=== PATIENT | male | born 1990 | race Hispanic/Latino ===

== ENCOUNTER 2017-10-15 11:41 | Inpatient (IN) | payer OTHER, SELFPAY ==
[2017-10-15] MEDS ORDERED: Nitroglycerin 2% Ointment 1 INCH/1 GM Packet ONE (12:21)
[2017-10-15 12:39] LABS: #Basophils 0.1 thou/uL (0.0-0.2); #Eosinphils 0.2 thou/uL (0.0-0.7); #Lymphocytes 1.5 thou/uL (1.20-3.40); #Monocytes 0.7 thou/uL (0.11-0.59); #Neutrophils 10.7 thou/uL (1.40-6.50); %Eosinophils 1.8 % (0.0-10.0); %Lymphocytes 11.6 % (21.0-51.0); %Neutrophils 80.6 % (42.0-75.0); Hemoglobin 14.9 g/dL (14.0-18.0); Mean Corpuscular HGB CONC 35.2 g/dL (32.0-36.0); Mean Corpuscular Volume 85.1 fl (80.0-94.0); Mean Platelet Volume 9.8 fL (7.4-10.4); Platelet Count 273 thou/uL (130-400); RBC Distribution Width 11.5 % (11.5-14.5); Red Blood Cell (RBC) Count 4.97 mill/uL (4.70-6.10); White Blood Cell (WBC) Count 13.2 thou/uL (4.8-10.8)
--- NOTE | 2017-10-15 12:43 | RAD ---
CHEST 2 VIEWS: HISTORY: Cough. Dyspnea. FINDINGS: Cardiac silhouette is unremarkable. Pulmonary vasculature within normal limits. Very subtle patchy infiltrate projects over the right posterior lung base without obscuration of the hemidiaphragm. No significant pleural fluid. No evidence of pneumothorax. IMPRESSION: Subtle right posterior basilar infiltrate. Clinical correlation regarding other signs and symptoms o f right basilar pneumonitis is required. Please consider radiographic followup after medical treatme nt to evaluate for clearing. POS: [facility]
[2017-10-15 12:57] LABS: ALT (SGPT) 12 U/L (8-55); AST (SGOT) 16 U/L (5-34); Albumin 3.7 g/dL (3.5-5.0); Alkaline Phosphatase 98 U/L (40-150); Anion Gap 13 mmol/L (10-20); BUN (Urea Nitrogen) 18 mg/dL (8.9-20.6); Bilirubin, Total 0.9 mg/dL (0.2-1.2); CK (CPK) 427 U/L (30-200); Calc. Creatinine Clearance 0 mL/min (70-130); Calcium 8.6 mg/dL (7.8-10.44); Carbon Dioxide 22 mmol/L (22-29); Chloride 108 mmol/L (98-107); Estimated GFR-MDRD 27; Globulin 2.8 g/dL (2.4-3.5); Glucose 89 mg/dL (70-105); Lipase 51 U/L (8-78); Potassium 3.7 mmol/L (3.5-5.1); Protein, Total 6.5 g/dL (6.0-8.3); Sodium 139 mmol/L (136-145)
[2017-10-15 12:58] LABS: CKMB 1.4 ng/mL (0-6.6); Troponin I Less than 0.010 ng/mL (< 0.028)
[2017-10-15] MEDS ORDERED: niCARdipine 20MG In NaCl 0 MG/0 ML BAG ONE (13:08)
[2017-10-15] MEDS ORDERED: Labetalol HCl 100 MG/20 ML VIAL ONE (13:14)
[2017-10-15 15:18] VITALS: BMI 27.9
--- NOTE | 2017-10-15 15:19 | PDOC.FPRHP ---
- History of Present Illness Chief Complaint: CP, SOB History of Present Illness: Patient is a 27yo M with no PMH who recently got released from [facility] 3 months ago who presents with 5 day hx of productive cough with brown sputum, SOB, and pleuritic chest pain. He reports subjective fevers at home with chills and night sweats. He denies hemoptysis. He denies sick contacts and states he received all childhood vaccines. He also reports poor PO intake and 2-3 day hx of N/V but able to keep some liquids down. He reports urinating normally without hx of kidney disease. On arrival to outside facility had BP in 170's/ 130's and all other vs wnl. He has no hx of HTN but has mom with HTN. ED Course: He received 20mg Labetalol, 750mg Levaquin, 1 duoneb, 325mg ASA, 1L NS, and nitro paste in outside facility. They did a CXR that showed possible R basilar infiltrate. 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 - Review of Systems General: reports: fever/chills, weight/appetite/sleep changes, night sweats, fatigue Eyes: denies: eye pain, vision changes ENT: denies: nasal congestion, rhinorrhea Respiratory: reports: cough, shortness of breath Cardiovascular: reports: chest pain. denies: palpitation, edema Gastrointestinal: reports: nausea, vomiting. denies: diarrhea, constipation, abdominal pain Genitourinary: denies: incontinence, dysuria Skin: denies: rashes, lesions Musculoskeletal: denies: pain, tenderness Neurological: reports: other (reports MOLINA). denies: numbness, syncope Psychological: denies: anxiety, depression - Vital signs BP: 171/112 HR: 83 RR: 18 Tmax: 96.7 Pox: 99% on RA Wt: 90.8kg - Physical Exam Constitutional: NAD, awake, alert and oriented, well developed HEENT: normocephalic and atraumatic, EOMI, grossly normal vision, grossly normal hearing, normal nasal mucosa, oropharynx clear -HEENT: dry MM Neck: supple, no LAD Chest: no-tender to palpation Heart: RRR, normal S1/S2, no murmurs/rubs/gallops Lungs: no respiratory distress, good air movement, no wheezing -Lungs: very slight RLL crackles with no egophany Abdomen: soft, non-tender, bowel sounds present Musculoskeletal: normal structure, ROM grossly normal Neurological: no focal deficit Skin: no rash/lesions, capillary refill <2 seconds -Skin: tattoos that cover >50% of his body surface, no erythema noticed or recent tattoos Heme/Lymphatic: no purpura, no petechia Psychiatric: normal mood and affect FMR H&P: Results - Labs Result Diagrams: 10/16/17 04:36 10/16/17 04:36 Lab results: WBC 13.2 thou/uL (4.8-10.8) H 10/15/17 12:30 Hgb 14.9 g/dL (14.0-18.0) 10/15/17 12:30 Hct 42.3 % (42.0-52.0) 10/15/17 12:30 MCV 85.1 fl (80.0-94.0) 10/15/17 12:30 Plt Count 273 thou/uL (130-400) 10/15/17 12:30 Neutrophils % 80.6 % (42.0-75.0) H 10/15/17 12:30 Sodium 139 mmol/L (136-145) 10/15/17 12:30 Potassium 3.7 mmol/L (3.5-5.1) 10/15/17 12:30 Chloride 108 mmol/L (98-107) H 10/15/17 12:30 Carbon Dioxide 22 mmol/L (22-29) 10/15/17 12:30 BUN 18 mg/dL (8.9-20.6) 10/15/17 12:30 Creatinine 2.79 mg/dL (0.7-1.3) H 10/15/17 12:30 Glucose 89 mg/dL (70-105) 10/15/17 12:30 Lactic Acid 1.4 mmol/L (0.5-2.2) 10/15/17 12:30 Calcium 8.6 mg/dL (7.8-10.44) 10/15/17 12:30 Total Bilirubin 0.9 mg/dL (0.2-1.2) 10/15/17 12:30 AST 16 U/L (5-34) 10/15/17 12:30 ALT 12 U/L (8-55) 10/15/17 12:30 Alkaline Phosphatase 98 U/L (40-150) 10/15/17 12:30 Creatine Kinase 427 U/L (30-200) H 10/15/17 12:30 CK-MB (CK-2) 1.4 ng/mL (0-6.6) 10/15/17 12:30 B-Natriuretic Peptide 74.2 pg/mL (0-100) 10/15/17 12:30 Serum Total Protein 6.5 g/dL (6.0-8.3) 10/15/17 12:30 Albumin 3.7 g/dL (3.5-5.0) 10/15/17 12:30 Lipase 51 U/L (8-78) 10/15/17 12:30 - Radiology Interpretation Chest x-ray Status: image reviewed by me, report reviewed by me Additional comment: R basilar infiltrate FMR H&P: A/P - Problem List (1) Community acquired pneumonia Current Visit: Yes Status: Acute Code(s): J18.9 - PNEUMONIA, UNSPECIFIED ORGANISM (2) Hypertensive urgency Current Visit: Yes Status: Acute Code(s): I16.0 - HYPERTENSIVE URGENCY (3) Cannabis abuse Current Visit: Yes Status: Acute Code(s): F12.10 - CANNABIS ABUSE, UNCOMPLICATED (4) History of tobacco abuse Current Visit: Yes Status: Acute Code(s): Z87.891 - PERSONAL HISTORY OF NICOTINE DEPENDENCE (5) Acute renal failure Current Visit: Yes Status: Acute - Plan CAP - CXR with R basilar infiltrate, subjective fevers at home, ill appearing - procal pending - s/p 1 dose Levaquin in outside ED, will continue Levaquin q24h - blood cx pending - duonebs and O2 prn although has not been hypoxic and is in no distress at this time - s/p 1L NS, will give 1 more L and then LR at 130 Hypertensive Urgency - initially 170's/130's, has a MOLINA at the time of exam but received nitro paste - Hydralazine prn Acute Renal Failure - Calculate FeUrea - IVF - trend Cannabis Abuse - UDS pending - encourage cessation Tobacco Use - quit 2 weeks ago - could have underlying lung disease Hx of incarceration - will evaluate for TB, HIV, HepB, and RPR VTE PPx: SCD Code status: Full Disposition/LOS: Dispo: likely 2 days, d/c once able to transition to PO abx and BP controlled FMR H&P: Upper Level - Pertinent history 27HM presenting to outside ER with 5 day history of cough, subjective fever, decreased PO intake, and malaise. Initially began as a cough that did not improve with cough medicine. He occasionally coughs up green sputum but denies hemoptysis. Endorses two days of nausea with 2-3 episodes of NBNB emesis just prior to admission. Upon ROS, he endorses pain with deep inspiration and headache. Denies sore throat, nasal congestion, chest pain, palpitations. He has no significant PMH, PSH, allergies, and takes no medications at home. 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 He also recently finished a 7 year [facility] sentence in July of 2017. No history of HIV or IV drug use. Evaluated at outside ER and given 1L NS bolus, 750mg Levofloxacin, 20mg of Lopressor, 325 ASA, Duoneb x 1, and NTG paste - Pertinent findings Vitals: 171/112 mmHg , 83 bpm, 18 breaths/m, 99% on RA, 96.7F CXR shows RLL infiltrate Gen: A&Ox3 CV: RRR, no murmurs Resp: CTA-B GI: soft, non tender, non distended skin: dry mucous membranes, normal skin turgor WBC: 14.2 Cr: 2.79 LA: 1.4 CK: 427 - Plan Date/Time: 10/15/17 1518 1. RLL CAP: leukocytosis and worsening clinical course warrants admission for IV antibiotics. CXR shows right basilar infiltrate. Will order a procalcitonin in addition. Blood cultures pending. Continue levofloxacin q24h. Do not expect respiratory issues but Duonebs and oxygen available PRN. He appears dry on admission- bolus another liter of normal saline and continue with maintenance fluids of LR due to hyperchloremia. History of recent incarceration warrants PPD , HIV, RPR, and Hep panel. 2. Hypertensive Urgency: given nitro paste and ASA at outside ER. He denies MOLINA, CP, changes in vision. Pressure has normalized upon recheck. Will have hydralazine available PRN 3. Acute Renal Failure: no personal or family history of kidney disease. He is voided clear urine with no dysuria. Denies drug use. BUN/Cr ratio suggests intrinsic or postrenal etiology. However, given dry MM and little PO intake with vomiting for the last several days he will be bolused another liter and put on maintenance fluids. Fe urea and UDS pending. Continue to trend with daily BMPs. VTE PPx: SCD Code status: Full I, Channing Etienne, have evaluated this patient and agree with findings/plan as outlined by graduate internship resident. Pertinent changes/additions are listed here. Attending Addendum - Attending Addendum Date/Time: 10/15/172016 I personally evaluated the patient and discussed the management with Dr. Bacon. I agree with the History, Examination, Assessment and Plan documented above with any addition or exceptions noted below. The patient presents with a 5 day history of fever, chills, night sweats and shortness of breath. He was noted to have a pneumonia on CXR and creatinine over 2. He will be treated with levaquin, renally dosed and IV fluids. We will check FeNa, PPD, HIV and hepatitis panel. Will check procalcitonin. Pt initially hypoxic at outside ER. Will monitor respiratory status.
[2017-10-15] MEDS ORDERED: Ondansetron ODT 4 MG TAB PO PRN (15:40)
[2017-10-15] MEDS ORDERED: Acetaminophen 325 MG TAB PO PRN (15:40)
[2017-10-15] MEDS ORDERED: Sodium Chloride 0.9% 1,000 ML IV SCH ×2 (15:45→16:15)
[2017-10-15] MEDS: Lactated Ringer's 1,000 ML IV SCH (16:34)
[2017-10-15 17:37] LABS: Troponin I Less than 0.010 ng/mL (< 0.028)
[2017-10-15 17:52] LABS: Syphilis Antibody Nonreactive (Nonreactive); Syphilis Antibody Index 0.02 S/CO (<1.00 Non-Reactive)
[2017-10-15 17:55] LABS: HBCM Index 0.08 S/CO (0-0.79); HBSAB Concentration 5.59 mIU/mL; HBSAg Index 0.32 S/CO (0-0.99); HIV (1/2) Antibody/Antigen Non-Reactive (NonReactive); HIV 1/2 INDEX 0.14 S/CO (<1.00); Hep B Surf AB Non-Reactive (NonReactive); Hep B Surf Ag Non-Reactive S/CO (NonReactive); Hepatitis B Core IGM Abs Non-Reactive (NonReactive)
[2017-10-15] MEDS ORDERED: Nitroglycerin 2% Ointment 1 INCH/1 GM Packet TOP SCH (18:00)
[2017-10-15 18:02] LABS: Bilirubin Negative (Negative); Blood, Urine Small (Negative); Clarity CLEAR (Clear); Glucose, Urine (Dipstick) Negative (Negative); Leukocyte Negative (Negative); Nitrite Negative (Negative); Protein, Urine (Dipstick) 100 mg/dL (Neg-Trace); Specific Gravity, Urine 1.009 (1.002-1.036)
[2017-10-15 18:05] LABS: Bacteria/HPF None Seen HPF (None Seen); Hyaline Casts/LPF 0-3 HYALINE CAST LPF (0-3 Hyaline); Pathc Cast-AUWi Flag 0.29 (0-2.49); Squamous Epithelial None Seen HPF (0-3); WBC/HPF 0-3 HPF (0-3)
[2017-10-15 18:11] LABS: Amphetamine Not Detected (NotDetected); Barbiturates Screen Not Detected (NotDetected); Benzodiazepine Screen Detected (NotDetected); Cocaine Metabolite Screen Not Detected (NotDetected); Medtox Control Line Valid? VALID (VALID); Medtox Reader # READER 1; Methadone Not Detected (NotDetected); Methamphetamine Not Detected (NotDetected); Opiate Screen Detected (NotDetected); Osmolality, Urine 293 mOsm/kg (300-900); Oxycodone Screen Not Detected (NotDetected); Phencyclidine (PCP) Not Detected (NotDetected); THC/Cannabinoid Screen Detected (NotDetected); Tricyclic Screen Not Detected (NotDetected)
[2017-10-15 18:25] LABS: Creatinine, Urine 57.29 mg/dL (63-166)
[2017-10-15 18:26] LABS: Urea Nitrogen, Random Urine 224 mg/dl
[2017-10-15] MEDS: hydrALAZINE 20 MG/ML VIAL SLOW IVP PRN (20:29)
[2017-10-15 21:29] LABS: Troponin I Less than 0.010 ng/mL (< 0.028)
[2017-10-16] MEDS: Lactated Ringer's 1,000 ML IV SCH ×4 (01:50→21:37)
[2017-10-16 05:04] LABS: #Basophils 0.1 thou/uL (0.0-0.2); #Eosinphils 0.3 thou/uL (0.0-0.7); #Monocytes 0.6 thou/uL (0.11-0.59); #Neutrophils 4.8 thou/uL (1.40-6.50); %Basophils 0.8 % (0.0-1.0); %Eosinophils 4.2 % (0.0-10.0); %Lymphocytes 25.8 % (21.0-51.0); %Monocytes 7.4 % (0.0-10.0); %Neutrophils 61.8 % (42.0-75.0); Hemoglobin 13.8 g/dL (14.0-18.0); Mean Corpuscular HGB CONC 33.2 g/dL (32.0-36.0); Mean Corpuscular Hemoglobin 29.5 pg (27.0-31.0); Mean Corpuscular Volume 88.9 fl (80.0-94.0); Mean Platelet Volume 8.2 fL (7.4-10.4); Platelet Count 260 thou/uL (130-400); RBC Distribution Width 12.2 % (11.5-14.5); Red Blood Cell (RBC) Count 4.69 mill/uL (4.70-6.10); White Blood Cell (WBC) Count 7.7 thou/uL (4.8-10.8)
[2017-10-16 05:25] LABS: Anion Gap 10 mmol/L (10-20); BUN (Urea Nitrogen) 18 mg/dL (8.9-20.6); Calc. Creatinine Clearance 53 mL/min (70-130); Calcium 8.2 mg/dL (7.8-10.44); Carbon Dioxide 27 mmol/L (22-29); Chloride 108 mmol/L (98-107); Estimated GFR-MDRD 29; Glucose 77 mg/dL (70-105); Potassium 3.7 mmol/L (3.5-5.1); Sodium 141 mmol/L (136-145)
--- NOTE | 2017-10-16 06:53 | PDOC.FM ---
- Subjective Subjective: Patient feeling much better this morning. No need for o2 overnight. He reports tolerating PO intake well and urinating normally. Overnight BP continued to be high and received one dose of prn Hydralazine. - Objective MAR Reviewed: Yes Vital Signs & Weight: Vital Signs (12 hours) Temp Pulse Resp BP Pulse Ox 10/16/17 04:00 97.8 F 70 16 167/103 H 77 L 10/16/17 00:00 165/105 H 10/15/17 20:29 60 10/15/17 20:16 98.0 F 60 16 100 I&O: 10/14/17 10/15/17 10/16/17 06:59 06:59 06:59 Intake Total 2049 Result Diagrams: 10/16/17 04:36 10/16/17 04:36 <Winnie Bcaon - Last Filed: 10/16/17 07:42> - Objective Vital Signs & Weight: Vital Signs (12 hours) Temp Pulse Resp BP Pulse Ox 10/16/17 12:18 97.8 F 71 17 181/117 H 99 10/16/17 10:45 78 10/16/17 10:12 70 10/16/17 07:35 97.8 F 78 16 96 10/16/17 04:00 97.8 F 70 16 167/103 H 77 L I&O: 10/15/17 10/16/17 10/17/17 06:59 06:59 06:59 Intake Total 2049 Result Diagrams: 10/16/17 04:36 10/16/17 04:36 <Елена Hdz - Last Filed: 10/16/17 15:37> Phys Exam - Physical Examination Constitutional: NAD HEENT: moist MMs, oral pharynx no lesions Respiratory: no wheezing, no rales, clear to auscultation bilateral Cardiovascular: RRR, no significant murmur Gastrointestinal: soft, non-tender, no distention Musculoskeletal: no edema, pulses present Neurological: moves all 4 limbs Psychiatric: A&O x 3 <Winnie Bacon - Last Filed: 10/16/17 07:42> Dx/Plan (1) Community acquired pneumonia Code(s): J18.9 - PNEUMONIA, UNSPECIFIED ORGANISM Status: Acute (2) Hypertensive urgency Code(s): I16.0 - HYPERTENSIVE URGENCY Status: Acute (3) Cannabis abuse Code(s): F12.10 - CANNABIS ABUSE, UNCOMPLICATED Status: Acute (4) History of tobacco abuse Code(s): Z87.891 - PERSONAL HISTORY OF NICOTINE DEPENDENCE Status: Acute (5) Acute renal failure Status: Acute - Plan Plan: CAP - CXR with R basilar infiltrate, subjective fevers at home - procal 0.05, suggesting likely viral source, d/c Abx - blood cx pending - duonebs and O2 prn although has not been hypoxic and is in no distress at this time Hypertensive Urgency - initially 170's/130's - refractory to prns, concern for intrinsic renal disease - no Hx of HTN - continue to monitor Acute Renal Failure - FeNa and FeUrea suggest intrinsic disease - renal u/s pending - 24h urine pending with proteinuria and blood in UA - trend Drug Abuse - UDS positive for opiods, cannabis, and benzodiazepines - denies IV drug use - HIV, RPR and HepB neg Tobacco Use - quit 2 weeks ago - continue cessation Hx of incarceration - PPD pending VTE PPx: SCD Code status: Full <Winnie Bacon - Last Filed: 10/16/17 07:42> (1) Community acquired pneumonia Code(s): J18.9 - PNEUMONIA, UNSPECIFIED ORGANISM Status: Acute (2) Hypertensive urgency Code(s): I16.0 - HYPERTENSIVE URGENCY Status: Acute (3) Cannabis abuse Code(s): F12.10 - CANNABIS ABUSE, UNCOMPLICATED Status: Acute (4) History of tobacco abuse Code(s): Z87.891 - PERSONAL HISTORY OF NICOTINE DEPENDENCE Status: Acute (5) Acute renal failure Status: Acute <Елена Hdz - Last Filed: 10/16/17 15:37> Attending Addendum - Attending Addendum Date/Time: 10/16/17 [id number] I personally evaluated the patient and discussed the management with Dr. Bacon. I agree with the History, Examination, Assessment and Plan documented above with any addition or exceptions noted below. The patient's procal was low. Antibiotics are being discontinued. Pt's breathing is back to normal. His renal function has not significantly improved with fluids. Cr 2.6. Urine studies suggestive of intrinsic renal disease. Getting renal u/s, consulting nephrology, checking additional labs to work-up renal disease. Adjusting bp meds for hypertensive urgency. <Елена Hdz - Last Filed: 10/16/17 15:37>
--- NOTE | 2017-10-16 09:24 | ULT ---
RENAL SONOGRAM WITH DUPLEX EVALUATION: HISTORY: Vascular disease. Renal failure, acute. FINDINGS: Right kidney is 9.6 cm and left is 8.4 cm. Cysts arising from the right kidney measure up to 1.2 cm greatest diameter. No hydronephrosis. The urinary bladder is decompressed and incompletely evaluate d. Good color and spectral Doppler flow are present within the abdominal aorta and renal arteries withou t abnormally elevated peak systolic velocities. Resistive index associated with the arcuate arteries of the right kidney is 0.9 and the left kidney 0 .8. IMPRESSION: 1. No evidence of urinary tract obstruction. No sonographic evidence of renal artery stenosis. 2. Elevated resistive indices associated with the renal arteries is nonspecific, often seen with chr onic medial renal disease. POS: [facility]
[2017-10-16] MEDS: hydrALAZINE 20 MG/ML VIAL SLOW IVP PRN (10:12)
[2017-10-16] MEDS ORDERED: Labetalol HCl 100 MG/20 ML VIAL SLOW IVP PRN (10:21)
[2017-10-16] MEDS ORDERED: NIFEdipine XL 30 MG TAB PO SCH ×2 (10:30)
[2017-10-16] MEDS ORDERED: Labetalol HCl 100 MG/20 ML VIAL SLOW IVP SCH (10:45)
--- NOTE | 2017-10-16 12:10 | RAD ---
TWO VIEWS CHEST: HISTORY: A 27-year-old with a history of opacity, possible pneumonia. FINDINGS: PA and lateral views of the chest were obtained on 10/16/17. Comparison is made to a previous exam fr om 10/15/17. Two views chest demonstrate the lungs to be well aerated. No evidence of active intrathoracic diseas e is seen. No evidence of effusions, pneumonia, or pneumothorax seen. IMPRESSION: Normal 2 views chest with no evidence of acute intrathoracic abnormality seen. No definite evidence of pneumonia seen. Previously noted opacities appear to have improved. POS: [facility]
[2017-10-16 12:25] LABS: Complement-C4 25.5 mg/dL (15-53)
--- NOTE | 2017-10-16 16:19 | CON ---
DATE OF CONSULTATION: 10/16/2017 NEPHROLOGY CONSULTATION REASON FOR CONSULTATION: Elevated creatinine and hyponatremia. HISTORY OF PRESENT ILLNESS: This is a very pleasant 27-year-old gentleman who presented to the [facility] with increasing shortness of breath, nausea, vomiting, and leg swelling for the last 3-4 days. T he patient's creatinine was 2.6. No prior creatinine was available. The patient has no known kidney disease. Denies any NSAID or any other nephrotoxic medications. The patient's creatinine was 2.79 on admission and decreased to 2.6 with hydration. PAST MEDICAL HISTORY: None. SOCIAL ECONOMIC HISTORY: Positive for drug use. FAMILY HISTORY: Negative for ESRD. ALLERGIES: Reviewed. HOME MEDICATIONS: Reviewed. REVIEW OF SYSTEMS: Fifteen 10-point review of systems was performed and negative except positives no carlos above. General: Weakness-. Head: Headache-. Neck: No swelling or lumps. Nose: No epistaxis or dischar ge. Eyes: No diplopia or pain. Respiratory: Dyspnea-. Cardiovascular: Chest pain-. Gastrointes tinal: Nausea-. Genitourinary/Gynecology: Hematuria-. Musculoskeletal: No joint pain. Neuropsyc hiatric Systems: No suicidal ideation. No ideation. Skin: Denies any rash or ulcer. Constitution al: No fever or chills. PHYSICAL EXAMINATION: GENERAL: Patient is awake, alert. VITAL SIGNS: Afebrile, pulse 70, breathing at 16, blood pressure is 165/105. GENERAL APPEARANCE AND MENTAL STATUS: Fair. HEAD/NECK: Normocephalic. Atraumatic. EYES: EOMI. No deformity. EARS: Clear. No ulcers. NOSE: Intact. No lesions. MOUTH: Clear. No discharge. THROAT: Clear. No exudate. LUNGS: Clear. No crackles. CARDIAC: S1, S2. No rub. ABDOMEN: Benign. BS+. GENITALIA/RECTUM: Canas absent. BACK/EXTREMITIES: Edema 0+ Ulcer- NEUROLOGICAL: Alert and motor intact. SKIN: Rash- Bruise- LYMPHATICS: Edema- Ulcer- LABORATORY DATA: Creatinine 2.6. Urine protein present, blood present. Renal imaging showed chroni c kidney disease. ASSESSMENT AND RECOMMENDATIONS: 1. Acute kidney injury with chronic kidney disease, etiology unclear. I will order a serological te sting for glomerulonephritis and proteinuria. A 24-hour urine protein in progress. 2. Hypertension. Would recommend decreasing IV fluid and increase nifedipine to 60 mg daily. No in dication for dialysis at this time.
[2017-10-16] MEDS ORDERED: Lactated Ringer's 1,000 ML IV SCH (22:45)
[2017-10-17 05:07] LABS: #Basophils 0.1 thou/uL (0.0-0.2); #Eosinphils 0.5 thou/uL (0.0-0.7); #Lymphocytes 2.4 thou/uL (1.20-3.40); #Monocytes 0.6 thou/uL (0.11-0.59); #Neutrophils 4.7 thou/uL (1.40-6.50); %Basophils 0.7 % (0.0-1.0); %Eosinophils 5.6 % (0.0-10.0); %Lymphocytes 29.2 % (21.0-51.0); %Monocytes 6.9 % (0.0-10.0); %Neutrophils 57.7 % (42.0-75.0); Hemoglobin 14.3 g/dL (14.0-18.0); Mean Corpuscular HGB CONC 34.4 g/dL (32.0-36.0); Mean Corpuscular Hemoglobin 30.5 pg (27.0-31.0); Mean Corpuscular Volume 88.8 fl (80.0-94.0); Mean Platelet Volume 8.5 fL (7.4-10.4); Platelet Count 254 thou/uL (130-400); RBC Distribution Width 12.2 % (11.5-14.5); White Blood Cell (WBC) Count 8.1 thou/uL (4.8-10.8)
[2017-10-17 05:12] LABS: Anion Gap 11 mmol/L (10-20); BUN (Urea Nitrogen) 19 mg/dL (8.9-20.6); Calc. Creatinine Clearance 57 mL/min (70-130); Calcium 8.3 mg/dL (7.8-10.44); Carbon Dioxide 24 mmol/L (22-29); Chloride 106 mmol/L (98-107); Estimated GFR-MDRD 31; Glucose 109 mg/dL (70-105); Potassium 3.4 mmol/L (3.5-5.1); Sodium 138 mmol/L (136-145)
--- NOTE | 2017-10-17 06:21 | PDOC.FM ---
- Subjective Subjective: Patient reports he feels all better in regard to his respiratory infection. Despite that, he continues to have elevated BP into the 160's/100's. He denies any sx of elevated BP. No N/V, MOLINA, dizziness, change in vision, and no change in urination. - Objective MAR Reviewed: Yes Vital Signs & Weight: Vital Signs (12 hours) Temp Pulse Resp BP Pulse Ox 10/17/17 04:00 98.1 F 72 20 154/103 H 98 10/16/17 23:43 98.6 F 78 20 136/95 H 98 10/16/17 20:00 98.5 F 82 20 157/102 H 98 I&O: 10/15/17 10/16/17 10/17/17 06:59 06:59 06:59 Intake Total 2049 412 Output Total 3650 Balance 2049 47 Result Diagrams: 10/17/17 04:33 10/17/17 04:33 Phys Exam - Physical Examination Constitutional: NAD HEENT: moist MMs Respiratory: no wheezing, no rales, clear to auscultation bilateral Cardiovascular: RRR, no significant murmur Gastrointestinal: soft, non-tender trace edema Neurological: moves all 4 limbs Psychiatric: A&O x 3 Skin: cap refill <2 seconds Dx/Plan (1) Community acquired pneumonia Code(s): J18.9 - PNEUMONIA, UNSPECIFIED ORGANISM Status: Acute (2) Hypertensive urgency Code(s): I16.0 - HYPERTENSIVE URGENCY Status: Acute (3) Cannabis abuse Code(s): F12.10 - CANNABIS ABUSE, UNCOMPLICATED Status: Acute (4) History of tobacco abuse Code(s): Z87.891 - PERSONAL HISTORY OF NICOTINE DEPENDENCE Status: Acute (5) Acute renal failure Status: Acute - Plan Plan: Hypertensive Urgency - initially 170's/130's now 150's/100's - increase Nifedipine to 60mg daily - refractory to prns, concern for intrinsic renal disease - no Hx of HTN - continue to monitor Acute Renal Failure - FeNa and FeUrea suggest intrinsic disease - renal u/s wnl - 24h urine pending with proteinuria and blood in UA - Cr 2.65, 2.46 - antiGBM, ANCA studies, TANO, and serum/urine IEP studies pending - consider toxic exposure with + UDS although does not appear to be ATN - nephro on the case, appreciate recs CAP, improving - CXR with R basilar infiltrate, subjective fevers at home - repeat CXR with no PNA - procal 0.05, suggesting likely viral source, continue supportive care - blood cx NGTD Hypokalemia - replace and recheck Drug Abuse - UDS positive for opiods, cannabis, and benzodiazepines - denies IV drug use - HIV, RPR and HepB neg Tobacco Use - quit 2 weeks ago - continue cessation Hx of incarceration - PPD pending VTE PPx: SCD Code status: Full Dispo: likely d/c once diagnosis is made in regard to kidney failure, treatment plan can be assessed, and blood pressures are wnl
[2017-10-17] MEDS ORDERED: Potassium Chloride 20 MEQ TAB PO SCH (06:30)
[2017-10-17] MEDS ORDERED: NIFEdipine XL 60 MG TAB PO SCH (09:00)
[2017-10-17] MEDS ORDERED: NIFEdipine XL 30 MG TAB PO SCH (09:00)
[2017-10-17] MEDS ORDERED: Tuberculin PPD 0.1 ML VIAL I-DERMAL SCH (09:30)
[2017-10-17 09:44] LABS: ANA Symphony (Qualitative) Negative (Negative); EliA Vaculitis New Method **** NEW METHOD ****; Glomerular Basemt Membrane Ab Less than 1.9 EliAU/mL (<7 Negative); dsDNA IgG Antibody 0.9 IU/mL (<10 Negative)
[2017-10-17 10:26] LABS: Collection Duration 24 hrs; Urine Total Volume 4550 mL (800-1800)
[2017-10-17 10:45] LABS: Protein - 24 Hr 5096 mg/24 hr (Less than 300); Protein, Urine 112 mg/dL (1-14)
[2017-10-17 11:28] LABS: Hep C IgG Ab Non-Reactive (NonReactive); Hep C Index 0.06 S/CO (0-0.79)
[2017-10-17 13:00] VITALS: TEMP 98
[2017-10-17] MEDS ORDERED: Carvedilol 6.25 MG TAB PO SCH ×2 (13:15→17:00)
[2017-10-17 14:54] VITALS: BP 153/101
--- NOTE | 2017-10-17 15:29 | ADD-PRG ---
ADDENDUM This is an addendum to the note of Dr. Winnie Bacon. Mr. Vásquez is a pleasant 27-year-old male who was admitted initially with a possible commun ity-acquired pneumonia which is likely more consistent with a viral pneumonia. He was also having el evations of blood pressure and CKD. His CKD is currently being worked up by Dr. Nelson and may be rela carlos to Mr. Vásquez's hypertension. In the event, clinically he feels much better and will likely be discharged later today or tomorrow. We will continue to monitor and treat his blood pressure as an o utpatient and have emphasized the importance of followup.
--- NOTE | 2017-10-18 03:38 | PRG ---
DATE OF SERVICE: 10/17/2017 SUBJECTIVE: Patient was seen and examined at bedside and overnight events noted. Patient denies any shortness of breath or chest pain or palpitation. No history of nausea or vomiting or diarrhea or f ever or chills or cramps. OBJECTIVE: GENERAL: This is a well-built male in no apparent distress. VITAL SIGNS: , blood pressure 153/101. HEENT: Atraumatic, normocephalic. Oral mucosa is moist. NECK: Supple. CARDIOVASCULAR: S1, S2 heard. Rate and rhythm regular. RESPIRATORY: Clear to auscultation. GASTROINTESTINAL: Abdomen is soft. MUSCULOSKELETAL: No tenderness. No edema. DERMATOLOGIC: No skin rash. NEUROLOGIC: Alert and awake and oriented x3. No focal neurologic deficits. Moving all the extremit ies. PSYCHIATRIC: Mood and affect normal. LABORATORY DATA: Potassium is 3.4, BUN is 19, creatinine is 2.4. Urine 24-hour had 5 grams of prote in. ASSESSMENT AND PLAN: 1. Acute kidney injury, most likely chronic kidney disease versus acute kidney injury. 2. Proteinuria. New onset, newly diagnosed, need a biopsy, but will wait for a few weeks to monitor the progress of acute kidney injury. Avoid aspirin. 3. Hypertension. We will add Coreg. 4. Edema, controlled. The patient needs workup for proteinuria, so far is negative. SPEP is pending. Follow up with Dr. Vivienne nova in 1 week and arrange for biopsy once seen as outpatient. Await for acute kidney injuries in 2-3 weeks and need to repeat urine studies and follow up results of SPEP and awaiting biopsy. We will f jessi. The patient was advised to follow up with Dr. Nelson in the clinic.
[2017-10-18 14:22] LABS: IgA - Total IgA (Sendout) 427 mg/dL (90-386); Immunoglobulin - G (Sendout) 706 mg/dL (700-1600); Immunoglobulin - M (Sendout) 100 mg/dL (20-172)
[2017-10-19 15:25] LABS: Cytoplasmic (C-ANCA) <1:20 titer (Neg:<1:20); Myeloperoxidase AutoAbs <9.0 U/mL (0.0-9.0); Perinuclear (P-ANCA) <1:20 titer (Neg:<1:20); Proteinase-3 AutoAbs Less than 3.5 U/mL (0.0-3.5)
[2017-10-19 15:25] LABS: Cytoplasmic (C-ANCA) <1:20 titer (Neg:<1:20); Perinuclear (P-ANCA) <1:20 titer (Neg:<1:20)
== END 2017-10-17 16:06 | disposition home or self-care (01) | DRG 194 ==
LOC: SCSER 11:41 → 2NO 14:34
PROVIDERS: ADMIT Family Medicine; ATTEND Family Medicine
DX: J18.9 Pneumonia, unspecified organism (principal); N17.9 Acute kidney failure, unspecified; N18.9 Chronic kidney disease, unspecified; R80.9 Proteinuria, unspecified; R60.9 Edema, unspecified; I16.0 Hypertensive urgency; F12.10 Cannabis abuse, uncomplicated; Z87.891 Personal history of nicotine dependence; I12.9 Hypertensive chronic kidney disease with stage 1 through stage 4 chronic kidney disease, or unspecified chronic kidney disease
CPT/HCPCS: 36415; 71046; 76700; 76770; 80048; 80053; 80306; 81003; 81015; 82553; 82570; 83516; 83520; 83605; 83690; 83880; 83930; 83935; 84145; 84156; 84300; 84484; 84540; 85025; 86038; 86160; 86225; 86256; 86334; 86335; 86480; 86705; 86706; 86780; 86803; 87040; 87340; 87389; 93005; 96361; 96365; 96375; 96376; A4216; J0360; J1956; J7620; Q0162

== ENCOUNTER 2017-10-30 20:42 | Inpatient (IN) | payer SELFPAY ==
[2017-10-30 21:16] LABS: #Basophils 0.1 thou/uL (0.0-0.2); #Eosinphils 0.3 thou/uL (0.0-0.7); #Lymphocytes 1.7 thou/uL (1.20-3.40); #Monocytes 0.5 thou/uL (0.11-0.59); #Neutrophils 6.3 thou/uL (1.40-6.50); %Basophils 1.1 % (0.0-1.0); %Eosinophils 3.2 % (0.0-10.0); %Lymphocytes 18.7 % (21.0-51.0); %Monocytes 5.8 % (0.0-10.0); %Neutrophils 71.2 % (42.0-75.0); Mean Corpuscular HGB CONC 33.1 g/dL (32.0-36.0); Mean Corpuscular Hemoglobin 28.7 pg (27.0-31.0); Mean Corpuscular Volume 86.8 fL (78.0-98.0); Platelet Count 296 thou/uL (130-400); RBC Distribution Width 12.2 % (11.5-14.5); Red Blood Cell (RBC) Count 5.24 mill/uL (4.70-6.10); White Blood Cell (WBC) Count 8.9 thou/uL (4.8-10.8)
[2017-10-30 21:33] LABS: ALT (SGPT) 13 U/L (8-55); AST (SGOT) 14 U/L (5-34); Albumin 3.8 g/dL (3.5-5.0); Alkaline Phosphatase 97 U/L (40-150); Anion Gap 13 mmol/L (10-20); BUN (Urea Nitrogen) 23 mg/dL (8.9-20.6); Bilirubin, Total 0.7 mg/dL (0.2-1.2); Calc. Creatinine Clearance 0 mL/min (70-130); Calcium 8.7 mg/dL (7.8-10.44); Carbon Dioxide 22 mmol/L (22-29); Chloride 106 mmol/L (98-107); Estimated GFR-MDRD 25; Glucose 144 mg/dL (70-105); Potassium 3.8 mmol/L (3.5-5.1); Protein, Total 6.8 g/dL (6.0-8.3); Sodium 137 mmol/L (136-145)
[2017-10-30 21:59] LABS: Troponin I Less than 0.010 ng/mL (< 0.028)
[2017-10-30] MEDS ORDERED: Labetalol HCl 100 MG/20 ML VIAL ONE (22:41)
[2017-10-30] MEDS ORDERED: Acetaminophen 500 MG TAB ONE (22:41)
--- NOTE | 2017-10-30 22:49 | CT ---
CT BRAIN WITHOUT CONTRAST: History: Syncope. Headache. Nausea. Decreased sensation to the right lower extremity and left side of the face. FINDINGS: Comparison made with exam of 07-07-12. No evidence of acute infarct, hemorrhage, midline shift, or abnormal extraaxial fluid collections are seen. The ventricular size is normal and the basilar cisterns patent. The bony calvarium is intact. The visualized paranasal sinuses and mastoid air cells are well aerated. IMPRESSION: No CT evidence of acute intracranial process. POS: [facility]
[2017-10-30 22:55] LABS: Bilirubin Negative (Negative); Blood, Urine Small (Negative); Clarity CLEAR (Clear); Glucose, Urine (Dipstick) Negative (Negative); Leukocyte Negative (Negative); Nitrite Negative (Negative); Protein, Urine (Dipstick) 300 mg/dL (Neg-Trace); Specific Gravity, Urine 1.012 (1.002-1.036); Urobilinogen 0.2 mg/dL (0.2-1.0); pH, Urine 6.5 (5.0-9.0)
[2017-10-30 22:57] LABS: Bacteria/HPF None Seen HPF (None Seen); Hyaline Casts/LPF 0-3 HYALINE CAST LPF (0-3 Hyaline); Pathc Cast-AUWi Flag 0.29 (0-2.49); Squamous Epithelial None Seen HPF (0-3); WBC/HPF 0-3 HPF (0-3)
[2017-10-30 23:02] LABS: Medtox Reader # READER 4
[2017-10-30 23:03] LABS: Amphetamine Not Detected (NotDetected); Barbiturates Screen Not Detected (NotDetected); Benzodiazepine Screen Detected (NotDetected); Cocaine Metabolite Screen Not Detected (NotDetected); Medtox Control Line Valid? VALID (VALID); Methadone Not Detected (NotDetected); Methamphetamine Not Detected (NotDetected); Opiate Screen Not Detected (NotDetected); Oxycodone Screen Not Detected (NotDetected); Phencyclidine (PCP) Not Detected (NotDetected); THC/Cannabinoid Screen Detected (NotDetected); Tricyclic Screen Not Detected (NotDetected)
--- NOTE | 2017-10-30 23:54 | PDOC.FPRHP ---
- History of Present Illness Chief Complaint: syncope History of Present Illness: 27 yo M wonunu recently dx of ckd thought to be 2/2 IgA nephropathy presents for evaluation of syncopal episodes at home. Pt reports this am he was laying in bed and tried to get up at which point he became weak and fell to the ground, but denied LOC at that time. Later, pt took an unknown medication from his brother for a persistent headache and went to sleep for "a while." A few hours after waking up the pt was in his bathroom and had a syncopal episode where his brother reported he completely lost consciousness and was not conscious for 3-5 minutes. He was then taken into [facility] ER for further evaluation and does not remember anything after falling until waking up on the ride to the hospital. He denies recent illness, fever, chills, sweats, cp, sob, congetsion, fever, chills, vomiting diarrhea and constipation. Does report some rt LE numbness and tingling; however this is a chronic problem that has been occurring since he was released from [facility]. Importantly, pt has not filled his discharge medications from his last hospitalization and has been trying to medicate his protein losing nephropathy with pedialyte and protein shakes. He also denies drug use although UDS done in ER is positive for cannabinoids and benzos. - Allergies/Adverse Reactions Allergies Allergy/AdvReac Type Severity Reaction Status Date / Time No Known Drug Allergies Allergy Verified 10/16/17 23:40 - Home Medications Medication Instructions Recorded Confirmed Type Carvedilol [Coreg] 12.5 mg PO BID-WM #60 tab 10/17/17 10/31/17 Rx NIFEdipine [Procardia XL] 60 mg PO DAILY #30 tab 10/17/17 10/31/17 Rx - History PMHx: CKD likely 2/2 IgA nephropathy, HTN PSHx: Hand surgery FHx: None Social: Denies tobacco, alcohol and drugs although UDS positive for cannabinoids and benzos - Review of Systems General: denies: fever/chills, weight/appetite/sleep changes, night sweats, fatigue Eyes: denies: eye pain, vision changes ENT: denies: nasal congestion, rhinorrhea Respiratory: denies: cough, congestion, shortness of breath Cardiovascular: denies: chest pain, palpitation, edema, orthopnea Gastrointestinal: reports: nausea. denies: vomiting, diarrhea, constipation, abdominal pain, GI bleeding Genitourinary: denies: dysuria, polyuria Skin: denies: rashes, lesions Musculoskeletal: reports: other (Painless bump rt groin). denies: pain, tenderness Neurological: reports: numbness (RLE, currently resolved and chronic), syncope. denies: seizure, weakness - Vital signs BP: 161/109 HR: 79 RR: 20 Tmax: 97.9 Pox: 98% on RA Wt: 81.65 - Physical Exam Constitutional: NAD, awake, alert and oriented HEENT: normocephalic and atraumatic, PERRLA, EOMI, grossly normal vision, grossly normal hearing, MMM, other (conjunctival injection b/l left > than rt) Neck: supple, FROM, trachea midline, no LAD, no JVD, no thyromegaly Heart: RRR, normal S1/S2, no murmurs/rubs/gallops, pulses present, no edema Lungs: CTAB, no respiratory distress, good air movement, no rales/rhonchi, no wheezing, no retractions Abdomen: soft, non-tender, bowel sounds present, no masses/distention Musculoskeletal: normal structure, normal tone Neurological: no focal deficit, CN II-XII intact Skin: no rash/lesions, capillary refill <2 seconds Heme/Lymphatic: no unusual bruising or bleeding, no purpura, no petechia Psychiatric: normal mood and affect FMR H&P: Results - Labs Result Diagrams: 10/31/17 04:26 10/31/17 04:26 Lab results: WBC 8.9 thou/uL (4.8-10.8) 10/30/17 21:04 Hgb 15.0 g/dL (14.0-18.0) 10/30/17 21:04 Hct 45.5 % (42.0-52.0) 10/30/17 21:04 MCV 86.8 fL (78.0-98.0) 10/30/17 21:04 Plt Count 296 thou/uL (130-400) 10/30/17 21:04 Neutrophils % 71.2 % (42.0-75.0) 10/30/17 21:04 Sodium 137 mmol/L (136-145) 10/30/17 21:04 Potassium 3.8 mmol/L (3.5-5.1) 10/30/17 21:04 Chloride 106 mmol/L (98-107) 10/30/17 21:04 Carbon Dioxide 22 mmol/L (22-29) 10/30/17 21:04 BUN 23 mg/dL (8.9-20.6) H 10/30/17 21:04 Creatinine 3.03 mg/dL (0.6-1.3) H 10/30/17 21:04 Glucose 144 mg/dL (70-105) H 10/30/17 21:04 Calcium 8.7 mg/dL (7.8-10.44) 10/30/17 21:04 Total Bilirubin 0.7 mg/dL (0.2-1.2) 10/30/17 21:04 AST 14 U/L (5-34) 10/30/17 21:04 ALT 13 U/L (8-55) 10/30/17 21:04 Alkaline Phosphatase 97 U/L (40-150) 10/30/17 21:04 Creatine Kinase 117 U/L (30-200) 10/30/17 21:03 CK-MB (CK-2) 1.0 ng/mL (0-6.6) 10/30/17 21:03 Serum Total Protein 6.8 g/dL (6.0-8.3) 10/30/17 21:04 Albumin 3.8 g/dL (3.5-5.0) 10/30/17 21:04 Urine Ketones Negative mg/dL (Negative) 10/30/17 22:30 Urine Blood Small (Negative) H 10/30/17 22:30 Urine Nitrite Negative (Negative) 10/30/17 22:30 Ur Leukocyte Esterase Negative (Negative) 10/30/17 22:30 Urine RBC 7-10 HPF (0-3) H 10/30/17 22:30 Urine WBC 0-3 HPF (0-3) 10/30/17 22:30 Ur Squamous Epith Cells None Seen HPF (0-3) 10/30/17 22:30 Urine Bacteria None Seen HPF (None Seen) 10/30/17 22:30 - EKG Interpretation EKG: NSR rate 83 - Radiology Interpretation CT scan - head Status: report reviewed by me (No acute findings) FMR H&P: A/P - Problem List (1) Syncope Current Visit: Yes Status: Acute Code(s): R55 - SYNCOPE AND COLLAPSE (2) Hypertensive urgency Current Visit: No Status: Acute Code(s): I16.0 - HYPERTENSIVE URGENCY (3) Acute on chronic kidney failure Current Visit: Yes Status: Acute Code(s): N17.9 - ACUTE KIDNEY FAILURE, UNSPECIFIED; N18.9 - CHRONIC KIDNEY DISEASE, UNSPECIFIED (4) Substance abuse Current Visit: Yes Status: Acute Code(s): F19.10 - OTHER PSYCHOACTIVE SUBSTANCE ABUSE, UNCOMPLICATED - Plan 1) Syncope: - CT head negative for acute intracranial process - will admit to tele for further workup and continuous cardiac monitoring as this is more likely source - check orthostatics - prn hydralazine for BP>220/110 - consider starting lisinopril in am - given syncopal episode and complaint of numbness will allow for permissive htn until am, although TIA is less likely given chronic nature of RLE symptoms - CTA head and neck - ECHO in am 2) HTN urgency: allow for permissive htn until tomorrow afternoon, prn hydralazine for BP >220/110 3) Acute on chronic renal failure: -presumptive IgA nephropathy, consult nephro in am 4) Polysubstance abuse: disability counselor on cessation 5) PPX: SCDs and Tums prn for dvt and GI ppx resepctively 6) Code status: full code, discussed with pt at bedside Disposition/LOS: stable, >/= 2 days FMR H&P: Upper Level - Plan Date/Time: 10/30/17 4257 PCP: none Pt is a 27 yo M w/ PMH of presumptive IgA nephropathy, htn-non compliant with meds, drug use, tobacco abuse who presents to ED with hx of syncopal episodes. He was recently on our service for acute renal failure on top of CKD, htn. Per nephrology, he was to have a renal biopsy done several weeks after attempted resolution of TARAH. His renal function is worse from discharge, urine has blood and heavy proteinuria. Htn on admission to 161/109 General: AOx3, appears in no acute distress, appropriately dressed, groomed, appears approximate stated age HEENT: moist mucus membranes, no pharyngeal edema Cardiac: RRR, no murmurs, gallops, clicks or rubs Lungs: CTA, no wheezes, rales, rubs, rhonchi Abdomen: soft, non TTP, normoactive bs, no abdominal mass or pulsation Extremities: No TTP, no swelling, cyanosis, no pitting edema 1. Syncope w/ sensory changes-admit, stroke, CT neg, obtain CTA head/neck to r /o carotid dissection, obtain MRI, EKG, orthostatics, obtain echo 2. Presumptive IgA nephropathy- consult nephrology 3. Htn urgency- will need permissive htn with CVA type symptoms reported 4. Drug abuse-benzos and cannabis, discussed cessation 5. Tobacco abuse-discussed cessation 6. DVT ppx I, Ariela Ortiz, have evaluated this patient and agree with findings/plan as outlined by Dr. Dominguez. Pertinent changes/additions are listed here. Attending Addendum - Attending Addendum Date/Time: 10/31/17 8047 I personally evaluated the patient and discussed the management with Dr. Dominguez. I agree with the History, Examination, Assessment and Plan documented above with any addition or exceptions noted below. In light of severe HTN, with neurologic features, an MRI for TIA is appropriate , particularly the diffusion weighted images. CTA may not be possible with his kidney disease and risk for progression. Will titrate daily BP meds beginning today.
[2017-10-31] MEDS ORDERED: hydrALAZINE 20 MG/ML VIAL ONE (00:20)
[2017-10-31] MEDS ORDERED: Sodium Chloride 0.9% 1,000 ML IV SCH ×2 (01:30→09:15)
[2017-10-31] MEDS ORDERED: Calcium Carbonate 500 MG ChewTAB PO PRN (01:55)
[2017-10-31] MEDS ORDERED: Ondansetron HCl/PF 4 MG/2 ML Vial IVP PRN (01:55)
[2017-10-31 05:37] LABS: #Basophils 0.1 thou/uL (0.0-0.2); #Eosinphils 0.4 thou/uL (0.0-0.7); #Lymphocytes 2.5 thou/uL (1.20-3.40); #Monocytes 0.7 thou/uL (0.11-0.59); #Neutrophils 6.6 thou/uL (1.40-6.50); %Basophils 0.9 % (0.0-1.0); %Eosinophils 3.7 % (0.0-10.0); %Lymphocytes 24.5 % (21.0-51.0); %Monocytes 7.1 % (0.0-10.0); %Neutrophils 63.7 % (42.0-75.0); Hemoglobin 14.1 g/dL (14.0-18.0); Mean Corpuscular HGB CONC 33.2 g/dL (32.0-36.0); Mean Corpuscular Hemoglobin 28.9 pg (27.0-31.0); Mean Corpuscular Volume 87.1 fL (78.0-98.0); Mean Platelet Volume 8.5 fL (7.4-10.4); Platelet Count 276 thou/uL (130-400); RBC Distribution Width 12.2 % (11.5-14.5); Red Blood Cell (RBC) Count 4.87 mill/uL (4.70-6.10); White Blood Cell (WBC) Count 10.3 thou/uL (4.8-10.8)
[2017-10-31 05:58] LABS: Anion Gap 13 mmol/L (10-20); BUN (Urea Nitrogen) 22 mg/dL (8.9-20.6); Calc. Creatinine Clearance 52 mL/min (70-130); Calcium 8.7 mg/dL (7.8-10.44); Carbon Dioxide 23 mmol/L (22-29); Cardiac Risk 4.6 (Less than 4.5); Chloride 106 mmol/L (98-107); Cholesterol 199 mg/dl (< 200 Desired); Estimated GFR-MDRD 28; Glucose 93 mg/dL (70-105); HDL Cholesterol 43 mg/dL (>60 Neg Risk); LDL Cholesterol, Calculated 119 mg/dL; Potassium 3.1 mmol/L (3.5-5.1); Sodium 139 mmol/L (136-145); Triglycerides 185 mg/dL (Less than 150)
[2017-10-31] MEDS ORDERED: Prevnar 13-Val Conj/PF 0.5 ML SYRINGE IM ONE (09:00)
[2017-10-31] MEDS ORDERED: Carvedilol 6.25 MG TAB PO SCH (09:30)
[2017-10-31] MEDS ORDERED: NIFEdipine XL 30 MG TAB PO SCH (09:30)
[2017-10-31 10:43] LABS: PTT 27.1 SEC (22.9-36.1); Prothrombin Time 13.5 SEC (12.0-14.7)
--- NOTE | 2017-10-31 10:46 | CON ---
DATE OF CONSULTATION: 10/31/2017 CONSULTING PHYSICIAN: Dr. Bruno. REASON FOR CONSULTATION: Chronic kidney disease, hypertension, and proteinuria. REASON FOR ADMISSION: Syncope. HISTORY OF PRESENT ILLNESS: A 27-year-old male with history of CKD, hypertension, and possible IgA n ephropathy, who came to the hospital with sudden syncope and tingling. He was found to have had some workup, which is negative. He is feeling a little bit better. He was hypertensive and he was not t aking any medications. No nausea or vomiting. No chest pain. PAST MEDICAL HISTORY: Possible CKD, hypertension, and substance abuse. PAST SURGICAL HISTORY: Hand surgery. HOME MEDICATIONS: He was not taking any medication. ALLERGIES: No known drug allergies. SOCIAL HISTORY: History of drug abuse and was positive for cannabinoids. Denies any cocaine use. H e also smokes. No alcohol use reported. FAMILY HISTORY: No history of any kidney disease. REVIEW OF SYSTEMS: The following complete review of systems was negative, unless otherwise mentioned in the HPI or below: Constitutional: Weight loss or gain, ability to conduct usual activities. Skin: Rash, itching. Eyes: Double vision, pain. ENT/Mouth: Nose bleeding, neck stiffness, pain, tenderness. Cardiovascular: Palpitations, dyspnea on exertion, orthopnea. Respiratory: Shortness of breath, wheezing, cough, hemoptysis, fever or night sweats. Gastrointestinal: Poor appetite, abdominal pain, heartburn, nausea, vomiting, constipation, or diarrhea. Genitourinary: Urgency, frequency, dysuria, nocturia. Musculoskeletal: Pain, swelling. Neurologic/Psychiatric: Anxiety, depression. Allergy/Immunologic: Skin rash, bleeding tendency. PHYSICAL EXAMINATION: GENERAL: This is a well-built male, in no apparent distress. VITAL SIGNS: Temperature 97.9, pulse 84, respiratory rate 18, blood pressure 172/116. HEENT: Atraumatic, normocephalic. Oral mucosa is moist. NECK: Supple, no masses. HEART: S1, S2 heard. Rate and rhythm regular. RESPIRATORY: Clear. GASTROINTESTINAL: Abdomen is soft. MUSCULOSKELETAL: No tenderness, no edema. DERMATOLOGIC: No skin rash. NEUROLOGIC: Alert, awake. PSYCHIATRIC: Mood and affect. LABORATORY AND X-RAY FINDINGS: Hemoglobin is 15.0, potassium is 3.1, BUN 22, creatinine is 2.7. ASSESSMENT AND PLAN: 1. Acute kidney injury on chronic kidney stage IV. Renal function close to baseline, it is little b it better with IV hydration. 2. Hypertension, most likely from noncompliance with medicines. We will start on Procardia and carv edilol. 3. Proteinuria. Repeat urine checks. Immunological workup done last admission was all negative. P ilda is to have a renal biopsy as the blood pressure is controlled. We would recommend to avoid aspir in for renal biopsy at this point given his CVA like symptoms. 4. Edema, controlled. 5. Anemia, stable. Plan is to start on Coreg and Procardia, which controlled his blood pressure previously and up titrat e if needed and will arrange for biopsy for proteinuria. We will continue from there. Thank you for the consult. We will follow.
[2017-10-31] MEDS ORDERED: Lisinopril 10 MG TAB PO SCH (12:00)
[2017-10-31] MEDS: hydrALAZINE 20 MG/ML VIAL SLOW IVP PRN (12:42)
--- NOTE | 2017-10-31 12:50 | MRI ---
BRAIN MRI WITHOUT CONTRAST: DATE: 10/31/17. COMPARISON: None. HISTORY: Headache, nausea, syncope, and decreased sensation. TECHNIQUE: Multiplanar, multisequence MR imaging of the brain is provided without contrast. FINDINGS: The diffusion weighted imaging demonstrates no evidence for acute infarction. The axial gradient echo imaging demonstrates no evidence for intracranial hemorrhage. Imaged paranasal sinuses and/mastoid air cells are well aerated. Arterial flow voids at axial level of skull base appear grossly unremarkable on the T2 weighted imaging. Regional bone marrow signal intensity appears within normal limits. There are a few nonspecific scattered foci of increased T2 and FLAIR signal within the subcortical wh ite matter of bilateral frontal lobes. IMPRESSION: There are a few scattered nonspecific foci of increased T2 signal within the white matter of both fro ntal lobes. Clinical correlation is required. No evidence for acute infarction or intracranial hemo rrhage. POS: [facility]
[2017-10-31] MEDS ORDERED: Lisinopril 5 MG TAB PO SCH (13:00)
[2017-10-31] MEDS: Ondansetron ODT 4 MG TAB PO PRN ×2 (14:47→20:58)
[2017-10-31] MEDS: Acetaminophen 325 MG TAB PO PRN ×2 (14:51→20:58)
[2017-11-01 05:23] LABS: #Basophils 0.1 thou/uL (0.0-0.2); #Eosinphils 0.3 thou/uL (0.0-0.7); #Lymphocytes 1.8 thou/uL (1.20-3.40); #Monocytes 0.7 thou/uL (0.11-0.59); #Neutrophils 8.9 thou/uL (1.40-6.50); %Basophils 0.8 % (0.0-1.0); %Eosinophils 2.2 % (0.0-10.0); %Lymphocytes 15.6 % (21.0-51.0); %Monocytes 5.9 % (0.0-10.0); %Neutrophils 75.5 % (42.0-75.0); Hemoglobin 15.1 g/dL (14.0-18.0); Mean Corpuscular HGB CONC 33.4 g/dL (32.0-36.0); Mean Corpuscular Hemoglobin 29.2 pg (27.0-31.0); Mean Corpuscular Volume 87.5 fL (78.0-98.0); Mean Platelet Volume 7.9 fL (7.4-10.4); Platelet Count 299 thou/uL (130-400); RBC Distribution Width 12.3 % (11.5-14.5); Red Blood Cell (RBC) Count 5.16 mill/uL (4.70-6.10); White Blood Cell (WBC) Count 11.7 thou/uL (4.8-10.8)
[2017-11-01 06:08] LABS: Anion Gap 14 mmol/L (10-20); BUN (Urea Nitrogen) 17 mg/dL (8.9-20.6); Calc. Creatinine Clearance 51 mL/min (70-130); Carbon Dioxide 21 mmol/L (22-29); Chloride 109 mmol/L (98-107); Estimated GFR-MDRD 27; Glucose 91 mg/dL (70-105); Potassium 3.9 mmol/L (3.5-5.1); Sodium 140 mmol/L (136-145)
--- NOTE | 2017-11-01 06:35 | PDOC.FM ---
- Subjective Subjective: Mr. Vásquez is feeling well this morning. He reports his headache is much improved though is creeping back in a little bit this morning but denies any vision changes. He has not eaten because he is NPO for renal biopsy today. He has been able to get up to the restroom without any issue and denies any presyncope feeling or focal weakness. - Objective MAR Reviewed: Yes Vital Signs & Weight: Vital Signs (12 hours) Temp Pulse Resp BP BP Pulse Ox 11/01/17 03:17 98.0 F 84 16 170/116 H 98 10/31/17 23:23 98.8 F 87 16 161/104 H 97 10/31/17 20:00 98.0 F 84 16 97 10/31/17 19:12 98.4 F 92 16 145/87 H 97 Weight Admit Weight 91.49 kg Weight 91.49 kg I&O: 10/30/17 10/31/17 11/01/17 06:59 06:59 06:59 Intake Total 587 Output Total 500 Balance 87 Result Diagrams: 11/01/17 04:54 11/01/17 04:54 <Claribel Sutton E - Last Filed: 11/01/17 10:41> - Objective Vital Signs & Weight: Vital Signs (12 hours) Temp Pulse Resp BP BP BP Pulse Ox 11/01/17 11:24 98.2 F 67 16 128/78 98 11/01/17 09:56 79 136/82 11/01/17 08:57 89 163/110 H 11/01/17 08:00 98.0 F 79 16 98 11/01/17 07:10 98 F 89 16 163/110 H 98 11/01/17 03:17 98.0 F 84 16 170/116 H 98 Weight Admit Weight 91.49 kg Weight 91.49 kg I&O: 10/31/17 11/01/17 11/02/17 06:59 06:59 06:59 Intake Total 587 480 Output Total 500 900 Balance 87 -420 Result Diagrams: 11/01/17 04:54 11/01/17 04:54 <Vinod Mcmanus R - Last Filed: 11/01/17 11:32> Phys Exam - Physical Examination Constitutional: NAD HEENT: moist MMs, sclera anicteric Neck: supple Respiratory: no wheezing, clear to auscultation bilateral Cardiovascular: RRR, no significant murmur Gastrointestinal: soft, non-tender, no distention, positive bowel sounds Musculoskeletal: no edema, pulses present Neurological: non-focal, normal sensation, moves all 4 limbs Psychiatric: normal affect, A&O x 3 Skin: cap refill <2 seconds Deviation from normal: diffuse tattoos <Claribel Sutton E - Last Filed: 11/01/17 10:41> Dx/Plan (1) Acute on chronic kidney failure Code(s): N17.9 - ACUTE KIDNEY FAILURE, UNSPECIFIED; N18.9 - CHRONIC KIDNEY DISEASE, UNSPECIFIED Status: Acute (2) Syncope Code(s): R55 - SYNCOPE AND COLLAPSE Status: Acute (3) Cannabis abuse Code(s): F12.10 - CANNABIS ABUSE, UNCOMPLICATED Status: Acute (4) History of tobacco abuse Code(s): Z87.891 - PERSONAL HISTORY OF NICOTINE DEPENDENCE Status: Acute (5) Hypertensive urgency Code(s): I16.0 - HYPERTENSIVE URGENCY Status: Acute - Plan Plan: 1) Syncope - Initial presentation also complained of L sided face numbness and R sided leg numbness - CT head negative for acute intracranial process, MRI with scattered nonspecific foci of increased T2 signal in frontal lobe - No events on telemetry, orthostatics negative - ECHO showed evidence of diastolic dysfunction and EF 40-45% - Possibly related to hypertensive urgency as below vs. substance use 2) Hypertensive urgency - Noncompliance with medication outpatient - Concern for emergency given initial presentation and persistent headache - Continue upward titration of coreg and procardia 3) Acute on chronic renal failure - Concern for IgA nephropathy - Appreciate Dr. Amaral's assistance - Plan for percutaneous renal biopsy while in house 4) Polysubstance abuse: correctional classification counselor on cessation PPX: SCDs <Claribel Sutton - Last Filed: 11/01/17 10:41> Attending Addendum - Attending Addendum Date/Time: 11/01/17 1131 I personally evaluated the patient and discussed the management with Dr. Sutton. I agree with the History, Examination, Assessment and Plan documented above with any addition or exceptions noted below. Patient without complaints this morning. It does not appear that he had any sort of CV accident as cause of his syncope. It is likely either a combination of drug induced or related to his BP. We are escalating BP therapy today. Awaiting renal biopsy later today for his nephropathy. <Vinod Mcmanus - Last Filed: 11/01/17 11:32>
[2017-11-01] MEDS: Carvedilol 6.25 MG TAB PO SCH ×2 (08:57→16:22)
[2017-11-01] MEDS ORDERED: NIFEdipine XL 30 MG TAB PO SCH ×2 (09:00→10:00)
[2017-11-01] MEDS ORDERED: NIFEdipine 10 MG CAP PO SCH (09:45)
--- NOTE | 2017-11-01 10:25 | PRG ---
DATE OF SERVICE: 11/01/2017 NEPHROLOGY PROGRESS NOTE SUBJECTIVE: Patient was seen and examined at bedside and overnight events noted. Patient denies any shortness of breath or chest pain or palpitation. No history of nausea or vomiting or diarrhea or f ever or chills or cramps. OBJECTIVE: GENERAL: This is a well-built male in no apparent distress. VITAL SIGNS: Temperature 98.0, pulse 89, respiratory rate 16, blood pressure 163/110. HEENT: Atraumatic, normocephalic. Oral mucosa is moist. NECK: Supple. CARDIOVASCULAR: S1, S2 heard. Rate and rhythm regular. RESPIRATORY: Clear to auscultation. GASTROINTESTINAL: Abdomen is soft. MUSCULOSKELETAL: No tenderness. No edema. DERMATOLOGIC: No skin rash. NEUROLOGIC: Alert and awake and oriented x3. No focal neurologic deficits. Moving all the extremiti es. PSYCHIATRIC: Mood and affect normal. LABORATORY DATA: Potassium 3.9, BUN 70, creatinine is 2.7. ASSESSMENT AND PLAN: 1. Chronic kidney disease stage IV. Renal function is stable. 2. Hypertension, started on medication. We will increase Procardia to 60 p.o. daily. He has respon ded well to that and we will have cautious reduction in blood pressure. 3. Proteinuria. Plan is to have a renal biopsy. 4. Edema, controlled. 5. Anemia, stable. Plan is to have renal biopsy with the blood pressure control. Procardia dose increased today. We wi ll follow.
[2017-11-01] MEDS ORDERED: Fentanyl 100 MCG/2 ML VIAL ONE (13:33)
[2017-11-01] MEDS ORDERED: Midazolam HCl 2 mg/2 ml Vial ONE (13:33)
--- NOTE | 2017-11-02 02:03 | CON ---
DATE OF CONSULTATION: 11/01/2017 REASON FOR CONSULTATION: Mildly depressed left ventricular function, history of severe hypertension, syncopal episode. HISTORY OF PRESENT ILLNESS: Mr. Denis Vásquez is a 27-year-old gentleman. He was admitted to the hospital on 10/30/2017. The patient states he has been lying in bed. He tried to get up and walk, but felt very lightheaded in fact went to the ground, but did not lose consciousness. Later, the patient took unknown medication from his brother for persistent headache and went to sleep for a while, he got up, he felt weak, lightheaded, did not feel well at all, try to grab hold off th e rail, he thinks on his bed and then fell to the ground, lost consciousness. He came to the emergen cy room for further evaluation did not recall with anything beyond that. No chest pain or pressure. The patient states that he has a history of hypertension but was not taki ng blood pressure medicine. PAST MEDICAL HISTORY: 1. Chronic kidney disease thought to be secondary to IgA nephropathy. 2. Hypertension. SOCIAL HISTORY: No tobacco use, does use cannabinoids, and benzodiazepines. REVIEW OF SYSTEMS: Constitutional: No significant weight gain or loss. Vision: No changes. Heari ng: No changes. Pulmonary: No cough or wheezing. Gastrointestinal: No nausea, vomiting, diarrhea . Skin: No rashes. Neurologic: No unilateral weakness or numbness. Psychiatric: No unusual depr ession or anxiety. PHYSICAL EXAMINATION: VITAL SIGNS: Blood pressure here on medicines has been controlled better, but even this morning stil l 163/110 and then later today 129/87. NECK: Neck veins are normal. Carotid normal upstrokes. LUNGS: Clear. CARDIAC: Normal S1, normal S2. No murmur, rub, or gallop. ABDOMEN: Soft, nontender, no hepatosplenomegaly. EXTREMITIES: Warm, dry. No clubbing. There is no cyanosis. There is no edema. Peripheral pulses are strong, especially the posterior tibial pulses. IMAGING DATA: An echocardiogram which showed mild left ventricular dysfunction with ejection fractio n 40%-45%, mild mitral and tricuspid insufficiency. Most recent creatinine is 2.79, estimated GFR is 27. ASSESSMENT: 1. Mildly depressed left ventricular systolic function. 2. Previously was having some chest pain a few months ago, none recently. 3. Syncopal episode, probably orthostatic hypotension. 4. Uncontrolled hypertension. 5. Stage 4 renal failure. PLAN: 1. For completeness stress testing will be done. 2. Discussed with him the importance of sitting down or lying down quickly if he feels lightheaded. His symptoms are compatible with orthostatic hypotension. 3. Continue monitoring for now. We will be glad to follow with you. Thank you.
--- NOTE | 2017-11-02 05:52 | PDOC.FM ---
- Subjective Subjective: Mr. Vásquez is feeling well this morning. His headache has not returned and he tolerated dinner last night without any nausea. His questions and concerns regarding echo results, plan for stress test and kidney biopsy have been addressed and he has no further questions at this time. He states he will be able to afford the 2 BP medications with the [employer] card. He denies any focal deficits and is feeling well today. - Objective MAR Reviewed: Yes Vital Signs & Weight: Vital Signs (12 hours) Temp Pulse Resp BP Pulse Ox 11/02/17 04:00 98.9 F 80 18 138/91 H 96 11/02/17 00:00 98.9 F 73 18 155/108 H 97 11/01/17 20:00 98.5 F 73 18 120/78 96 Weight Admit Weight 91.49 kg Weight 91.49 kg I&O: 10/31/17 11/01/17 11/02/17 06:59 06:59 06:59 Intake Total 587 480 450 Output Total 500 900 Balance 87 -420 450 Result Diagrams: 11/02/17 05:31 11/02/17 05:31 EKG Reviewed by me: Yes <Claribel Sutton - Last Filed: 11/02/17 11:59> - Objective Vital Signs & Weight: Vital Signs (12 hours) Temp Pulse Resp BP BP BP Pulse Ox 11/02/17 12:34 141/99 H 11/02/17 11:52 98.5 F 64 16 162/108 H 96 11/02/17 11:18 60 160/104 H 11/02/17 11:14 160/104 H 11/02/17 10:30 146/102 H 11/02/17 08:48 65 136/87 11/02/17 08:47 136/87 11/02/17 08:00 98.0 F 65 16 99 11/02/17 07:47 98.0 F 65 16 136/87 99 11/02/17 04:00 98.9 F 80 18 138/91 H 96 Weight Admit Weight 91.49 kg Weight 89.358 kg I&O: 11/01/17 11/02/17 11/03/17 06:59 06:59 06:59 Intake Total 480 450 Output Total 900 Balance -420 450 Result Diagrams: 11/02/17 05:31 11/02/17 05:31 <Delmer Bruno Rosy - Last Filed: 11/02/17 14:38> Phys Exam - Physical Examination Constitutional: NAD HEENT: moist MMs, sclera anicteric Neck: supple Respiratory: no wheezing, clear to auscultation bilateral Cardiovascular: RRR, no significant murmur Gastrointestinal: soft, non-tender, no distention, positive bowel sounds Musculoskeletal: no edema, pulses present Neurological: non-focal, normal sensation, moves all 4 limbs Psychiatric: normal affect, A&O x 3 Skin: no rash Deviation from normal: diffuse tattoos <Claribel Sutton - Last Filed: 11/02/17 11:59> Dx/Plan (1) Acute on chronic kidney failure Code(s): N17.9 - ACUTE KIDNEY FAILURE, UNSPECIFIED; N18.9 - CHRONIC KIDNEY DISEASE, UNSPECIFIED Status: Acute (2) Syncope Code(s): R55 - SYNCOPE AND COLLAPSE Status: Acute (3) Cannabis abuse Code(s): F12.10 - CANNABIS ABUSE, UNCOMPLICATED Status: Acute (4) History of tobacco abuse Code(s): Z87.891 - PERSONAL HISTORY OF NICOTINE DEPENDENCE Status: Acute (5) Hypertensive urgency Code(s): I16.0 - HYPERTENSIVE URGENCY Status: Acute (6) Diastolic dysfunction Code(s): I51.9 - HEART DISEASE, UNSPECIFIED Status: Acute - Plan Plan: 1) Syncope - Initial presentation also complained of L sided face numbness and R sided leg numbness - CT head negative for acute intracranial process, MRI with scattered nonspecific foci of increased T2 signal in frontal lobe - No events on telemetry, orthostatics negative - ECHO showed evidence of diastolic dysfunction and EF 40-45% - Syncopal episode possibly related to hypertensive urgency as below vs. substance use - Stress test per Dr. Lugo, likely tomorrow as they do not recommend NM stress and CT guided biopsy in same day 2) Hypertensive urgency - Noncompliance with medication outpatient - Concern for emergency given initial presentation and persistent headache - Procardia titrated upward yesterday with good result 3) Acute on chronic renal failure - Concern for IgA nephropathy - Appreciate Dr. Amaral's assistance - Plan for percutaneous renal today while in house - Will give light sedative beforehand as procedure unable to completed yesterday 2/2 elevated BP/procedure anxiety 4) New dx slightly depressed EF 40-45% with e/o diastolic dysfunction - Dr. Lugo consulted yesterday, appreciate recommendations - Stress tomorrow 5) Polysubstance abuse: drug counselor on cessation PPX: SCDs, walking program <Claribel Sutton - Last Filed: 11/02/17 11:59> (1) Syncope Code(s): R55 - SYNCOPE AND COLLAPSE Status: Acute (2) Hypertensive urgency Code(s): I16.0 - HYPERTENSIVE URGENCY Status: Acute (3) Acute on chronic kidney failure Code(s): N17.9 - ACUTE KIDNEY FAILURE, UNSPECIFIED; N18.9 - CHRONIC KIDNEY DISEASE, UNSPECIFIED Status: Acute (4) Substance abuse Code(s): F19.10 - OTHER PSYCHOACTIVE SUBSTANCE ABUSE, UNCOMPLICATED Status: Acute <Delmer Bruno - Last Filed: 11/02/17 14:38> Attending Addendum - Attending Addendum Date/Time: 11/02/17 6908 I personally evaluated the patient and discussed the management with Dr. Sutton. I agree with the History, Examination, Assessment and Plan documented above with any addition or exceptions noted below. <Delmer Bruno - Last Filed: 11/02/17 14:38>
[2017-11-02 06:03] LABS: Anion Gap 10 mmol/L (10-20); BUN (Urea Nitrogen) 20 mg/dL (8.9-20.6); Calc. Creatinine Clearance 38 mL/min (70-130); Calcium 8.7 mg/dL (7.8-10.44); Carbon Dioxide 25 mmol/L (22-29); Chloride 108 mmol/L (98-107); Estimated GFR-MDRD 26; Glucose 89 mg/dL (70-105); Potassium 3.9 mmol/L (3.5-5.1); Sodium 139 mmol/L (136-145)
[2017-11-02 06:43] LABS: #Basophils 0.1 thou/uL (0.0-0.2); #Eosinphils 0.4 thou/uL (0.0-0.7); #Lymphocytes 2.2 thou/uL (1.20-3.40); #Monocytes 0.7 thou/uL (0.11-0.59); #Neutrophils 5.9 thou/uL (1.40-6.50); %Basophils 1.3 % (0.0-1.0); %Eosinophils 3.8 % (0.0-10.0); %Lymphocytes 23.8 % (21.0-51.0); %Monocytes 7.9 % (0.0-10.0); %Neutrophils 63.2 % (42.0-75.0); Hemoglobin 14.3 g/dL (14.0-18.0); Mean Corpuscular HGB CONC 33.9 g/dL (32.0-36.0); Mean Corpuscular Hemoglobin 29.9 pg (27.0-31.0); Mean Corpuscular Volume 88.1 fL (78.0-98.0); Mean Platelet Volume 8.4 fL (7.4-10.4); Platelet Count 277 thou/uL (130-400); RBC Distribution Width 12.4 % (11.5-14.5); Red Blood Cell (RBC) Count 4.79 mill/uL (4.70-6.10); White Blood Cell (WBC) Count 9.4 thou/uL (4.8-10.8)
[2017-11-02] MEDS: Carvedilol 6.25 MG TAB PO SCH ×2 (08:47→16:50)
[2017-11-02] MEDS ORDERED: NIFEdipine XL 60 MG TAB PO SCH (09:00)
--- NOTE | 2017-11-02 10:13 | PRG ---
Patient Name: FERNANDO MORA Date of service: 11/02/2017 Subjective: Patient was seen and examined at bedside and overnight events noted. Patient denies any shortness of breath or chest pain or palpitation. No history of nausea or vomiting or diarrhea or fever or chills or cramps. Objective: General: This is a well-built male in no apparent distress. Vital signs: Temperature 97, pulse 60, respirations 18, blood pressure 136/87. HEENT: Atraumatic, normocephalic. Oral mucosa is moist. Neck: Supple. Cardiovascular: S1 S2 heard. Rate and rhythm regular. Respiratory: Clear to auscultation. Gastrointestinal: Abdomen is soft. Musculoskeletal: No tenderness. No edema. Dermatologic: No skin rash. Neurologic: Alert and awake and oriented X3. No focal neurologic deficits. Moving all the extremities. Psychiatric: Mood and affect normal. LABORATORY DATA: Potassium is 3.9, BUN 20, creatinine is 2.8. ASSESSMENT AND PLAN: 1. Chronic kidney disease, stage 4, stable. 2. Proteinuria with Hematology workup being negative. Plan is to have renal biopsy. 3. Hypertension. 4. Edema, controlled. 5. Anemia, stable. 6. Polysubstance abuse Okay to discharge home after biopsy if the patient is stable enough to go home. Blood pressure seems to be stable. Continue on current regimen. We will follow. MTDD
[2017-11-02] MEDS ORDERED: Diazepam 5 MG TAB PO SCH (10:15)
[2017-11-02] MEDS: hydrALAZINE 20 MG/ML VIAL SLOW IVP PRN (11:18)
[2017-11-02 11:22] VITALS: BMI 28.3
[2017-11-02] MEDS ORDERED: Senokot 8.6 MG TAB PO PRN (12:04)
--- NOTE | 2017-11-02 16:00 | NM ---
MYOCARDIAL PERFUSION STUDY: DATE: 11/02/17. HISTORY: Cardiomyopathy. RADIOPHARMACEUTICALS: 30 mCi Technetium 99m sestamibi, IV at stress, and 9 mCi Technetium 99m sestamibi, IV at rest. VIEWS OBTAINED: 180 degrees thick. FINDINGS: There is normal uptake and distribution of radiotracer seen in throughout the left ventricular myocar dium on the stress acquisition. No reversible defect is seen between the stress and resting acquisit ions. Gated images show normal ventricular wall motion and wall thickening. The calculated left jennifer tricular ejection fraction is 51%. IMPRESSION: 1. Normal myocardial perfusion study without evidence of a reversible defect seen to suggest isc hemia. 2. Low normal left ventricular ejection fraction of 51%. POS: [facility]
[2017-11-02] MEDS ORDERED: Carvedilol 25 MG TAB PO SCH (21:00)
[2017-11-03 05:35] LABS: #Basophils 0.1 thou/uL (0.0-0.2); #Eosinphils 0.5 thou/uL (0.0-0.7); #Lymphocytes 2.1 thou/uL (1.20-3.40); #Monocytes 0.8 thou/uL (0.11-0.59); #Neutrophils 6.4 thou/uL (1.40-6.50); %Basophils 0.9 % (0.0-1.0); %Eosinophils 4.9 % (0.0-10.0); %Lymphocytes 21.1 % (21.0-51.0); %Monocytes 7.7 % (0.0-10.0); %Neutrophils 65.5 % (42.0-75.0); Hemoglobin 14.2 g/dL (14.0-18.0); Mean Corpuscular HGB CONC 32.9 g/dL (32.0-36.0); Mean Corpuscular Hemoglobin 29.1 pg (27.0-31.0); Mean Corpuscular Volume 88.6 fL (78.0-98.0); Mean Platelet Volume 7.9 fL (7.4-10.4); Platelet Count 282 thou/uL (130-400); RBC Distribution Width 12.4 % (11.5-14.5); Red Blood Cell (RBC) Count 4.88 mill/uL (4.70-6.10); White Blood Cell (WBC) Count 9.8 thou/uL (4.8-10.8)
[2017-11-03 05:38] LABS: Anion Gap 10 mmol/L (10-20); BUN (Urea Nitrogen) 25 mg/dL (8.9-20.6); Calc. Creatinine Clearance 49 mL/min (70-130); Calcium 8.7 mg/dL (7.8-10.44); Carbon Dioxide 25 mmol/L (22-29); Chloride 107 mmol/L (98-107); Estimated GFR-MDRD 27; Glucose 97 mg/dL (70-105); Potassium 3.9 mmol/L (3.5-5.1); Sodium 138 mmol/L (136-145)
--- NOTE | 2017-11-03 06:28 | PDOC.FM ---
- Subjective Subjective: Mr. Vásquez is feeling well this morning. He denies any headache but does endorse anxiety regarding upcoming procedure. He has taken benzos intermittently at home to help with muscle relaxation and the headache he was having prior to admission. He reports his last marijuana use was prior to last hospitalization. - Objective MAR Reviewed: Yes Vital Signs & Weight: Vital Signs (12 hours) Temp Pulse Resp BP Pulse Ox 11/03/17 04:00 97.5 F L 76 20 150/103 H 97 11/02/17 23:08 98.4 F 93 18 137/89 11/02/17 20:00 98.4 F 77 18 96 11/02/17 19:14 98.4 F 77 18 135/93 H 96 Weight Admit Weight 91.49 kg Weight 89.358 kg I&O: 11/01/17 11/02/17 11/03/17 06:59 06:59 06:59 Intake Total 480 450 Output Total 900 Balance -420 450 Result Diagrams: 11/03/17 05:07 11/03/17 05:07 <Claribel Sutton - Last Filed: 11/03/17 11:43> - Objective Vital Signs & Weight: Vital Signs (12 hours) Temp Pulse Resp BP BP Pulse Ox 11/03/17 11:00 97.2 F L 81 16 126/82 98 11/03/17 08:00 97.4 F L 71 16 98 11/03/17 07:48 97.4 F L 71 16 139/84 98 11/03/17 04:00 97.5 F L 76 20 150/103 H 97 Weight Admit Weight 91.49 kg Weight 89.358 kg I&O: 11/02/17 11/03/17 11/04/17 06:59 06:59 06:59 Intake Total 450 450 Balance 450 450 Result Diagrams: 11/03/17 05:07 11/03/17 05:07 <Delmer Bruno - Last Filed: 11/03/17 12:54> Phys Exam - Physical Examination Constitutional: NAD HEENT: moist MMs, sclera anicteric Neck: supple Respiratory: no wheezing, clear to auscultation bilateral Cardiovascular: RRR, no significant murmur Gastrointestinal: soft, non-tender, no distention, positive bowel sounds Musculoskeletal: no edema Neurological: non-focal, moves all 4 limbs Psychiatric: normal affect, A&O x 3 Skin: no rash Deviation from normal: diffuse tattoos <Claribel Sutton E - Last Filed: 11/03/17 11:43> Dx/Plan (1) Acute on chronic kidney failure Code(s): N17.9 - ACUTE KIDNEY FAILURE, UNSPECIFIED; N18.9 - CHRONIC KIDNEY DISEASE, UNSPECIFIED Status: Acute (2) Syncope Code(s): R55 - SYNCOPE AND COLLAPSE Status: Acute (3) Cannabis abuse Code(s): F12.10 - CANNABIS ABUSE, UNCOMPLICATED Status: Acute (4) History of tobacco abuse Code(s): Z87.891 - PERSONAL HISTORY OF NICOTINE DEPENDENCE Status: Acute (5) Hypertensive urgency Code(s): I16.0 - HYPERTENSIVE URGENCY Status: Acute (6) Diastolic dysfunction Code(s): I51.9 - HEART DISEASE, UNSPECIFIED Status: Acute - Plan Plan: 1) Syncope - Initial presentation also complained of L sided face numbness and R sided leg numbness - CT head negative for acute intracranial process, MRI with scattered nonspecific foci of increased T2 signal in frontal lobe - No events on telemetry, orthostatics negative - ECHO showed evidence of diastolic dysfunction and EF 40-45% - Syncopal episode possibly related to hypertensive urgency as below vs. substance use - Stress test yesterday negative - Plan for loop recorder per Dr. Sanchez 2) Hypertensive urgency - Noncompliance with medication outpatient - Concern for emergency given initial presentation and persistent headache - Procardia and Coreg titrated upward yesterday with good result overall, Dr. Amaral further increased procardia today 3) Acute on chronic renal failure - Concern for IgA nephropathy - Appreciate Dr. Amaral's assistance - Plan for percutaneous renal today while in house - Very anxious about procedure, will give Klonopin with multiple procedures planned for today 4) New dx slightly depressed EF 40-45% with e/o diastolic dysfunction - Dr. Lugo consulted, appreciate recommendations - Stress neg yesterday - Loop recorder today per Dr. Lugo/Daniel 5) Polysubstance abuse: counseled on cessation PPX: SCDs, walking program <Claribel Sutton E - Last Filed: 11/03/17 11:43> (1) Syncope Code(s): R55 - SYNCOPE AND COLLAPSE Status: Acute (2) Hypertensive urgency Code(s): I16.0 - HYPERTENSIVE URGENCY Status: Acute (3) Acute on chronic kidney failure Code(s): N17.9 - ACUTE KIDNEY FAILURE, UNSPECIFIED; N18.9 - CHRONIC KIDNEY DISEASE, UNSPECIFIED Status: Acute (4) Substance abuse Code(s): F19.10 - OTHER PSYCHOACTIVE SUBSTANCE ABUSE, UNCOMPLICATED Status: Acute <Delmer Bruno - Last Filed: 11/03/17 12:54> Attending Addendum - Attending Addendum Date/Time: 11/03/17 6164 I personally evaluated the patient and discussed the management with Dr. Sutton. I agree with the History, Examination, Assessment and Plan documented above with any addition or exceptions noted below. <Delmer Bruno - Last Filed: 11/03/17 12:54>
[2017-11-03] MEDS ORDERED: Carvedilol 25 MG TAB PO SCH (08:00)
[2017-11-03] MEDS ORDERED: ALPRAZolam 0.5 MG TAB PO SCH (09:00)
[2017-11-03] MEDS ORDERED: NIFEdipine XL 90 MG TAB PO SCH (09:00)
[2017-11-03] MEDS ORDERED: clonazePAM 1 MG TAB PO SCH (09:15)
--- NOTE | 2017-11-03 10:06 | PRG ---
Patient Name: FERNANDO MORA Date of service: 11/03/2017 Subjective: Patient was seen and examined at bedside and overnight events noted. Patient denies any shortness of breath or chest pain or palpitation. No history of nausea or vomiting or diarrhea or fever or chills or cramps. Objective: General: This is a well-built male in no apparent distress. Vital signs: Temperature 97.4, pulse 70, respiratory 16, blood pressure 139/84. HEENT: Atraumatic, normocephalic. Oral mucosa is moist. Neck: Supple. Cardiovascular: S1 S2 heard. Rate and rhythm regular. Respiratory: Clear to auscultation. Gastrointestinal: Abdomen is soft. Musculoskeletal: No tenderness. No edema. Dermatologic: No skin rash. Neurologic: Alert and awake and oriented X3. No focal neurologic deficits. Moving all the extremiti es. Psychiatric: Mood and affect normal. LABORATORY DATA: Potassium 3.9, BUN 25, creatinine is 2.8. ASSESSMENT AND PLAN: 1. Chronic kidney disease stage 4, stable. 2. Proteinuria. Need renal biopsy, but patient not able to get a biopsy due to high blood pressure during the daytime, blood pressure controlled in the morning better. The patient also complains of a nxiety. We will add Xanax or Klonopin, talk with the primary team. 3. Hypertension, stable. I increased the Procardia dose. 4. Edema, controlled. 5. Hypertension. 6. Anemia, stable. Plan is to have biopsy. We will add anxiety medications and will follow.
[2017-11-03] MEDS ORDERED: Midazolam HCl 2 mg/2 ml Vial ONE (11:31)
[2017-11-03] MEDS ORDERED: Sodium Bicarbonate 2.5 MEQ/5 ML VIAL ONE (11:31)
[2017-11-03] MEDS ORDERED: Fentanyl 100 MCG/2 ML VIAL ONE (11:31)
--- NOTE | 2017-11-03 12:18 | PDOC.CTH ---
Cardiology Progress Note - Subjective EP progress noted: patient seen and evaluated. No new cardiac concerns or complaints over the night. Continues to be very sleepy. Denies heart racing, palpitations, chest pain/pressure, repeat syncopal events, or stroke like symptoms. - Objective Vital Signs Temp Pulse Resp BP BP Pulse Ox 11/03/17 11:00 97.2 F L 81 16 126/82 98 11/03/17 08:00 97.4 F L 71 16 98 11/03/17 07:48 97.4 F L 71 16 139/84 98 11/03/17 04:00 97.5 F L 76 20 150/103 H 97 Admit Weight 201 lb 11.2 oz Weight 197 lb 11/02/17 11/03/17 11/04/17 06:59 06:59 06:59 Intake Total 450 450 Balance 450 450 - Physical Examination General/Neuro: alert & oriented x3, NAD Neck: no JVD present Lungs: unlabored respirations Heart: RRR Abdomen: NT/ND - Telemetry Telemetry Rhythm: NSR - Labs Result Diagrams: 11/03/17 05:07 11/03/17 05:07 Troponin/CKMB CK-MB (CK-2) 1.0 ng/mL (0-6.6) 10/30/17 21:03 Troponin I Less than 0.010 ng/mL (< 0.028) 10/30/17 21:03 - Assessment/Plan 1. Sycnope and collapse- no arrhythmias on monitor, no repeat episodes. Possibly cardiogenic vs hypertensive crisis vs substance abuse. Linq ILR implant after renal biopsy 2. CKD stage 4 with proteinuria, per nephrology, plan for renal biopsy today. 3. Polysubstance abuse 4. Diastolic dysfunction with EF 40-45% 5. Hypertension
[2017-11-03] MEDS ORDERED: Lidocaine 1% w/Epinephrine 1:100K 30 ML VIAL ONE (12:30)
--- NOTE | 2017-11-03 12:43 | CON ---
DATE OF CONSULTATION: 11/02/2017 REFERRING PHYSICIAN: Dr. Francisca Lugo. REASON FOR CONSULTATION: Syncope and collapse. HISTORY OF PRESENT ILLNESS: Mr. Vásquze is a young 27-year-old gentleman who was admitted on 018 for symptoms of lightheadedness with falling to the ground, but did not lose conscious at that ti me. Later, he took a medication that his brother gave him for headache that he has been experiencing . He went to sleep for a while, but when he woke up, he had continued symptoms of weakness, lighthea dedness, and felt very poorly. At that point, he tried to get out of bed; however, [facility] and [facility]. He came to the emergency room for further evaluation. He does not remembe r coming too. He denies any heart racing or palpitations leading up to his loss of consciousness. H e denies any prior episodes of this. He reports otherwise he was in his usual state of health other than his headache. Today, he is sleepy, but mostly feels fairly well. He denies any heart racing, p alpitations, chest pain, pressure, stroke or stroke-like symptoms. Positive for syncope and collapse . REVIEW OF SYSTEMS: Twelve-point review of systems was conducted and is negative except that listed a caryn in the history of present illness. PAST MEDICAL HISTORY: 1. Chronic kidney disease, possibly secondary to IgA nephropathy. 2. Hypertension. SOCIAL HISTORY: Negative for tobacco, positive for cannabinoids as well as benzodiazepines. FAMILY HISTORY: Negative for sudden cardiac or early onset coronary artery disease to the best of his knowledge. PHYSICAL EXAMINATION: VITAL SIGNS: Temperature 98.2, pulse 77, respirations 16, 98% on room air, and blood pressure 141/99 . GENERAL: The patient is a healthy young adult in no apparent distress. He is lethargic during the e xam. He is alert and oriented. His speech is clear. His affect is lethargic. He is normocephalic and atraumatic. NECK: Supple without jugular venous distention. His thyroid is nonpalpable. CARDIOVASCULAR: Heart rate is regularly regular with a crisp S1 and S2. His PMI is nondisplaced. EXTREMITIES: Warm and dry to touch without clubbing, cyanosis or edema. LUNGS: Clear to auscultation bilaterally without wheezes, crackles or rhonchi. Respirations are nellie n and unlabored with good bilateral excursion. ABDOMEN: Soft and nontender without palpable masses and there are positive bowel sounds throughout. Hepatojugular reflux is negative. NEUROLOGIC: Exam is grossly intact and nonfocal. Gait was not assessed. IMAGING DATA AND LABORATORY DATA: Hematology was reviewed and is unremarkable. Chemistries reviewed . Creatinine is elevated at 2.88 (3.03 on presentation), potassium is 3.9 currently, otherwise unrem arkable. Echocardiogram on 10/31/2017, ejection fraction 40%-45%, mildly enlarged LV suggestive of d iastolic dysfunction. Brain MRI on 10/31/2017, no evidence for acute infarct or ICH. Brain CT was n egative for acute intracranial prosthesis. Stress test on 11/02/2017, normal myocardial perfusion st udy without evidence of reversible defect, ejection fraction low estimated at 51%. Telemetry and EKG ; all tracings and EKGs were personally reviewed and reflected normal sinus rhythm. CONCLUSION: 1. Syncope and collapse. 2. Mildly depressed left ventricular systolic function 40%-45% by echocardiogram, 51% by stress test . 3. Chronic kidney disease stage 4 with proteinuria. 4. Polysubstance abuse. PLAN: Patient is scheduled to have a renal biopsy in the future. Regarding his syncope and collapse , since there is no clear identifiable cause, there is a chance that it is undiagnosed cardiac arrhyt hmia and cardiogenic in origin. For this, we would recommend loop recorder implantation before he is discharged from the hospital. The risks associated with ILR implant include minor pain, swelling, a nd possible infection. The patient voices understanding. All questions were answered. We will like ly proceed with loop recorder tomorrow after he is considered this as a treatment option. Thank you for allowing us to participate in the care of this patient.
--- NOTE | 2017-11-03 13:23 | CT ---
CT GUIDED RANDOM RENAL BIOPSY: History: Renal failure. Proteinuria. FINDINGS: After explaining the procedure and answering all questions, limited CT imaging of the kidneys was per formed with patient prone. Sterile technique, buffered local anesthesia, CT guidance, and a right pos terolateral approach were used to carefully advance a 17 gauge Trocar needle into the posterolateral cortex of the right kidney at the avascular zone. A total of two 18 gauge core biopsy specimens were obtained and submitted to pathology for evaluation to confirm specimen adequacy. Needle was removed. Post procedure imaging shows no evidence of complication. Patient tolerated the procedure well and wa s returned in unchanged condition. IMPRESSION: Technically successful random renal biopsy. Pathology is pending. POS: [facility]
--- NOTE | 2017-11-03 13:44 | OP ---
DATE OF PROCEDURE: 11/03/2017 LOOP RECORDER IMPLANTATION SURGEON: Dr. Trey Sanchez REFERRING PHYSICIAN: Dr. Lugo. REASON FOR PROCEDURE. Mr. Vásquez is a 27-year-old young man with history of newly found likely nimesh schemic cardiomyopathy syncopal spell, who is here for a loop recorder implant. PROCEDURE: The patient's precordial area was prepped, draped and anesthetized using subcutaneous lid ocaine. The left intercostal space was used for device implant. Incision was made with a standard c rooked knife and with a standard LINQ insertion. This is a LINQ 11, serial number [id number]. Implan table recorder was implanted subcutaneously. The wound was closed with Dermabond and Steri-Strips. CONCLUSION: Successful loop recorder implant. PLAN: Continue monitoring.
[2017-11-03 15:24] VITALS: BP 131/76; TEMP 97.7
--- NOTE | 2017-11-04 08:15 | DIS-2 ---
DATE OF ADMISSION: 10/30/2017 DATE OF DISCHARGE: 11/03/2017 RESIDENT: Claribel Sutton M.D. ADMITTING ATTENDING: Delmer Bruno M.D. DISCHARGE ATTENDING: Delmer Bruno M.D. CONSULTS: 1. Dr. Amaral with Nephrology. 2. Dr. Lugo with Cardiology. 3. Dr. Sanchez with Electrophysiology. IMAGIN. Brain CT (10/30/2017): No CT evidence of acute intracranial process. 2. Brain MRI (10/31/2017): There are few scattered nonspecific foci of increased T2 signal within t he white matter of both frontal lobes. Clinical correlation is required. No evidence for acute infa rction or intracranial hemorrhage. 3. Stress test nuclear medicine (11/02/2017): Normal myocardial perfusion study without evidence of reversible defect seen to suggest ischemia. Normal left ventricular ejection fraction of 51%. 4. Echocardiogram (10/31/2017): Left ventricular size mildly increased. Ejection fraction is visua lly estimated at 40% to 45%. E/A flow reversal noted, suggestive of diastolic dysfunction. Mild naheed ral regurgitation is present. Mild tricuspid regurgitation. 5. Renal biopsy CT (11/03/2017): Technically sucessful random renal biopsy. Pathology pending. 6. Operative note (11/03/2017): Successful loop recorder implantation. DISCHARGE MEDICATIONS: 1. Procardia-XL 90 mg p.o. daily. 2. Coreg 25 mg p.o. b.i.d. PRIMARY DIAGNOSIS: Syncope, likely secondary to hypertensive emergency. SECONDARY DIAGNOSES: Chronic kidney disease with suspected IgA nephropathy. HISTORY OF PRESENT ILLNESS AND HOSPITAL COURSE: Mr. Vásquez presented for concern of syncopal episod e at home. He reported that he felt wheezy earlier in the day and then later that he was having terr ible headache and took some medication that a friend gave him. This medication likely benzodiazepine , although the patient does not recall exactly what it was or the milligrams. He then lost conscious ness when he was walking around in his house and does not recall anything after that until he was on his way to the hospital. He was initially admitted for concern for his TIA versus stroke and an init ial CT was negative. An MRI was also performed which showed some nonspecific scattered T2 signals in the frontal lobes. He was found to have ongoing chronic kidney disease suspected to be IgA nephropa thy, for which Dr. Amaral and Dr. Nelson have been in evaluating him. A renal biopsy was performed wh ile he was inpatient as renal function was persistently poor. He was also found to have a slightly d ecreased ejection fraction and some diastolic dysfunction on echocardiogram and therefore Dr. Lugo with Cardiology was consulted who recommended evaluation by Electrophysiology as well as a stress eve t. The stress test was negative and Dr. Sanchez with EP placed an implantable loop recorder. His blood pressure was also found to be very high throughout his hospital stay and has felt that his syncopal episode was related to possibly hypertensive urgency versus emergency as well as likely benzodiazepin e ingestion. The patient was counseled to not take any medications that are not prescribed for him a nd stressed the importance of compliance with blood pressure medications as his blood pressure was ve ry high throughout his hospitalization until adequate medication control was achieved. DISCHARGE PLANNIN. Location: Home. 2. Diet: Heart-healthy with renal diet per Dr. Amaral. 3. Followup: With Dr. Nelson at appointment which has already been scheduled for tomorrow and patient was given information for both [facility] and our clinic at [facility]& for followup within 1 week to establish a PCP. 4. Activity: As tolerated. The patient was cautioned against driving until electrophysiology regulo p is adequately completed.
--- NOTE | 2017-11-05 14:19 | EKG ---
Test Reason : Blood Pressure : / mmHG Vent. Rate : 083 BPM Atrial Rate : 083 BPM P-R Int : 150 ms QRS Dur : 082 ms QT Int : 358 ms P-R-T Axes : 040 028 010 degrees QTc Int : 420 ms Normal sinus rhythm Cannot rule out Anterior infarct , age undetermined Abnormal ECG Confirmed by LUCILLE OLIVO, MI ([id number]), editor farm journal YANELI CHAVEZ ([id number]) on 11/05/2017 2:19:24 PM Referred By: Confirmed By:MI ADKINS MD
== END 2017-11-03 17:07 | disposition home or self-care (01) | DRG 261 ==
LOC: ERS 20:42 → 2SE 22:55
PROVIDERS: ADMIT Emergency Medicine; ATTEND Emergency Medicine
PROC: 0JH632Z Insertion of Monitoring Device into Chest Subcutaneous Tissue and Fascia, Percutaneous Approach (ICD-10-PCS; principal; 2017-11-03)
DX: I42.9 Cardiomyopathy, unspecified (principal); N17.9 Acute kidney failure, unspecified; N18.4 Chronic kidney disease, stage 4 (severe); N02.8 Recurrent and persistent hematuria with other morphologic changes; I12.9 Hypertensive chronic kidney disease with stage 1 through stage 4 chronic kidney disease, or unspecified chronic kidney disease; Z91.14 Patient's other noncompliance with medication regimen; R80.9 Proteinuria, unspecified; D64.9 Anemia, unspecified; R60.0 Localized edema; I95.1 Orthostatic hypotension; F19.10 Other psychoactive substance abuse, uncomplicated; I11.9 Hypertensive heart disease without heart failure; Z87.891 Personal history of nicotine dependence
CPT/HCPCS: 33282; 36415; 50200; 70450; 70551; 77012; 78452; 80048; 80053; 80061; 80306; 81003; 81015; 82553; 84484; 85025; 85610; 85730; 90471; 90670; 93005; 93017; 93306; 93798; 96374; 96375; A4216; A9500; C1764; G0009; J0153; J0360; J2001; J2250; J3010; Q0162

== ENCOUNTER 2019-06-26 16:51 | Emergency (ER) | payer SELFPAY ==
[2019-06-26 17:16] LABS: #Basophils 0.1 thou/uL (0.0-0.2); #Eosinphils 0.3 thou/uL (0.0-0.7); #Lymphocytes 1.7 thou/uL (1.20-3.40); #Monocytes 0.6 thou/uL (0.11-0.59); #Neutrophils 7.3 thou/uL (1.40-6.50); %Basophils 0.9 % (0.0-1.0); %Lymphocytes 17.3 % (21.0-51.0); %Neutrophils 72.9 % (42.0-75.0); Hemoglobin 12.5 g/dL (14.0-18.0); Mean Corpuscular HGB CONC 34.3 g/dL (32.0-36.0); Mean Corpuscular Hemoglobin 31.6 pg (27.0-31.0); Mean Corpuscular Volume 92.2 fL (78.0-98.0); Mean Platelet Volume 8.6 fL (7.4-10.4); Platelet Count 227 thou/uL (130-400); RBC Distribution Width 12.3 % (11.5-14.5); Red Blood Cell (RBC) Count 3.95 mill/uL (4.70-6.10)
[2019-06-26 17:45] LABS: ALT (SGPT) 10 U/L (8-55); AST (SGOT) 12 U/L (5-34); Albumin 3.6 g/dL (3.5-5.0); Alkaline Phosphatase 95 U/L (40-110); Anion Gap 16 mmol/L (10-20); BUN (Urea Nitrogen) 51 mg/dL (8.9-20.6); Bilirubin, Total 0.6 mg/dL (0.2-1.2); Calc. Creatinine Clearance 0 mL/min (70-130); Carbon Dioxide 27 mmol/L (22-29); Chloride 98 mmol/L (98-107); Estimated GFR-MDRD 8; Globulin 2.9 g/dL (2.4-3.5); Glucose 116 mg/dL (70-105); Potassium 3.8 mmol/L (3.5-5.1); Protein, Total 6.5 g/dL (6.0-8.3); Sodium 137 mmol/L (136-145)
[2019-06-26] MEDS ORDERED: Fentanyl 100 MCG/2 ML VIAL ONE (17:47)
[2019-06-26] MEDS ORDERED: Nitroglycerin 2% Ointment 1 INCH/1 GM Packet ONE (17:48)
[2019-06-26] MEDS ORDERED: Dexamethasone 10 MG/ML VIAL ONE (17:48)
[2019-06-26] MEDS ORDERED: Metoclopramide HCl 10 MG/2 ML VIAL ONE (17:48)
--- NOTE | 2019-06-26 17:49 | CT ---
CT BRAIN WITHOUT CONTRAST: HISTORY: Headache COMPARISON: 02/20/2019 FINDINGS: No evidence of acute infarct, hemorrhage, midline shift or abnormal extra-axial fluid collections is seen. The ventricular size is appropriate and the basilar cisterns are patent. The bony calvarium is intact. The visualized paranasal sinuses and mastoid air cells are well aerated. There is a focal hypodensity in the adjacent to prominent on the right. IMPRESSION: No CT evidence of acute intracranial process. Recommendation: Further evaluation with contrast-enhanced MRI should be obtained on a nonemergent bas is.
[2019-06-26 18:06] LABS: CKMB 1.8 ng/mL (0-6.6)
== END 2019-06-26 19:08 | disposition home or self-care (01) ==
LOC: ERS 16:51
DX: R51 Headache (principal); E11.22 Type 2 diabetes mellitus with diabetic chronic kidney disease; N18.9 Chronic kidney disease, unspecified
CPT/HCPCS: 36415; 70450; 80053; 82553; 84484; 85025; 93005; 94760; 96365; 96375; J1100; J2765; J3010

== ENCOUNTER 2019-06-26 21:42 | Inpatient (IN) | payer OTHER, SELFPAY ==
[2019-06-26] MEDS ORDERED: Labetalol HCl 100 MG/20 ML VIAL ONE (21:59)
[2019-06-26 22:11] LABS: #Basophils 0.1 thou/uL (0.0-0.2); #Lymphocytes 0.3 thou/uL (1.20-3.40); #Monocytes 0.1 thou/uL (0.11-0.59); %Basophils 0.8 % (0.0-1.0); %Eosinophils 0.1 % (0.0-10.0); %Monocytes 0.8 % (0.0-10.0); %Neutrophils 95.2 % (42.0-75.0); Hemoglobin 13.1 g/dL (14.0-18.0); Mean Corpuscular HGB CONC 34.7 g/dL (32.0-36.0); Mean Corpuscular Hemoglobin 31.7 pg (27.0-31.0); Mean Corpuscular Volume 91.4 fL (78.0-98.0); Mean Platelet Volume 8.3 fL (7.4-10.4); Platelet Count 232 thou/uL (130-400); RBC Distribution Width 12.2 % (11.5-14.5); Red Blood Cell (RBC) Count 4.12 mill/uL (4.70-6.10); White Blood Cell (WBC) Count 11.6 thou/uL (4.8-10.8)
--- NOTE | 2019-06-26 22:13 | RAD ---
XR Chest 1 View Portable HISTORY: Hypertensive emergency. Headache COMPARISON: 11/18/2010 FINDINGS: The heart size is normal. The lungs are well expanded without focal areas of consolidation, pneumothorax or pleural effusions. IMPRESSION: No radiographic evidence of acute cardiopulmonary process.
[2019-06-26] MEDS ORDERED: Acetaminophen 325 MG TAB ONE (22:17)
[2019-06-26] MEDS ORDERED: Acetaminophen 500 MG TAB ONE (22:19)
[2019-06-26 22:33] LABS: ALT (SGPT) 11 U/L (8-55); AST (SGOT) 13 U/L (5-34); Albumin 4.1 g/dL (3.5-5.0); Alkaline Phosphatase 100 U/L (40-110); Anion Gap 18 mmol/L (10-20); BUN (Urea Nitrogen) 49 mg/dL (8.9-20.6); Bilirubin, Total 0.7 mg/dL (0.2-1.2); Calc. Creatinine Clearance 0 mL/min (70-130); Calcium 9.6 mg/dL (7.8-10.44); Carbon Dioxide 23 mmol/L (22-29); Chloride 99 mmol/L (98-107); Estimated GFR-MDRD 8; Globulin 3.2 g/dL (2.4-3.5); Glucose 134 mg/dL (70-105); Potassium 3.6 mmol/L (3.5-5.1); Protein, Total 7.3 g/dL (6.0-8.3); Sodium 136 mmol/L (136-145)
[2019-06-26 22:35] LABS: Acetaminophen Less than 6.0 mcg/mL (10.0-30.0); Alcohol Less than 10 mg/dL (Less than 10); Salicylate Less than 8.0 mg/dL (15.0-30.0)
[2019-06-26] MEDS ORDERED: niCARdipine 25 MG in Sodium Chloride 0.9% 250 ML 240 ML IVPB SCH (23:15)
--- NOTE | 2019-06-26 23:25 | CT ---
CT BRAIN WITHOUT CONTRAST: HISTORY:Headache COMPARISON:Earlier exam of 5:41 PM from same date FINDINGS: No significant interval change is seen. IMPRESSION: Stable exam.
[2019-06-27 00:15] LABS: Amphetamine Not Detected (NotDetected); Barbiturates Screen Not Detected (NotDetected); Benzodiazepine Screen Detected (NotDetected); Cocaine Metabolite Screen Not Detected (NotDetected); Medtox Control Line Valid? VALID (VALID); Medtox Reader # READER 4; Methadone Not Detected (NotDetected); Methamphetamine Not Detected (NotDetected); Opiate Screen Not Detected (NotDetected); Oxycodone Screen Not Detected (NotDetected); Phencyclidine (PCP) Not Detected (NotDetected); THC/Cannabinoid Screen Detected (NotDetected); Tricyclic Screen Not Detected (NotDetected)
[2019-06-27 00:16] LABS: Bacteria/HPF None Seen HPF (None Seen); Bilirubin Negative (Negative); Blood, Urine Trace (Negative); Clarity Clear (Clear); Glucose, Urine (Dipstick) 100 mg/dL (Negative); Leukocyte 250 Leu/uL (Negative); Nitrite Negative (Negative); Protein, Urine (Dipstick) 200 mg/dL (Neg-Trace); RBC/HPF 0-3 HPF (0-3); Squamous Epithelial None Seen HPF (0-3); Urobilinogen Normal mg/dL (Less than 2); WBC/HPF Greater than 50 HPF (0-3)
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
[2019-06-27 01:57] LABS: Troponin I 0.049 ng/mL (< 0.028)
[2019-06-27] MEDS ORDERED: Acetaminophen 325 MG TAB PO PRN (02:06)
[2019-06-27] MEDS ORDERED: Ondansetron PF 4 MG/2 ML Vial IVP PRN (02:06)
[2019-06-27 05:26] LABS: #Lymphocytes 0.5 thou/uL (1.20-3.40); #Monocytes 0.2 thou/uL (0.11-0.59); #Neutrophils 9.5 thou/uL (1.40-6.50); %Basophils 0.2 % (0.0-1.0); %Eosinophils 0.1 % (0.0-10.0); %Lymphocytes 5.2 % (21.0-51.0); %Monocytes 2.1 % (0.0-10.0); %Neutrophils 92.5 % (42.0-75.0); Hemoglobin 11.9 g/dL (14.0-18.0); Mean Corpuscular HGB CONC 33.8 g/dL (32.0-36.0); Mean Corpuscular Hemoglobin 31.2 pg (27.0-31.0); Mean Corpuscular Volume 92.2 fL (78.0-98.0); Mean Platelet Volume 8.5 fL (7.4-10.4); Platelet Count 226 thou/uL (130-400); RBC Distribution Width 12.2 % (11.5-14.5); Red Blood Cell (RBC) Count 3.82 mill/uL (4.70-6.10); White Blood Cell (WBC) Count 10.2 thou/uL (4.8-10.8)
[2019-06-27 05:37] LABS: Troponin I 0.044 ng/mL (< 0.028)
[2019-06-27 05:43] LABS: ALT (SGPT) 9 U/L (8-55); AST (SGOT) 11 U/L (5-34); Albumin 3.6 g/dL (3.5-5.0); Alkaline Phosphatase 84 U/L (40-110); Anion Gap 16 mmol/L (10-20); BUN (Urea Nitrogen) 48 mg/dL (8.9-20.6); Bilirubin, Total 0.6 mg/dL (0.2-1.2); Calc. Creatinine Clearance 0 mL/min (70-130); Calcium 9.1 mg/dL (7.8-10.44); Carbon Dioxide 22 mmol/L (22-29); Chloride 103 mmol/L (98-107); Estimated GFR-MDRD 8; Globulin 2.7 g/dL (2.4-3.5); Glucose 130 mg/dL (70-105); Phosphorus 4.3 mg/dL (2.3-4.7); Potassium 4.3 mmol/L (3.5-5.1); Protein, Total 6.3 g/dL (6.0-8.3); Sodium 137 mmol/L (136-145)
[2019-06-27] MEDS ORDERED: Furosemide 40 MG/4 ML VIAL SLOW IVP SCH (06:00)
[2019-06-27] MEDS ORDERED: Furosemide 40 MG/4 ML VIAL ONE (06:05)
--- NOTE | 2019-06-27 09:26 | PDOC.EVN ---
Event Note - Event Note Event Note: Took over care of patient. Symptoms resolved, patient euvolemic, BP 130/100. Started oral antihtn for progressive BP control considering presented with hypertensive emergency (TARAH, blurry vision). will wean off cardizem drip and admit to telemetry.
[2019-06-27] MEDS ORDERED: Carvedilol 25 MG TAB PO SCH (09:30)
[2019-06-27] MEDS ORDERED: NIFEdipine XL 30 MG TAB PO SCH (09:30)
--- NOTE | 2019-06-27 09:33 | ULT ---
BILATERAL RENAL ULTRASOUND: Date: 06/27/2019 HISTORY: Chronic renal disease. FINDINGS: Real-time imaging of the right and left kidneys performed. Kidneys are echogenic in appearance. Right kidney measures 8.1 cm and left 7.9 cm in size. Small right renal cyst measuring 1.5 cm is noted. No obstruction or solid mass. Bladder region appears unremarkable. IMPRESSION: Increased echogenicity in both kidneys which are borderline small. Changes would suggest underlying c hronic medical renal parenchymal disease. No obstruction. POS: TPC
[2019-06-27] MEDS ORDERED: NIFEdipine XL 30 MG TAB ONE (09:42)
--- NOTE | 2019-06-27 11:38 | ULT ---
BILATERAL UPPER EXTREMITY VEIN MAPPING: Date: 06/27/2019 HISTORY: End-stage renal disease; evaluate for dialysis access. FINDINGS: RIGHT UPPER EXTREMITY CEPHALIC VEIN Proximal Arm: 3.5 mm Mid Arm: 3.3 mm Distal Arm: 2.9 mm Antecubital Fossa: 1.5 mm Proximal Forearm: 2.5 mm Mid Forearm: 2.3 mm Distal Forearm: 2.9 mm BASILIC VEIN Proximal Arm: 2.8 mm Mid Arm: 1.8 mm Distal Arm: 4.0 mm Antecubital Fossa: 3,4 mm Proximal Forearm: 1.5 mm Mid Forearm: 1.2 mm Distal Forearm: 1.3 mm LEFT UPPER EXTREMITY CEPHALIC VEIN Proximal Arm: 4.1 mm Mid Arm: 3.5 mm Distal Arm: 3.2 mm Antecubital Fossa: 3.2 mm Proximal Forearm: 1.8 mm Mid Forearm: 2.0 mm Distal Forearm: 2.5 mm BASILIC VEIN Proximal Arm: 5.8 mm Mid Arm: 4.5 mm Distal Arm: 5.5 mm Antecubital Fossa: 3.6 mm Proximal Forearm: 1.4 mm Mid Forearm: 0.9 mm Distal Forearm: 1.3 mm RIGHT BRACHIAL ARTERY: 5.6 mm RIGHT RADIAL ARTERY: 3.9 mm RIGHT ULNAR ARTERY: 4.2 mm LEFT BRACHIAL ARTERY: 6.0 mm LEFT RADIAL ARTERY: 4.0 mm LEFT ULNAR ARTERY: 3.6 mm IMPRESSION: Dialysis vein mapping as above. POS: TPC
--- NOTE | 2019-06-27 11:42 | CON ---
DATE OF CONSULTATION: 06/27/2019 CONSULTING PHYSICIAN: Dr. Tariq. REASON FOR CONSULTATION: Acute kidney injury on chronic kidney disease. REASON FOR ADMISSION: Weakness. HISTORY OF PRESENT ILLNESS: This is a 29-year-old male with history of IgA nephropathy, hypertension, polysubstance abuse, noncompliance, came to the hospital with weakness and hypertension, being treated. The patient needs close followup as outpatient, but is not being seeing Nephrology, has not seen Dr. Nelson in 3 months. No fever or chills. No nausea or vomiting. PAST MEDICAL HISTORY: Positive for; 1. CHF. 2. Hypertension. 3. CKD stage 5. 4. Bilaterally ischemic kidneys. 5. IgA nephropathy. PAST SURGICAL HISTORY: None. HOME MEDICATIONS: Reviewed. ALLERGIES: NO KNOWN DRUG ALLERGIES. SOCIAL HISTORY: History of smoking, illicit drug abuse, and alcohol. FAMILY HISTORY: No history of any kidney disease reported. REVIEW OF SYSTEMS: CONSTITUTIONAL: Negative for weight loss or gain, ability to conduct usual activities. SKIN: Negative for rash, itching. EYES: Negative for double vision, pain. ENT/MOUTH: Negative for nose bleeding, neck stiffness, pain, tenderness. CARDIOVASCULAR: Negative for palpitations, dyspnea on exertion, orthopnea. RESPIRATORY: Negative for shortness of breath, wheezing, cough, hemoptysis, fever or night sweats. GASTROINTESTINAL: Negative for poor appetite, abdominal pain, heartburn, nausea, vomiting, constipation, or diarrhea. GENITOURINARY: Negative for urgency, frequency, dysuria, nocturia. MUSCULOSKELETAL: Negative for pain, swelling. NEUROLOGIC/PSYCHIATRIC: Negative for anxiety, depression. ALLERGY/IMMUNOLOGIC: Negative for skin rash, bleeding tendency. PHYSICAL EXAMINATION: GENERAL: This is a well-built male, in no apparent distress. VITAL SIGNS: Temperature 98.6, pulse 78, respiratory rate 18, blood pressure 132/88. HEENT: Atraumatic, normocephalic. Oral mucosa is moist. NECK: Supple. CV: S1, S2. Regular rate and rhythm. RESPIRATORY: Clear. MUSCULOSKELETAL: No tenderness. No edema. DERMATOLOGIC: No skin rash. NEUROLOGIC: Alert and awake. PSYCHIATRIC: Mood and affect normal. LABORATORY DATA: Hemoglobin is 11.9. Potassium is 4.3, BUN is 48, creatinine is 7.9. ASSESSMENT AND PLAN: 1. Chronic kidney disease stage 5. No acute indication for dialysis, but the patient is agreeable to have fistula placed. We will consult Surgery. 2. Chronic anemia. 3. Edema, controlled. 4. History of hypertension. 5. IgA nephropathy. 6. Hypoalbuminemia. 7. Proteinuria. 8. Substance abuse, counselled. No acute indication for dialysis. Continue blood pressure control and monitor renal function. We will consult Surgery for placement of a fistula for a near future initiation of renal replacement therapy. Thank you for the consult. We will follow. Job ID: [id number]
[2019-06-27] MEDS: Heparin 5,000 UNITS/ML VIAL SC SCH ×3 (11:53→20:16)
[2019-06-27] MEDS ORDERED: Labetalol HCl 100 MG/20 ML VIAL ONE (12:25)
[2019-06-27] MEDS: Labetalol HCl 100 MG/20 ML VIAL SLOW IVP SCH ×2 (12:32→13:33)
[2019-06-27] MEDS: Carvedilol 25 MG TAB PO SCH (17:10)
[2019-06-27] MEDS ORDERED: CEFAZOLIN 2 GM in Premix Bag 1 BAG IVPB SCH (18:30)
--- NOTE | 2019-06-28 01:04 | CON ---
DATE OF CONSULTATION: HISTORY OF PRESENT ILLNESS: Mr. 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 I have been asked by Dr. Amaral to place a dialysis fistula and hold off on the dialysis catheter at this time. He has had ultrasound vein mapping. He states he is ambidextrous, but uses right hand for writing and prefers left arm fistula. Ultrasound vein mapping reveals good veins in left arm. He has Hep-Lock in his mid left forearm cephalic vein, which was removed. Echocardiogram obtained today 06/27/2019 reveals 35% to 40% ejection fraction, diastolic dysfunction, mild tricuspid regurg. ALLERGIES: NONE. SOCIAL HISTORY: Tobacco, 1/4 to 1/3 pack per day. Alcohol, none. MEDICATIONS: None. He was started on antihypertensives. PAST SURGICAL HISTORY: Noncontributory. PAST MEDICAL HISTORY: 1. Hypertension. 2. Renal ultrasound, borderline small increased echogenicity, bilateral. No evidence of obstruction. 3. The patient denies history of hepatitis or other illnesses. 4. He is known to have CKD related to IgA nephropathy. 5. He has history of polysubstance abuse and noncompliance. 6. He came to the emergency room today with dyspnea and orthopnea. PHYSICAL EXAMINATION: VITAL SIGNS: Height 5 foot 9, 160 pounds. 98.5, 90, 149/97. HEAD, EARS, EYES, NOSE AND THROAT: Unremarkable. Tattoos throughout his body, torso, legs, arms. LUNGS: Clear to auscultation. CARDIAC: Regular rhythm without murmur or gallop. ABDOMEN: Soft and nontender. EXTREMITIES: Palpable pulses, tattoos throughout both upper extremities, has a left mid forearm cephalic vein. LABORATORY DATA: White count 10, hemoglobin 11.9, potassium 4.3, BUN 48, creatinine 7.91. ASSESSMENT AND PLAN: Chronic kidney disease, not yet ready to start dialysis. PLAN: 1. Placement of left arm fistula. We will plan this . N.p.o. after midnight. 2. Cardiomyopathy. 3. History of noncompliance. Job ID: [id number]
[2019-06-28 05:19] LABS: Prothrombin Time 12.8 SEC (12.0-14.7)
[2019-06-28 05:36] LABS: Anion Gap 14 mmol/L (10-20); BUN (Urea Nitrogen) 59 mg/dL (8.9-20.6); Calc. Creatinine Clearance 13 mL/min (70-130); Calcium 8.6 mg/dL (7.8-10.44); Carbon Dioxide 25 mmol/L (22-29); Chloride 104 mmol/L (98-107); Estimated GFR-MDRD 7; Glucose 85 mg/dL (70-105); Potassium 3.6 mmol/L (3.5-5.1); Sodium 139 mmol/L (136-145)
[2019-06-28 06:18] LABS: #Basophils 0.1 thou/uL (0.0-0.2); #Eosinphils 0.2 thou/uL (0.0-0.7); #Lymphocytes 2.7 thou/uL (1.20-3.40); #Monocytes 0.7 thou/uL (0.11-0.59); #Neutrophils 5.9 thou/uL (1.40-6.50); %Basophils 0.9 % (0.0-1.0); %Eosinophils 1.8 % (0.0-10.0); %Lymphocytes 28.1 % (21.0-51.0); %Monocytes 6.9 % (0.0-10.0); %Neutrophils 62.4 % (42.0-75.0); Hemoglobin 10.9 g/dL (14.0-18.0); Mean Corpuscular HGB CONC 33.3 g/dL (32.0-36.0); Mean Corpuscular Hemoglobin 31.2 pg (27.0-31.0); Mean Corpuscular Volume 93.6 fL (78.0-98.0); Mean Platelet Volume 9.1 fL (7.4-10.4); Platelet Count 244 thou/uL (130-400); RBC Distribution Width 12.3 % (11.5-14.5); Red Blood Cell (RBC) Count 3.48 mill/uL (4.70-6.10); White Blood Cell (WBC) Count 9.5 thou/uL (4.8-10.8)
[2019-06-28] MEDS: NIFEdipine XL 90 MG TAB PO SCH (07:31)
[2019-06-28] MEDS: Carvedilol 25 MG TAB PO SCH ×2 (07:32→17:29)
[2019-06-28] MEDS ORDERED: Heparin 10,000 UNITS/ 10 ML VIAL ONE (08:58)
[2019-06-28] MEDS ORDERED: FLU VACC QS2019-20(6MOS UP)/PF 60 MCG/0.5 ML SYRINGE IM ONE (09:00)
[2019-06-28] MEDS ORDERED: PROPOFOL 200 MG/20 ML VIAL ONE (09:43)
[2019-06-28] MEDS ORDERED: Bupivacaine HCl 0.5%/Epinephrine 1:200,000/PF 30 ml Vial ONE (09:43)
[2019-06-28] MEDS: Heparin 5,000 UNITS/ML VIAL SC SCH ×2 (09:49→21:02)
[2019-06-28] MEDS ORDERED: Tuberculin PPD 0.1 ML VIAL I-DERMAL SCH (10:45)
--- NOTE | 2019-06-28 11:00 | PDOC.HOSPP ---
- Subjective Encounter Date: 06/28/19 Encounter Time: 09:00 Subjective: no overnight events. This morning, feels well and symptoms have resolved. When asked about conversation had with professional bondsman regarding dialysis claims to have never spoken to anyone about it so was reminded. Has no complaints. - Objective Vital Signs & Weight: Vital Signs (12 hours) Temp Pulse Resp BP BP Pulse Ox 06/28/19 07:31 78 166/114 H 06/28/19 07:30 97.7 F 73 16 166/114 H 99 06/28/19 04:25 97.9 F 80 16 151/99 H 96 Weight Weight 159 lb 9.835 oz I&O: 06/27/19 06/28/19 06/29/19 06:59 06:59 06:59 Intake Total 720 Balance 720 Result Diagrams: 06/28/19 04:19 06/28/19 04:19 Hospitalist ROS - Review of Systems Constitutional: denies: fever, chills, sweats, weakness, malaise, other Respiratory: denies: cough, dry, shortness of breath, hemoptysis, SOB with excertion, pleuritic pain, sputum, wheezing, other Cardiovascular: denies: chest pain, palpitations, orthopnea, paroxysmal noc. dyspnea, edema, light headedness, other Gastrointestinal: denies: nausea, vomiting, abdominal pain, diarrhea, constipation, melena, hematochezia, other Genitourinary: denies: dysuria, frequency, incontinence, hematuria, retention, other Neurological: denies: weakness, numbness, incoordination, change in speech, confusion, seizures, other - Medication Medications: Active Medications Generic Name Dose Route Start Last Admin Trade Name Freq PRN Reason Stop Dose Admin Carvedilol 25 mg 06/27/19 17:00 06/28/19 07:32 Coreg PO 25 mg BID-WM AIDA Administration Nifedipine 90 mg 06/28/19 09:00 06/28/19 07:31 Procardia Xl PO 90 mg DAILY AIDA Administration Sodium Chloride 10 ml 06/27/19 09:00 06/28/19 10:08 Flush - Normal Saline IVF 10 ml Q12HR AIDA Administration - Exam General Appearance: NAD, awake alert Eye: PERRL, anicteric sclera Heart: RRR, no murmur, no gallops, no rubs, normal peripheral pulses Respiratory: CTAB, no wheezes, no rales, no ronchi, normal chest expansion, no tachypnea, normal percussion Gastrointestinal: soft, non-tender, non-distended, normal bowel sounds, no palpable masses, no hepatomegaly, no splenomegaly, no bruit Extremities: no cyanosis, no clubbing, no edema Psychiatric: normal affect, normal behavior, A&O x 3 Hosp A/P - Plan #TARAH over CKD4 -pending fistula placement #CHF with systolic and diastolic dysfunction; stable -echo showinng EF 35-40 w/ diastolic dysfunction, unchanged compared to 2018 -BNP from 2018 normal, now ~ 1000 likely due to increased hypervolemic stress -trop ~ 0.04 and stable -EKG showed no signs of new ischemia #HTN better controlled Plan: -will wait for after fistula procedure to modify HF medications since arteriovenous fistula may result in significant hemodynamic variations -pending fistula placement
[2019-06-28 11:43] LABS: HBSAB Concentration 6.27 mIU/mL; HBSAg Index 0.28 S/CO (0-0.99); Hep B Core Total Ab Non-Reactive (NonReactive); Hep B Core Total Index 0.04 S/CO (0-0.79); Hep B Surf AB Non-Reactive (NonReactive); Hep B Surf Ag Non-Reactive S/CO (NonReactive); Hep C IgG Ab Non-Reactive (NonReactive); Hep C Index 0.06 S/CO (0-0.79)
--- NOTE | 2019-06-28 12:04 | PRG ---
DATE OF SERVICE: 06/28/2019 SUBJECTIVE: Patient was seen and examined at bedside and overnight events noted. Patient denies any shortness of breath or chest pain or palpitation. No history of nausea or vomiting or diarrhea or fever or chills or cramps. OBJECTIVE: GENERAL: This is a well-built male, in no apparent distress. VITAL SIGNS: Temperature 97.7. Heart rate 73. Respiratory rate 16. Blood pressure . HEENT: Atraumatic, normocephalic. Oral mucosa is moist. NECK: Supple. CARDIOVASCULAR: S1, S2 heard. Rate and rhythm regular. RESPIRATORY: Clear to auscultation. GASTROINTESTINAL: Abdomen is soft. MUSCULOSKELETAL: No tenderness. No edema. DERMATOLOGIC: No skin rash. NEUROLOGIC: Alert and awake and oriented x3. No focal neurologic deficits. Moving all the extremities. PSYCHIATRIC: Mood and affect normal. LABORATORY DATA: Potassium is 3.6, BUN is 59, and creatinine is 8.6. ASSESSMENT AND PLAN: 1. End-stage renal disease. Plan is to start on dialysis. The patient is agreeable. Plan to have a tunneled dialysis catheter and fistula placement today and then we will start on dialysis once access is placed. 2. We will have Case Management consult for outpatient placement. We will also order PPD and hepatitis panel for facilitating the outpatient dialysis placement. 3. Chronic anemia. We will add Epogen with dialysis. 4. Edema. We will remove fluid dialysis. 5. IgA nephropathy with severe sclerosis and advanced disease. No indication for anemia. No suppression at this time. 6. Proteinuria secondary to IgA nephropathy. 7. Substance abuse. 8. Hypoalbuminemia secondary to proteinuria. 9. History of hypertension, stable now. We will continue to titrate medication. We will remove fluid dialysis, which would also aid in the better blood pressure control. We will follow. Job ID: [id number]
[2019-06-28] MEDS ORDERED: Heparin 5,000 UNITS/ML VIAL ONE (13:27)
[2019-06-28] MEDS ORDERED: Sodium Chloride 0.9% 30 ML ONE (13:27)
[2019-06-28] MEDS ORDERED: Bupivacaine 0.25% HCL 30 ML VIAL ONE (13:27)
[2019-06-28] MEDS ORDERED: Heparin 10,000 UNITS/1 ML VIAL ONE (13:27)
[2019-06-28] MEDS ORDERED: Lidocaine 1% w/Epinephrine 1:100K 20 ML VIAL ONE (13:27)
[2019-06-28] MEDS ORDERED: Bupivacaine PF 0.5% 30 ML VIAL ONE (13:32)
[2019-06-28] MEDS ORDERED: Protamine Sulfate 50 MG/5 ML VIAL ONE ×2 (13:32→16:06)
[2019-06-28] MEDS ORDERED: Fentanyl 100 MCG/2 ML VIAL ONE ×2 (14:03→14:13)
[2019-06-28] MEDS ORDERED: Lidocaine 1% (PF) 30 ML VIAL ONE (14:05)
[2019-06-28] MEDS ORDERED: Propofol 500 MG/50 ML VIAL ONE ×2 (14:06→14:48)
[2019-06-28] MEDS ORDERED: Protamine Sulfate 250 MG/25 ML VIAL ONE (16:06)
--- NOTE | 2019-06-28 17:08 | OP ---
DATE OF PROCEDURE: 06/28/2019 PREOPERATIVE DIAGNOSES: End-stage renal disease, cardiomyopathy, poor intravenous access. POSTOPERATIVE DIAGNOSES: End-stage renal disease, cardiomyopathy, poor intravenous access. PROCEDURES PERFORMED: 1. Right internal jugular cuffed-tunneled hemodialysis catheter. 2. Left internal jugular central line. 3. Ultrasound and fluoroscopy use. 4. Left arm Briana fistula, cephalic vein to radial artery at wrist, outflow calibrated to 3.5 coronary dilator with clipping of collaterals. ANESTHESIA: Regional, TIVA, and local of 0.5% Marcaine 30 mL mixed with 1% Xylocaine with epinephrine 20 mL. DESCRIPTION OF PROCEDURE: The patient was taken to the operating room, where under intravenous sedation, neck, chest, and left upper extremity were prepared with ChloraPrep and draped in routine fashion. Local anesthetic was infiltrated in the skin and subcutaneous tissue about the operative sites. Ultrasound guidance was used to cannulate the right and left internal jugular veins, and J-wire was threaded. Trocar catheter was removed. Skin site was enlarged sharply on both sides. Seldinger technique was used to place a triple-lumen catheter in the left IJ securing the catheter with 3-0 silk sutures. CHD dressing was applied. Each port aspirated blood, flushed with saline solution. J-wire had been removed. On the right side, stab incision was made over the right chest. Using the tunneling device, the pre-curved [employer] cuffed-tunneled hemodialysis catheter was tunneled between the 2 incisions placing the fabric cuff in the skin exit site, and catheter was secured with 2 interrupted suture of 3-0 nylon. Smaller and medium-sized dilators were placed over the J-wire into the internal jugular vein and removed. Dilator and Peel-Away sheath were placed over the J-wire into the superior vena cava. Dilator and J-wire were removed. Catheter was placed over the Peel-Away sheath. Peel-Away sheath was removed. Platysma was approximated with 4-0 Monocryl, skin with subdermal 4-0 Monocryl, and [place] glue applied. Each port aspirated blood, flushed with saline solution and heparinized saline solution with 1000 units of heparin per mL indicating volume of the port. Attention was turned to the left arm. Ultrasound vein mapping suggested poor veins in the forearm and wrist. Thus, an incision was made below the antecubital fossa on the proximal volar forearm longitudinally, carried down through skin and subcutaneous tissue, and the cephalic vein was actually of good caliber. For this reason, a small incision was made at the wrist and then lengthened to accommodate Briana fistula at the wrist. The cephalic vein at the wrist was dissected free. Branches were divided between 4-0 silk ties and clips and spatulated over branch point. The patient was given 6000 units of heparin intravenously. Vein was divided on the hand side, and the stump was ligated with a 3-0 silk tie, and vein was spatulated with Tom scissors. Radial artery was dissected proximally and distally, and after adequate circulation time of 6000 units of heparin intravenously administered, radial artery was clamped proximally and distally. A longitudinal arteriotomy was made in a healthy radial artery for a 2 cm anastomosis, and vein was spatulated and anastomosed to the radial artery with continuous suture of 6-0 Prolene. After completing the anastomosis, vascular clamps were released, and vein was dissected free proximally. Two of the large branches were clipped with large clips. Doppler signal revealed good venous outflow. The patient was given 25 mg of protamine intravenously. Subcutaneous tissue was approximated with 3-0 Monocryl, skin with subdermal 4-0 Monocryl, and [place] glue applied to each wound. The patient tolerated the procedure well. Job ID: [id number]
--- NOTE | 2019-06-28 17:19 | RAD ---
PORTABLE CHEST: 06/28/19 HISTORY: Central line placement. COMPARISON: 07/06/19 exam. Right sided Hemosplit catheter and a left sided central line are now present. Both catheter tips over lie the distal superior vena cava No signs of pneumothorax. No other interval change. IMPRESSION: Line placement. No signs for pneumothorax. POS: TPC
[2019-06-28] MEDS: traMADol HCl 50 MG TAB PO PRN (22:58)
[2019-06-29 04:35] LABS: #Basophils 0.1 thou/uL (0.0-0.2); #Eosinphils 0.2 thou/uL (0.0-0.7); #Lymphocytes 1.6 thou/uL (1.20-3.40); #Monocytes 0.6 thou/uL (0.11-0.59); #Neutrophils 6.2 thou/uL (1.40-6.50); %Basophils 0.8 % (0.0-1.0); %Eosinophils 2.7 % (0.0-10.0); %Lymphocytes 18.5 % (21.0-51.0); %Monocytes 6.4 % (0.0-10.0); %Neutrophils 71.6 % (42.0-75.0); Hemoglobin 11.7 g/dL (14.0-18.0); Mean Corpuscular HGB CONC 33.7 g/dL (32.0-36.0); Mean Corpuscular Hemoglobin 31.5 pg (27.0-31.0); Mean Corpuscular Volume 93.6 fL (78.0-98.0); Mean Platelet Volume 8.7 fL (7.4-10.4); Platelet Count 262 thou/uL (130-400); RBC Distribution Width 12.2 % (11.5-14.5); Red Blood Cell (RBC) Count 3.72 mill/uL (4.70-6.10); White Blood Cell (WBC) Count 8.7 thou/uL (4.8-10.8)
[2019-06-29 05:04] LABS: Anion Gap 14 mmol/L (10-20); BUN (Urea Nitrogen) 45 mg/dL (8.9-20.6); Calc. Creatinine Clearance 16 mL/min (70-130); Calcium 8.6 mg/dL (7.8-10.44); Carbon Dioxide 25 mmol/L (22-29); Chloride 103 mmol/L (98-107); Estimated GFR-MDRD 9; Glucose 113 mg/dL (70-105); Magnesium 1.9 mg/dL (1.6-2.6); Sodium 138 mmol/L (136-145)
[2019-06-29] MEDS: traMADol HCl 50 MG TAB PO PRN ×2 (09:57→20:12)
[2019-06-29] MEDS ORDERED: Heparin 10,000 UNITS/ 10 ML VIAL ONE (10:37)
[2019-06-29] MEDS: Carvedilol 25 MG TAB PO SCH ×2 (11:50→16:30)
[2019-06-29] MEDS: NIFEdipine XL 90 MG TAB PO SCH (11:50)
[2019-06-29] MEDS: Heparin 5,000 UNITS/ML VIAL SC SCH ×2 (11:51→20:12)
--- NOTE | 2019-06-29 12:29 | PRG ---
DATE OF SERVICE: 06/29/2019 SUBJECTIVE: Patient was seen and examined at bedside and overnight events noted. Patient denies any shortness of breath or chest pain or palpitation. No history of nausea or vomiting or diarrhea or fever or chills or cramps. OBJECTIVE: GENERAL: This is a well-built male, in no apparent distress. VITAL SIGNS: Temperature 97.8. Heart rate 80. Respiratory rate 16. Blood pressure 148/106. HEENT: Atraumatic, normocephalic. Oral mucosa is moist. NECK: Supple. CARDIOVASCULAR: S1, S2 heard. Rate and rhythm regular. RESPIRATORY: Clear to auscultation. GASTROINTESTINAL: Abdomen is soft. MUSCULOSKELETAL: No tenderness. No edema. DERMATOLOGIC: No skin rash. NEUROLOGIC: Alert and awake and oriented x3. No focal neurologic deficits. Moving all the extremities. PSYCHIATRIC: Mood and affect normal. LABORATORY DATA: Potassium 4.0, BUN is 45, and creatinine is 7.04. ASSESSMENT AND PLAN: 1. End-stage renal disease, started on hemodialysis yesterday. Appreciate help from Surgery for access placement. Follow with Case Management for outpatient placement. 2. Chronic anemia. 3. Edema. 4. Proteinuria. 5. IgA nephropathy. 6. Substance abuse. 7. Hypoalbuminemia. Start dialysis. We will have another session of dialysis today. Follow with Case Management for outpatient placement. Job ID: [id number]
--- NOTE | 2019-06-29 14:07 | PDOC.HOSPP ---
- Subjective Encounter Date: 06/29/19 Encounter Time: 11:00 Subjective: overnight, surgery placed fistula and tunneled catheter, and patient was started on hemodialysis. Tolerated procedure and dialysis well. This morning, in dialysis feeling well and has no complaints. - Objective Vital Signs & Weight: Vital Signs (12 hours) Temp Pulse Resp BP BP Pulse Ox 06/29/19 11:48 97.3 F L 90 16 153/106 H 100 06/29/19 07:20 97.8 F 88 16 148/106 H 99 06/29/19 03:29 98.4 F 80 16 145/100 H 98 Weight Admit Weight 160 lb 14.999 oz Weight 155 lb 13.869 oz I&O: 06/28/19 06/29/19 06/30/19 06:59 06:59 06:59 Intake Total 720 1200 Balance 720 1200 Result Diagrams: 06/29/19 03:53 06/29/19 03:53 Hospitalist ROS - Review of Systems Constitutional: denies: fever, chills, sweats, weakness, malaise, other Respiratory: denies: cough, dry, shortness of breath, hemoptysis, SOB with excertion, pleuritic pain, sputum, wheezing, other Cardiovascular: denies: chest pain, palpitations, orthopnea, paroxysmal noc. dyspnea, edema, light headedness, other Gastrointestinal: denies: nausea, vomiting, abdominal pain, diarrhea, constipation, melena, hematochezia, other Neurological: denies: weakness, numbness - Medication Medications: Active Medications Generic Name Dose Route Start Last Admin Trade Name Freq PRN Reason Stop Dose Admin Carvedilol 25 mg 06/27/19 17:00 06/29/19 11:50 Coreg PO 25 mg BID-WM AIDA Administration Heparin Sodium (Porcine) 5,000 units 06/28/19 21:00 06/29/19 11:51 Heparin SC 5,000 units BID AIDA Administration Nifedipine 90 mg 06/28/19 09:00 06/29/19 11:50 Procardia Xl PO 90 mg DAILY AIDA Administration Sodium Chloride 10 ml 06/27/19 09:00 06/29/19 11:50 Flush - Normal Saline IVF 10 ml Q12HR AIDA Administration Tramadol HCl 50 mg 06/28/19 16:55 06/29/19 09:57 Ultram PO 50 mg Q4H PRN Administration Pain Tuberculin PPD 0.1 ml 06/28/19 10:45 06/28/19 18:19 Tuberculin Ppd I-DERMAL 07/01/19 10:46 0.1 ml ONE AIDA Administration - Exam General Appearance: NAD, awake alert Neck: no JVD Heart: RRR, no murmur, no gallops, no rubs Respiratory: CTAB, no wheezes, no rales, no ronchi, normal chest expansion, no tachypnea Gastrointestinal: soft, non-tender, non-distended, normal bowel sounds Extremities: no edema Skin - other findings: thorax right: tunneled cather; left CL; L wrist fistula wound c/d/i Neurological: cranial nerve grossly intact, no weakness, no focal deficits Musculoskeletal: normal tone, normal strength Psychiatric: normal affect, normal behavior, A&O x 3 Hosp A/P - Plan #TARAH over CKD4 -fistula placed; R tunneled catheter placed and started HD -Appreciated nephrology recs -2nd HD session (06/29) #CHF with systolic and diastolic dysfunction; stable -continue same management #HTN better controlled; will continue same management; follow closely considering fistula placement and initiation of HD Plan: -CM onboard for initiation of outpatient HD
--- NOTE | 2019-06-29 18:20 | PRG ---
DATE OF SERVICE: 06/29/2019 Denis Vásquez is doing well. Yesterday, he had placement of a central line hemodialysis catheter and left Briana fistula at wrist. He had proximal volar forearm, and vein was assessed, good caliber, contrary to ultrasound preoperative vein mapping and incision made in the left wrist and a good-sized cephalic vein identified and a primary fistula formed at the wrist. Today, he is doing well. His arm block has resolved. He has good use of his left hand and function. He has good thrill and bruit in his fistula. This should mature well. I have encouraged him to exercise the arm and use it without restriction. At this point, I will see him as needed. He should follow up in my office in 3 to 4 weeks. Job ID: [id number]
[2019-06-30 04:56] LABS: #Basophils 0.1 thou/uL (0.0-0.2); #Eosinphils 0.4 thou/uL (0.0-0.7); #Lymphocytes 2.6 thou/uL (1.20-3.40); #Monocytes 0.9 thou/uL (0.11-0.59); #Neutrophils 3.6 thou/uL (1.40-6.50); %Basophils 1.4 % (0.0-1.0); %Eosinophils 5.1 % (0.0-10.0); %Lymphocytes 34.3 % (21.0-51.0); %Monocytes 11.7 % (0.0-10.0); %Neutrophils 47.5 % (42.0-75.0); Mean Corpuscular HGB CONC 33.9 g/dL (32.0-36.0); Mean Corpuscular Volume 94.2 fL (78.0-98.0); Mean Platelet Volume 8.6 fL (7.4-10.4); Platelet Count 258 thou/uL (130-400); Red Blood Cell (RBC) Count 3.43 mill/uL (4.70-6.10); White Blood Cell (WBC) Count 7.7 thou/uL (4.8-10.8)
[2019-06-30 05:01] LABS: Anion Gap 12 mmol/L (10-20); BUN (Urea Nitrogen) 41 mg/dL (8.9-20.6); Calc. Creatinine Clearance 17 mL/min (70-130); Calcium 8.5 mg/dL (7.8-10.44); Carbon Dioxide 25 mmol/L (22-29); Chloride 104 mmol/L (98-107); Estimated GFR-MDRD 11; Glucose 80 mg/dL (70-105); Magnesium 2.1 mg/dL (1.6-2.6); Potassium 4.1 mmol/L (3.5-5.1); Sodium 137 mmol/L (136-145)
[2019-06-30] MEDS: NIFEdipine XL 90 MG TAB PO SCH (08:58)
[2019-06-30] MEDS: Carvedilol 25 MG TAB PO SCH ×2 (08:59→16:54)
[2019-06-30] MEDS: Heparin 5,000 UNITS/ML VIAL SC SCH ×2 (08:59→21:49)
--- NOTE | 2019-06-30 12:38 | PRG ---
DATE OF SERVICE: 06/30/2019 SUBJECTIVE: Patient was seen and examined at bedside and overnight events noted. Patient denies any shortness of breath or chest pain or palpitation. No history of nausea or vomiting or diarrhea or fever or chills or cramps. OBJECTIVE: GENERAL: This is a well-built male, in no apparent distress. VITAL SIGNS: Temperature 98.7, heart rate 89, respiratory rate 18, blood pressure 163/102. HEENT: Atraumatic, normocephalic. Oral mucosa is moist NECK: Supple. CARDIOVASCULAR: S1, S2 heard. Rate and rhythm regular. RESPIRATORY: Clear to auscultation. GASTROINTESTINAL: Abdomen is soft. MUSCULOSKELETAL: No tenderness. No edema. DERMATOLOGIC: No skin rash. NEUROLOGIC: Alert and awake and oriented X3. No focal neurologic deficits. Moving all the extremities. PSYCHIATRIC: Mood and affect normal. LABORATORY DATA: Potassium 4.1, BUN is 41, and creatinine is 6.2. ASSESSMENT AND PLAN: 1. End-stage renal disease. Continue hemodialysis. Follow case consultant for outpatient placement. 2. Anemia. 3. Edema. 4. Proteinuria. 5. IgA nephropathy. 6. Substance abuse. 7. Hypoalbuminemia. Continue dialysis as tolerated. Follow with Case Management for outpatient placement. Appreciate help from Surgery. Job ID: [id number]
--- NOTE | 2019-06-30 14:49 | PDOC.HOSPP ---
- Subjective Encounter Date: 06/30/19 Encounter Time: 07:40 Subjective: Pt seen for followup re; ESRD needing dialysis. Feels better, no complaints. - Objective Vital Signs & Weight: Vital Signs (12 hours) Temp Pulse Resp BP BP Pulse Ox 06/30/19 12:05 98.6 F 83 15 125/75 98 06/30/19 08:58 89 153/102 H 06/30/19 08:53 97.7 F 89 18 153/102 H 98 06/30/19 07:45 100 06/30/19 03:43 97.8 F 82 20 146/90 H 99 Weight Admit Weight 160 lb 14.999 oz Weight 153 lb 9 oz I&O: 06/29/19 06/30/19 07/01/19 06:59 06:59 06:59 Intake Total 1200 240 Output Total 0 Balance 1200 240 Result Diagrams: 06/30/19 04:16 06/30/19 04:16 Additional Labs: Labs and MARs reviewed by me EKG Reviewed by me: Yes (Tele: NSR) Hospitalist ROS - Review of Systems Constitutional: denies: fever, chills, sweats, weakness, malaise Cardiovascular: denies: chest pain, palpitations, orthopnea, paroxysmal noc. dyspnea, edema, light headedness Gastrointestinal: denies: nausea, vomiting, abdominal pain, diarrhea, constipation, melena, hematochezia Genitourinary: denies: dysuria, frequency, incontinence, hematuria, retention Musculoskeletal: denies: neck pain, shoulder pain, arm pain, back pain, hand pain, leg pain, foot pain Skin: denies: rash, lesions, katja, bruising - Medication Medications: Active Medications Generic Name Dose Route Start Last Admin Trade Name Freq PRN Reason Stop Dose Admin Carvedilol 25 mg 06/27/19 17:00 06/30/19 08:59 Coreg PO 25 mg BID-WM AIDA Administration Heparin Sodium (Porcine) 5,000 units 06/28/19 21:00 06/30/19 08:59 Heparin SC 5,000 units BID AIDA Administration Nifedipine 90 mg 06/28/19 09:00 06/30/19 08:58 Procardia Xl PO 90 mg DAILY AIDA Administration Sodium Chloride 10 ml 06/27/19 09:00 06/30/19 09:02 Flush - Normal Saline IVF 10 ml Q12HR AIDA Administration Tramadol HCl 50 mg 06/28/19 16:55 06/29/19 20:12 Ultram PO 50 mg Q4H PRN Administration Pain Tuberculin PPD 0.1 ml 06/28/19 10:45 06/28/19 18:19 Tuberculin Ppd I-DERMAL 07/01/19 10:46 0.1 ml ONE AIDA Administration - Exam General Appearance: NAD, awake alert Eye: anicteric sclera ENT: moist mucosa Neck: supple, symmetric, no JVD, no thyromegaly, no lymphadenopathy, no carotid bruit Heart: RRR, no gallops, no rubs, normal peripheral pulses Respiratory: CTAB, no wheezes, no rales, no ronchi Gastrointestinal: soft, non-tender, non-distended, normal bowel sounds Extremities: no clubbing Skin - other findings: multiple tattoos Neurological: cranial nerve grossly intact Musculoskeletal: normal tone, normal strength, no muscle wasting Psychiatric: normal affect, normal behavior, A&O x 3 Hosp A/P - Plan -Assessment/ Plan #ESRD needing dialysis -Pt initiated on HD during this admission, had second dialysis tomorrow #CHF with systolic and diastolic dysfunction -chronic, NYHA Class 2 #HTN -Improved
[2019-06-30] MEDS: traMADol HCl 50 MG TAB PO PRN ×2 (16:54→21:50)
[2019-07-01] MEDS ORDERED: Labetalol HCl 100 MG/20 ML VIAL SLOW IVP PRN (04:00)
[2019-07-01] MEDS: NIFEdipine XL 90 MG TAB PO SCH (04:22)
[2019-07-01] MEDS: Carvedilol 25 MG TAB PO SCH ×2 (08:47→16:45)
[2019-07-01] MEDS: Heparin 5,000 UNITS/ML VIAL SC SCH ×2 (08:47→19:46)
[2019-07-01] MEDS: traMADol HCl 50 MG TAB PO PRN ×2 (08:55→19:46)
--- NOTE | 2019-07-01 14:01 | PDOC.HOSPP ---
- Subjective Encounter Date: 07/01/19 Encounter Time: 07:20 Subjective: Pt seen for followup re: ESRD. No complaints, states he feels well. - Objective Vital Signs & Weight: Vital Signs (12 hours) Temp Pulse Resp BP BP BP Pulse Ox 07/01/19 11:42 98.6 F 71 18 119/81 97 07/01/19 08:40 98.0 F 93 18 134/86 97 07/01/19 07:59 97 07/01/19 04:22 97 167/115 H 07/01/19 03:34 98.4 F 97 18 167/115 H 100 Weight Admit Weight 160 lb 14.999 oz Weight 160 lb 14.999 oz I&O: 06/30/19 07/01/19 07/02/19 06:59 06:59 06:59 Intake Total 240 1100 Output Total 0 Balance 240 1100 Result Diagrams: 06/30/19 04:16 06/30/19 04:16 Additional Labs: Labs and MARs reviewed by me Hospitalist ROS - Review of Systems Cardiovascular: denies: chest pain, palpitations, orthopnea, paroxysmal noc. dyspnea, edema, light headedness Gastrointestinal: denies: nausea, vomiting, abdominal pain, diarrhea, constipation, melena, hematochezia - Medication Medications: Active Medications Generic Name Dose Route Start Last Admin Trade Name Dmq PRN Reason Stop Dose Admin Carvedilol 25 mg 06/27/19 17:00 07/01/19 08:47 Coreg PO 25 mg BID-WM AIDA Administration Heparin Sodium (Porcine) 5,000 units 06/28/19 21:00 07/01/19 08:47 Heparin SC 5,000 units BID AIDA Administration Nifedipine 90 mg 06/28/19 09:00 07/01/19 04:22 Procardia Xl PO 90 mg DAILY AIDA Administration Sodium Chloride 10 ml 06/27/19 09:00 07/01/19 08:50 Flush - Normal Saline IVF 10 ml Q12HR AIDA Administration Tramadol HCl 50 mg 06/28/19 16:55 07/01/19 08:55 Ultram PO 50 mg Q4H PRN Administration Pain - Exam General Appearance: awake alert Eye: anicteric sclera ENT: moist mucosa Neck: supple Heart: RRR Respiratory: CTAB Gastrointestinal: soft, non-tender Extremities: no edema Psychiatric: normal affect, normal behavior Hosp A/P - Plan -Assessment/ Plan #ESRD -Plan for dialysis tomorrow #CHF with systolic and diastolic dysfunction -chronic, NYHA Class 2 #HTN -Improved Needs dialysis chair.
--- NOTE | 2019-07-01 14:38 | PRG ---
DATE OF SERVICE: 07/01/2019 SUBJECTIVE: Patient was seen and examined at bedside and overnight events noted. Patient denies any shortness of breath or chest pain or palpitation. No history of nausea or vomiting or diarrhea or fever or chills or cramps. OBJECTIVE: GENERAL: This is a well built male, in no apparent distress. VITAL SIGNS: Temperature 98.6. Heart rate 71. Respiratory rate 18. Blood pressure 119/81. HEENT: Atraumatic, normocephalic. Oral mucosa is moist NECK: Supple. CARDIOVASCULAR: S1, S2 heard. Rate and rhythm regular. RESPIRATORY: Clear to auscultation. GASTROINTESTINAL: Abdomen is soft. MUSCULOSKELETAL: No tenderness. No edema. DERMATOLOGIC: No skin rash. NEUROLOGIC: Alert and awake and oriented X3. No focal neurologic deficits. Moving all the extremities. PSYCHIATRIC: Mood and affect normal. LABORATORY DATA: Potassium is 4.1, BUN is 41, and creatinine is 6.2. ASSESSMENT AND PLAN: 1. End-stage renal disease. Continue dialysis orders. 2. IgA nephropathy. 3. Anemia. 4. Edema. 5. Proteinuria. 6. Hypoalbuminemia. PLAN: Follow with Case Management for outpatient placement. Appreciate help from Surgery. Continue dialysis Tuesday, Tuesday, and Tuesday. Job ID: [id number]
[2019-07-02] MEDS: Carvedilol 25 MG TAB PO SCH ×2 (08:46→17:58)
[2019-07-02] MEDS: Heparin 5,000 UNITS/ML VIAL SC SCH ×2 (08:46→21:44)
--- NOTE | 2019-07-02 11:25 | PRG ---
DATE OF SERVICE: 07/02/2019 SUBJECTIVE: A 29-year-old gentleman being seen for end-stage renal disease. The patient denied nausea, vomiting, or chest pain. OBJECTIVE: CONSTITUTIONAL: The patient is awake and alert. VITAL SIGNS: Afebrile, pulse 85, breathing 16, and blood pressure 132/81. GENERAL APPEARANCE AND MENTAL STATUS: Fair. HEAD/NECK: Normocephalic. Atraumatic. EYES: EOMI. No deformity. EARS: Clear. No ulcers. NOSE: Intact. No lesions. MOUTH: Clear. No discharge. THROAT: Clear. No exudate. LUNGS: Clear. No crackles. CARDIAC: S1, S2. No rub. ABDOMEN: Benign. Bowel sounds positive. GENITALIA/RECTUM: Canas absent. BACK/EXTREMITIES: Edema 0+. NEUROLOGICAL: Alert and motor intact. SKIN: LYMPHATICS: LABORATORY DATA: Labs reviewed. ASSESSMENT AND PLAN: Stage 6 chronic kidney disease, requiring hemodialysis. Hypertension, stable. Anemia, stable. Medication based on GFR appropriate. Job ID: [id number]
--- NOTE | 2019-07-02 12:35 | PDOC.HOSPP ---
- Subjective Encounter Date: 07/02/19 Encounter Time: 08:20 Subjective: Pt seen for followup re: end stage renal disease. No complaints today. - Objective Vital Signs & Weight: Vital Signs (12 hours) Temp Pulse Resp BP BP Pulse Ox 07/02/19 11:16 98.2 F 84 12 157/104 H 99 07/02/19 07:30 98.1 F 82 16 162/96 H 100 07/02/19 03:55 97.9 F 83 16 132/81 98 Weight Admit Weight 160 lb 14.999 oz Weight 161 lb I&O: 07/01/19 07/02/19 07/03/19 06:59 06:59 06:59 Intake Total 1100 1100 Output Total 775 Balance 1100 325 Result Diagrams: 06/30/19 04:16 06/30/19 04:16 Additional Labs: Labs and MARs reviewed by me EKG Reviewed by me: Yes (Tele: NSR) Hospitalist ROS - Review of Systems Cardiovascular: denies: chest pain, palpitations, orthopnea, paroxysmal noc. dyspnea, edema, light headedness Musculoskeletal: denies: neck pain, shoulder pain, arm pain, back pain, hand pain, leg pain, foot pain - Medication Medications: Active Medications Generic Name Dose Route Start Last Admin Trade Name Freq PRN Reason Stop Dose Admin Carvedilol 25 mg 06/27/19 17:00 07/02/19 08:46 Coreg PO Not Given BID-WM AIDA Heparin Sodium (Porcine) 5,000 units 06/28/19 21:00 07/02/19 08:46 Heparin SC 5,000 units BID AIDA Administration Nifedipine 90 mg 06/28/19 09:00 07/01/19 04:22 Procardia Xl PO 90 mg DAILY AIDA Administration Sodium Chloride 10 ml 06/27/19 09:00 07/02/19 08:49 Flush - Normal Saline IVF 10 ml Q12HR AIDA Administration - Exam General Appearance: awake alert Eye: anicteric sclera ENT: normocephalic atraumatic Neck: supple, no JVD Heart: RRR Respiratory: CTAB, no rales, normal chest expansion Gastrointestinal: soft, normal bowel sounds Extremities: no edema Psychiatric: normal affect, normal behavior Hosp A/P - Plan -Assessment/ Plan #ESRD -Plan for dialysis today #CHF with systolic and diastolic dysfunction -chronic, NYHA Class 2 #HTN -Improved Needs dialysis chair. Transfer to medical floor.
[2019-07-02] MEDS: NIFEdipine XL 90 MG TAB PO SCH (17:58)
[2019-07-02] MEDS: traMADol HCl 50 MG TAB PO PRN (22:59)
[2019-07-03] MEDS ORDERED: Heparin 10,000 UNITS/ 10 ML VIAL ONE (10:46)
[2019-07-03] MEDS: Heparin 5,000 UNITS/ML VIAL SC SCH ×2 (12:08→20:30)
[2019-07-03] MEDS: Carvedilol 25 MG TAB PO SCH ×2 (12:08→16:51)
[2019-07-03] MEDS: NIFEdipine XL 90 MG TAB PO SCH (12:08)
[2019-07-03] MEDS: Acetaminophen 500 MG TAB PO PRN ×2 (12:09→22:16)
--- NOTE | 2019-07-03 12:15 | PRG ---
DATE OF SERVICE: 07/03/2019 SUBJECTIVE: A 29-year-old gentleman, being seen for end-stage renal disease. The patient denied nausea, vomiting, or chest pain. OBJECTIVE: CONSTITUTIONAL: The patient is awake and alert. VITAL SIGNS: Afebrile, pulse 84, breathing 16, blood pressure was 143/99. GENERAL APPEARANCE AND MENTAL STATUS: Fair. HEAD/NECK: Normocephalic. Atraumatic. EYES: EOMI. No deformity. EARS: Clear. No ulcers. NOSE: Intact. No lesions. MOUTH: Clear. No discharge. THROAT: Clear. No exudate. LUNGS: Clear. No crackles. CARDIAC: S1, S2. No rub. ABDOMEN: Benign. Bowel sounds positive. GENITALIA/RECTUM: Canas absent. BACK/EXTREMITIES: Edema 0+. NEUROLOGICAL: Alert and motor intact. SKIN: LYMPHATICS: LABORATORY DATA: Reviewed. ASSESSMENT AND PLAN: 1. Stage 6 chronic kidney disease, plan dialysis. 2. Hypertension, stable. 3. Anemia, stable. 4. Medication based on GFR appropriate. Job ID: [id number]
[2019-07-03 12:18] VITALS: BMI 23.8
--- NOTE | 2019-07-03 15:07 | PDOC.HOSPP ---
- Subjective Encounter Date: 07/03/19 Encounter Time: 07:20 Subjective: Pt seen for followup re: ESRD. No chest pain or shortness of breath. - Objective Vital Signs & Weight: Vital Signs (12 hours) Temp Pulse Resp BP BP Pulse Ox 07/03/19 12:12 97.8 F 70 16 158/110 H 100 07/03/19 07:58 98 07/03/19 07:26 98.1 F 85 16 143/99 H 98 07/03/19 03:53 98.2 F 84 16 149/94 H 99 Weight Admit Weight 160 lb 14.999 oz Weight 161 lb 5 oz I&O: 07/02/19 07/03/19 07/04/19 06:59 06:59 06:59 Intake Total 1100 1600 Output Total 775 400 Balance 325 1200 Result Diagrams: 06/30/19 04:16 06/30/19 04:16 Additional Labs: Labs and MARs reviewed by me Hospitalist ROS - Review of Systems Cardiovascular: denies: chest pain, palpitations, orthopnea, paroxysmal noc. dyspnea, edema, light headedness Neurological: denies: weakness, numbness, incoordination, change in speech, confusion, seizures - Medication Medications: Active Medications Generic Name Dose Route Start Last Admin Trade Name Freq PRN Reason Stop Dose Admin Acetaminophen 1,000 mg 06/28/19 16:55 07/03/19 12:09 Tylenol PO 1,000 mg Q6H PRN Administration Moderate to Severe Pain (6-10) Carvedilol 25 mg 06/27/19 17:00 07/03/19 12:08 Coreg PO 25 mg BID-WM AIDA Administration Heparin Sodium (Porcine) 5,000 units 06/28/19 21:00 07/03/19 12:08 Heparin SC 5,000 units BID AIDA Administration Nifedipine 90 mg 06/28/19 09:00 07/03/19 12:08 Procardia Xl PO 90 mg DAILY AIDA Administration Sodium Chloride 10 ml 06/27/19 09:00 07/03/19 12:08 Flush - Normal Saline IVF 10 ml Q12HR AIDA Administration Tramadol HCl 50 mg 07/02/19 10:27 07/02/19 22:59 Ultram PO 50 mg Q12H PRN Administration Pain - Exam General Appearance: NAD, awake alert ENT: normocephalic atraumatic Neck: no thyromegaly Heart: RRR Respiratory: CTAB Gastrointestinal: soft, non-tender Skin: no rashes Psychiatric: normal affect, normal behavior Hosp A/P - Plan -Assessment/ Plan #ESRD -Dialysis today #CHF with systolic and diastolic dysfunction -chronic, NYHA Class 2, stable #HTN -Improved Needs dialysis chair. Awaiting bed on medical floor.
[2019-07-03] MEDS: traMADol HCl 50 MG TAB PO PRN (22:17)
[2019-07-04] MEDS ORDERED: Heparin 10,000 UNITS/ 10 ML VIAL ONE (08:30)
[2019-07-04] MEDS: Carvedilol 25 MG TAB PO SCH ×2 (08:51→16:31)
[2019-07-04] MEDS: NIFEdipine XL 90 MG TAB PO SCH (08:51)
[2019-07-04] MEDS: Heparin 5,000 UNITS/ML VIAL SC SCH ×2 (08:52→22:52)
--- NOTE | 2019-07-04 10:08 | PRG ---
DATE OF SERVICE: 07/04/2019 SUBJECTIVE: A 29-year-old male, being seen for end-stage renal disease. The patient denies any nausea, vomiting, or chest pain. OBJECTIVE: General: The patient is awake and alert. Vital Signs: Afebrile, pulse 90, breathing 16, blood pressure 127/74. HEENT: Head normocephalic and atraumatic. Eyes intact, no ulcers. Nose intact, no ulcers. Ears intact, no ulcers. Neck: Supple. No JVD. Chest: Symmetrical and clear. Cardiovascular: Shows S1 and S2, no rub, no murmur. Gastrointestinal: Abdomen is soft, bowel sounds positive. Extremities: Show no edema or ulcers. Skin: Shows no rash or petechiae. Musculoskeletal: Shows no joint swelling or stiffness. Genitourinary: Shows no Canas or CVA tenderness. Neurologic: Motor intact. Cranial nerves intact. LABORATORY DATA: Reviewed. ASSESSMENT AND PLAN: 1. Stage 6 chronic kidney disease, stable. 2. Hypertension, stable. 3. Anemia, stable. 4. Medication based on GFR appropriate. Job ID: [id number]
--- NOTE | 2019-07-04 14:55 | PDOC.HOSPP ---
- Subjective Encounter Date: 07/04/19 Encounter Time: 10:00 Subjective: Pt seen for followup re: end stage renal disease. No complaints today. - Objective Vital Signs & Weight: Vital Signs (12 hours) Temp Pulse Resp BP BP Pulse Ox 07/04/19 08:51 90 127/75 07/04/19 08:00 98.1 F 90 18 127/75 97 Weight Admit Weight 160 lb 14.999 oz Weight 153 lb 10.595 oz I&O: 07/03/19 07/04/19 07/05/19 06:59 06:59 06:59 Intake Total 1600 1920 Output Total 400 2900 Balance 1200 -980 Result Diagrams: 06/30/19 04:16 06/30/19 04:16 Additional Labs: Labs and MARs reviewed by il Hospitalist ROS - Review of Systems Musculoskeletal: denies: neck pain, shoulder pain, arm pain, back pain, hand pain, leg pain, foot pain Skin: denies: rash, lesions, katja, bruising - Medication Medications: Active Medications Generic Name Dose Route Start Last Admin Trade Name Freq PRN Reason Stop Dose Admin Acetaminophen 1,000 mg 06/28/19 16:55 07/03/19 22:16 Tylenol PO 1,000 mg Q6H PRN Administration Moderate to Severe Pain (6-10) Carvedilol 25 mg 06/27/19 17:00 07/04/19 08:51 Coreg PO 25 mg BID-WM AIDA Administration Heparin Sodium (Porcine) 5,000 units 06/28/19 21:00 07/04/19 08:52 Heparin SC 5,000 units BID AIDA Administration Nifedipine 90 mg 06/28/19 09:00 07/04/19 08:51 Procardia Xl PO 90 mg DAILY AIDA Administration Sodium Chloride 10 ml 06/27/19 09:00 07/04/19 08:52 Flush - Normal Saline IVF 10 ml Q12HR AIDA Administration Tramadol HCl 50 mg 07/02/19 10:27 07/03/19 22:17 Ultram PO 50 mg Q12H PRN Administration Pain - Exam General Appearance: awake alert Eye: anicteric sclera ENT: moist mucosa Neck: supple Heart: RRR Respiratory: CTAB Gastrointestinal: soft, non-tender Extremities: no edema Psychiatric: normal affect, normal behavior Hosp A/P - Plan -Assessment/ Plan #ESRD -Started on dialysis #CHF with systolic and diastolic dysfunction -stable #HTN -controlled awaiting dialysis chair.
[2019-07-05] MEDS: NIFEdipine XL 90 MG TAB PO SCH (08:40)
[2019-07-05] MEDS: Heparin 5,000 UNITS/ML VIAL SC SCH (08:41)
[2019-07-05] MEDS: Carvedilol 25 MG TAB PO SCH (08:41)
[2019-07-05 08:52] VITALS: BP 146/86
[2019-07-05 10:50] VITALS: TEMP 97.7
--- NOTE | 2019-07-05 11:48 | PRG ---
DATE OF SERVICE: 07/05/2019 SUBJECTIVE: A 29-year-old gentleman, being seen for end-stage kidney disease. The patient denied nausea, vomiting, or chest pain. PHYSICAL EXAMINATION: General: The patient is awake and alert. Vital Signs: Afebrile, pulse 75, breathing 16, blood pressure 136/78. HEENT: Head normocephalic and atraumatic. Eyes intact, no ulcers. Nose intact, no ulcers. Ears intact, no ulcers. Neck: Supple. No JVD. Chest: Symmetrical and clear. Cardiovascular: Shows S1 and S2, no rub, no murmur. Gastrointestinal: Abdomen is soft, bowel sounds positive. Extremities: Show no edema or ulcers. Skin: Shows no rash or petechiae. Musculoskeletal: Shows no joint swelling or stiffness. Genitourinary: Shows no Canas or CVA tenderness. Neurologic: Motor intact. Cranial nerves intact. LABORATORY DATA: Hemoglobin is 11. ASSESSMENT AND PLAN: 1. Stage 6 chronic kidney disease. Continue hemodialysis. 2. Hypertension, stable. 3. Anemia, stable. 4. Medication based on GFR appropriate. Job ID: [id number]
--- NOTE | 2019-07-05 14:21 | DIS ---
DATE OF ADMISSION: 06/26/2019 DATE OF DISCHARGE: 07/05/2019 PRIMARY CARE PROVIDER: Unknown. DISCHARGE DIAGNOSES: 1. End-stage renal disease. 2. Hypertensive urgency. 3. Chronic combined systolic and diastolic congestive heart failure, [employer], Class II. 4. Cannabis abuse. 5. Tobacco abuse. CONSULTATIONS DURING THIS HOSPITALIZATION: 1. Nephrology, Dr. Amaral. 2. General surgery, Dr. Viera. HOSPITAL COURSE: Mr. Vásquez is a pleasant 29-year-old gentleman, who was admitted to [facility] on June 26, 2019, for end-stage renal disease and hypertensive urgency. Blood pressure improved with antihypertensives. He was seen by Nephrology and General Surgery Services. 2D echocardiogram showed left ventricular ejection fraction of 35% to 40% and impaired relaxation compatible with diastolic dysfunction. On June 28, he underwent placement of right internal jugular cuffed tunneled hemodialysis catheter, left internal jugular central line and left arm Briana fistula. He was started on hemodialysis. Arrangements were made for dialysis chair. He has been cleared for discharge by Nephrology Service. DISCHARGE MEDICATIONS: 1. Coreg 25 mg 2 times a day. 2. Procardia XL 90 mg daily. POST ACUTE CARE FOLLOWUP: With General Surgery, Dr. Viera, in 3 to 4 weeks and Nephrology, Dr. Nelson in 1 week. DIET: Heart healthy and renal. ACTIVITY: No restrictions. DISCHARGE DESTINATION: Home. TIME SPENT: Total amount of time spent in coordinating this discharge: 32 minutes. Job ID: [id number]
== END 2019-07-05 17:05 | disposition home or self-care (01) | DRG 264 ==
LOC: ERS 21:42 → ERHOLD 23:12 → 2NO 23:16 → T4-B 07-03 19:14
PROVIDERS: ADMIT Internal Medicine Sleep Medicine; ATTEND Internal Medicine
PROC: 031B0ZF Bypass Right Radial Artery to Lower Arm Vein, Open Approach (ICD-10-PCS; principal; 2019-06-28)
PROC: 5A1D70Z Performance of Urinary Filtration, Intermittent, Less than 6 Hours Per Day (ICD-10-PCS; 2019-06-28)
PROC: 0JH63XZ Insertion of Tunneled Vascular Access Device into Chest Subcutaneous Tissue and Fascia, Percutaneous Approach (ICD-10-PCS; 2019-06-28)
PROC: 05HM33Z Insertion of Infusion Device into Right Internal Jugular Vein, Percutaneous Approach (ICD-10-PCS; 2019-06-28)
PROC: B513ZZA Fluoroscopy of Right Jugular Veins, Guidance (ICD-10-PCS; 2019-06-28)
DX: I13.2 Hypertensive heart and chronic kidney disease with heart failure and with stage 5 chronic kidney disease, or end stage renal disease (principal); N18.6 End stage renal disease; N17.9 Acute kidney failure, unspecified; I50.42 Chronic combined systolic (congestive) and diastolic (congestive) heart failure; N02.8 Recurrent and persistent hematuria with other morphologic changes; I42.9 Cardiomyopathy, unspecified; I16.0 Hypertensive urgency; F12.10 Cannabis abuse, uncomplicated; D63.1 Anemia in chronic kidney disease; R80.9 Proteinuria, unspecified; F17.210 Nicotine dependence, cigarettes, uncomplicated; Z91.14 Patient's other noncompliance with medication regimen
CPT/HCPCS: 36415; 70450; 71045; 76770; 80048; 80053; 80306; 80307; 81003; 81015; 82553; 83735; 83880; 84100; 84300; 84443; 84484; 85025; 85610; 86580; 86704; 86706; 86803; 87340; 90471; 90686; 90732; 90935; 93005; 93306; 93798; 93970; 96361; 96365; 96366; 96375; 96376; C1752; C1769; G0008; G0009; G0257; G0365; J0670; J0690; J1644; J1940; J2001; J2704; J2720; J3010; J7050; S0020

== ENCOUNTER 2019-08-04 16:02 | Emergency (ER) | payer OTHER ==
[2019-08-04] MEDS ORDERED: Acetaminophen 500 MG TAB ONE (16:39)
[2019-08-04] MEDS ORDERED: Ketorolac Tromethamine 30 MG/ML VIAL ONE (16:39)
--- NOTE | 2019-08-04 16:58 | RAD ---
Exam: XR Foot Rt 3 View STANDARD HISTORY: Right ankle pain and swelling COMPARISON: None FINDINGS: No acute fracture, dislocation, or other acute osseous abnormality is identified. IMPRESSION: No acute osseous abnormality is identified.
--- NOTE | 2019-08-04 17:00 | RAD ---
Exam: XR Ankle Rt 3 View STANDARD HISTORY: Right ankle pain and swelling. COMPARISON: None FINDINGS: There is suggestion of a joint effusion anterior aspect of the ankle. Subcutaneous soft tissue swelli ng is seen at the lateral aspect of the ankle. No acute fracture, dislocation, or other acute osseous abnormality is identified. IMPRESSION: 1. No acute osseous abnormality right ankle. 2. Suggestion of small joint effusion as well as subcutaneous soft tissue swelling laterally.
== END 2019-08-04 18:13 | disposition home or self-care (01) ==
LOC: ERS 16:02
DX: S93.401A Sprain of unspecified ligament of right ankle, initial encounter (principal); E11.9 Type 2 diabetes mellitus without complications; W01.0XXA Fall on same level from slipping, tripping and stumbling without subsequent striking against object, initial encounter
CPT/HCPCS: 96372; J1885

== ENCOUNTER 2019-08-20 16:54 | Emergency (ER) | payer OTHER ==
[2019-08-20] MEDS ORDERED: Ondansetron PF 4 MG/2 ML Vial ONE (17:28)
--- NOTE | 2019-08-20 17:40 | RAD ---
Chest one view HISTORY: Cough. Dyspnea. Possible COVID19. COMPARISON: 06/28/2019. FINDINGS: Cardiac silhouette is magnified and enlarged. Pulmonary vasculature upper limits of normal. Mediastinum is midline. Right internal jugular dialysis catheter remains in place. Left internal jugu lar catheter has been removed. Ill-defined parenchymal infiltrate projects over the right mid lung, possibly within the superior seg ment right lower lobe or anterior segment right upper lobe. Minimal infiltrate at the left posterior lung base. No evidence of pneumothorax. monitor technician leads overlie the chest. IMPRESSION : Subtle patchy bilateral infiltrates. A nonspecific finding which would be consistent with multifocal viral pneumonitis.
[2019-08-20 17:44] LABS: #Lymphocytes 0.9 thou/uL (1.20-3.40); #Monocytes 0.5 thou/uL (0.11-0.59); #Neutrophils 2.8 thou/uL (1.40-6.50); %Basophils 0.3 % (0.0-1.0); %Eosinophils 0.1 % (0.0-10.0); %Lymphocytes 22.3 % (21.0-51.0); %Monocytes 10.7 % (0.0-10.0); %Neutrophils 66.6 % (42.0-75.0); Hemoglobin 10.8 g/dL (14.0-18.0); Mean Corpuscular HGB CONC 34.3 g/dL (32.0-36.0); Mean Corpuscular Hemoglobin 30.9 pg (27.0-31.0); Mean Corpuscular Volume 90.2 fL (78.0-98.0); Mean Platelet Volume 8.5 fL (7.4-10.4); Platelet Count 221 thou/uL (130-400); RBC Distribution Width 12.2 % (11.5-14.5); Red Blood Cell (RBC) Count 3.49 mill/uL (4.70-6.10); White Blood Cell (WBC) Count 4.2 thou/uL (4.8-10.8)
[2019-08-20 18:02] LABS: ALT (SGPT) Less than 7 U/L (8-55); AST (SGOT) 11 U/L (5-34); Albumin 3.4 g/dL (3.5-5.0); Alkaline Phosphatase 49 U/L (40-110); Anion Gap 18 mmol/L (10-20); BUN (Urea Nitrogen) 84 mg/dL (8.9-20.6); Bilirubin, Total 0.4 mg/dL (0.2-1.2); Calc. Creatinine Clearance 0 mL/min (70-130); Calcium 8.1 mg/dL (7.8-10.44); Carbon Dioxide 18 mmol/L (22-29); Chloride 100 mmol/L (98-107); Estimated GFR-MDRD 5; Globulin 2.9 g/dL (2.4-3.5); Glucose 109 mg/dL (70-105); Protein, Total 6.3 g/dL (6.0-8.3); Sodium 132 mmol/L (136-145)
--- NOTE | 2019-08-20 18:36 | CT ---
CT chest noncontrast HISTORY: Covid 19. FINDINGS: Lungs are well-inflated. Patchy mild areas of groundglass, predominantly peripheral infiltr ate are present throughout each lung. Mild overall involvement. No pleural fluid or pneumothorax. Lack of contrast limits evaluation of the soft tissues. Small amount of pericardial fluid noted. Righ t internal jugular dialysis type catheter in place. IMPRESSION : Multifocal viral pneumonitis. Small pericardial effusion.
== END 2019-08-20 19:39 | disposition home or self-care (01) ==
LOC: ERS 16:54
DX: J18.9 Pneumonia, unspecified organism (principal)
CPT/HCPCS: 36415; 71045; 71250; 80053; 83605; 85025; 87040; 87635; 87804; 96361; 96374; J2405; U0002

== ENCOUNTER 2019-09-21 15:37 | Inpatient (IN) | payer OTHER ==
--- NOTE | 2019-09-21 16:09 | RAD ---
RADIOGRAPH CHEST 1 VIEW: DATE: 09/21/2019 TIME: 3:27 PM HISTORY: 29-year-old: COVID-19 positive male follow-up pneumonia COMPARISON: 08/20/2019 FINDINGS: The previously mild small focal infiltrates have worsened into much more extensive mixed interstitial -alveolar infiltrates in the right midlung zone, encroaching upon the upper and lower lung zones than before. Furthermore, there are newly visualized left perihilar infiltrates. Right-sided dialysis catheter remains in the right atrium. Cardiac size upper limits of normal. No large pleural effusion. No pneumothorax. IMPRESSION: Significant interval worsening of bilateral infiltrates, right much more extensive than left: Evidenc e for bilateral pneumonia
[2019-09-21 16:32] LABS: #Basophils 0.1 thou/uL (0.0-0.2); #Eosinphils 0.3 thou/uL (0.0-0.7); #Lymphocytes 1.1 thou/uL (1.20-3.40); #Monocytes 0.6 thou/uL (0.11-0.59); #Neutrophils 4.3 thou/uL (1.40-6.50); %Basophils 0.9 % (0.0-1.0); %Eosinophils 5.1 % (0.0-10.0); %Lymphocytes 17.7 % (21.0-51.0); %Monocytes 8.6 % (0.0-10.0); %Neutrophils 67.6 % (42.0-75.0); Mean Corpuscular HGB CONC 33.4 g/dL (32.0-36.0); Mean Corpuscular Hemoglobin 31.4 pg (27.0-31.0); Mean Corpuscular Volume 94.2 fL (78.0-98.0); Mean Platelet Volume 8.3 fL (7.4-10.4); Platelet Count 244 thou/uL (130-400); RBC Distribution Width 13.5 % (11.5-14.5); Red Blood Cell (RBC) Count 2.53 mill/uL (4.70-6.10); White Blood Cell (WBC) Count 6.4 thou/uL (4.8-10.8)
[2019-09-21] MEDS ORDERED: Azithromycin 500 MG VIAL ONE (16:51)
[2019-09-21] MEDS ORDERED: cefTRIAXone\\ROCEPHIN 2 GM VIAL ONE (16:51)
[2019-09-21 16:52] LABS: ALT (SGPT) Less than 7 U/L (8-55); AST (SGOT) 9 U/L (5-34); Albumin 3.4 g/dL (3.5-5.0); Alkaline Phosphatase 59 U/L (40-110); Anion Gap 17 mmol/L (10-20); BUN (Urea Nitrogen) 64 mg/dL (8.9-20.6); Bilirubin, Total 0.7 mg/dL (0.2-1.2); Calc. Creatinine Clearance 0 mL/min (70-130); Calcium 8.5 mg/dL (7.8-10.44); Carbon Dioxide 17 mmol/L (22-29); Chloride 107 mmol/L (98-107); Estimated GFR-MDRD 5; Globulin 2.7 g/dL (2.4-3.5); Glucose 134 mg/dL (70-105); Protein, Total 6.1 g/dL (6.0-8.3); Sodium 137 mmol/L (136-145)
[2019-09-21 17:15] LABS: CKMB 2.2 ng/mL (0-6.6)
[2019-09-21] MEDS ORDERED: Aspirin Chewable 81 MG TAB ONE (18:01)
[2019-09-21] MEDS ORDERED: Ondansetron PF 4 MG/2 ML Vial ONE ×2 (18:05→18:47)
--- NOTE | 2019-09-21 21:10 | PDOC.HHP ---
Hospitalist HPI - History of Present Illness Cough History of Present Illness: Patient is a 29 year old male with PMH ESRD, covid 19 infection diagnosed in August who presents to ED after being sent by waste machine tender Dr Nelson for HD and covid rule out. Patient developed covid 19 infection in August and reportedly has not gone to HD since then since there was a COVID restriction at HD center. He still has persistent cough, no fever, no nausea/vomiting/diarrhea/GI bleed. No confusion or metallic taste in mouth. He still makes urine w/ voiding 3-4 times a day. He was placed on HD a year ago (HTN as presumed cause of ESRD), sees Dr Valero who referred patient to ED today. In ED, BUN 64, CO2 17, K normal, TnI 0.44 -> 0.40, hgb 8, vitals w/ elevated BP, Coronavirus test ordered. CXR concerning for worsening of bilateral infiltrates, especially on R side concerning for bilateral pneumonia. Given azithromycin, ceftriaxone, ASA in ED and IVF. Hospitalist ROS - Review of Systems Constitutional: reports: weakness, malaise. denies: fever, chills, sweats, other Eyes: denies: pain, vision change, conjunctivae inflammation, eyelid inflammation, redness, other ENT: denies: ear pain, ear discharge, nose pain, nose discharge, nose congestion , mouth pain, mouth swelling, throat pain, throat swelling, other Respiratory: reports: cough. denies: dry, shortness of breath, hemoptysis, SOB with excertion, pleuritic pain, sputum, wheezing, other Cardiovascular: denies: chest pain, palpitations, orthopnea, paroxysmal noc. dyspnea, edema, light headedness, other Gastrointestinal: denies: nausea, vomiting, abdominal pain, diarrhea, constipation, melena, hematochezia, other Genitourinary: denies: dysuria, frequency, incontinence, hematuria, retention, other Musculoskeletal: denies: neck pain, shoulder pain, arm pain, back pain, hand pain, leg pain, foot pain, other Skin: denies: rash, lesions, katja, bruising, other Neurological: denies: weakness, numbness, incoordination, change in speech, confusion, seizures, other All other systems reviewed; all pertinent +/- noted in HPI/Subj Hospitalist History - Past Medical History Renal/: reports: Chronic renal insuff (stage 4) Other Medical History: ESRD HTN - Past Surgical History Past Surgical History: reports: no pertinent history (reviewed) - Family History Family History: reports: no pertinent history - Social History Alcohol: reports: None Drugs: reports: marijuana - Exam General Appearance: NAD, awake alert Eye: PERRL, anicteric sclera ENT: normocephalic atraumatic, no oropharyngeal lesions, moist mucosa Neck: supple, symmetric, no JVD, no thyromegaly, no lymphadenopathy, no carotid bruit Heart: RRR, no murmur, no gallops, no rubs, normal peripheral pulses Respiratory: CTAB, no wheezes, no rales, no ronchi, normal chest expansion, no tachypnea, normal percussion Gastrointestinal: soft, non-tender, non-distended, normal bowel sounds, no palpable masses, no hepatomegaly, no splenomegaly, no bruit Extremities: no cyanosis, no clubbing, no edema Skin: normal turgor, no lesions, no rashes Neurological: cranial nerve grossly intact, normal sensation to touch, no weakness, no focal deficits, no new deficit Musculoskeletal: normal tone, normal strength, no muscle wasting Psychiatric: normal affect, normal behavior, A&O x 3 Hospitalist Results - Labs Result Diagrams: 09/21/19 16:11 09/21/19 16:11 Lab results: WBC 6.4 thou/uL (4.8-10.8) 09/21/19 16:11 Hgb 8.0 g/dL (14.0-18.0) L 09/21/19 16:11 Hct 23.8 % (42.0-52.0) L 09/21/19 16:11 MCV 94.2 fL (78.0-98.0) 09/21/19 16:11 Plt Count 244 thou/uL (130-400) 09/21/19 16:11 Neutrophils % 67.6 % (42.0-75.0) 09/21/19 16:11 Sodium 137 mmol/L (136-145) 09/21/19 16:11 Potassium 4.0 mmol/L (3.5-5.1) 09/21/19 16:11 Chloride 107 mmol/L (98-107) 09/21/19 16:11 Carbon Dioxide 17 mmol/L (22-29) L 09/21/19 16:11 BUN 64 mg/dL (8.9-20.6) H 09/21/19 16:11 Creatinine 11.84 mg/dL (0.7-1.3) H 09/21/19 16:11 Glucose 134 mg/dL (70-105) H 09/21/19 16:11 Lactic Acid 0.9 mmol/L (0.5-2.2) 09/21/19 16:36 Calcium 8.5 mg/dL (7.8-10.44) 09/21/19 16:11 Total Bilirubin 0.7 mg/dL (0.2-1.2) 09/21/19 16:11 AST 9 U/L (5-34) 09/21/19 16:11 ALT Less than 7 U/L (8-55) L 09/21/19 16:11 Alkaline Phosphatase 59 U/L (40-110) 09/21/19 16:11 CK-MB (CK-2) 2.2 ng/mL (0-6.6) 09/21/19 16:11 Troponin I 0.040 ng/mL (< 0.028) H 09/21/19 20:16 Serum Total Protein 6.1 g/dL (6.0-8.3) 09/21/19 16:11 Albumin 3.4 g/dL (3.5-5.0) L 09/21/19 16:11 Additional comment: VITAL SIGNS TueSeptember 21, 2019 17:00 [facility] [place] BP: 163/124 MAP: 137 Pulse: 113 Resp: 20 Pain: 0 O2 sat: 95 on (Room Air) Time: 09/21/2019 17:00. RADIOLOGY XR Chest 1 View Portable Observe DT: TueSeptember 21, 2019 15:49 CXRP RADIOGRAPH CHEST 1 VIEW: DATE: 09/21/2019 TIME: 3:27 PM HISTORY: 29-year-old: COVID-19 positive male follow-up pneumonia COMPARISON: 08/20/2019 FINDINGS: The previously mild small focal infiltrates have worsened into much more extensive mixed interstitial -alveolar infiltrates in the right midlung zone, encroaching upon the upper and lower lung zones than before. Furthermore, there are newly visualized left perihilar infiltrates. Right-sided dialysis catheter remains in the right atrium. Cardiac size upper limits of normal. No large pleural effusion. No pneumothorax. IMPRESSION: Significant interval worsening of bilateral infiltrates, right much more extensive than left: Evidenc e for bilateral pneumonia - EKG Interpretation EKG: EKG sinus tachycardia 112 bpm LA 150 QTc 466 no dropped beats no peak T waves or acute ST findings Hospitalist H&P A/P - Plan Plan: Patient is a 29 year old male with PMH ESRD, covid 19 infection diagnosed in August who presents to ED after being sent by waste machine tender Dr Nelson for HD and covid rule out. # abnormal chest X ray - concerning for bilateral pneumonia worse than previous imaging here, symptoms minimal so may be old resolving changes being observed, however post viral pneumonia would be a concern so will empirically cover until more information available - empiric azithro/ceftriaxone - HD initiated tata, appreciate nephrology assistance - follow up new covid test # ESRD with no HD since august - since patient had covid could not get HD, now presents with acidosis, volume overload. no hyperkalemia. - consulted nephrology for HD in ED - fluid restrictions, I/Os # anemia - presume anemia of renal disease, defer to nephrology # elevated troponin - mild, downtrending, presume due to ESRD/acute hypervolemia # HTN - resume home meds, PRNs ordered as well
[2019-09-22 00:38] LABS: HBSAg Index 0.17 S/CO (0-0.99); Hep B Surf Ag Non-Reactive S/CO (NonReactive)
--- NOTE | 2019-09-22 01:03 | CON ---
DATE OF CONSULTATION: 09/21/2019 CONSULTING PHYSICIAN: ER doctor. REASON FOR CONSULTATION: End-stage renal disease evaluation. REASON FOR ADMISSION: Weakness. HISTORY OF PRESENT ILLNESS: This is a 29-year-old male with a history of end-stage renal disease, hypertension, polysubstance abuse, came to the hospital with cough, weakness, and fever. He was having COVID infection in the past and recovered. No chest pain or palpitation. He also missed dialysis for a few weeks and was told from the Dialysis Clinic to get checked at the hospital before receiving dialysis. PAST MEDICAL HISTORY: Positive for CHF, hypertension, end-stage renal disease. PAST SURGICAL HISTORY: Dialysis access placement. HOME MEDICATIONS: Reviewed. ALLERGIES: NO KNOWN DRUG ALLERGIES. SOCIAL HISTORY: History of smoking and drug abuse and alcohol abuse present. FAMILY HISTORY: No history of kidney disease. REVIEW OF SYSTEMS: CONSTITUTIONAL: Negative for weight loss or gain, ability to conduct usual activities. SKIN: Negative for rash, itching. EYES: Negative for double vision, pain. ENT/MOUTH: Negative for nose bleeding, neck stiffness, pain, tenderness. CARDIOVASCULAR: Negative for palpitations, dyspnea on exertion, orthopnea. RESPIRATORY: Negative for shortness of breath, wheezing, cough, hemoptysis, fever or night sweats. GASTROINTESTINAL: Negative for poor appetite, abdominal pain, heartburn, nausea, vomiting, constipation, or diarrhea. GENITOURINARY: Negative for urgency, frequency, dysuria, nocturia. MUSCULOSKELETAL: Negative for pain, swelling. NEUROLOGIC/PSYCHIATRIC: Negative for anxiety, depression. ALLERGY/IMMUNOLOGIC: Negative for skin rash, bleeding tendency. PHYSICAL EXAMINATION: GENERAL: This is a well-built male, in no apparent distress. VITAL SIGNS: Reviewed. HEENT: Atraumatic, normocephalic. NECK: Supple. CV: S1 and S2. Regular rate and rhythm. RESPIRATORY: Clear. GASTROINTESTINAL: Abdomen is soft. MUSCULOSKELETAL: 1+ edema. DERMATOLOGIC: No skin rash. NEUROLOGIC: Awake and alert. PSYCHIATRIC: Mood and affect normal. LABORATORY DATA: Hemoglobin is 8.0, potassium 4.0, BUN is 64, creatinine is 11.8. ASSESSMENT AND PLAN: 1. End-stage renal disease. Continue dialysis as tolerated. 2. Edema, uncontrolled. 3. History of hypertension. 4. Chronic anemia. 5. Acidosis. 6. Hypoalbuminemia. 7. Proteinuria. 8. History of substance abuse. 9. We will continue dialysis as tolerated. Job ID: [id number]
[2019-09-22] MEDS ORDERED: Acetaminophen 325 MG TAB PO PRN ×2 (02:13→03:11)
[2019-09-22] MEDS ORDERED: Labetalol HCl 100 MG/20 ML VIAL SLOW IVP PRN (03:11)
[2019-09-22] MEDS ORDERED: Ondansetron PF 4 MG/2 ML Vial IVP PRN (03:11)
[2019-09-22] MEDS ORDERED: Morphine 2 MG/ML SYRINGE SLOW IVP PRN (03:11)
[2019-09-22] MEDS ORDERED: Guaifenesin DM 100-10/5 ML UDCUP PO PRN (03:11)
[2019-09-22] MEDS ORDERED: cloNIDine 0.1 MG TAB PO PRN (03:11)
[2019-09-22] MEDS ORDERED: Promethazine HCl 12.5 MG in Sodium Chloride 0.9% 50 ML IVPB PRN (03:11)
[2019-09-22] MEDS ORDERED: hydrALAZINE 20 MG/ML VIAL SLOW IVP PRN (03:11)
[2019-09-22] MEDS ORDERED: Albuterol 200 PUFF (6.7GM INHALER) INH PRN (03:24)
[2019-09-22 05:28] LABS: #Basophils 0.1 thou/uL (0.0-0.2); #Eosinphils 0.3 thou/uL (0.0-0.7); #Lymphocytes 1.1 thou/uL (1.20-3.40); #Monocytes 0.8 thou/uL (0.11-0.59); #Neutrophils 3.8 thou/uL (1.40-6.50); %Basophils 1.4 % (0.0-1.0); %Eosinophils 5.2 % (0.0-10.0); %Lymphocytes 17.9 % (21.0-51.0); %Monocytes 12.4 % (0.0-10.0); %Neutrophils 63.1 % (42.0-75.0); Hemoglobin 7.7 g/dL (14.0-18.0); Mean Corpuscular HGB CONC 32.3 g/dL (32.0-36.0); Mean Corpuscular Hemoglobin 30.4 pg (27.0-31.0); Mean Corpuscular Volume 94.2 fL (78.0-98.0); Mean Platelet Volume 8.1 fL (7.4-10.4); Platelet Count 258 thou/uL (130-400); RBC Distribution Width 13.5 % (11.5-14.5); Red Blood Cell (RBC) Count 2.52 mill/uL (4.70-6.10); White Blood Cell (WBC) Count 6.1 thou/uL (4.8-10.8)
[2019-09-22 05:47] LABS: Anion Gap 12 mmol/L (10-20); BUN (Urea Nitrogen) 26 mg/dL (8.9-20.6); Calc. Creatinine Clearance 18 mL/min (70-130); Calcium 8.3 mg/dL (7.8-10.44); Carbon Dioxide 28 mmol/L (22-29); Chloride 104 mmol/L (98-107); Estimated GFR-MDRD 10; Glucose 114 mg/dL (70-105); Magnesium 1.9 mg/dL (1.6-2.6); Phosphorus 3.7 mg/dL (2.3-4.7); Potassium 3.6 mmol/L (3.5-5.1); Sodium 140 mmol/L (136-145)
[2019-09-22] MEDS: Polyethylene Glycol 3350 17 GM Packet PO SCH (08:53)
[2019-09-22] MEDS: Famotidine 20 MG TAB PO SCH (08:53)
[2019-09-22] MEDS: Heparin 5,000 UNITS/ML VIAL SC SCH ×3 (08:54→20:00)
[2019-09-22] MEDS ORDERED: Prevnar 13-Val Conj/PF 0.5 ML SYRINGE IM ONE (09:00)
[2019-09-22] MEDS ORDERED: Azithromycin 250 MG TAB PO SCH (09:00)
[2019-09-22] MEDS: HYDROcodone/Acetaminophen 5/325 mg Tablet PO PRN ×2 (10:55→20:03)
[2019-09-22] MEDS: Ibuprofen 600 MG TAB PO SCH ×3 (12:26→23:39)
--- NOTE | 2019-09-22 12:33 | PRG ---
DATE OF SERVICE: 09/22/2019 SUBJECTIVE: The patient was seen and examined at bedside and overnight events noted. The patient denies any shortness of breath or chest pain or palpitation. No history of nausea or vomiting or diarrhea or fever or chills or cramps. OBJECTIVE: GENERAL: This is a well-built man, in no apparent distress. VITAL SIGNS: Temperature 99.1. Heart rate 103. Respiratory rate 16. Blood pressure 140/96. HEENT: Atraumatic, normocephalic. Oral mucosa is moist. Neck: Supple. CARDIOVASCULAR: S1, S2 heard. Rate and rhythm regular. RESPIRATORY: Clear to auscultation. GASTROINTESTINAL: Abdomen is soft. MUSCULOSKELETAL: No tenderness. No edema. DERMATOLOGIC: No skin rash. NEUROLOGIC: Alert and awake and oriented x3. No focal neurologic deficits. Moving all the extremities. PSYCHIATRIC: Mood and affect normal. LABORATORY DATA: Potassium 3.6, BUN is 26, creatinine 6.3. ASSESSMENT AND PLAN: 1. End-stage renal disease. Continue dialysis Tuesday, , and Tuesday. 2. Edema, controlled. 3. Hypertension. 4. Chronic anemia. Continue dialysis Tuesday, , and Tuesday. Labs are better. Job ID: [id number]
--- NOTE | 2019-09-22 13:02 | EKG ---
Test Reason : Blood Pressure : / mmHG Vent. Rate : 112 BPM Atrial Rate : 112 BPM P-R Int : 150 ms QRS Dur : 090 ms QT Int : 342 ms P-R-T Axes : 042 043 077 degrees QTc Int : 466 ms Sinus tachycardia Moderate voltage criteria for LVH, may be normal variant Nonspecific T wave abnormality Abnormal ECG Confirmed by ALICIA CORDERO DO ([id number]), scientific publications editor YANELI CHAVEZ ([id number]) on 09/22/2019 1:01:47 PM Referred By: CONSUELO Confirmed By:ALICIA CORDERO DO
--- NOTE | 2019-09-22 14:17 | PDOC.HOSPP ---
- Subjective Encounter Date: 09/22/19 Encounter Time: 09:00 Subjective: no overnight events. This morning, feels at baseline after hemodialysis and requests to leave. Notified bilingual patient support caseworker that patient requires no isolation since more than 10 days after onset of symptoms and at least 3 days without a fever. [facility] may be able to accept patient despite positive COVID, which may last for weeks - Objective Vital Signs & Weight: Vital Signs (12 hours) Temp Pulse Resp BP Pulse Ox 09/22/19 11:08 99.1 F 103 H 16 140/96 H 97 09/22/19 09:15 98.9 F 96 14 154/104 H 95 09/22/19 04:39 98.9 F 101 H 20 143/95 H 94 L Weight Admit Weight 159 lb Weight 159 lb 12.8 oz I&O: 09/21/19 09/22/19 09/23/19 06:59 06:59 06:59 Intake Total 240 Output Total 2700 Balance -2460 Result Diagrams: 09/22/19 05:17 09/22/19 05:17 Hospitalist ROS - Review of Systems Constitutional: denies: fever, chills, sweats, weakness, malaise, other Respiratory: denies: cough, dry, shortness of breath, hemoptysis, SOB with excertion, pleuritic pain, sputum, wheezing, other Cardiovascular: denies: chest pain, palpitations, orthopnea, paroxysmal noc. dyspnea, edema, light headedness, other Gastrointestinal: denies: nausea, vomiting, abdominal pain, diarrhea, constipation, melena, hematochezia, other - Medication Medications: Active Medications Generic Name Dose Route Start Last Admin Trade Name Freq PRN Reason Stop Dose Admin Hydrocodone Bitart/Acetaminophen 1 tab 09/22/19 03:11 09/22/19 10:55 Troy 5/325 PO 1 tab Q4H PRN Administration Moderate Pain (4-6) Famotidine 20 mg 09/22/19 09:00 09/22/19 08:53 Pepcid PO 20 mg QAM AIDA Administration Heparin Sodium (Porcine) 5,000 units 09/22/19 09:00 09/22/19 08:54 Heparin SC 5,000 units TID AIDA Administration Ibuprofen 600 mg 09/22/19 12:00 09/22/19 12:26 Motrin PO 600 mg Q6HR AIDA Administration Polyethylene Glycol 17 gm 09/22/19 09:00 09/22/19 08:53 Miralax PO 17 gm DAILY AIDA Administration Sodium Chloride 10 ml 09/22/19 09:00 09/22/19 08:53 Flush - Normal Saline IVF 10 ml Q12HR AIDA Administration - Exam General Appearance: NAD, awake alert Heart: no murmur, no gallops, no rubs Heart - other findings: normal rhythm, midly tachycardic s/p HD Respiratory: CTAB, no wheezes, no rales, no ronchi Gastrointestinal: soft, non-tender, non-distended, normal bowel sounds Extremities: no edema Psychiatric: normal affect, normal behavior, A&O x 3 Hosp A/P - Plan #COVID infection -diagnosed 08/13 per patient; never had symptoms including fever -back to baseline promptly after dialysis; CXR consistent with missed HD -> hypertensive emergency, hypervolemia -> flash pulmonary edema -stop isolation, stop ABx -attempt to arrange HD despite +ve COVID (patient willing to go to [facility] if they accept) #ESRD -s/p HD, back to baseline promptly after fluid removal #troponinemia -likely missed HD -> hypervolemia -> demand ischemia -no symptoms of ACS ELOS 0-several midnights depending on if HD can be arranged despite +ve COVID
[2019-09-22 16:31] LABS: SARS-CoV-2 MS2 Positive; SARS-CoV-2 N Gene Negative; SARS-CoV-2 S Gene Negative; SARS-CoV-2 orf1ab Negative
[2019-09-22] MEDS ORDERED: cefTRIAXone\\ROCEPHIN 1 GM in Sodium Chloride 0.9% 100 ML IVPB SCH (17:00)
[2019-09-22] MEDS: Carvedilol 25 MG TAB PO SCH (20:00)
[2019-09-23 03:39] VITALS: BMI 23.8
[2019-09-23 04:53] LABS: #Basophils 0.1 thou/uL (0.0-0.2); #Eosinphils 0.7 thou/uL (0.0-0.7); #Lymphocytes 1.2 thou/uL (1.20-3.40); #Monocytes 0.6 thou/uL (0.11-0.59); #Neutrophils 4.8 thou/uL (1.40-6.50); %Basophils 0.7 % (0.0-1.0); %Eosinophils 9.1 % (0.0-10.0); %Lymphocytes 16.3 % (21.0-51.0); %Monocytes 7.8 % (0.0-10.0); Hemoglobin 7.8 g/dL (14.0-18.0); Mean Corpuscular HGB CONC 31.9 g/dL (32.0-36.0); Mean Corpuscular Hemoglobin 30.6 pg (27.0-31.0); Mean Platelet Volume 8.6 fL (7.4-10.4); Platelet Count 282 thou/uL (130-400); RBC Distribution Width 13.5 % (11.5-14.5); Red Blood Cell (RBC) Count 2.55 mill/uL (4.70-6.10); White Blood Cell (WBC) Count 7.3 thou/uL (4.8-10.8)
[2019-09-23 05:24] LABS: Anion Gap 16 mmol/L (10-20); BUN (Urea Nitrogen) 40 mg/dL (8.9-20.6); Calc. Creatinine Clearance 13 mL/min (70-130); Calcium 8.3 mg/dL (7.8-10.44); Carbon Dioxide 22 mmol/L (22-29); Chloride 102 mmol/L (98-107); Estimated GFR-MDRD 8; Glucose 90 mg/dL (70-105); Magnesium 2.1 mg/dL (1.6-2.6); Phosphorus 6.6 mg/dL (2.3-4.7); Potassium 4.4 mmol/L (3.5-5.1); Sodium 136 mmol/L (136-145)
[2019-09-23] MEDS: Ibuprofen 600 MG TAB PO SCH (06:32)
[2019-09-23 07:42] VITALS: BP 150/101; TEMP 98.5
[2019-09-23] MEDS: Carvedilol 25 MG TAB PO SCH (07:53)
[2019-09-23] MEDS: Famotidine 20 MG TAB PO SCH (07:53)
[2019-09-23] MEDS: Polyethylene Glycol 3350 17 GM Packet PO SCH (07:54)
[2019-09-23] MEDS: Heparin 5,000 UNITS/ML VIAL SC SCH (07:54)
[2019-09-23] MEDS: HYDROcodone/Acetaminophen 5/325 mg Tablet PO PRN (08:04)
[2019-09-23] MEDS ORDERED: NIFEdipine XL 90 MG TAB PO SCH (09:00)
--- NOTE | 2019-09-24 14:43 | DIS ---
DATE OF ADMISSION: 09/21/2019 DATE OF DISCHARGE: 09/23/2019 Mr. Vásquez is a 29-year-old male with medical a history of end-stage renal disease and COVID-19 infection diagnosed in the beginning of August, who presented for hemodialysis. The patient could not receive his hemodialysis since August after he was diagnosed with COVID. So, he was sent by his reptile keeper to rule out COVID. The patient underwent hemodialysis and COVID PCR was negative. The patient was instructed to return to his hemodialysis center and return to scheduled hemodialysis sessions. MEDICATION LIST: None of the patient's medications were modified with the exception of sevelamer as a new medication. He continues to take Coreg and nifedipine. Job ID: [id number]
== END 2019-09-23 10:10 | disposition home or self-care (01) | DRG 640 ==
LOC: ERS 15:37 → 2SW 19:23
PROVIDERS: ADMIT Internal Medicine; ATTEND Internal Medicine
PROC: 5A1D70Z Performance of Urinary Filtration, Intermittent, Less than 6 Hours Per Day (ICD-10-PCS; principal; 2019-09-21)
DX: E87.70 Fluid overload, unspecified (principal); N18.6 End stage renal disease; J12.89 Other viral pneumonia; I13.2 Hypertensive heart and chronic kidney disease with heart failure and with stage 5 chronic kidney disease, or end stage renal disease; I24.8 Other forms of acute ischemic heart disease; E87.2 Acidosis; D63.1 Anemia in chronic kidney disease; I50.9 Heart failure, unspecified; F17.210 Nicotine dependence, cigarettes, uncomplicated; Z95.0 Presence of cardiac pacemaker; Z99.2 Dependence on renal dialysis; Z86.19 Personal history of other infectious and parasitic diseases
CPT/HCPCS: 36415; 71045; 80048; 80053; 82553; 83605; 83735; 84100; 84484; 85025; 87040; 87340; 87635; 90471; 90670; 90935; 93005; 94760; 96365; 96367; 96375; 96376; G0009; G0257; J0456; J0696; J1644; J2405; U0003

== ENCOUNTER 2019-11-26 17:29 | Observation (INO) | payer SELFPAY, OTHER ==
[2019-11-26] MEDS ORDERED: Piperacillin/Tazobactam 4.5 GM VIAL ONE (21:32)
[2019-11-26] MEDS ORDERED: Acetaminophen 500 MG TAB ONE (21:34)
[2019-11-26] MEDS ORDERED: Vancomycin 1 GM/200 ML BAG ONE (22:25)
[2019-11-26] MEDS ORDERED: Ketorolac Tromethamine 30 MG/ML VIAL ONE (22:38)
[2019-11-27] MEDS ORDERED: Acetaminophen 325 MG TAB PO PRN (07:28)
[2019-11-27] MEDS ORDERED: Labetalol HCl 100 MG/20 ML VIAL SLOW IVP PRN (07:28)
[2019-11-27] MEDS ORDERED: Sodium Chloride 0.65% Nasal 44 ML BOT EA NARE PRN (07:28)
[2019-11-27] MEDS ORDERED: Ondansetron PF 4 MG/2 ML Vial IVP PRN (07:28)
[2019-11-27] MEDS ORDERED: Loratadine 10 MG TAB PO PRN (07:28)
[2019-11-27] MEDS ORDERED: HYDROcodone/Acetaminophen 5/325 mg Tablet PO PRN (07:28)
[2019-11-27] MEDS ORDERED: Bisacodyl 10 MG SUPP PR PRN (07:28)
[2019-11-27] MEDS ORDERED: Calcium Carbonate 500 MG ChewTAB PO PRN (07:28)
[2019-11-27] MEDS ORDERED: Guaifenesin DM 100-10/5 ML UDCUP PO PRN (07:28)
[2019-11-27] MEDS ORDERED: hydrALAZINE 20 MG/ML VIAL SLOW IVP PRN (07:28)
[2019-11-27] MEDS ORDERED: Ondansetron ODT 4 MG TAB PO PRN (07:28)
[2019-11-27] MEDS ORDERED: Cepastat Lozenges 1 LOZ PO PRN (07:28)
[2019-11-27] MEDS ORDERED: Diabetic Tussin 200 MG/10 ML UDCUP PO PRN (07:28)
[2019-11-27] MEDS ORDERED: Zolpidem Tartrate 5 MG TAB PO PRN (07:28)
[2019-11-27] MEDS ORDERED: Loperamide HCl 2 MG CAP PO PRN (07:28)
[2019-11-27] MEDS ORDERED: Senokot S 8.6-50 MG TAB PO PRN (07:28)
[2019-11-27] MEDS ORDERED: Sevelamer Carbonate 800 MG TAB PO SCH (08:00)
[2019-11-27] MEDS ORDERED: Carvedilol 25 MG TAB PO SCH (09:00)
[2019-11-27] MEDS ORDERED: NIFEdipine XL 90 MG TAB PO SCH (09:00)
[2019-11-27] MEDS ORDERED: Heparin 5,000 UNITS/ML VIAL SC SCH (09:00)
[2019-11-27 13:09] LABS: HBSAg Index 0.17 S/CO (0-0.99); Hep B Surf Ag Non-Reactive S/CO (NonReactive)
== END 2019-11-26 23:04 | disposition left against medical advice (07) ==
LOC: ERS 17:29 → ERHOLD 18:27
PROVIDERS: ADMIT Family Medicine; ATTEND Family Medicine
DX: N18.6 End stage renal disease (principal); E87.6 Hypokalemia; E87.1 Hypo-osmolality and hyponatremia; Z53.21 Procedure and treatment not carried out due to patient leaving prior to being seen by health care provider; Z79.899 Other long term (current) drug therapy
CPT/HCPCS: 87340; J1885; J2543; J3370

== ENCOUNTER 2019-11-26 20:58 | Inpatient (IN) | payer OTHER, SELFPAY ==
[2019-11-26 21:29] LABS: #Eosinphils 0.1 thou/uL (0.0-0.7); #Lymphocytes 0.5 thou/uL (1.20-3.40); #Monocytes 0.5 thou/uL (0.11-0.59); #Neutrophils 10.3 thou/uL (1.40-6.50); %Basophils 0.3 % (0.0-1.0); %Eosinophils 0.5 % (0.0-10.0); %Monocytes 4.2 % (0.0-10.0); Hemoglobin 11.1 g/dL (14.0-18.0); Mean Corpuscular Hemoglobin 30.9 pg (27.0-31.0); Mean Corpuscular Volume 91.1 fL (78.0-98.0); Mean Platelet Volume 8.7 fL (7.4-10.4); Platelet Count 245 thou/uL (130-400); RBC Distribution Width 13.6 % (11.5-14.5); Red Blood Cell (RBC) Count 3.58 mill/uL (4.70-6.10); White Blood Cell (WBC) Count 11.4 thou/uL (4.8-10.8)
[2019-11-26 21:55] LABS: ALT (SGPT) Less than 7 U/L (8-55); AST (SGOT) 12 U/L (5-34); Albumin 4.6 g/dL (3.5-5.0); Alkaline Phosphatase 58 U/L (40-110); Anion Gap 19 mmol/L (10-20); BUN (Urea Nitrogen) 45 mg/dL (8.9-20.6); Bilirubin, Total 0.9 mg/dL (0.2-1.2); Calc. Creatinine Clearance 0 mL/min (70-130); Calcium 9.5 mg/dL (7.8-10.44); Carbon Dioxide 19 mmol/L (22-29); Chloride 99 mmol/L (98-107); Estimated GFR-MDRD 5; Globulin 2.8 g/dL (2.4-3.5); Glucose 82 mg/dL (70-105); Protein, Total 7.4 g/dL (6.0-8.3); Sodium 134 mmol/L (136-145)
--- NOTE | 2019-11-26 23:11 | RAD ---
EXAM: XR Chest 1 View Portable PROVIDED CLINICAL HISTORY: Fever. Swelling in region of dialysis catheter which was placed 3 months ago. COMPARISON: 09/21/2019 FINDINGS: Tunneled right sided hemodialysis catheter remains in place and unchanged in position. Loop recording device again overlies the left lung base. Cardiac silhouette remains enlarged. There has been interval resolution of the perihilar interstitial and alveolar opacities noted on the prior exam. Juice gs are clear on today's exam. No other interval change. IMPRESSION: 1. No acute cardiopulmonary process. 2. Resolution of perihilar interstitial and alveolar opacities. 3. Mild cardiomegaly. 4. Hemodialysis catheter remains in place.
[2019-11-27 00:03] LABS: Bacteria/HPF None Seen HPF (None Seen); Bilirubin Negative (Negative); Blood, Urine 1+ (Negative); Clarity Clear (Clear); Glucose, Urine (Dipstick) 30 mg/dL (Negative); Ketone, Urine Negative (Negative); Leukocyte Negative Leu/uL (Negative); Nitrite Negative (Negative); Protein, Urine (Dipstick) 100 mg/dL (Neg-Trace); RBC/HPF 0-3 HPF (0-3); Specific Gravity, Urine 1.007 (1.002-1.036); Squamous Epithelial None Seen HPF (0-3); Urobilinogen Normal mg/dL (Less than 2); WBC/HPF 0-3 HPF (0-3)
[2019-11-27 00:12] LABS: Amphetamine Detected (NotDetected); Barbiturates Screen Not Detected (NotDetected); Benzodiazepine Screen Not Detected (NotDetected); Cocaine Metabolite Screen Not Detected (NotDetected); Medtox Control Line Valid? VALID (VALID); Medtox Reader # READER 1; Methadone Not Detected (NotDetected); Methamphetamine Detected (NotDetected); Opiate Screen Not Detected (NotDetected); Oxycodone Screen Not Detected (NotDetected); Phencyclidine (PCP) Not Detected (NotDetected); THC/Cannabinoid Screen Detected (NotDetected); Tricyclic Screen Not Detected (NotDetected)
--- NOTE | 2019-11-27 11:43 | HP ---
PRIMARY CARE PHYSICIAN: [facility] Call admission. REASON FOR ADMISSION: Dialysis catheter site pain. HISTORY OF PRESENT ILLNESS: This is a 29-year-old male, who has ESRD and who was recently admitted in our hospital. The patient had an AV fistula and tunneled dialysis catheter placement in June 2019. The patient was feeling swelling and mild tenderness over his tunneled hemodialysis catheter site. The patient did not have any fever, chills, nausea or vomiting. In the emergency room, the patient had routine blood tests done, which showed leukocytosis, hyponatremia, and hypokalemia. His BNP was elevated. His urinalysis was normal and his urine drug screen came back positive for amphetamine and methamphetamine and cannabinoids. Blood culture was obtained and it was negative. In the emergency room, the patient was having 102 fever and that is why there was concern of underlying dialysis catheter infection. I saw this patient in dialysis room and the patient was able to get dialysis through AV fistula. The patient was not having any symptoms and he was feeling much better. REVIEW OF SYSTEMS: CONSTITUTIONAL: Negative for weight loss or gain, ability to conduct usual activities. SKIN: Negative for rash, itching. EYES: Negative for double vision, pain. ENT/MOUTH: Negative for nose bleeding, neck stiffness, pain, tenderness. CARDIOVASCULAR: Negative for palpitations, dyspnea on exertion, orthopnea. RESPIRATORY: Negative for shortness of breath, wheezing, cough, hemoptysis, fever or night sweats. GASTROINTESTINAL: Negative for poor appetite, abdominal pain, heartburn, nausea, vomiting, constipation, or diarrhea. GENITOURINARY: Negative for urgency, frequency, dysuria, nocturia. MUSCULOSKELETAL: Negative for pain, swelling. NEUROLOGIC/PSYCHIATRIC: Negative for anxiety, depression. ALLERGY/IMMUNOLOGIC: Negative for skin rash, bleeding tendency. All other review of systems reviewed and negative except as mentioned in HPI. PAST MEDICAL HISTORY: Chronic systolic and diastolic heart failure, hypertension, ESRD on hemodialysis, anemia of renal disease, and secondary hyperparathyroidism of renal origin. PAST SURGICAL HISTORY: AV fistula and tunneled hemodialysis catheter placement. PAST PSYCHIATRIC HISTORY: Reviewed and negative. SOCIAL HISTORY: The patient is smoking. He drinks alcohol occasionally. He also abuses cannabinoids and methamphetamine. FAMILY HISTORY: No strong family history of premature coronary artery disease, stroke or cancer. CURRENT HOME MEDICATIONS: 1. Coreg 25 mg p.o. twice daily. 2. Procardia XL 90 mg p.o. daily. 3. Renvela 800 mg p.o. t.i.d. EMERGENCY ROOM COURSE: The patient received vancomycin, Zosyn, IV fluid, Toradol, and Tylenol. PHYSICAL EXAMINATION: VITAL SIGNS: On arrival, T-maximum 102.8, respiratory rate 22, pulse 109, blood pressure 140/86, and saturation 100% on room air. Weight 80.2 kg. GENERAL: The patient is currently alert, awake, no acute distress. HEENT: Head; normocephalic, atraumatic. NECK: Supple. No JVD. No meningeal signs of irritation. LUNGS: Clear to auscultation without any rhonchi or rales. CARDIAC: S1 and S2 appears regular, no murmur, no gallop, no rub. ABDOMEN: Soft, bowel sounds present, nontender, nondistended. No organomegaly. No mass. EXTREMITIES: No edema. Good distal pulsation. SKIN: No skin rash. HEMATOLOGICAL: No lymphadenopathy. NEUROLOGIC: Nonfocal examination. SKIN: The patient does have multiple tattoos on his body. Dialysis catheter site is tender. ASSESSMENT AND PLAN: 1. Acute fever, likely due to sepsis. The patient meets sepsis criteria with a T-maximum of 102.8, respiratory rate of 22, and pulse of 109. Source of infection is most likely tunneled hemodialysis catheter infection. The patient will continue to get vancomycin with dialysis. We will consult Dr. Viera to remove his dialysis catheter. We will also consult Dr. Maldonado to give opinion regarding duration of antibiotic therapy with dialysis after dialysis catheter removal. We will repeat blood culture. The patient has AV fistula functioning properly and that is why we will discontinue his tunneled hemodialysis catheter. 2. Cardiomyopathy with chronic systolic heart failure. The patient will continue Coreg. The patient is not on STEPHANE inhibitor or ARB because of renal failure. 3. Abnormal electrolytes. We will repeat BMP tomorrow. 4. Anemia of renal disease. We will continue Nephro-Rodney one tablet p.o. daily. 5. Secondary hyperparathyroidism of renal origin. We will continue Renvela 800 mg t.i.d. 6. Polysubstance abuse. Counseling provided to the patient to avoid illicit drug abuse. 7. Deep venous thrombosis prophylaxis. Heparin 5000 units subcu twice daily. 8. Gastrointestinal prophylaxis, Protonix 40 mg p.o. daily. CODE STATUS: The patient is full code. DISPOSITION PLAN: Based on clinical course. Plan of care discussed with the patient in detail. This patient meets inpatient criteria and we will follow up on culture results, and based on culture results, we will decide whether the patient needs repeat blood cultures as well as antibiotic therapy. The patient had chest x-ray, which showed already resolution of previous bilateral opacity which he had from COVID. Overall, the patient is medically stable, but expecting to stay in hospital a little bit longer. Plan of care discussed with the patient in detail. Job ID: [id number]
[2019-11-27] MEDS ORDERED: Guaifenesin DM 100-10/5 ML UDCUP PO PRN (12:48)
[2019-11-27] MEDS ORDERED: Senokot S 8.6-50 MG TAB PO PRN (12:48)
[2019-11-27] MEDS ORDERED: Loratadine 10 MG TAB PO PRN (12:48)
[2019-11-27] MEDS ORDERED: Labetalol HCl 100 MG/20 ML VIAL SLOW IVP PRN (12:48)
[2019-11-27] MEDS ORDERED: Benzonatate 100 MG CAP PO PRN (12:48)
[2019-11-27] MEDS ORDERED: Loperamide HCl 2 MG CAP PO PRN (12:48)
[2019-11-27] MEDS ORDERED: Calcium Carbonate 500 MG ChewTAB PO PRN (12:48)
[2019-11-27] MEDS ORDERED: Ondansetron PF 4 MG/2 ML Vial IVP PRN (12:48)
[2019-11-27] MEDS ORDERED: Bisacodyl 10 MG SUPP PR PRN (12:48)
[2019-11-27] MEDS ORDERED: Zolpidem Tartrate 5 MG TAB PO PRN (12:48)
[2019-11-27] MEDS ORDERED: Cepastat Lozenges 1 LOZ PO PRN (12:48)
[2019-11-27] MEDS ORDERED: Sodium Chloride 0.65% Nasal 44 ML BOT EA NARE PRN (12:48)
[2019-11-27] MEDS ORDERED: hydrALAZINE 20 MG/ML VIAL SLOW IVP PRN (12:48)
[2019-11-27] MEDS ORDERED: Ondansetron ODT 4 MG TAB PO PRN (12:48)
[2019-11-27] MEDS ORDERED: Vancomycin HCl 1.25 GM in Sodium Chloride 0.9% 250 ML 250 ML IVPB SCH (13:30)
[2019-11-27] MEDS ORDERED: Vancomycin 1 GM in Premix Bag 1 BAG IVPB SCH (13:30)
[2019-11-27] MEDS ORDERED: Vancomycin HCl 750 MG in Sodium Chloride 0.9% 250 ML 250 ML IVPB SCH (13:30)
[2019-11-27] MEDS ORDERED: Vancomycin HCl 500 MG in Sodium Chloride 0.9% 100 ML IVPB SCH (13:30)
[2019-11-27] MEDS ORDERED: HOLD VANCOMYCIN FOR LEVEL >20 FS SCH (13:30)
[2019-11-27] MEDS ORDERED: Sevelamer Carbonate 800 MG TAB PO SCH (15:00)
[2019-11-27 17:30] LABS: Vancomycin, Random 13.1 ug/mL (See Comment)
[2019-11-27] MEDS: Acetaminophen 325 MG TAB PO PRN ×2 (17:34→20:24)
[2019-11-27] MEDS: Sevelamer Carbonate 800 MG TAB PO SCH (17:36)
[2019-11-27] MEDS: Carvedilol 25 MG TAB PO SCH (20:23)
[2019-11-27] MEDS: Heparin 5,000 UNITS/ML VIAL SC SCH (20:24)
--- NOTE | 2019-11-27 23:58 | CON ---
DATE OF CONSULTATION: 11/27/2019 REASON FOR CONSULTATION: Bacteremia. HISTORY OF PRESENT ILLNESS: A 29-year-old patient, who has history of end-stage renal disease secondary to IgA nephropathy, biopsy-proven and previous AICD placement, who has been on dialysis through a tunneled hemodialysis catheter and more recently transitioned to [place] AV fistula, which has matured recently. This is the third week the fistula has been used for dialysis and now he developed tenderness at the tunneled dialysis catheter site. He did not report any fever, so he came for evaluation and initial findings included a pulse 109, BP 140/86, temperature 102.8, so he is admitted and now we have 2 sets of blood cultures positive for Staphylococcus aureus, which is methicillin-susceptible. He was sleeping when I came into the room but easily arousable. He denies headaches. No visual symptoms, sore throat, odynophagia, or dysphagia. No dental pain. A little bit of low back pain, but not much. No chest pain or dyspnea. No cough or sputum production. No abdominal pain or diarrhea. Still has urinary output. No joint symptoms in any site. No neurological symptoms. PAST MEDICAL HISTORY: Includes IgA nephropathy, end-stage renal disease, hemodialysis initially through a tunneled catheter and now currently through an AV fistula. The patient had a defibrillator pacemaker placed in 2018. SOCIAL HISTORY: Current smoker. History of drug use in the past but not currently. CURRENT MEDICATIONS: Coreg and at the moment in the hospital, he is on, 1. [place]. 2. Tessalon. 3. Dulcolax. 4. Tums. 5. Robitussin. 6. Apresoline. 7. Normodyne. 8. Imodium. 9. Claritin. 10. Procardia. 11. Vancomycin. 12. Sliding scale. ALLERGY HISTORY: Negative. PHYSICAL EXAMINATION: VITAL SIGNS: T-max 102 when he came in and now 98.1, blood pressure 120/81, pulse 127, respirations are 28 and now 18. SKIN: With multiple tattoos. The patient has a tunneled catheter in the right IJ position, which is a bit tender and moderately swollen. AV fistula in left upper extremity has been accessed recently. No lymphadenopathy. HEENT: Ocular movements conjugate. Mild conjunctival hyperemia. Pupils are equal and reactive. Oral cavity normal. Numerous teeth in place, in very good shape. NECK: Supple. No jugular vein distention or carotid bruits. LUNGS: Symmetric. Clear breath sounds. HEART: S1 and S2. Regular rate without murmurs. Pacer pocket without inflammatory changes. ABDOMEN: Soft, not tender or distended. No organomegaly. No ascites. : No bladder distention. EXTREMITIES: No joint inflammatory activity. Pulses 1+ in dorsalis pedis. Plantar responses are flexor. No edema. He moves all extremities equally. NEUROLOGIC: His cognitive function appears to be intact. LABORATORY DATA: White cell count is 11.4, hemoglobin 11, platelets 245 with 91% neutrophils. Sodium 134, creatinine 12.41, AST 12, ALT less than 7, alkaline phosphatase 58, albumin 4.6, and globulin 2.8. Urinalysis was fairly normal and the toxic screen with amphetamines detected and cannabinoids. ASSESSMENT: 1. IgA nephropathy, prior history of drug use including amphetamines and cocaine. End-stage renal disease, on hemodialysis initially through a tunneled catheter, now currently using an arteriovenous fistula. 2. MSSA/methicillin sensitive Staphylococcus aureus bacteremia. 3. Automatic implantable cardioverter-defibrillator/pacemaker. DISCUSSION: The differential diagnosis includes the more likely scenario, which is colonization of the hemodialysis catheter, which needs to be removed and does not require replacement since the fistula is functional at the moment. The other possibility is colonization of the AICD leads. We will obtain a 2D echocardiogram. Request surgical consult for removal of the hemodialysis catheter. Treat for at least four weeks with adjusted cefazolin after dialysis, 3 g. Repeat blood cultures before discharge and then after completion of therapy. If there is recrudescence of the bacteremia after catheter is removed, then the concern with lead colonization will be higher. Other sites of involvement are not apparent at this moment. Job ID: [id number]
[2019-11-28] MEDS ORDERED: Lidocaine 1% w/Epinephrine 1:100K 20 ML VIAL NERVE BLCK SCH (08:00)
[2019-11-28] MEDS: NIFEdipine XL 90 MG TAB PO SCH (08:42)
[2019-11-28] MEDS: Acetaminophen 325 MG TAB PO PRN (08:42)
[2019-11-28] MEDS: Sevelamer Carbonate 800 MG TAB PO SCH ×3 (08:42→16:55)
[2019-11-28] MEDS: Heparin 5,000 UNITS/ML VIAL SC SCH ×2 (08:43→20:35)
[2019-11-28] MEDS: Carvedilol 25 MG TAB PO SCH ×2 (08:43→20:35)
--- NOTE | 2019-11-28 09:13 | CON ---
DATE OF CONSULTATION: 11/27/2019 CONSULTING PHYSICIAN: Blue Hernandez MD REASON FOR CONSULTATION: End-stage renal disease evaluation. REASON FOR ADMISSION: Catheter site pain. HISTORY OF PRESENT ILLNESS: This is a 29-year-old male with history of CHF, end-stage renal disease, hypertension, who came to the hospital with catheter pain and swelling and pain. The patient has a fistula and fistula is accessible in 2 to 3 weeks and dialysis center was planning to remove the TDC, but the patient never made an appointment and he came to the hospital yesterday. No chest pain or palpitation reported. PAST MEDICAL HISTORY: Positive for end-stage renal disease, CHF, hypertension, , drug abuse. PAST SURGICAL HISTORY: AV fistula placement. HOME MEDICATIONS: Reviewed. ALLERGIES: NO KNOWN DRUG ALLERGIES. SOCIAL HISTORY: History of alcohol, smoking, and illicit drug abuse present. Positive for cannabinoids, methamphetamine. FAMILY HISTORY: No history of kidney disease. REVIEW OF SYSTEMS: CONSTITUTIONAL: Negative for weight loss or gain, ability to conduct usual activities. SKIN: Negative for rash, itching. EYES: Negative for double vision, pain. ENT/MOUTH: Negative for nose bleeding, neck stiffness, pain, tenderness. CARDIOVASCULAR: Negative for palpitations, dyspnea on exertion, orthopnea. RESPIRATORY: Negative for shortness of breath, wheezing, cough, hemoptysis, fever or night sweats. GASTROINTESTINAL: Negative for poor appetite, abdominal pain, heartburn, nausea, vomiting, constipation, or diarrhea. GENITOURINARY: Negative for urgency, frequency, dysuria, nocturia. MUSCULOSKELETAL: Negative for pain, swelling. NEUROLOGIC/PSYCHIATRIC: Negative for anxiety, depression. ALLERGY/IMMUNOLOGIC: Negative for skin rash, bleeding tendency. PHYSICAL EXAMINATION: GENERAL: This is a well-built male, in no apparent distress. VITAL SIGNS: Temperature maximum 102.8, pulse 109, respiratory rate 22, and blood pressure 140/87. HEENT: Atraumatic, normocephalic. Oral mucosa moist. NECK: Supple. CV: S1 and S2. Rate and rhythm regular. RESPIRATORY: Clear. GASTROINTESTINAL: Abdomen is soft. MUSCULOSKELETAL: No edema. DERMATOLOGIC: No skin rash. NEUROLOGIC: Alert, awake. PSYCHIATRIC: Mood and affect normal. LABORATORY DATA: Potassium 3.0, BUN is 45, and creatinine is 12.4. Hemoglobin is 11.1. ASSESSMENT AND PLAN: 1. End-stage renal disease. Plan to have dialysis today. 2. Infected dialysis catheter. We will ask surgery to have evaluation and probably remove the catheter. 3. Anemia. 4. Edema. 5. Fluid overload. 6. Hyponatremia. Plan to have dialysis today. We will consult Surgery for removal of tunneled dialysis catheter. We will give a dose of vancomycin. Check blood cultures x2. Thank you for the consult. Job ID: [id number]
--- NOTE | 2019-11-28 10:05 | PDOC.HOSPP ---
- Subjective Encounter Date: 11/28/19 Encounter Time: 12:00 Subjective: Mr. Vásquez is a 29 y/o M with a history of ESRD who presented to the hospital for pain at dialysis catheter site. Patient states he has a throbbing headache since 6 am. Otherwise, patient feels well with no complaints. Pt was lying in bed and was minimally interactive with interviewers. - Objective Vital Signs & Weight: Vital Signs (12 hours) Temp Pulse Resp BP BP Pulse Ox 11/28/19 08:30 99.9 F H 89 16 150/90 H 97 11/28/19 04:00 99.2 F 96 16 134/89 96 Weight Weight 175 lb 3.2 oz I&O: 11/27/19 11/28/19 11/29/19 06:59 06:59 06:59 Intake Total 480 Output Total 1800 Balance -1320 Result Diagrams: 11/26/19 21:12 11/26/19 21:12 Additional Labs: Microbiology 11/26/19 21:12 Venous blood - Right Hand Blood Culture - Preliminary Staphylococcus aureus 11/26/19 21:12 Venous blood - Right Arm Blood Culture - Preliminary Staphylococcus aureus Laboratory Tests 11/26/19 23:49 Ur Amphetamines Screen Detected H U Methamphetamines Scrn Detected H U Cannabinoids Screen Detected H EKG Reviewed by me: Yes (Tele SR) Hospitalist ROS - Review of Systems Constitutional: reports: other ( headache). denies: fever, chills, sweats, weakness, malaise Cardiovascular: denies: chest pain, palpitations, orthopnea, paroxysmal noc. dyspnea, edema, other Gastrointestinal: denies: nausea, vomiting, abdominal pain, diarrhea, constipation, melena, hematochezia, other - Medication Medications: Active Medications Generic Name Dose Route Start Last Admin Trade Name Freq PRN Reason Stop Dose Admin Acetaminophen 650 mg 11/27/19 12:48 11/28/19 08:42 Tylenol PO 650 mg Q4H PRN Administration Headache/Fever/Mild Pain (1-3) Carvedilol 25 mg 11/27/19 21:00 11/28/19 08:43 Coreg PO 25 mg BID AIDA Administration Heparin Sodium (Porcine) 5,000 units 11/27/19 21:00 11/28/19 08:43 Heparin SC 5,000 units BID AIDA Administration Vancomycin HCl 750 mg/ Sodium 250 mls @ 250 mls/hr 11/27/19 13:30 11/27/19 21 :25 Chloride IVPB 250 mls WILLCALL AIDA Administration Nifedipine 90 mg 11/28/19 09:00 11/28/19 08:42 Procardia Xl PO 90 mg DAILY AIDA Administration Pantoprazole Sodium 40 mg 11/28/19 09:00 11/28/19 08:43 Protonix PO 40 mg DAILY AIDA Administration Sevelamer Carbonate 800 mg 11/27/19 17:00 11/28/19 08:42 Renvela PO 800 mg TID-WM AIDA Administration - Exam General Appearance: awake alert Neck: supple, symmetric, no JVD, no carotid bruit Heart: RRR, normal peripheral pulses Respiratory: CTAB, no wheezes, no rales, no ronchi Gastrointestinal: soft, non-tender, normal bowel sounds Psychiatric: normal affect, A&O x 3 Hosp A/P - Plan out of bed/ambulate, DVT proph w/heparin Sepsis due dialysis catheter associated MRSA bacteremia Chronic systolic HF Anemia of renal disease Secondary hyperparathyroidism of renal origin ESRD on dialysis Polysubstance abuse HTN Hypokalemia PLAN: Replace Potassium Dialysis per Nephrology Fever resolved, temp is 97.9 Sepsis: continue Vancomycin, review culture, CM and systolic HF: continue pt on carvedilol, monitor BNP, continue nifedipine Anemia: monitor Hb and Hct Secondary hyperparathyroidism of renal origin: continue patient on sevelamer carbonate Polysubstance abuse: patient was counseled to avoid illicit drug use Continue DVT prophylaxis with heparin GI prophylaxis with pantoprazole sodium AM labs
[2019-11-28] MEDS ORDERED: Bupivacaine HCl 0.5%/Epinephrine 1:200,000/PF 30 ml Vial IJ SCH (11:30)
--- NOTE | 2019-11-28 12:02 | PRG ---
DATE OF SERVICE: 11/28/2019 SUBJECTIVE: Patient was seen and examined at bedside and overnight events noted. Patient denies any shortness of breath or chest pain or palpitation. No history of nausea or vomiting or diarrhea or fever or chills or cramps. OBJECTIVE: General: This is a well-built male, in no apparent distress. Vital Signs: Temperature 99.9. Heart Rate 89. Respiratory rate 16. Blood pressure 150/90. HEENT: Atraumatic, normocephalic. Oral mucosa is moist. Neck: Supple. Cardiovascular: S1, S2 heard. Rate and rhythm regular. Respiratory: Clear to auscultation. Gastrointestinal: Abdomen is soft. Musculoskeletal: No tenderness. No edema. Dermatologic: No skin rash. Neurologic: Alert and awake and oriented x3. No focal neurologic deficits. Moving all the extremities. Psychiatric: Mood and affect normal. LABORATORY DATA: Not done today. ASSESSMENT AND PLAN: 1. End-stage renal disease. Continue dialysis TTS as tolerated. 2. Infected dialysis catheter and tunneled dialysis catheter. Surgery contacted. Continue antibiotics. 3. Anemia. 4. Edema. 5. Fluid overload. 6. Hyponatremia. Continue antibiotics per ID recommendations and follow with Surgery. Job ID: [id number]
[2019-11-28 14:29] VITALS: BMI 25.1
--- NOTE | 2019-11-28 17:28 | PRG ---
DATE OF SERVICE: SUBJECTIVE: Catheter has been removed. There is a little bit of low back pain. No chest pain. No abdominal pain or diarrhea. OBJECTIVE: VITAL SIGNS: T-max 99.9, BP 111/72, pulse 81. LUNGS: Clear. HEART: S1 and S2, regular rate. Catheter has been removed from the right IJ position. ABDOMEN: Soft, not distended. No back tenderness. LABORATORY DATA: Labs have not been repeated except for BNP. Blood cultures from 11/26, thus far no growth. Echocardiogram, EF 35%. No vegetations noted on cardiac valves. ASSESSMENT AND DISCUSSION: IgA nephropathy, prior history of drug use including amphetamines and cocaine. End-stage renal disease, on hemodialysis, now through AV fistula, likely hemodialysis catheter infection with MSSA or methicillin sensitive Staphylococcus aureus bacteremia. Possibility of AICD infection is not completely ruled out. We will go ahead and treat him with cefazolin 3 g given after each dialytic therapy for the next 4 weeks. If there is recrudescence of bacteremia after that, then AICD will likely have to be removed. I have also discussed with the patient the risk of developing distant dissemination of this original infection to other sites, particularly the spine area and described what signs and symptoms that he should be looking for and to contact us immediately if that happens. Job ID: [id number] JOSE MANUEL
[2019-11-29 04:45] LABS: #Eosinphils 0.2 thou/uL (0.0-0.7); #Lymphocytes 0.7 thou/uL (1.20-3.40); #Monocytes 0.5 thou/uL (0.11-0.59); #Neutrophils 5.1 thou/uL (1.40-6.50); %Basophils 0.6 % (0.0-1.0); %Eosinophils 3.2 % (0.0-10.0); %Lymphocytes 11.1 % (21.0-51.0); %Monocytes 7.1 % (0.0-10.0); Hemoglobin 10.6 g/dL (14.0-18.0); Mean Corpuscular HGB CONC 33.5 g/dL (32.0-36.0); Mean Corpuscular Hemoglobin 31.1 pg (27.0-31.0); Mean Corpuscular Volume 92.6 fL (78.0-98.0); Platelet Count 146 thou/uL (130-400); RBC Distribution Width 13.2 % (11.5-14.5); White Blood Cell (WBC) Count 6.5 thou/uL (4.8-10.8)
[2019-11-29 05:05] LABS: ALT (SGPT) 36 U/L (8-55); AST (SGOT) 27 U/L (5-34); Albumin 3.6 g/dL (3.5-5.0); Alkaline Phosphatase 75 U/L (40-110); Anion Gap 14 mmol/L (10-20); BUN (Urea Nitrogen) 37 mg/dL (8.9-20.6); Bilirubin, Total 0.5 mg/dL (0.2-1.2); Calc. Creatinine Clearance 12 mL/min (70-130); Calcium 8.5 mg/dL (7.8-10.44); Carbon Dioxide 26 mmol/L (22-29); Chloride 95 mmol/L (98-107); Estimated GFR-MDRD 6; Globulin 2.8 g/dL (2.4-3.5); Glucose 109 mg/dL (70-105); Potassium 3.4 mmol/L (3.5-5.1); Protein, Total 6.4 g/dL (6.0-8.3); Sodium 132 mmol/L (136-145)
[2019-11-29] MEDS: HYDROcodone/Acetaminophen 5/325 mg Tablet PO PRN ×2 (06:20→21:20)
--- NOTE | 2019-11-29 08:11 | OP ---
DATE OF PROCEDURE: 11/28/2019 PREOPERATIVE DIAGNOSES: Bacteremia, functioning left arm fistula, senescent right IJ-cuffed tunneled dialysis catheter that needed removal. POSTOPERATIVE DIAGNOSES: Bacteremia, functioning left arm fistula, senescent right IJ-cuffed tunneled dialysis catheter that needed removal. PROCEDURE PERFORMED: Removal of right IJ-cuffed tunneled dialysis catheter at the bedside. ANESTHESIA: 1% Xylocaine with epinephrine 30 mL. DESCRIPTION OF PROCEDURE: With the patient at bedside, catheter exit site, right chest, prepared with alcohol and local anesthetic infiltrated in the skin and subcutaneous tissue. Catheter and cuff removed intact and discarded. Gauze dressing applied. There was no purulence. The patient tolerated the procedure well. Job ID: [id number]
[2019-11-29 08:19] LABS: Vancomycin, Random 18.3 ug/mL (See Comment)
[2019-11-29] MEDS ORDERED: Cyclobenzaprine 10 MG TAB PO PRN (08:45)
--- NOTE | 2019-11-29 08:51 | PDOC.HOSPP ---
- Subjective Encounter Date: 11/29/19 Encounter Time: 12:00 Subjective: Mr. Vásquez is a 29 y/o M with a PMH of ESRD and systolic HF who presented for bacteremia. Patient seen and examined. No new complaints. No overnight events. - Objective Vital Signs & Weight: Vital Signs (12 hours) Temp Pulse Resp BP BP Pulse Ox 11/29/19 07:12 99.1 F 87 16 122/76 96 11/29/19 03:29 99.9 F H 87 20 105/64 96 11/28/19 23:54 99.7 F H Weight Admit Weight 175 lb 3.2 oz Weight 170 lb 8 oz I&O: 11/28/19 11/29/19 11/30/19 06:59 06:59 06:59 Intake Total 480 1360 Output Total 1800 Balance -1320 1360 Result Diagrams: 11/29/19 04:16 11/29/19 04:16 Additional Labs: Microbiology 11/26/19 23:49 Urine voided Urine Culture - Final NO GROWTH AT 36 HOURS 11/26/19 21:12 Venous blood - Right Hand Blood Culture - Final Staphylococcus aureus 11/26/19 21:12 Venous blood - Right Arm Blood Culture - Final Staphylococcus aureus 11/27/19 14:30 Dialysis - Right Subclavian Vein Blood Culture - Preliminary NO GROWTH AT 48 HOURS Laboratory Tests 11/26/19 23:49 Ur Amphetamines Screen Detected H U Methamphetamines Scrn Detected H U Cannabinoids Screen Detected H EKG Reviewed by me: Yes (Tele SR) Hospitalist ROS - Review of Systems Constitutional: denies: fever, chills, sweats, weakness Respiratory: denies: cough, dry, shortness of breath, hemoptysis, SOB with excertion, pleuritic pain, sputum, wheezing, other Cardiovascular: denies: chest pain, palpitations, orthopnea, paroxysmal noc. dyspnea Gastrointestinal: denies: nausea, vomiting, abdominal pain, diarrhea - Medication Medications: Active Medications Generic Name Dose Route Start Last Admin Trade Name Freq PRN Reason Stop Dose Admin Acetaminophen 650 mg 11/27/19 12:48 11/28/19 08:42 Tylenol PO 650 mg Q4H PRN Administration Headache/Fever/Mild Pain (1-3) Hydrocodone Bitart/Acetaminophen 1 tab 11/27/19 12:48 11/29/19 06:20 [place] 5/325 PO 1 tab Q4H PRN Administration Moderate Pain (4-6) Carvedilol 25 mg 11/27/19 21:00 11/28/19 20:35 Coreg PO 25 mg BID AIDA Administration Heparin Sodium (Porcine) 5,000 units 11/27/19 21:00 11/28/19 20:35 Heparin SC 5,000 units BID AIDA Administration Vancomycin HCl 750 mg/ Sodium 250 mls @ 250 mls/hr 11/27/19 13:30 11/27/19 21 :25 Chloride IVPB 250 mls WILLCALL AIDA Administration Nifedipine 90 mg 11/28/19 09:00 11/28/19 08:42 Procardia Xl PO 90 mg DAILY AIDA Administration Pantoprazole Sodium 40 mg 11/28/19 09:00 11/28/19 08:43 Protonix PO 40 mg DAILY AIDA Administration Sevelamer Carbonate 800 mg 11/27/19 17:00 11/28/19 16:55 Renvela PO 800 mg TID-WM AIDA Administration - Exam General Appearance: awake alert Neck: supple, symmetric, no JVD, no carotid bruit Heart: RRR, no murmur, no gallops, no rubs Respiratory: CTAB, no wheezes, no rales, no ronchi Gastrointestinal: soft, non-tender, non-distended, normal bowel sounds Extremities: no cyanosis, no edema Psychiatric: normal behavior, A&O x 3 Hosp A/P - Plan out of bed/ambulate, DVT proph w/heparin Sepsis due dialysis catheter associated MSSA bacteremia -WBC count down to 6.5 Chronic systolic HF Anemia of renal disease Secondary hyperparathyroidism of renal origin ESRD on dialysis Polysubstance abuse HTN Hypokalemia/Hyponatremia PLAN: Dialysis received today Fever resolved, temp is 97.5 Sepsis: continue Vancomycin CM and systolic HF: continue pt on carvedilol, monitor BNP, continue nifedipine , consulted cardio Anemia: monitor Hb and Hct Secondary hyperparathyroidism of renal origin: continue patient on sevelamer carbonate Polysubstance abuse: counseled to avoid illicit drug use Continue DVT prophylaxis AM labs
[2019-11-29] MEDS: Sevelamer Carbonate 800 MG TAB PO SCH ×3 (12:02→17:17)
--- NOTE | 2019-11-29 12:27 | PRG ---
DATE OF SERVICE: 11/29/2019 SUBJECTIVE: Patient was seen and examined at bedside and overnight events noted. Patient denies any shortness of breath or chest pain or palpitation. No history of nausea or vomiting or diarrhea or fever or chills or cramps. OBJECTIVE: GENERAL: This is a well-built male, in no apparent distress. VITAL SIGNS: Temperature 99.1. Heart rate 87. Respiratory rate . Blood pressure 122/76. HEENT: Atraumatic, normocephalic. Oral mucosa is moist NECK: Supple. CARDIOVASCULAR: S1, S2 heard. Rate and rhythm regular. RESPIRATORY: Clear to auscultation. GASTROINTESTINAL: Abdomen is soft. MUSCULOSKELETAL: No tenderness. No edema. DERMATOLOGIC: No skin rash. NEUROLOGIC: Alert and awake and oriented X3. No focal neurologic deficits. Moving all the extremities. PSYCHIATRIC: Mood and affect normal. LABORATORY DATA: Potassium is 3.4, BUN 37, creatinine is 9.7. ASSESSMENT AND PLAN: 1. End-stage renal disease. Continue on dialysis TTS . 2. Infected dialysis catheter, which was removed. Appreciate help from Surgery. 3. Continue antibiotics per ID recommendations. 4. Anemia. 5. Edema. 6. Fluid overload. 7. Hyponatremia. Follow up culture results. Continue dialysis as tolerated. Job ID: [id number]
[2019-11-29] MEDS: Heparin 5,000 UNITS/ML VIAL SC SCH ×2 (12:43→21:09)
[2019-11-29] MEDS: Carvedilol 25 MG TAB PO SCH ×2 (12:43→21:08)
[2019-11-29] MEDS: NIFEdipine XL 90 MG TAB PO SCH (12:43)
--- NOTE | 2019-11-29 18:49 | CON ---
DATE OF CONSULTATION: 11/29/2019 REASON FOR CONSULTATION: Cardiomyopathy. HISTORY OF PRESENT ILLNESS: Mr. Vásquez is a 29-year-old gentleman who is admitted to the hospital with sepsis and gram-positive Staphylococcus. He has end-stage renal disease and had an indwelling catheter. The catheter has been removed. He has received antibiotics. He is improving. The ejection fraction has been found to be 30% to 35%. The patient was seen with a syncopal episode in 2018. The patient had a LINQ device placed at that time due to the syncopal episode, but he said he never came back to get it checked. No further syncopal episodes. The previous episodes sound like orthostatic hypotension. MEDICATIONS: The patient was takin. Carvedilol 25 mg twice a day. 2. Procardia XL 90 mg a day. 3. Renvela. ALLERGIES: NONE KNOWN. SOCIAL HISTORY: Unfortunately, he continues to consume drugs including methamphetamine. REVIEW OF SYSTEMS: CONSTITUTIONAL: Positive for fever and chills. Negative for chest pain, pressure, heaviness, or squeezing. Otherwise negative review of systems. No significant weight gain or loss. VISION: No changes. HEARING: No changes. PULMONARY: No cough or wheezing. CARDIAC: No chest pain. GASTROINTESTINAL: No nausea, vomiting, or diarrhea. SKIN: No rashes. PHYSICAL EXAMINATION: GENERAL: This is a thin 29-year-old man, 5 feet 10 inches tall, 170 pounds. EYES: Sclerae nonicteric. MOUTH: Mucous membranes moist. VITAL SIGNS: Blood pressure 125/84 and pulse 87. LUNGS: Clear. CARDIAC: Normal S1 and normal S2. I do not hear a murmur, rub, or gallop. ABDOMEN: Soft and nontender. EXTREMITIES: Warm and dry. No clubbing or cyanosis. There is no edema. IMAGING STUDIES: Chest x-ray shows cardiomegaly with a LINQ in place. LABORATORY DATA: Positive for Staph. ASSESSMENT: 1. Staph sepsis related in all likelihood to indwelling line. 2. LINQ implantation. The LINQ is easily palpable under the skin, LINQ is under the skin, feels normal. 3. End-stage renal disease. 4. Cardiomyopathy. PLAN: 1. Echocardiogram has revealed ejection fraction 30% to 35%. We will add lisinopril. 2. Continue carvedilol. 3. Outpatient echo to be done. 4. Encourage cessation from methamphetamine and other drugs. Long-term prognosis guarded with end-stage renal disease and substance addiction. We will interrogate the [employer]. Apparently, it has not been interrogated since it was in place. Job ID: [id number]
[2019-11-30] MEDS: NIFEdipine XL 90 MG TAB PO SCH (08:38)
[2019-11-30] MEDS: Sevelamer Carbonate 800 MG TAB PO SCH ×2 (08:38→11:32)
[2019-11-30] MEDS: Heparin 5,000 UNITS/ML VIAL SC SCH (08:38)
[2019-11-30] MEDS: Carvedilol 25 MG TAB PO SCH (08:38)
[2019-11-30] MEDS ORDERED: Lisinopril 5 MG TAB PO SCH (09:00)
--- NOTE | 2019-11-30 10:31 | PDOC.HOSPP ---
- Subjective Encounter Date: 11/30/19 - Objective Vital Signs & Weight: Vital Signs (12 hours) Temp Pulse Resp BP Pulse Ox 11/30/19 07:30 98.9 F 77 16 119/86 98 11/30/19 03:43 98.3 F 81 18 131/79 97 11/29/19 23:47 75 108/65 Weight Admit Weight 175 lb 3.2 oz Weight 165 lb I&O: 11/29/19 11/30/19 12/01/19 06:59 06:59 06:59 Intake Total 1360 2160 Output Total 3400 Balance 1360 -1240 Result Diagrams: 11/29/19 04:16 11/29/19 04:16 Hospitalist ROS - Medication Medications: Active Medications Generic Name Dose Route Start Last Admin Trade Name Freq PRN Reason Stop Dose Admin Acetaminophen 650 mg 11/27/19 12:48 11/28/19 08:42 Tylenol PO 650 mg Q4H PRN Administration Headache/Fever/Mild Pain (1-3) Hydrocodone Bitart/Acetaminophen 1 tab 11/27/19 12:48 11/29/19 21:20 [place] 5/325 PO 1 tab Q4H PRN Administration Moderate Pain (4-6) Carvedilol 25 mg 11/27/19 21:00 11/30/19 08:38 Coreg PO 25 mg BID AIDA Administration Heparin Sodium (Porcine) 5,000 units 11/27/19 21:00 11/30/19 08:38 Heparin SC 5,000 units BID AIDA Administration Vancomycin HCl 750 mg/ Sodium 250 mls @ 250 mls/hr 11/27/19 13:30 11/27/19 21 :25 Chloride IVPB 250 mls WILLCALL AIDA Administration Lisinopril 5 mg 11/30/19 09:00 11/30/19 08:38 Zestril PO 5 mg DAILY AIDA Administration Nifedipine 90 mg 11/28/19 09:00 11/30/19 08:38 Procardia Xl PO 90 mg DAILY AIDA Administration Pantoprazole Sodium 40 mg 11/28/19 09:00 11/30/19 08:38 Protonix PO 40 mg DAILY AIDA Administration Sevelamer Carbonate 800 mg 11/27/19 17:00 11/30/19 08:38 Renvela PO 800 mg TID-WM AIDA Administration Hosp A/P - Plan Sepsis due dialysis catheter associated MSSA bacteremia -WBC count down to 6.5 Chronic systolic HF Anemia of renal disease Secondary hyperparathyroidism of renal origin ESRD on dialysis Polysubstance abuse HTN Hypokalemia/Hyponatremia PLAN: Dialysis per Nephro Sepsis: continue Vancomycin CM and systolic HF: continue pt on carvedilol, monitor BNP, continue nifedipine , consulted cardio Anemia: monitor Hb and Hct Secondary hyperparathyroidism of renal origin: continue patient on sevelamer carbonate Polysubstance abuse: counseled to avoid illicit drug use Continue DVT prophylaxis AM labs Await outpt Atbx setup
[2019-11-30 11:32] VITALS: BP 95/59; TEMP 98.3
--- NOTE | 2019-11-30 12:01 | PRG ---
DATE OF SERVICE: 11/30/2019 SUBJECTIVE: Patient was seen and examined at bedside and overnight events noted. Patient denies any shortness of breath or chest pain or palpitation. No history of nausea or vomiting or diarrhea or fever or chills or cramps. OBJECTIVE: GENERAL: This is a well-built male, in no apparent distress. VITAL SIGNS: Temperature 98.9. Heart Rate 77. Respiratory rate 16. Blood pressure 119/86. HEENT: Atraumatic, normocephalic. Oral mucosa is moist. NECK: Supple. CARDIOVASCULAR: S1, S2 heard. Rate and rhythm regular. RESPIRATORY: Clear to auscultation. GASTROINTESTINAL: Abdomen is soft. MUSCULOSKELETAL: No tenderness. No edema. DERMATOLOGIC: No skin rash. NEUROLOGIC: Alert and awake and oriented x3. No focal neurologic deficits. Moving all the extremities. PSYCHIATRIC: Mood and affect normal. LABORATORY DATA: No labs done today. ASSESSMENT AND PLAN: 1. End-stage renal disease. Continue dialysis. 2. Hypertension. 3. Anemia of chronic disease. 4. Edema. Continue dialysis as tolerated. Job ID: [id number]
--- NOTE | 2019-11-30 16:59 | DIS ---
DATE OF ADMISSION: 11/27/2019 DATE OF DISCHARGE: 11/30/2019 DISCHARGE DISPOSITION: Home. FOLLOWUP: 1. Follow up with primary care physician at [facility] in 1 week. 2. Follow up with Cardiology, Dr. Lugo; Infectious Disease, Dr. Maldonado; General Surgery, Dr. Viera in 2 weeks. ALLERGIES: NO KNOWN DRUG ALLERGIES. PATIENT WAS SEEN AND EXAMINED ON THE DAY OF DISCHARGE. DENIES ANY NEW COMPLAINTS. NO CHEST PAIN, SHORTNESS OF BREATH, OR PALPITATIONS REPORTED. DISCHARGE MEDICATIONS: 1. Lisinopril 5 mg daily. 2. Cefazolin 3 g after dialysis. All other home medications were left unchanged. BRIEF HOSPITAL COURSE: The patient is a 29-year-old male who presented to the emergency room on November 27, 2019, with swelling along with tenderness over the tunneled hemodialysis catheter site. He denied any fever or chills. His workup in the emergency room was consistent with WBC of 11.4 with 91% neutrophil. He was empirically started on IV antibiotics. His blood culture, 06/10 was positive for Staphylococcus, sensitive to cephalosporins. The patient underwent removal of the tunneled dialysis catheter at the bedside by Dr. Viera. The catheter cultures have been negative so far. The patient was evaluated by Infectious Disease, who recommended IV cefazolin 3 g after hemodialysis until December 24. He would need repeat two sets of blood cultures after a week after completion of the treatment. The patient was also found to have volume overload with the echo showing ejection fraction of 30% to 35% with mild mitral regurgitation, mild tricuspid regurgitation. There were no vegetations noted. The patient was evaluated by Cardiology, Dr. Lugo, who recommended lifestyle modification. Low-dose lisinopril was added. He was counseled extensively on lifestyle modification. SIGNIFICANT LABORATORY DATA: Urine drug screen positive for amphetamines, methamphetamines, and cannabinoid. Sodium 134, potassium 3.0. Hemoglobin 11.1 on admission. Chest x-ray on admission showed mild cardiomegaly without any acute process. FINAL DIAGNOSES: 1. Sepsis due to dialysis catheter associated MSSA bacteremia. 2. Chronic systolic heart failure, ejection fraction is 30% to 35%. 3. Anemia of renal disease. 4. Secondary hyperparathyroidism. 5. End-stage renal disease, on dialysis. 6. Polysubstance abuse. 7. Hypertension. 8. Hypokalemia. 9. Hyponatremia. 10. Chronic anemia due to renal insufficiency. The patient understands the above plan of care. Job ID: [id number]
== END 2019-11-30 13:05 | disposition home or self-care (01) | DRG 314 ==
LOC: ERS 20:58 → ERHOLD 11-27 11:56 → 2NO 11-27 14:30
PROVIDERS: ADMIT Family Medicine; ATTEND Family Medicine
PROC: 5A1D70Z Performance of Urinary Filtration, Intermittent, Less than 6 Hours Per Day (ICD-10-PCS; 2019-11-28)
PROC: 02PYX3Z Removal of Infusion Device from Great Vessel, External Approach (ICD-10-PCS; principal; 2019-11-29)
DX: T80.211A Bloodstream infection due to central venous catheter, initial encounter (principal); A41.02 Sepsis due to Methicillin resistant Staphylococcus aureus; N18.6 End stage renal disease; I50.22 Chronic systolic (congestive) heart failure; N25.81 Secondary hyperparathyroidism of renal origin; E87.1 Hypo-osmolality and hyponatremia; N02.8 Recurrent and persistent hematuria with other morphologic changes; D63.1 Anemia in chronic kidney disease; E87.6 Hypokalemia; F17.210 Nicotine dependence, cigarettes, uncomplicated; F12.10 Cannabis abuse, uncomplicated; F15.10 Other stimulant abuse, uncomplicated; I11.0 Hypertensive heart disease with heart failure; Y84.8 Other medical procedures as the cause of abnormal reaction of the patient, or of later complication, without mention of misadventure at the time of the procedure; F14.10 Cocaine abuse, uncomplicated; Z95.810 Presence of automatic (implantable) cardiac defibrillator; Z99.2 Dependence on renal dialysis; Z79.899 Other long term (current) drug therapy
CPT/HCPCS: 36415; 71045; 80053; 80202; 80306; 81003; 81015; 83605; 83880; 85025; 87040; 87077; 87086; 87149; 87186; 90935; 93005; 93306; 96365; 96366; 96367; 96375; G0257; J1644; J3370; J7050

== ENCOUNTER 2019-12-10 05:38 | Observation (INO) | payer OTHER, SELFPAY ==
[2019-12-10] MEDS ORDERED: Nitroglycerin 2% Ointment 1 INCH/1 GM Packet ONE (06:04)
[2019-12-10] MEDS ORDERED: Aspirin Chewable 81 MG TAB ONE (06:04)
[2019-12-10] MEDS ORDERED: cefTRIAXone\\ROCEPHIN 2 GM VIAL ONE (06:18)
[2019-12-10 06:19] LABS: #Basophils 0.1 thou/uL (0.0-0.2); #Lymphocytes 0.9 thou/uL (1.20-3.40); #Monocytes 0.6 thou/uL (0.11-0.59); #Neutrophils 14.3 thou/uL (1.40-6.50); %Basophils 0.5 % (0.0-1.0); %Eosinophils 0.3 % (0.0-10.0); %Lymphocytes 5.7 % (21.0-51.0); %Monocytes 3.8 % (0.0-10.0); %Neutrophils 89.7 % (42.0-75.0); Hemoglobin 9.9 g/dL (14.0-18.0); Mean Corpuscular HGB CONC 31.7 g/dL (32.0-36.0); Mean Corpuscular Hemoglobin 29.7 pg (27.0-31.0); Mean Corpuscular Volume 93.7 fL (78.0-98.0); Mean Platelet Volume 7.8 fL (7.4-10.4); Platelet Count 435 thou/uL (130-400); RBC Distribution Width 14.6 % (11.5-14.5); Red Blood Cell (RBC) Count 3.34 mill/uL (4.70-6.10)
[2019-12-10 06:40] LABS: ALT (SGPT) 12 U/L (8-55); AST (SGOT) 12 U/L (5-34); Alkaline Phosphatase 71 U/L (40-110); Anion Gap 20 mmol/L (10-20); BUN (Urea Nitrogen) 78 mg/dL (8.9-20.6); Bilirubin, Total 0.7 mg/dL (0.2-1.2); Calc. Creatinine Clearance 0 mL/min (70-130); Calcium 8.9 mg/dL (7.8-10.44); Carbon Dioxide 19 mmol/L (22-29); Chloride 106 mmol/L (98-107); Estimated GFR-MDRD 5; Globulin 2.8 g/dL (2.4-3.5); Glucose 100 mg/dL (70-105); Potassium 5.4 mmol/L (3.5-5.1); Protein, Total 6.8 g/dL (6.0-8.3); Sodium 140 mmol/L (136-145)
[2019-12-10 07:00] LABS: CKMB 1.4 ng/mL (0-6.6)
[2019-12-10 07:04] LABS: Bacteria/HPF None Seen HPF (None Seen); Bilirubin Negative (Negative); Blood, Urine Trace (Negative); Clarity Clear (Clear); Glucose, Urine (Dipstick) 70 mg/dL (Negative); Ketone, Urine Negative (Negative); Leukocyte Negative Leu/uL (Negative); Nitrite Negative (Negative); Protein, Urine (Dipstick) 100 mg/dL (Neg-Trace); RBC/HPF 0-3 HPF (0-3); Specific Gravity, Urine 1.007 (1.002-1.036); Squamous Epithelial None Seen HPF (0-3); Urobilinogen Normal mg/dL (Less than 2); WBC/HPF 0-3 HPF (0-3)
[2019-12-10] MEDS ORDERED: Vancomycin 1.5 GRAM/300 ML BAG 1.5 GM in Premix Bag 1 BAG IVPB SCH (07:15)
--- NOTE | 2019-12-10 07:54 | RAD ---
RADIOGRAPH CHEST 1 VIEW: DATE: 12/10/2019 TIME: 6:13 AM HISTORY: 29-year-old male with chest pain COMPARISON: 11/26/2019 FINDINGS: The right-sided hemodialysis catheter has been removed. There is cardiomegaly. Pulmonary vascular con gestion. New or worsening of mild interstitial densities at lung bases which could represent minimal pulmonary interstitial edema. No large consolidation, pneumothorax, or effacement of lateral costophrenic angles. IMPRESSION: Evidence for mild fluid volume overload and/or mild congestive heart failure
[2019-12-10 09:04] LABS: SARS-CoV-2 NAA Rapid Test Not Detected (NotDetected)
[2019-12-10] MEDS ORDERED: cloNIDine 0.2 MG TAB PO SCH (10:45)
[2019-12-10] MEDS ORDERED: Ondansetron PF 4 MG/2 ML Vial IVP PRN (11:14)
[2019-12-10] MEDS ORDERED: Ondansetron ODT 4 MG TAB PO PRN (11:14)
[2019-12-10 11:24] LABS: Troponin I 0.027 ng/mL (< 0.028)
[2019-12-10] MEDS ORDERED: CEFAZOLIN 3 GM in Sodium Chloride 0.9% 100 ML IVPB SCH (12:00)
--- NOTE | 2019-12-10 13:25 | HP ---
PRIMARY CARE PHYSICIAN: Katie Russell. CHIEF COMPLAINT: Not feeling well. HISTORY OF PRESENT ILLNESS: The patient is a 29-year-old male with past medical history significant for hypertension, end-stage renal disease, on dialysis, and chronic systolic and diastolic heart failure. The patient was recently seen on November 26 for possible infection in his dialysis catheter site. During his hospital stay, the tunneled dialysis catheter was removed and he was started on IV antibiotics to continue for the next 4 weeks after dialysis treatments. The patient states that he has been compliant with his dialysis; however, according to his dialysis treatment center, he has missed several appointments. The patient states that this morning he woke up and was having chest pain; upper epigastric to mid sternal chest pain. After vomiting twice, he states the pain went away and he came to the ER as he was worried that it was pneumonia. According to the patient, he went to a wedding this past weekend and drank more than he usually does. Since that time, he has been slightly edematous and just had a little harder time breathing. He states this morning he did not have a documented fever, however, he felt chilly and had to cover himself up with multiple blankets. Denies any diaphoresis, dizziness, lightheadedness, or known sick contacts. Today in the ER, he has completed lab work, chest x-ray, EKG. PAST MEDICAL HISTORY: 1. Chronic systolic and diastolic heart failure. 2. Hypertension. 3. End-stage renal disease, on dialysis. 4. Anemia of renal disease. 5. Hyperparathyroidism of renal origin. PAST SURGICAL HISTORY: AV fistula placement, tunneled hemodialysis catheter placement and removal. ALLERGIES: NO KNOWN DRUG ALLERGIES. MEDICATIONS: We will obtain from previous chart. The patient states he is on a heart pill but that is all he can recall. SOCIAL HISTORY: The patient lives independently at home. He is currently a smoker. He drinks alcohol occasionally. On his last admission 2 weeks ago, his drug screen was positive for amphetamines, methamphetamines, and cannabinoids. FAMILY HISTORY: No strong family history of coronary artery disease, stroke, or cancer. REVIEW OF SYSTEMS: All other review of systems is negative, unless noted in the HPI. PHYSICAL EXAMINATION: VITAL SIGNS: Blood pressure 192/130, pulse 108, respiratory rate 22, temperature 97.7 orally, no pain, O2 saturation 95% on 3 L. CONSTITUTIONAL: No acute distress. HEENT: Head is atraumatic and normocephalic. Eyes, PERRLA. Extraocular muscles are intact. No nystagmus. NECK: Normal range of motion. Trachea is midline. RESPIRATORY: Bilateral crackles with lung bases. Mild tachypnea. No wheezes. Symmetrical chest rise. CARDIOVASCULAR: Sinus tachycardia. No murmurs, no rubs, and no gallops. ABDOMEN: Nondistended. No rebound or guarding. Bowel sounds normal. EXTREMITIES: Upper extremity dialysis fistula of the left forearm. Palpable thrill. Lower extremities, 1+ edema bilaterally. No calf pain or swelling. Normal range of motion. Posterior tibial pulses in place, intact. NEUROLOGIC: Speech is normal. Moves all extremities appropriately. SKIN: Warm, dry, and intact. PSYCHIATRIC: Normal affect. Normal behavior. LABORATORY DATA AND IMAGING STUDIES: EKG; sinus tach, heart rate 111. Chest x- ray shows evidence for mild fluid volume overload and/or mild congestive heart failure. White blood cells 16, hemoglobin 9.9, hematocrit 31.3, platelets 435. Sodium 140, potassium 5.4, chloride 106, BUN 78, creatinine 11.22, GFR 5, glucose 100. Lactic acid 1.3. CK-MB 1.4. Initial troponin of 0.029, second troponin of 0.027. BNP 2416.3. Urine positive for protein and glucose, and trace amount of blood. COVID swab negative. IMPRESSION AND PLAN: The patient with recurrent leukocytosis again today. He states he has been compliant with receiving his antibiotics with his psychologist research assistant and dialysis clinic. Both states that he has missed a number of treatments. We will have him receive a dose of cefazolin as ordered by Dr. Maldonado after today's treatment. We will also re-consult Dr. Maldonado to follow up on infection as it has been almost 2 weeks since his last admission. The patient with chills and possibly subjective fever at home, however, nothing documented and afebrile since admission to the emergency room. We will continue to monitor vital signs while here. For his end-stage renal disease, on dialysis, Nephrology has already been consulted and he has been taken to dialysis from the emergency room for further treatment. We will continue to follow lab work and have Nephrology follow the patient while in the hospital and also follow him regarding his hyperkalemia. The patient with chronic systolic and diastolic heart failure. His echo completed on November 27 showed ejection fraction of 30% to 35%. We will continue to monitor the patient's breathing. This fluid overload is possibly from missing dialysis. The patient with elevated troponin level, however, at the level of 0.029 this is actually the lowest that has been documented in the hospital since before February 2019. Troponin is possibly elevated from his renal function. We will continue to trend them. The patient denies any chest pain at this time. The patient will be on Pepcid for gastrointestinal prophylaxis and heparin for deep venous thrombosis prophylaxis. He wishes to be a full code. The patient has been discussed with Dr. Bragg. Job ID: [id number] [facility]
--- NOTE | 2019-12-10 13:44 | CON ---
DATE OF CONSULTATION: 12/10/2019 CONSULTING PHYSICIAN: ER doctor. REASON FOR CONSULT: End-stage renal disease evaluation. REASON FOR ADMISSION: Not feeling well. HISTORY OF PRESENT ILLNESS: This is a 29-year-old male with history of end-stage renal disease, hypertension, and substance abuse, who came to the hospital with not feeling well. He gets dialysis on Tuesday, , and Tuesday. The patient was seen during dialysis. He was sleepy. PAST MEDICAL HISTORY: Positive for CHF, end-stage renal disease, and substance abuse. PAST SURGICAL HISTORY: Dialysis access placement. HOME MEDICATIONS: Reviewed. ALLERGIES: NO KNOWN DRUG ALLERGIES. SOCIAL HISTORY: History of drug abuse, alcohol, and smoking in the past. FAMILY HISTORY: Positive for heart disease. REVIEW OF SYSTEMS: CONSTITUTIONAL: Negative for weight loss or gain, ability to conduct usual activities. SKIN: Negative for rash, itching. EYES: Negative for double vision, pain. ENT/MOUTH: Negative for nose bleeding, neck stiffness, pain, tenderness. CARDIOVASCULAR: Negative for palpitations, dyspnea on exertion, orthopnea. RESPIRATORY: Negative for shortness of breath, wheezing, cough, hemoptysis, fever or night sweats. GASTROINTESTINAL: Negative for poor appetite, abdominal pain, heartburn, nausea, vomiting, constipation, or diarrhea. GENITOURINARY: Negative for urgency, frequency, dysuria, nocturia. MUSCULOSKELETAL: Negative for pain, swelling. NEUROLOGIC/PSYCHIATRIC: Negative for anxiety, depression. ALLERGY/IMMUNOLOGIC: Negative for skin rash, bleeding tendency. PHYSICAL EXAMINATION: GENERAL: This is a well-built male, in no apparent distress. VITAL SIGNS: Reviewed. HEENT: Atraumatic and normocephalic. NECK: Supple. CV: S1 and S2 heard. Rate and rhythm are regular. RESPIRATORY: Clear. GI: Abdomen is soft. MUSCULOSKELETAL: No tenderness. No edema. DERMATOLOGIC: No skin rash. NEUROLOGIC: Alert and awake. PSYCHIATRIC: Normal mood and affect. LABORATORY DATA: Hemoglobin is 9.9. Potassium is 5.4, BUN is 78, and creatinine is 11.2. ASSESSMENT AND PLAN: 1. End-stage renal disease. Continue dialysis. The patient is seen during dialysis, tolerating well. 2. History of hypertension. Blood pressure was elevated. Had to give clonidine 0.2 mg . Continue home medications. 3. Elevated BNP. 4. Fluid overload. 5. Edema. 6. History of anemia of chronic disease. Continue dialysis as tolerated. Limit fluid intake. Job ID: [id number]
[2019-12-10 14:23] VITALS: BMI 24.6
[2019-12-10 15:59] LABS: Troponin I 0.027 ng/mL (< 0.028)
[2019-12-10] MEDS: Sevelamer Carbonate 800 MG TAB PO SCH (16:24)
[2019-12-10] MEDS: Heparin 5,000 UNITS/ML VIAL SC SCH ×2 (16:24→20:19)
[2019-12-10] MEDS: Acetaminophen 325 MG TAB PO PRN ×2 (16:24→20:24)
[2019-12-10] MEDS: Carvedilol 25 MG TAB PO SCH (20:19)
[2019-12-10] MEDS: Famotidine 20 MG TAB PO SCH (20:19)
[2019-12-11 04:26] LABS: #Basophils 0.1 thou/uL (0.0-0.2); #Eosinphils 0.2 thou/uL (0.0-0.7); #Lymphocytes 1.5 thou/uL (1.20-3.40); #Monocytes 0.8 thou/uL (0.11-0.59); #Neutrophils 3.7 thou/uL (1.40-6.50); %Basophils 0.9 % (0.0-1.0); %Eosinophils 2.9 % (0.0-10.0); %Lymphocytes 24.3 % (21.0-51.0); %Monocytes 12.3 % (0.0-10.0); %Neutrophils 59.5 % (42.0-75.0); Hemoglobin 10.3 g/dL (14.0-18.0); Mean Corpuscular HGB CONC 31.4 g/dL (32.0-36.0); Mean Corpuscular Hemoglobin 29.2 pg (27.0-31.0); Mean Corpuscular Volume 93.1 fL (78.0-98.0); Mean Platelet Volume 7.8 fL (7.4-10.4); Platelet Count 408 thou/uL (130-400); RBC Distribution Width 14.2 % (11.5-14.5); Red Blood Cell (RBC) Count 3.52 mill/uL (4.70-6.10); White Blood Cell (WBC) Count 6.3 thou/uL (4.8-10.8)
[2019-12-11 04:43] LABS: Anion Gap 16 mmol/L (10-20); BUN (Urea Nitrogen) 36 mg/dL (8.9-20.6); Calc. Creatinine Clearance 14 mL/min (70-130); Calcium 8.9 mg/dL (7.8-10.44); Carbon Dioxide 27 mmol/L (22-29); Chloride 100 mmol/L (98-107); Estimated GFR-MDRD 9; Glucose 92 mg/dL (70-105); Potassium 4.2 mmol/L (3.5-5.1); Sodium 139 mmol/L (136-145)
[2019-12-11] MEDS: Famotidine 20 MG TAB PO SCH (08:23)
[2019-12-11] MEDS: Sevelamer Carbonate 800 MG TAB PO SCH ×2 (08:23→14:30)
[2019-12-11] MEDS: Carvedilol 25 MG TAB PO SCH (08:23)
[2019-12-11] MEDS: Heparin 5,000 UNITS/ML VIAL SC SCH ×2 (08:24→14:30)
[2019-12-11] MEDS ORDERED: Lisinopril 5 MG TAB PO SCH (09:00)
[2019-12-11] MEDS ORDERED: NIFEdipine XL 90 MG TAB PO SCH (09:00)
[2019-12-11 12:27] VITALS: BP 102/60; TEMP 98.6
--- NOTE | 2019-12-11 13:47 | CON ---
DATE OF CONSULTATION: 12/11/2019 REASON FOR CONSULTATION: Leukocytosis, recent methicillin-sensitive Staphylococcus aureus bacteremia. HISTORY OF PRESENT ILLNESS: A 29-year-old whom I had recently seen in November when he presented with a history of end-stage renal disease secondary to IgA nephropathy , biopsy-proven, previous AICD placement, on dialysis through a tunneled hemodialysis catheter. When he presented, he had a functioning Briana fistula and MSSA bacteremia, we considered the different possibilities. He had a transthoracic echo, which showed EF 35%, mild mitral regurgitation, no vegetations noted. The pacer wire was not well visualized. Repeat blood cultures were negative. He was discharged on IV cefazolin at dialysis. He comes back with what he describes as a sensation of pressure in his chest and dyspnea, located to the substernal region , some vomiting. Initial findings are BP 170/126, respirations 26, temperature 99 , and O2 saturation 97. He was tachycardic, bilateral inspiratory crackles on lung bases. He has had 2 sets of blood cultures, thus far no growth. Urine culture with no growth as well. He is receiving cefazolin at dialysis. He is feeling better. He is sitting in bed. He denies any headaches. His respiratory symptoms have resolved. No back pain. No chest pain. No abdominal pain or diarrhea. No genitourinary symptoms. No joint symptoms. He continues to be dialyzed through an AV fistula. MEDICAL HISTORY: Includes: 1. IgA nephropathy. 2. End-stage renal disease, on dialysis, initially through a tunneled catheter and now tunneled catheter has been removed and he is dialyzed through an AV fistula. 3. MSSA bacteremia, on treatment. He is supposed to be treated for 6 weeks at dialysis. 4. He has an AICD in place. 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 Current smoker. Lives in [place]. ALLERGIES: NONE. MEDICATIONS: 1. Coreg. 2. IV fluids. 3. Pepcid. 4. Zestril. 5. Zofran. 6. Cefazolin. 7. Renvela. FAMILY HISTORY: Noncontributory. PHYSICAL EXAMINATION: VITAL SIGNS: He has been afebrile in the hospital, BP 102/60, pulse 79, respirations 16, and O2 saturation 96. SKIN: With multiple tattoos. He has AV fistula, which is working well. The AICD pocket site is normal. There is no lymphadenopathy. HEENT: Ocular movements conjugate. Sclerae white. Pupils are equal. Oral cavity normal. NECK: Supple. LUNGS: Clear breath sounds. HEART: Normal. No murmurs noted. BACK: No spine tenderness. ABDOMEN: No abdominal tenderness. No distention or organomegaly. EXTREMITIES: No joint inflammatory activity. NEUROLOGIC: Nonfocal. Overall, he appears much better than when I first saw him in the hospital. LABORATORY DATA: White cell count initially 16,000 down to 6.3, hemoglobin 9 and 10, platelets 435 and 408. Liver profile normal. Albumin 4.0. Urinalysis was normal. COVID was not detected. Chest x-ray this admission with mild volume overload, mild CHF. ASSESSMENT: 1. IgA nephropathy with end-stage renal disease, currently on dialysis through an arteriovenous fistula. 2. Recent episode of methicillin-sensitive Staphylococcus aureus bacteremia, which was ascribed to colonization of hemodialysis catheter. His device is not an intracavitary one but just an electric activity monitoring one. 3. Recrudescence of symptoms this time with dyspnea and evidence of mild congestive heart failure on chest x-ray. The patient has improved quickly. He continues on cefazolin for a total of 6 weeks. DISCUSSION: The differential diagnosis includes volume overload related to dietary indiscretion versus complication related to the bacteremia; for example, endocarditis with perivalvular abscess. Due to the presence of device and the fact that it was not properly seen in the transthoracic echo, his device is extra- cavitary an therefore does not pose the same risk as the usual pacemaker/icd. He does not have any other sites of involvement apparent at this time. Job ID: [id number] [facility]
--- NOTE | 2019-12-11 14:18 | PRG ---
DATE OF SERVICE: OBJECTIVE: GENERAL: This is a well-built male, in no apparent distress. VITAL SIGNS: Temperature 98.6, pulse 79, respirations 16, and blood pressure 102/60. LABORATORY DATA: Hemoglobin is 10.3. Potassium is 4.2, BUN is 36, and creatinine is 7.2. ASSESSMENT AND PLAN: 1. End-stage renal disease. Continue dialysis. 2. Edema. 3. Hypertension. 4. Anemia of chronic disease. PLAN: Plan to have dialysis as tolerated. Limit fluid intake. Job ID: [id number]
--- NOTE | 2019-12-11 16:57 | PDOC.HOSPP ---
- Subjective Encounter Date: 12/11/19 Encounter Time: 09:00 Subjective: no overnight events. this morning, feels well and requests to go home. Per ID, will require NEELA due to recent MSSA bacteremia - Objective Vital Signs & Weight: Vital Signs (12 hours) Temp Pulse Resp BP BP BP Pulse Ox 12/11/19 12:00 98.6 F 79 16 102/60 96 12/11/19 08:38 98.4 F 78 18 157/103 H 98 12/11/19 08:24 78 12/11/19 08:23 78 12/11/19 08:00 98.4 F 78 18 157/103 H 98 Weight Weight 152 lb 9.6 oz I&O: 12/10/19 12/11/19 12/12/19 06:59 06:59 06:59 Intake Total 970 450 Balance 970 450 Result Diagrams: 12/11/19 04:02 12/11/19 04:02 Hospitalist ROS - Review of Systems Constitutional: denies: fever, chills, sweats, weakness, malaise, other Respiratory: denies: cough, dry, shortness of breath, hemoptysis, SOB with excertion, pleuritic pain, sputum, wheezing, other Cardiovascular: denies: chest pain, palpitations, orthopnea, paroxysmal noc. dyspnea, edema, light headedness, other Gastrointestinal: denies: nausea, vomiting, abdominal pain, diarrhea, constipation, melena, hematochezia, other Genitourinary: denies: dysuria, frequency, incontinence, hematuria, retention, other - Medication Medications: Active Medications Generic Name Dose Route Start Last Admin Trade Name Aggie PRN Reason Stop Dose Admin Acetaminophen 650 mg 12/10/19 11:14 12/10/19 20:24 Tylenol PO 650 mg Q4H PRN Administration Headache/Fever/Mild Pain (1-3) Carvedilol 25 mg 12/10/19 21:00 12/11/19 08:23 Coreg PO 25 mg BID AIDA Administration Heparin Sodium (Porcine) 5,000 units 12/10/19 15:00 12/11/19 14:30 Heparin SC 5,000 units TID AIDA Administration Cefazolin Sodium 3 gm/ Sodium 100 mls @ 133.333 mls/hr 12/10/19 12:00 08/03/ 20 20:57 Chloride IVPB 100 mls WILLCALL AIDA Administration Lisinopril 5 mg 12/11/19 09:00 12/11/19 08:23 Zestril PO 5 mg DAILY AIDA Administration Nifedipine 90 mg 12/11/19 09:00 12/11/19 08:24 Procardia Xl PO 90 mg DAILY AIDA Administration Sevelamer Carbonate 800 mg 12/10/19 17:00 12/11/19 14:30 Renvela PO 800 mg TID-WM AIDA Administration Sodium Chloride 10 ml 12/10/19 21:00 12/11/19 08:25 Flush - Normal Saline IVF 10 ml Q12HR AIDA Administration - Exam General Appearance: NAD, awake alert Neck: no JVD Heart: RRR, no murmur, no gallops, no rubs Respiratory: CTAB, no wheezes, no rales, no ronchi Gastrointestinal: soft, non-tender, non-distended, normal bowel sounds Extremities: no edema Psychiatric: normal affect, normal behavior, A&O x 3 Hosp A/P - Plan #MSSA bacteremia -previously had MSSA bacteremia -per ID, will require NEELA prior to discharge to rule out vegetation -NEELA #ESRD -missed HD due to wedding -promp clinical improvement after HD ELOS: 1 night
--- NOTE | 2019-12-12 02:53 | DIS ---
DATE OF ADMISSION: 12/10/2019 DATE OF DISCHARGE: 12/11/2019 HOSPITAL COURSE: Mr. Vásquez is a 29-year-old male with a medical history of hypertension, end-stage renal disease, heart failure, and mixed heart failure, who presented with shortness of breath. Even though the patient denied, based on his dialysis center, he missed a few appointments. On the morning of presentation, he woke up and was having chest pain and shortness of breath, vomited twice. He was diagnosed with hypertensive emergency, resulting in heart failure and pulmonary congestion. He underwent hemodialysis and improved promptly. The patient also had an elevated white count on presentation without bandemia. Considering his recent diagnosis of MSSA bacteremia, it was suspected that the patient was not adherent to his antibiotic regimen. He was restarted on his antibiotic regimen on the day of admission. He was discharged home hemodynamically stable and feeling well. PHYSICAL EXAMINATION: VITAL SIGNS: Blood pressure 102/60, pulse 79, respiratory rate 16, oxygen saturation 96% on room air, and temperature 98.6 Fahrenheit. GENERAL: Lying comfortably in bed. Awake and alert. HEENT: Normocephalic and atraumatic. NECK: No JVD. CARDIAC: Regular rate and rhythm. No murmurs, gallops, or rubs. LUNGS: Clear to auscultation bilaterally. No wheezing, rales, or rhonchi. GI: Soft, nontender, and nondistended. Normal bowel sounds. EXTREMITIES: No edema. PSYCHIATRIC: Proper mood and affect. Alert and oriented x3. MEDICATION LIST: New medications, no new medications. Modified medications: No modified medications. Discontinued medications, no discontinued medications. Continued medications; 1. Coreg. 2. Lisinopril. 3. Nifedipine. 4. Sevelamer. 5. Cefazolin. Job ID: [id number]
[2019-12-12] MEDS ORDERED: Famotidine 20 MG TAB PO SCH (09:00)
== END 2019-12-11 15:50 | disposition home or self-care (01) ==
LOC: ERS 05:38 → ONC 07:27
PROVIDERS: ADMIT Internal Medicine; ATTEND Internal Medicine
DX: I16.1 Hypertensive emergency (principal); I11.0 Hypertensive heart disease with heart failure; I50.42 Chronic combined systolic (congestive) and diastolic (congestive) heart failure; R09.89 Other specified symptoms and signs involving the circulatory and respiratory systems; N02.8 Recurrent and persistent hematuria with other morphologic changes; N18.6 End stage renal disease; D63.1 Anemia in chronic kidney disease; N25.81 Secondary hyperparathyroidism of renal origin; R78.81 Bacteremia; B95.61 Methicillin susceptible Staphylococcus aureus infection as the cause of diseases classified elsewhere; E87.5 Hyperkalemia; F17.210 Nicotine dependence, cigarettes, uncomplicated; Z79.899 Other long term (current) drug therapy; Z95.810 Presence of automatic (implantable) cardiac defibrillator; Z99.2 Dependence on renal dialysis; Z20.828 Contact with and (suspected) exposure to other viral communicable diseases
CPT/HCPCS: 36415; 71045; 80048; 80053; 81003; 81015; 82553; 83605; 83880; 84484; 85025; 87040; 87086; 90935; 93005; 96365; 96366; 96367; 96372; G0257; G0378; J0690; J0696; J1644; J3370; J3490; U0002

== ENCOUNTER 2020-01-29 06:31 | Emergency (ER) | payer OTHER, SELFPAY ==
[2020-01-29 07:07] LABS: #Basophils 0.1 thou/uL (0.0-0.2); #Eosinphils 0.3 thou/uL (0.0-0.7); #Lymphocytes 1.2 thou/uL (1.20-3.40); #Monocytes 0.4 thou/uL (0.11-0.59); %Basophils 1.4 % (0.0-1.0); %Eosinophils 4.4 % (0.0-10.0); %Lymphocytes 20.9 % (21.0-51.0); %Monocytes 5.9 % (0.0-10.0); %Neutrophils 67.5 % (42.0-75.0); Hemoglobin 10.3 g/dL (14.0-18.0); Mean Corpuscular HGB CONC 32.8 g/dL (32.0-36.0); Mean Corpuscular Hemoglobin 29.9 pg (27.0-31.0); Mean Corpuscular Volume 91.2 fL (78.0-98.0); Mean Platelet Volume 8.5 fL (7.4-10.4); Platelet Count 246 thou/uL (130-400); RBC Distribution Width 14.5 % (11.5-14.5); Red Blood Cell (RBC) Count 3.44 mill/uL (4.70-6.10); White Blood Cell (WBC) Count 5.9 thou/uL (4.8-10.8)
[2020-01-29 07:23] LABS: ALT (SGPT) 15 U/L (8-55); AST (SGOT) 16 U/L (5-34); Albumin 3.8 g/dL (3.5-5.0); Alkaline Phosphatase 66 U/L (40-110); Anion Gap 18 mmol/L (10-20); BUN (Urea Nitrogen) 83 mg/dL (8.9-20.6); Bilirubin, Total 0.8 mg/dL (0.2-1.2); Calc. Creatinine Clearance 0 mL/min (70-130); Calcium 8.8 mg/dL (7.8-10.44); Carbon Dioxide 19 mmol/L (22-29); Chloride 104 mmol/L (98-107); Estimated GFR-MDRD 4; Globulin 2.8 g/dL (2.4-3.5); Glucose 96 mg/dL (70-105); Potassium 4.2 mmol/L (3.5-5.1); Protein, Total 6.6 g/dL (6.0-8.3); Sodium 137 mmol/L (136-145)
--- NOTE | 2020-01-29 07:34 | RAD ---
Chest AP view INDICATION: Shortness of breath COMPARISON: December 10, 2019 FINDINGS: Lungs: There is perihilar airspace opacities suspicious for edema Cardiac silhouette: There is worsening moderate cardiomegaly Pulmonary vasculature: There is worsening moderate pulmonary vascular congestion Pleural spaces: No pleural effusion or pneumothorax is demonstrated. Upper abdomen: No abnormality seen. Osseous structures: No acute osseous abnormality. Additional findings: Loop recorder overlying left chest wall is stable. IMPRESSION: Findings of mild CHF
[2020-01-29 07:46] LABS: CKMB 3.1 ng/mL (0-6.6)
[2020-01-29 12:01] LABS: HBSAg Index 0.17 S/CO (0-0.99); Hep B Surf Ag Non-Reactive S/CO (NonReactive)
[2020-01-29 12:04] LABS: HBSAB Concentration 32.77 mIU/mL; Hep B Surf AB Reactive (NonReactive)
== END 2020-01-29 13:30 | disposition home or self-care (01) ==
LOC: EEVIPCON 06:31 → ERS 06:31
DX: N18.6 End stage renal disease (principal); R09.89 Other specified symptoms and signs involving the circulatory and respiratory systems; E87.70 Fluid overload, unspecified; F17.210 Nicotine dependence, cigarettes, uncomplicated; Z79.899 Other long term (current) drug therapy; Z91.15 Patient's noncompliance with renal dialysis
CPT/HCPCS: 71045; 80053; 82553; 83880; 84484; 85025; 86706; 87340; 90935; 93005; G0257

== ENCOUNTER 2020-02-06 02:43 | Observation (INO) | payer OTHER, SELFPAY ==
[2020-02-06 03:53] LABS: #Basophils 0.1 thou/uL (0.0-0.2); #Eosinphils 0.2 thou/uL (0.0-0.7); #Lymphocytes 1.1 thou/uL (1.20-3.40); #Monocytes 0.4 thou/uL (0.11-0.59); #Neutrophils 6.4 thou/uL (1.40-6.50); %Basophils 0.8 % (0.0-1.0); %Eosinophils 2.3 % (0.0-10.0); %Lymphocytes 13.8 % (21.0-51.0); %Monocytes 4.5 % (0.0-10.0); %Neutrophils 78.6 % (42.0-75.0); Hemoglobin 9.8 g/dL (14.0-18.0); Mean Corpuscular HGB CONC 32.9 g/dL (32.0-36.0); Mean Platelet Volume 9.8 fL (7.4-10.4); Platelet Count 235 thou/uL (130-400); RBC Distribution Width 14.9 % (11.5-14.5); Red Blood Cell (RBC) Count 3.27 mill/uL (4.70-6.10); White Blood Cell (WBC) Count 8.1 thou/uL (4.8-10.8)
[2020-02-06 04:10] LABS: ALT (SGPT) 34 U/L (8-55); AST (SGOT) 28 U/L (5-34); Albumin 3.7 g/dL (3.5-5.0); Alkaline Phosphatase 80 U/L (40-110); Anion Gap 21 mmol/L (10-20); BUN (Urea Nitrogen) 111 mg/dL (8.9-20.6); Bilirubin, Total 0.8 mg/dL (0.2-1.2); Calc. Creatinine Clearance 0 mL/min (70-130); Calcium 7.7 mg/dL (7.8-10.44); Carbon Dioxide 15 mmol/L (22-29); Chloride 105 mmol/L (98-107); Estimated GFR-MDRD 3; Globulin 2.7 g/dL (2.4-3.5); Glucose 92 mg/dL (70-105); Magnesium 2.9 mg/dL (1.6-2.6); Potassium 4.6 mmol/L (3.5-5.1); Protein, Total 6.4 g/dL (6.0-8.3); Sodium 136 mmol/L (136-145)
[2020-02-06 04:32] LABS: CKMB 4.6 ng/mL (0-6.6)
--- NOTE | 2020-02-06 04:46 | PDOC.HHP ---
Hospitalist HPI - History of Present Illness Shortness of breath History of Present Illness: 30-year-old gentleman with a history of end-stage renal disease on hemodialysis presented to the emergency department with a complaint of shortness of breath. Patient missed 2 days of dialysis after being incarcerated. His chest x-ray in the ED suggest pulmonary edema. Patient was in respiratory distress during my assessment in the ED. his blood pressure also severely elevated, systolic up to 215 and diastolic up to 150. 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 Mitchell informed for hemodialysis. He is admitted for further management. ED Course: Patient was given a dose of IV labetalol for severe hypertension Hospitalist ROS - Review of Systems Other: Except as documented, all other systems reviewed and negative. Hospitalist History - Past Medical History Renal/: reports: Other (ESRD on HD.) - Past Surgical History Past Surgical History: reports: Other (Pacemaker) - Social History Smoking Status: Current every day smoker Alcohol: reports: None Drugs: reports: marijuana Living Situation: Other - Exam General Appearance: awake alert General - other findings: Moderate distress Eye: PERRL, anicteric sclera ENT: normocephalic atraumatic, no oropharyngeal lesions, moist mucosa Neck: supple, symmetric, no JVD, no thyromegaly Heart: no murmur, no gallops Heart - other findings: Tachycardia Respiratory - other findings: Bibasilar rales Gastrointestinal: soft, non-tender, non-distended, normal bowel sounds Extremities: no cyanosis, no edema Skin: normal turgor, no rashes Neurological: cranial nerve grossly intact, no weakness, no focal deficits Musculoskeletal: normal tone Psychiatric: normal behavior, A&O x 3 Hospitalist Results - Labs Result Diagrams: 02/06/20 03:29 02/06/20 03:29 Lab results: WBC 8.1 thou/uL (4.8-10.8) 02/06/20 03:29 Hgb 9.8 g/dL (14.0-18.0) L 02/06/20 03:29 Hct 29.8 % (42.0-52.0) L 02/06/20 03:29 MCV 91.0 fL (78.0-98.0) 02/06/20 03:29 Plt Count 235 thou/uL (130-400) 02/06/20 03:29 Neutrophils % 78.6 % (42.0-75.0) H 02/06/20 03:29 Sodium 136 mmol/L (136-145) 02/06/20 03:29 Potassium 4.6 mmol/L (3.5-5.1) 02/06/20 03:29 Chloride 105 mmol/L (98-107) 02/06/20 03:29 Carbon Dioxide 15 mmol/L (22-29) L 02/06/20 03:29 BUN 111 mg/dL (8.9-20.6) H 02/06/20 03:29 Creatinine 16.54 mg/dL (0.7-1.3) H 02/06/20 03:29 Glucose 92 mg/dL (70-105) 02/06/20 03:29 Calcium 7.7 mg/dL (7.8-10.44) L 02/06/20 03:29 Total Bilirubin 0.8 mg/dL (0.2-1.2) 02/06/20 03:29 AST 28 U/L (5-34) 02/06/20 03:29 ALT 34 U/L (8-55) 02/06/20 03:29 Alkaline Phosphatase 80 U/L (40-110) 02/06/20 03:29 CK-MB (CK-2) 4.6 ng/mL (0-6.6) 02/06/20 03:29 Troponin I 0.093 ng/mL (< 0.028) H 02/06/20 03:29 Serum Total Protein 6.4 g/dL (6.0-8.3) 02/06/20 03:29 Albumin 3.7 g/dL (3.5-5.0) 02/06/20 03:29 - Radiology Interpretation Chest x-ray Status: image reviewed by me (Pulmonary edema) Additional Comment: Pulmonary edema Hospitalist H&P A/P - Problem (1) ESRD (end stage renal disease) on dialysis Code(s): N18.6 - END STAGE RENAL DISEASE; Z99.2 - DEPENDENCE ON RENAL DIALYSIS Status: Acute (2) Acute pulmonary edema Code(s): J81.0 - ACUTE PULMONARY EDEMA Status: Acute (3) Metabolic acidosis Code(s): E87.2 - ACIDOSIS Status: Acute (4) Elevated troponin Code(s): R79.89 - OTHER SPECIFIED ABNORMAL FINDINGS OF BLOOD CHEMISTRY Status: Acute - Plan Plan: Admit to telemetry. Nephrology consult for emergent hemodialysis. Monitor renal function. Aggressive blood pressure control with IV labetalol. Resume his home dose nifedipine, Coreg and lisinopril. Labetalol IV as needed for BP spikes. Elevated troponin likely secondary to decreased clearance from ESRD. Monitor troponin.
[2020-02-06] MEDS ORDERED: Labetalol HCl 100 MG/20 ML VIAL ONE (05:06)
[2020-02-06] MEDS ORDERED: Labetalol HCl 100 MG/20 ML VIAL SLOW IVP PRN (05:23)
--- NOTE | 2020-02-06 08:05 | RAD ---
XR Chest 1 View Portable History: Missed dialysis Comparison: Radiograph January 29, 2020 Findings: Heart size is enlarged. Moderate interstitial and developing alveolar pulmonary edema. Trac e effusions. No pneumothorax. External cardiac device over the left hemithorax. Impression: Moderate volume overload.
[2020-02-06 09:30] VITALS: BMI 23.4
[2020-02-06] MEDS: Carvedilol 25 MG TAB PO SCH ×2 (09:38→18:01)
[2020-02-06] MEDS: Heparin 5,000 UNITS/ML VIAL SC SCH ×3 (09:38→22:33)
[2020-02-06] MEDS: NIFEdipine XL 90 MG TAB PO SCH (09:38)
[2020-02-06] MEDS: Lisinopril 5 MG TAB PO SCH (09:38)
--- NOTE | 2020-02-06 11:44 | PDOC.HOSPP ---
- Subjective Encounter Date: 02/06/20 Encounter Time: 08:00 Subjective: is sleepy/lethargic, c/o sob, no chest pain or palp - Objective Vital Signs & Weight: Vital Signs (12 hours) Temp Pulse Resp BP Pulse Ox 02/06/20 09:38 98 02/06/20 07:28 98.1 F 98 22 H 178/119 H 95 Weight Weight 159 lb Result Diagrams: 02/06/20 03:29 02/06/20 03:29 Hospitalist ROS - Medication Medications: Active Medications Generic Name Dose Route Start Last Admin Trade Name Freq PRN Reason Stop Dose Admin Carvedilol 25 mg 02/06/20 08:00 02/06/20 09:38 Carvedilol 25 Mg Tab PO 25 mg BID-WM AIDA Administration Heparin Sodium (Porcine) 5,000 units 02/06/20 09:00 02/06/20 09:38 Heparin 5,000 Units/Ml Vial SC 5,000 units TID AIDA Administration Lisinopril 5 mg 02/06/20 09:00 02/06/20 09:38 Lisinopril 5 Mg Tab PO 5 mg DAILY AIDA Administration Nifedipine 90 mg 02/06/20 09:00 02/06/20 09:38 Nifedipine Xl 90 Mg Tab PO 90 mg DAILY AIDA Administration Sodium Chloride 10 ml 02/06/20 09:00 02/06/20 09:38 Flush - Normal Saline 10 Ml Syringe IVF 10 ml Q12HR AIDA Administration - Exam General Appearance: awake alert Eye: PERRL, anicteric sclera ENT: no oropharyngeal lesions, moist mucosa Neck: supple Heart: RRR, no murmur Respiratory: no wheezes, no ronchi, rales Gastrointestinal: soft, non-tender, non-distended, normal bowel sounds Extremities: no cyanosis, no edema Neurological: cranial nerve grossly intact, no focal deficits Hosp A/P (1) Volume overload Code(s): E87.70 - FLUID OVERLOAD, UNSPECIFIED Status: Acute (2) ESRD (end stage renal disease) on dialysis Code(s): N18.6 - END STAGE RENAL DISEASE; Z99.2 - DEPENDENCE ON RENAL DIALYSIS Status: Acute (3) Metabolic acidosis Code(s): E87.2 - ACIDOSIS Status: Acute (4) Hypertensive urgency Code(s): I16.0 - HYPERTENSIVE URGENCY Status: Acute (5) Tobacco abuse Code(s): Z72.0 - TOBACCO USE Status: Chronic - Plan is going for HD this am home meds for htn, coreg, procardia, lisinopril he missed HD on tuesday and tuesday has been on HD from last 6 months per patient will f/u
[2020-02-06 13:17] LABS: SARS-CoV-2 MS2 Positive; SARS-CoV-2 N Gene Negative; SARS-CoV-2 S Gene Negative; SARS-CoV-2 by NAA Not Detected (NotDetected); SARS-CoV-2 orf1ab Negative
--- NOTE | 2020-02-06 13:36 | CON ---
DATE OF CONSULTATION: 02/06/2020 CONSULTING PHYSICIAN: Dr. Montana. REASON FOR CONSULTATION: End-stage renal disease evaluation. REASON FOR ADMISSION: Shortness of breath. HISTORY OF PRESENT ILLNESS: This is a male with history of CHF, hypertension, end-stage renal disease, substance abuse, came to the hospital with shortness of breath. The patient is on dialysis, but missed dialysis more than a week and started having shortness of breath and is admitted. No fever or chills. No nausea or vomiting. PAST MEDICAL HISTORY: Positive for; 1. End-stage renal disease, on hemodialysis. 2. CHF. 3. Hypertension. 4. Anemia. PAST SURGICAL HISTORY: 1. AV fistula placement. 2. Kidney biopsy. ALLERGIES: NO KNOWN DRUG ALLERGIES. HOME MEDICATIONS: Reviewed. SOCIAL HISTORY: History of smoking, illicit drug abuse, and alcohol use in the past. FAMILY HISTORY: No history of kidney disease. REVIEW OF SYSTEMS: CONSTITUTIONAL: Negative for weight loss or gain, ability to conduct usual activities. SKIN: Negative for rash, itching. EYES: Negative for double vision, pain. ENT/MOUTH: Negative for nose bleeding, neck stiffness, pain, tenderness. CARDIOVASCULAR: Negative for palpitations, dyspnea on exertion, orthopnea. RESPIRATORY: Negative for shortness of breath, wheezing, cough, hemoptysis, fever or night sweats. GASTROINTESTINAL: Negative for poor appetite, abdominal pain, heartburn, nausea, vomiting, constipation, or diarrhea. GENITOURINARY: Negative for urgency, frequency, dysuria, nocturia. MUSCULOSKELETAL: Negative for pain, swelling. NEUROLOGIC/PSYCHIATRIC: Negative for anxiety, depression. ALLERGY/IMMUNOLOGIC: Negative for skin rash, bleeding tendency. PHYSICAL EXAMINATION: GENERAL: This is a well-built male, in no apparent distress. VITAL SIGNS: Temperature 98.1, pulse 90, respiratory rate 20, and blood pressure 178/90. HEENT: Atraumatic and normocephalic. Oral mucosa moist. NECK: Supple. CV: S1 and S2 heard. Rate and rhythm regular. RESPIRATORY: Clear. GASTROINTESTINAL: Abdomen is soft. MUSCULOSKELETAL: No tenderness. No edema. DERMATOLOGIC: No skin rash. NEUROLOGIC: Alert and awake. PSYCHIATRIC: Normal mood and affect. LABORATORY DATA: Hemoglobin is 9.8. Potassium 4.6, BUN is 111, creatinine is 16.5. ASSESSMENT AND PLAN: 1. End-stage renal disease, on hemodialysis. Plan is to have dialysis. The patient missed dialysis for a few sessions. Plan is to continue dialysis. Electrolytes fluid overload. We will remove fluid as tolerated. 2. Fluid overload. We will remove fluid. 3. Acidosis. We will have dialysis. 4. Anemia of chronic kidney disease. 5. History of hypertension. Plan is to have dialysis. Dialysis nurse notified. Thank you for the consult. Job ID: [id number]
[2020-02-07 05:13] LABS: #Basophils 0.1 thou/uL (0.0-0.2); #Eosinphils 0.2 thou/uL (0.0-0.7); #Lymphocytes 1.3 thou/uL (1.20-3.40); #Monocytes 0.5 thou/uL (0.11-0.59); #Neutrophils 3.7 thou/uL (1.40-6.50); %Basophils 1.3 % (0.0-1.0); %Eosinophils 2.9 % (0.0-10.0); %Lymphocytes 23.1 % (21.0-51.0); %Monocytes 8.3 % (0.0-10.0); %Neutrophils 64.4 % (42.0-75.0); Hemoglobin 10.2 g/dL (14.0-18.0); Mean Corpuscular HGB CONC 33.6 g/dL (32.0-36.0); Mean Corpuscular Hemoglobin 30.6 pg (27.0-31.0); Mean Corpuscular Volume 90.9 fL (78.0-98.0); Mean Platelet Volume 9.4 fL (7.4-10.4); Platelet Count 257 thou/uL (130-400); RBC Distribution Width 14.8 % (11.5-14.5); Red Blood Cell (RBC) Count 3.33 mill/uL (4.70-6.10); White Blood Cell (WBC) Count 5.7 thou/uL (4.8-10.8)
[2020-02-07 05:31] LABS: Albumin 3.6 g/dL (3.5-5.0); Anion Gap 17 mmol/L (10-20); BUN (Urea Nitrogen) 46 mg/dL (8.9-20.6); BUN/Creatinine Ratio 4.95; Calc. Creatinine Clearance 12 mL/min (70-130); Calcium 7.9 mg/dL (7.8-10.44); Carbon Dioxide 25 mmol/L (22-29); Chloride 103 mmol/L (98-107); Estimated GFR-MDRD 7; Glucose 95 mg/dL (70-105); Phosphorus 6.2 mg/dL (2.3-4.7); Potassium 3.6 mmol/L (3.5-5.1); Sodium 141 mmol/L (136-145)
[2020-02-07 07:42] VITALS: BP 141/74; TEMP 98.5
[2020-02-07] MEDS: Heparin 5,000 UNITS/ML VIAL SC SCH (09:04)
[2020-02-07] MEDS: Lisinopril 5 MG TAB PO SCH (09:05)
[2020-02-07] MEDS: NIFEdipine XL 90 MG TAB PO SCH (09:05)
[2020-02-07] MEDS: Carvedilol 25 MG TAB PO SCH (09:05)
[2020-02-07] MEDS ORDERED: Prevnar 13-Val Conj/PF 0.5 ML SYRINGE IM ONE (10:30)
--- NOTE | 2020-02-07 12:44 | PRG ---
DATE OF SERVICE: SUBJECTIVE: Patient was seen and examined at bedside and overnight events noted. Patient denies any shortness of breath or chest pain or palpitation. No history of nausea or vomiting or diarrhea or fever or chills or cramps. OBJECTIVE: General: This is a well-built male, in no apparent distress. Vital Signs: Temperature . Heart Rate 81. Respiratory rate 18. Blood pressure 141/74. HEENT: Atraumatic, normocephalic. Oral mucosa is moist. Neck: Supple. Cardiovascular: S1, S2 heard. Rate and rhythm regular. Respiratory: Clear to auscultation. Gastrointestinal: Abdomen is soft. Musculoskeletal: No tenderness. No edema. Dermatologic: No skin rash. Neurologic: Alert and awake and oriented x3. No focal neurologic deficits. Moving all the extremities. Psychiatric: Mood and affect normal. LABORATORY DATA: Potassium 3.6, BUN is 46, and creatinine is 9.2. ASSESSMENT AND PLAN: 1. End-stage renal disease, on hemodialysis. Continue dialysis Tuesday, Tuesday, and Tuesday. 2. Fluid overload. Remove fluid. 3. Acidosis. 4. Anemia of chronic disease. 5. History of hypertension. 6. Continue dialysis Tuesday, Tuesday, and Tuesday. Job ID: [id number]
--- NOTE | 2020-02-08 02:17 | DIS ---
DATE OF ADMISSION: 02/06/2020 DATE OF DISCHARGE: 02/07/2020 PRIMARY CARE PROVIDER: Unknown. DISCHARGE DIAGNOSES: 1. Acute pulmonary edema. 2. Metabolic acidosis. 3. Hypermagnesemia. 4. Hyperphosphatemia. CONDITION OF PATIENT ON THE DAY OF DISCHARGE: Stable. I assessed Mr. Vásquez on the day of discharge. He denies any chest pain or shortness of breath. Vital signs are stable. S1 and S2 are heard, regular. Lung examination reveals a few bibasilar crackles. HOSPITAL COURSE: Mr. Vásquez is a pleasant 30-year-old gentleman who was admitted to [facility] on February 06, 2020, for acute pulmonary edema in the context of missing two dialysis sessions. He was seen by Nephrology Service, Dr. Amaral. He was dialyzed on February 06, 2020, with marked improvement in his symptoms. He will also be dialyzed on February 07, 2020, prior to discharge home. No change was made to his pre-admission home medications. ACTIVITY: As tolerated. DIET: Renal diet. POST ACUTE CARE FOLLOWUP: With primary care provider in 3 days. DISCHARGE DESTINATION: Home. Job ID: [id number]
== END 2020-02-07 12:08 | disposition home or self-care (01) ==
LOC: ERS 02:43 → 2SW 04:49
PROVIDERS: ADMIT Internal Medicine; ATTEND Internal Medicine
DX: J81.0 Acute pulmonary edema (principal); E87.2 Acidosis; E83.41 Hypermagnesemia; E83.39 Other disorders of phosphorus metabolism; I16.0 Hypertensive urgency; E87.70 Fluid overload, unspecified; I13.2 Hypertensive heart and chronic kidney disease with heart failure and with stage 5 chronic kidney disease, or end stage renal disease; N18.6 End stage renal disease; I50.9 Heart failure, unspecified; D63.1 Anemia in chronic kidney disease; F17.210 Nicotine dependence, cigarettes, uncomplicated; Z79.899 Other long term (current) drug therapy; Z95.0 Presence of cardiac pacemaker; Z99.2 Dependence on renal dialysis; Z20.828 Contact with and (suspected) exposure to other viral communicable diseases
CPT/HCPCS: 36415; 71045; 80053; 80069; 82553; 83735; 84484; 85025; 87635; 90935; 93005; 96372; 96374; G0257; G0378; J1644; U0003

== ENCOUNTER 2020-03-15 21:31 | Emergency (ER) | payer OTHER, SELFPAY ==
[2020-03-15] MEDS ORDERED: Morphine 4 MG/ML VIAL ONE (22:22)
--- NOTE | 2020-03-15 23:08 | ULT ---
US Soft Tissue Other HISTORY: Dialysis fistula malfunction COMPARISON: None. FINDINGS: Sonographic evaluation of the left forearm demonstrates a vascular mass arising from the mi d radial artery consistent with a pseudoaneurysm which is separate from the fistula. IMPRESSION: Findings are consistent, with a pseudoaneurysm.
[2020-03-16] MEDS ORDERED: Albuterol 200 PUFF (6.7GM INHALER) ONE (00:37)
[2020-03-16 18:29] LABS: SARS-CoV-2 MS2 Positive; SARS-CoV-2 N Gene Negative; SARS-CoV-2 S Gene Negative; SARS-CoV-2 by NAA Not Detected (NotDetected); SARS-CoV-2 orf1ab Negative
== END 2020-03-16 01:06 | disposition home or self-care (01) ==
LOC: ERS 21:31
DX: I72.1 Aneurysm of artery of upper extremity (principal); J20.9 Acute bronchitis, unspecified; I10 Essential (primary) hypertension; Z20.828 Contact with and (suspected) exposure to other viral communicable diseases
CPT/HCPCS: 76999; 87635; 96372; J2270; U0003

== ENCOUNTER 2020-03-17 07:48 | Day surgery (SDC) | payer OTHER, SELFPAY ==
[2020-03-17 09:40] LABS: #Basophils 0.1 thou/uL (0.0-0.2); #Eosinphils 0.1 thou/uL (0.0-0.7); #Monocytes 0.4 thou/uL (0.11-0.59); #Neutrophils 4.7 thou/uL (1.40-6.50); %Basophils 1.2 % (0.0-1.0); %Eosinophils 1.4 % (0.0-10.0); %Lymphocytes 15.4 % (21.0-51.0); %Monocytes 6.1 % (0.0-10.0); %Neutrophils 75.9 % (42.0-75.0); Hemoglobin 10.4 g/dL (14.0-18.0); Mean Corpuscular HGB CONC 33.2 g/dL (32.0-36.0); Mean Corpuscular Hemoglobin 31.2 pg (27.0-31.0); Mean Platelet Volume 9.1 fL (7.4-10.4); Platelet Count 199 thou/uL (130-400); RBC Distribution Width 14.4 % (11.5-14.5); Red Blood Cell (RBC) Count 3.32 mill/uL (4.70-6.10); White Blood Cell (WBC) Count 6.1 thou/uL (4.8-10.8)
[2020-03-17 10:01] LABS: Anion Gap 28 mmol/L (10-20); BUN (Urea Nitrogen) 90 mg/dL (8.9-20.6); Calc. Creatinine Clearance 0 mL/min (70-130); Calcium 9.4 mg/dL (7.8-10.44); Carbon Dioxide 15 mmol/L (22-29); Chloride 99 mmol/L (98-107); Estimated GFR-MDRD 4; Glucose 85 mg/dL (70-105); Sodium 137 mmol/L (136-145)
--- NOTE | 2020-03-17 10:15 | HP ---
HISTORY OF PRESENT ILLNESS: Denis Vásquez is a 30-year-old male, in June 2019, had a left wrist Briana fistula placed, subsequently removed his hemodialysis catheter. He has been dialyzing Tuesday, Tuesday, and Tuesday at [facility]. The patient had a cannulation three days ago, Tuesday. Tuesday, he presented to the emergency room with painful proximal left forearm. Ultrasound suggested a pseudoaneurysm. Jose wrap applied. He was sent home. He arrives this morning anticipating possible surgical intervention. His hemoglobin is 10. On evaluation, he has a left Briana fistula that is well developed. He has a surrounding hematoma in the proximal forearm, but without . I suspect the pseudoaneurysm has resolved, and we will obtain ultrasound, possible fistulogram prior to considering surgical intervention hopefully to avoid that. I have discussed with Dr. Phil Craft, who helped with his evaluation on urgent basis this morning. He is COVID negative. ALLERGIES: NONE. TOBACCO: None. ALCOHOL: None. PAST MEDICAL HISTORY: Hypertension, end-stage renal disease, defibrillator, pacemaker, dialysis Tuesday, Tuesday, and Tuesday at [facility]. 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 Echocardiogram 35% to 40% in June 2019, diastolic dysfunction. CKD related to IgA nephropathy, history of polysubstance abuse and noncompliance although avoided since June. PAST SURGICAL HISTORY: Noncontributory except as above. PHYSICAL EXAMINATION: HEAD, EARS, EYES, NOSE, AND THROAT: Unremarkable. LUNGS: Clear to auscultation. CHEST: Defibrillator in left chest. CARDIAC: Regular rate and rhythm without murmur or gallop. ABDOMEN: Soft, nontender. EXTREMITIES: Fistula, left forearm. ASSESSMENT AND PLAN: Plan ultrasound evaluation, possible fistulogram, reserving surgical intervention as the last resort. Await above studies. ADDENDUM: Mr. Vásquez went for an ultrasound today showing that he had a pseudoaneurysm proximal left forearm, this appears to be smaller than 2 days ago. The patient is feeling better, certainly not having worse pain. Clinically, it feels to be like a hematoma. Plan at this time is for him to place an Jose wrap, 4x4s, apply pressure over the area, unwrapping it for dialysis, reapplying it after dialysis. Follow up in my office next after ultrasound reassessment. Hopefully, we can avoid operative intervention. Job ID: [id number]
--- NOTE | 2020-03-17 11:02 | ULT ---
Exam: Limited ultrasound of a left upper extremity fistula HISTORY: Fistulogram. Patient has pseudoaneurysm. COMPARISON: 03/15/2020. TECHNIQUE: Grayscale, color flow, Doppler imaging and spectral waveform analysis of the left upper ex tremity. FINDINGS: There is anastomosis of the left wrist. The inflow and outflow are patent. In the proximal forearm, there is evidence of a pseudoaneurysm. The neck of the pseudoaneurysm identi fied. There is a hematoma peripheral to the pseudoaneurysm. The overall size of the lesion, including the vascular portion and hematoma measures 3.0 x 2.1 x 3.6 cm. The vascular component measu res approximately 1.8 cm. The vascular component does have the benji-mathis flow. Previously, this pseudoaneurysm measures 4.5 x 2.0 x 2.2 cm. IMPRESSION: 1. Redemonstration of a pseudoaneurysm in the mid left forearm. Pseudoaneurysm is slightly decreased in size. 2. There is patency of the vascular inflow and outflow with regards to the fistula. Results study conveyed to Dr. Viera at the completion of exam on 03/17/2020 Code CR Transcribed Date/Time: 03/17/2020 11:15 AM
== END 2020-03-17 11:40 | disposition home or self-care (01) ==
LOC: SDC 07:48
PROVIDERS: ATTEND Specialist
DX: I77.0 Arteriovenous fistula, acquired (principal); N02.8 Recurrent and persistent hematuria with other morphologic changes; N18.6 End stage renal disease; I10 Essential (primary) hypertension; Z53.9 Procedure and treatment not carried out, unspecified reason; Z95.810 Presence of automatic (implantable) cardiac defibrillator
CPT/HCPCS: 76999; 80048; 85025; 86850; 86900; 86901

== ENCOUNTER 2020-03-21 20:20 | Inpatient (IN) | payer OTHER, SELFPAY ==
[2020-03-21 20:59] LABS: #Basophils 0.1 thou/uL (0.0-0.2); #Eosinphils 0.3 thou/uL (0.0-0.7); #Lymphocytes 1.5 thou/uL (1.20-3.40); #Monocytes 0.4 thou/uL (0.11-0.59); #Neutrophils 3.6 thou/uL (1.40-6.50); %Basophils 0.9 % (0.0-1.0); %Eosinophils 4.6 % (0.0-10.0); %Lymphocytes 25.6 % (21.0-51.0); %Monocytes 6.9 % (0.0-10.0); Hemoglobin 9.7 g/dL (14.0-18.0); Mean Corpuscular HGB CONC 33.3 g/dL (32.0-36.0); Mean Corpuscular Hemoglobin 31.3 pg (27.0-31.0); Mean Corpuscular Volume 94.1 fL (78.0-98.0); Mean Platelet Volume 8.8 fL (7.4-10.4); Platelet Count 243 thou/uL (130-400); RBC Distribution Width 14.1 % (11.5-14.5); White Blood Cell (WBC) Count 5.8 thou/uL (4.8-10.8)
[2020-03-21 21:21] LABS: ALT (SGPT) 20 U/L (8-55); AST (SGOT) 17 U/L (5-34); Albumin 3.9 g/dL (3.5-5.0); Alkaline Phosphatase 78 U/L (40-110); Anion Gap 23 mmol/L (10-20); BUN (Urea Nitrogen) 73 mg/dL (8.9-20.6); Bilirubin, Total 0.7 mg/dL (0.2-1.2); Calc. Creatinine Clearance 0 mL/min (70-130); Calcium 8.8 mg/dL (7.8-10.44); Carbon Dioxide 22 mmol/L (22-29); Chloride 99 mmol/L (98-107); Globulin 2.3 g/dL (2.4-3.5); Glucose 99 mg/dL (70-105); Magnesium 3.1 mg/dL (1.6-2.6); Phosphorus 10.8 mg/dL (2.3-4.7); Potassium 5.5 mmol/L (3.5-5.1); Protein, Total 6.2 g/dL (6.0-8.3); Sodium 138 mmol/L (136-145)
--- NOTE | 2020-03-21 23:04 | ULT ---
EXAM: Left forearm soft tissue ultrasound HISTORY: Swelling and pain in the left forearm. Previous pseudoaneurysm in the mid radial artery TECHNIQUE: Multiplanar grayscale and color Doppler images were obtained in a left forearm ultrasound. Spectral analysis of the Doppler waveforms of the visualized vessels were performed. COMPARISON: 03/17/2020 FINDINGS: A pseudoaneurysm is still seen in the mid forearm. A fistula is seen extending from the rad ial artery to cephalic vein. Clot is seen in the fistula just distal to the area of pseudoaneurysm along the mid and distal aspect. IMPRESSION: 1. Persistent pseudoaneurysm adjacent to the fistula 2. Thrombus visualized within the fistula.
[2020-03-21] MEDS ORDERED: Insulin Regular 300 UNITS/3 ML VIAL ONE (23:45)
[2020-03-21] MEDS ORDERED: Dextrose 50% Abboject 50 ML SYRINGE ONE ×3 (23:45→23:47)
[2020-03-21] MEDS ORDERED: Sodium Bicarbonate 2.5 MEQ/5 ML VIAL ONE (23:45)
[2020-03-21] MEDS ORDERED: Sodium Bicarb 50 MEQ/50 ML Abboject 8.4% SYRINGE ONE (23:47)
[2020-03-22 01:32] LABS: Anion Gap 24 mmol/L (10-20); BUN (Urea Nitrogen) 76 mg/dL (8.9-20.6); Calc. Creatinine Clearance 0 mL/min (70-130); Calcium 8.8 mg/dL (7.8-10.44); Carbon Dioxide 21 mmol/L (22-29); Chloride 100 mmol/L (98-107); Potassium 3.9 mmol/L (3.5-5.1); Sodium 141 mmol/L (136-145)
[2020-03-22 01:38] LABS: Glucose 41 mg/dL (70-105)
[2020-03-22] MEDS ORDERED: Acetaminophen 325 MG TAB PO PRN (02:24)
[2020-03-22] MEDS ORDERED: Calcium Carbonate 500 MG ChewTAB PO PRN (02:24)
[2020-03-22] MEDS ORDERED: Ondansetron ODT 4 MG TAB PO PRN (02:24)
[2020-03-22] MEDS ORDERED: Acetaminophen 650 MG Suppository PR PRN (02:24)
[2020-03-22] MEDS ORDERED: Ondansetron PF 4 MG/2 ML Vial IVP PRN (02:24)
--- NOTE | 2020-03-22 02:33 | PDOC.HHP ---
Hospitalist HPI - History of Present Illness malfunctioning fistula History of Present Illness: Case of an 30y/o male with pmhx of esrd on h/d (MWF) and htn who comes to hospital due to a malfunctioning fistula. patient refers he went tuesday to get his h/d center for his treatment but they were unable to make his fistula work. his last h/d was Tuesday. patient denies any fever chills n/v or sob. at the ED patient had an U/S of his fistula which showed a pseudoaneurysm compressing his fistula causing it to thrombosed Hospitalist ROS - Review of Systems All other systems reviewed; all pertinent +/- noted in HPI/Subj Hospitalist History - Past Medical History Renal/: reports: Other (ESRD on HD.) - Past Surgical History Past Surgical History: reports: Other (Pacemaker) Other Surgical History: fistula creation ppm placement - Social History Smoking Status: Never smoker Alcohol: reports: None Drugs: reports: marijuana Hospitalist Results - Labs Result Diagrams: 03/21/20 20:47 03/22/20 00:56 Lab results: WBC 5.8 thou/uL (4.8-10.8) 03/21/20 20:47 Hgb 9.7 g/dL (14.0-18.0) L 03/21/20 20:47 Hct 29.2 % (42.0-52.0) L 03/21/20 20:47 MCV 94.1 fL (78.0-98.0) 03/21/20 20:47 Plt Count 243 thou/uL (130-400) 03/21/20 20:47 Neutrophils % 62.0 % (42.0-75.0) 03/21/20 20:47 Sodium 141 mmol/L (136-145) 03/22/20 00:56 Potassium 3.9 mmol/L (3.5-5.1) 03/22/20 00:56 Chloride 100 mmol/L (98-107) 03/22/20 00:56 Carbon Dioxide 21 mmol/L (22-29) L 03/22/20 00:56 BUN 76 mg/dL (8.9-20.6) H 03/22/20 00:56 Creatinine 14.13 mg/dL (0.7-1.3) H 03/22/20 00:56 Glucose 41 mg/dL (70-105) L* 03/22/20 00:56 Calcium 8.8 mg/dL (7.8-10.44) 03/22/20 00:56 Total Bilirubin 0.7 mg/dL (0.2-1.2) 03/21/20 20:47 AST 17 U/L (5-34) 03/21/20 20:47 ALT 20 U/L (8-55) 03/21/20 20:47 Alkaline Phosphatase 78 U/L (40-110) 03/21/20 20:47 Serum Total Protein 6.2 g/dL (6.0-8.3) 03/21/20 20:47 Albumin 3.9 g/dL (3.5-5.0) 03/21/20 20:47 Hospitalist H&P A/P - Problem (1) Malfunction of arteriovenous dialysis fistula Code(s): T82.590A - [facility] COMPL OF SURGICALLY CREATED ARTERIOVENOUS FISTULA, INIT Status: Acute (2) ESRD (end stage renal disease) on dialysis Code(s): N18.6 - END STAGE RENAL DISEASE; Z99.2 - DEPENDENCE ON RENAL DIALYSIS Status: Acute (3) Hypertension Code(s): I10 - ESSENTIAL (PRIMARY) HYPERTENSION Status: Acute (4) Hyperkalemia Code(s): E87.5 - HYPERKALEMIA Status: Acute - Plan Plan: 30y/o male with the stated pmhx who present to hospital due to malfunctioning fistula malfunctioning fistula - u/s showed pseudoaneurysm compressing fistula resulting in thrombosis - last h/d Tuesday - nephrology consulted - gen surgeon consulted hyperkalemia - given iv insulin/ dextrose + bicarb - f/u bmp - h/d in am hyperphospatemia - will start phosphate binders w meals htn - continue home meds -of note, patient has a loop recorder due to episode of syncope
[2020-03-22] MEDS: HYDROcodone/Acetaminophen 5/325 mg Tablet PO PRN ×2 (03:54→09:18)
[2020-03-22 05:27] LABS: Anion Gap 26 mmol/L (10-20); BUN (Urea Nitrogen) 76 mg/dL (8.9-20.6); Calc. Creatinine Clearance 0 mL/min (70-130); Calcium 8.5 mg/dL (7.8-10.44); Carbon Dioxide 18 mmol/L (22-29); Chloride 99 mmol/L (98-107); Glucose 143 mg/dL (70-105); Potassium 4.5 mmol/L (3.5-5.1); Sodium 138 mmol/L (136-145)
[2020-03-22 06:03] LABS: Band 5 % (5-11); Hemoglobin 8.9 g/dL (14.0-18.0); Lymphocytes 7 % (21-51); MDiff Complete? YES; Mean Corpuscular HGB CONC 33.8 g/dL (32.0-36.0); Mean Corpuscular Volume 94.8 fL (78.0-98.0); Mean Platelet Volume 9.2 fL (7.4-10.4); Neutrophil 88 % (42-75); Platelet Count 207 thou/uL (130-400); White Blood Cell (WBC) Count 7.1 thou/uL (4.8-10.8)
[2020-03-22 07:30] VITALS: BMI 23.8
[2020-03-22] MEDS ORDERED: Enoxaparin Sodium 30 MG/0.3 ML SYRINGE SC SCH (09:00)
[2020-03-22] MEDS: Calcium Acetate 667 MG CAP PO SCH ×3 (09:18→21:18)
[2020-03-22] MEDS: cloNIDine 0.1 MG TAB PO SCH ×2 (09:19→21:18)
[2020-03-22 09:22] LABS: Anion Gap 22 mmol/L (10-20); BUN (Urea Nitrogen) 80 mg/dL (8.9-20.6); Calc. Creatinine Clearance 8 mL/min (70-130); Calcium 8.4 mg/dL (7.8-10.44); Carbon Dioxide 20 mmol/L (22-29); Chloride 100 mmol/L (98-107); Glucose 85 mg/dL (70-105); Potassium 4.2 mmol/L (3.5-5.1); Sodium 138 mmol/L (136-145)
[2020-03-22 11:12] LABS: Phosphorus 9.5 mg/dL (2.3-4.7)
[2020-03-22] MEDS ORDERED: Calcium Acetate 667 MG CAP PO SCH (12:30)
[2020-03-22] MEDS ORDERED: Labetalol HCl 100 MG/20 ML VIAL SLOW IVP PRN (13:21)
[2020-03-22] MEDS ORDERED: Labetalol HCl 100 MG/20 ML VIAL SLOW IVP SCH (13:30)
[2020-03-22 13:34] LABS: HBSAg Index 0.13 S/CO (0-0.99); Hep B Surf Ag Non-Reactive S/CO (NonReactive)
[2020-03-22] MEDS ORDERED: Acetaminophen 500 MG TAB PO PRN (13:37)
[2020-03-22] MEDS ORDERED: Heparin 10,000 UNITS/ 10 ML VIAL ONE (14:58)
[2020-03-22] MEDS ORDERED: Heparin 1,000 UNITS/ML VIAL ONE (15:09)
[2020-03-22] MEDS ORDERED: CEFAZOLIN 2 GM in Premix Bag 1 BAG IVPB SCH (15:45)
[2020-03-22] MEDS: Heparin 5,000 UNITS/ML VIAL SC SCH ×2 (16:44→21:18)
--- NOTE | 2020-03-22 18:02 | PDOC.HOSPP ---
- Subjective Encounter Date: 03/22/20 Encounter Time: 12:30 Subjective: Patient seen for follow-up regarding AV fistula malfunction. Denies chest pain or shortness of breath. - Objective Vital Signs & Weight: Vital Signs (12 hours) Temp Pulse Resp BP BP Pulse Ox 03/22/20 15:00 98.3 F 78 18 176/117 H 95 03/22/20 13:52 88 178/138 H 03/22/20 11:54 98 F 90 18 183/132 H 97 03/22/20 09:19 171/119 H 03/22/20 07:00 97.5 F L 94 20 183/135 H 97 Weight Weight 166 lb 3.2 oz I&O: 03/21/20 03/22/20 03/23/20 06:59 06:59 06:59 Intake Total 720 Balance 720 Result Diagrams: 03/22/20 04:32 03/22/20 08:37 Additional Labs: Accuchecks 03/22/20 03/21/20 02:42 23:56 POC Glucose 89 101 H I reviewed patient's labs and MAR EKG Reviewed by me: Yes (Normal sinus rhythm on telemetry) Hospitalist ROS - Review of Systems Constitutional: denies: fever, chills, sweats, weakness, malaise Respiratory: denies: cough, shortness of breath, SOB with excertion, pleuritic pain, wheezing Cardiovascular: denies: chest pain, palpitations, orthopnea, paroxysmal noc. dyspnea, edema, light headedness Gastrointestinal: denies: nausea, vomiting, abdominal pain, diarrhea, constipation, melena, hematochezia Genitourinary: denies: dysuria, frequency, incontinence, hematuria, retention - Medication Medications: Active Medications Generic Name Dose Route Start Last Admin Trade Name Freq PRN Reason Stop Dose Admin Clonidine 0.1 mg 03/22/20 09:00 03/22/20 09:19 Clonidine 0.1 Mg Tab PO 0.1 mg BID AIDA Administration Heparin Sodium (Porcine) 5,000 units 03/22/20 15:00 03/22/20 16:44 Heparin 5,000 Units/Ml Vial SC 5,000 units TID AIDA Administration - Exam General Appearance: awake alert Eye: anicteric sclera ENT: normocephalic atraumatic Neck: supple, symmetric, no thyromegaly, no lymphadenopathy Heart: RRR, no gallops, no rubs, normal peripheral pulses Respiratory: CTAB, no wheezes, no rales, no ronchi, normal chest expansion Gastrointestinal: soft, non-tender, non-distended, normal bowel sounds Skin: no rashes Psychiatric: normal affect, normal behavior, oriented to person, oriented to place Hosp A/P - Plan -Assessment (1) Malfunction of arteriovenous dialysis fistula Code(s): T82.590A - [facility] COMPL OF SURGICALLY CREATED ARTERIOVENOUS FISTULA, INIT Status: Acute (2) ESRD (end stage renal disease) on dialysis Code(s): N18.6 - END STAGE RENAL DISEASE; Z99.2 - DEPENDENCE ON RENAL DIALYSIS Status: Acute (3) Hypertension Code(s): I10 - ESSENTIAL (PRIMARY) HYPERTENSION Status: Acute (4) Hyperkalemia Code(s): E87.5 - HYPERKALEMIA Status: Resolved - Plan malfunctioning fistula -General surgery service consulted. -Patient to have dialysis catheter placed. -Fistulogram on March 24. hyperkalemia -Resolved hyperphospatemia -Nephrology service following htn - continue home meds
--- NOTE | 2020-03-22 20:11 | CON ---
DATE OF CONSULTATION: HISTORY OF PRESENT ILLNESS: Denis Vásquez is a 30-year-old male patient, who had a left Briana fistula, wrist, placed on 06/28/2019. He had his dialysis catheter removed on 11/29/2019. This was working well for dialysis without intervention, but he presented one week ago Tuesday after having cannulation on Tuesday noting ultrasound that shows pseudoaneurysm, proximal forearm artery leak. I saw him in the office later last week and it seemed to be decreasing in size. The patient states he dialyzed Tuesday, but did not Tuesday or Tuesday. The dialysis center told him to wait to see if his signal would improve, but it did not, so they sent him to the emergency room, Tuesday, yesterday and he was admitted. He had a right AC IV placed, which I asked the nurse to remove immediately when I was called today. The patient was treated for mild hyperkalemia medically and this improved to 5.5. I have been asked to see him regarding placement of hemodialysis catheter. To me, it looks like his proximal forearm hematoma is larger, although the patient states it feels better and it seems smaller to him. He has a very faint thrill and bruit in his fistula. Tuesday, Radiology is not available for intervention. Plan at this time is placement of a right femoral vein Trialysis catheter to enable dialysis, plan a fistulogram next week, and he may need revision of his fistula. ALLERGIES: NONE. SOCIAL HISTORY: Tobacco, none. Alcohol, none. PAST SURGICAL HISTORY: Pacemaker, left subclavian; left Briana fistula. PAST MEDICAL HISTORY: Hypertension; end-stage renal disease; defibrillator pacemaker; dialysis Tuesday, Tuesday, Tuesday at [facility] [place]. [facility], Dr. Lugo. Echocardiogram, 35% to 40% in June 2019. 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 Noncompliance, although has not used drugs since June. Note on admission, the patient had an ultrasound of his left forearm repeated again revealing a persistent pseudoaneurysm. MEDICATIONS: At home, 1. Albuterol sulfate. 2. Tramadol. 3. Clonidine. PHYSICAL EXAMINATION: VITAL SIGNS: Height 5 feet 10 inches, 166 pounds, 23 BMI. Temperature 98 degrees, blood pressure 178/138. HEAD, EARS, EYES, NOSE, AND THROAT: Unremarkable. LUNGS: Clear to auscultation. CARDIAC: Regular rhythm without murmur or gallop. ABDOMEN: Soft, nontender. EXTREMITIES: Unremarkable. Tattoos throughout. Fistula, left forearm, very faint thrill and bruit. Hematoma and induration, proximal volar forearm. LABORATORY DATA: White count 7, hemoglobin 8.9. Basic metabolic profile consistent with end-stage renal disease. ASSESSMENT AND PLAN: High-grade obstruction of left arm fistula secondary to probably pseudoaneurysm. Plan placement of a right femoral vein Trialysis catheter. Plan dialysis today. Plan Interventional Radiology intervention next week to look at this pseudoaneurysm. He may need surgical revision. Job ID: [id number]
[2020-03-22] MEDS: traMADol HCl 50 MG TAB PO PRN (21:18)
[2020-03-23] MEDS: Calcium Acetate 667 MG CAP PO SCH ×3 (08:13→17:15)
[2020-03-23] MEDS: cloNIDine 0.1 MG TAB PO SCH ×2 (08:13→21:25)
[2020-03-23] MEDS: Heparin 5,000 UNITS/ML VIAL SC SCH ×3 (08:14→21:29)
[2020-03-23] MEDS: traMADol HCl 50 MG TAB PO PRN ×2 (08:27→21:28)
[2020-03-23 09:32] LABS: #Eosinphils 0.2 thou/uL (0.0-0.7); #Lymphocytes 1.1 thou/uL (1.20-3.40); #Monocytes 0.4 thou/uL (0.11-0.59); #Neutrophils 3.1 thou/uL (1.40-6.50); %Basophils 0.9 % (0.0-1.0); %Eosinophils 4.7 % (0.0-10.0); %Lymphocytes 22.2 % (21.0-51.0); %Monocytes 7.3 % (0.0-10.0); %Neutrophils 64.8 % (42.0-75.0); Hemoglobin 9.2 g/dL (14.0-18.0); Mean Corpuscular HGB CONC 32.5 g/dL (32.0-36.0); Mean Corpuscular Hemoglobin 31.2 pg (27.0-31.0); Mean Corpuscular Volume 95.7 fL (78.0-98.0); Mean Platelet Volume 9.2 fL (7.4-10.4); Platelet Count 229 thou/uL (130-400); RBC Distribution Width 13.7 % (11.5-14.5); Red Blood Cell (RBC) Count 2.94 mill/uL (4.70-6.10); White Blood Cell (WBC) Count 4.7 thou/uL (4.8-10.8)
[2020-03-23 09:52] LABS: Anion Gap 18 mmol/L (10-20); BUN (Urea Nitrogen) 43 mg/dL (8.9-20.6); Calc. Creatinine Clearance 12 mL/min (70-130); Calcium 9.1 mg/dL (7.8-10.44); Carbon Dioxide 28 mmol/L (22-29); Chloride 98 mmol/L (98-107); Glucose 128 mg/dL (70-105); Potassium 4.9 mmol/L (3.5-5.1); Sodium 139 mmol/L (136-145)
--- NOTE | 2020-03-23 11:41 | CON ---
DATE OF CONSULTATION: 03/22/2020 CONSULTING PHYSICIAN: Dr. Rojas. REASON FOR CONSULTATION: End-stage renal disease evaluation and care. REASON FOR ADMISSION: Clotted fistula. HISTORY OF PRESENT ILLNESS: This is a 30-year-old male with history of end- stage renal disease, on hemodialysis on Tuesday, Tuesday, Tuesday, hypertension, substance abuse, came to the hospital with clotted access. He did not get dialysis for a week now because of his clotted access. Started having pain, came to the hospital. His potassium was elevated. He was medically treated. Potassium level is better. He denies any shortness of breath, nausea, or vomiting. No chest pain or palpitation. PAST MEDICAL HISTORY: Positive for; 1. End-stage renal disease. 2. Hypertension. 3. Substance abuse. PAST SURGICAL HISTORY: 1. Dialysis access placement. 2. Pacemaker placement. HOME MEDICATIONS: Reviewed. ALLERGIES: NO KNOWN DRUG ALLERGIES. SOCIAL HISTORY: History of drug abuse, alcohol, and smoking present. FAMILY HISTORY: No history of kidney disease. REVIEW OF SYSTEMS: CONSTITUTIONAL: Negative for weight loss or gain, ability to conduct usual activities. SKIN: Negative for rash, itching. EYES: Negative for double vision, pain. ENT/MOUTH: Negative for nose bleeding, neck stiffness, pain, tenderness. CARDIOVASCULAR: Negative for palpitations, dyspnea on exertion, orthopnea. RESPIRATORY: Negative for shortness of breath, wheezing, cough, hemoptysis, fever or night sweats. GASTROINTESTINAL: Negative for poor appetite, abdominal pain, heartburn, nausea, vomiting, constipation, or diarrhea. GENITOURINARY: Negative for urgency, frequency, dysuria, nocturia. MUSCULOSKELETAL: Negative for pain, swelling. NEUROLOGIC/PSYCHIATRIC: Negative for anxiety, depression. ALLERGY/IMMUNOLOGIC: Negative for skin rash, bleeding tendency. PHYSICAL EXAMINATION: GENERAL: This is a well-built male, in no apparent distress. VITAL SIGNS: Temperature 98.3, pulse 78, respiratory rate 18, blood pressure 176/117. HEENT: Atraumatic, normocephalic. Oral mucosa moist. NECK: Supple. CV: S1, S2. RESPIRATORY: Clear. GI: Abdomen is soft. MUSCULOSKELETAL: No tenderness. No edema. DERMATOLOGIC: No skin rash. NEUROLOGIC: Alert and awake. PSYCHIATRIC: Normal mood and affect. EXTREMITIES: Left arm fistula with swelling present. No thrill. LABORATORY DATA: Hemoglobin is 9.7. Potassium is 4.2, BUN is 80, creatinine is 14.26. ASSESSMENT AND PLAN: 1. End-stage renal disease. I have talked with Dr. Alston and Dr. Viera. Plan is to have Dr. Viera put a temporary femoral dialysis catheter. Dialyze him today as he didnot receive dialysis for the whole last week. Plan it to arrange fistulogram on Tuesday to see if we could salvage the current fistula. If not, we should insert a temporary tunnelled chest dialysis catheter, maybe a new fistula. 2. Hyperphosphatemia - Diet education. We will add PhosLo. 3. Edema, controlled. 4. History of hypertension. 5. Anemia of chronic disease. We will continue dialysis as tolerated. Thank you for the consult. Job ID: [id number] JOSE MANUEL
--- NOTE | 2020-03-23 12:36 | PDOC.HOSPP ---
- Subjective Encounter Date: 03/23/20 Encounter Time: 06:30 Subjective: Patient seen for follow-up regarding malfunctioning AV fistula. He denies any complaints. - Objective Vital Signs & Weight: Vital Signs (12 hours) Temp Pulse Resp BP Pulse Ox 03/23/20 08:25 98.1 F 75 17 150/117 H 99 03/23/20 04:00 98.2 F 72 18 151/110 H 97 Weight Weight 166 lb 3.2 oz I&O: 03/22/20 03/23/20 03/24/20 06:59 06:59 06:59 Intake Total 720 990 Output Total 3450 Balance 720 -2460 Result Diagrams: 03/23/20 09:15 03/23/20 09:15 Additional Labs: Labs and MAR reviewed by me EKG Reviewed by me: Yes (Telemetry shows normal sinus rhythm) Hospitalist ROS - Review of Systems Cardiovascular: denies: chest pain, palpitations, orthopnea, paroxysmal noc. dyspnea, edema, light headedness Gastrointestinal: denies: nausea, vomiting, abdominal pain, diarrhea, constipation, melena, hematochezia - Medication Medications: Active Medications Generic Name Dose Route Start Last Admin Trade Name Freq PRN Reason Stop Dose Admin Calcium Acetate 1,334 mg 03/22/20 17:00 03/23/20 12:28 Calcium Acetate 667 Mg Cap PO 1,334 mg TID-WM AIDA Administration Clonidine 0.1 mg 03/22/20 09:00 03/23/20 08:13 Clonidine 0.1 Mg Tab PO 0.1 mg BID AIDA Administration Heparin Sodium (Porcine) 5,000 units 03/22/20 15:00 03/23/20 08:14 Heparin 5,000 Units/Ml Vial SC 5,000 units TID AIDA Administration Tramadol HCl 50 mg 03/22/20 13:37 03/23/20 08:27 Tramadol Hcl 50 Mg Tab PO 50 mg Q12H PRN Administration Pain 1-5 - Exam General Appearance: awake alert Eye: PERRL ENT: no oropharyngeal lesions, moist mucosa Neck: supple Heart: RRR Respiratory: CTAB Gastrointestinal: soft, non-tender Extremities: no clubbing Skin: no rashes Neurological: cranial nerve grossly intact Musculoskeletal: no muscle wasting Psychiatric: normal affect, A&O x 3 Hosp A/P - Plan -Assessment (1) Malfunction of arteriovenous dialysis fistula Code(s): T82.590A - [facility] COMPL OF SURGICALLY CREATED ARTERIOVENOUS FISTULA, INIT Status: Acute (2) ESRD (end stage renal disease) on dialysis Code(s): N18.6 - END STAGE RENAL DISEASE; Z99.2 - DEPENDENCE ON RENAL DIALYSIS Status: Acute (3) Hypertension Code(s): I10 - ESSENTIAL (PRIMARY) HYPERTENSION Status: Acute (4) Hyperkalemia Code(s): E87.5 - HYPERKALEMIA Status: Resolved - Plan malfunctioning fistula -Patient had dialysis catheter placed and underwent dialysis yesterday. -Fistulogram planned for March 24. hyperphospatemia -Patient underwent dialysis yesterday htn - continue home meds hyperkalemia -Resolved
--- NOTE | 2020-03-23 15:12 | PRG ---
DATE OF SERVICE: 03/23/2020 SUBJECTIVE: Patient was seen and examined at bedside and overnight events noted. Patient denies any shortness of breath or chest pain or palpitation. No history of nausea or vomiting or diarrhea or fever or chills or cramps. OBJECTIVE: GENERAL: This is a well-built male, in no apparent distress. Vital Signs: Temperature 98.0, heart rate 80, respiratory rate 18, blood pressure 150/117. HEENT: Atraumatic, normocephalic. Oral mucosa is moist. NECK: Supple. CARDIOVASCULAR: S1, S2 heard. Rate and rhythm regular. RESPIRATORY: Clear to auscultation. GASTROINTESTINAL: Abdomen is soft. MUSCULOSKELETAL: No tenderness. No edema. DERMATOLOGIC: No skin rash. NEUROLOGIC: Alert and awake and oriented x3. No focal neurologic deficits. Moving all the extremities. PSYCHIATRIC: Mood and affect normal. LABORATORY DATA: Potassium 4.9, BUN is 43, and creatinine is 9.2. ASSESSMENT AND PLAN: 1. End-stage renal disease. Continue on hemodialysis as tolerated. The patient appreciate help from Surgery for temporary femoral dialysis catheter. The patient had femoral catheter and had dialysis yesterday, tolerated well. Plan is to have fistula exam tomorrow and if successful and salvaged, the fistula can be used. If not, then need new fistula and tunneled dialysis catheter. Dr. Viera is aware and will be following the case next week. We will continue dialysis as tolerated on Tuesday, Tuesday, and Tuesday. 2. Hyperphosphatemia. Started on PhosLo. recommend renal dialysis. 3. Edema, controlled. 4. Hypertension. 5. Anemia of chronic disease. 6. We will continue on dialysis. Follow with surgery for further plan. Job ID: [id number]
--- NOTE | 2020-03-23 15:24 | OP ---
DATE OF PROCEDURE: 03/22/2020 PREOPERATIVE DIAGNOSES: Dysfunctional dialysis fistula, left forearm; pseudoaneurysm; obstruction. POSTOPERATIVE DIAGNOSES: Dysfunctional dialysis fistula, left forearm; pseudoaneurysm; obstruction. PROCEDURE PERFORMED: Right femoral vein, Trialysis catheter. ANESTHESIA: 1% Xylocaine. DESCRIPTION OF PROCEDURE: With the patient at bedside, right groin was clipped of hair, prepared with ChloraPrep and draped in routine fashion. 1% Xylocaine was infiltrated into the skin and subcutaneous tissue. Using Seldinger technique, right femoral vein Trialysis catheter was placed, secured with 3-0 nylon suture. J-wire removed. Each port aspirated blood, flushed with heparinized saline solution, Hep-Flush. The patient tolerated the procedure well. Sterile dressing applied. Job ID: [id number]
[2020-03-24] MEDS: Heparin 5,000 UNITS/ML VIAL SC SCH ×2 (07:25→15:50)
[2020-03-24] MEDS: Calcium Acetate 667 MG CAP PO SCH ×3 (09:06→17:35)
[2020-03-24] MEDS: cloNIDine 0.1 MG TAB PO SCH (09:09)
[2020-03-24 09:35] LABS: SARS-CoV-2 NAA Rapid Test Not Detected (NotDetected)
[2020-03-24] MEDS ORDERED: Activase 2 MG VIAL CATH SCH (10:00)
[2020-03-24] MEDS ORDERED: Sodium Chloride 0.9% 10 ML ONE (10:42)
[2020-03-24] MEDS ORDERED: Lidocaine 1% w/Epinephrine 1:100K 20 ML VIAL ONE (10:42)
[2020-03-24] MEDS ORDERED: Heparin 10,000 UNITS/ 10 ML VIAL ONE (10:42)
[2020-03-24] MEDS ORDERED: Bupivacaine PF 0.5% 30 ML VIAL ONE (10:42)
[2020-03-24] MEDS ORDERED: Propofol 500 MG/50 ML VIAL ONE (10:45)
[2020-03-24] MEDS ORDERED: Fentanyl 100 MCG/2 ML VIAL ONE (11:21)
--- NOTE | 2020-03-24 11:33 | PRG ---
DATE OF SERVICE: 03/24/2020 SUBJECTIVE: A 30-year-old gentleman, being seen for end-stage renal disease. The patient denies any nausea, vomiting, or chest pain. OBJECTIVE: GENERAL: The patient is awake, alert. VITAL SIGNS: Afebrile, pulse 83, breathing at 16, and blood pressure 156/120. HEENT: Head normocephalic and atraumatic. Eyes intact, no ulcers. Nose intact, no ulcers. Ears intact, no ulcers. NECK: Supple. No JVD. CHEST: Symmetrical and clear. CARDIOVASCULAR: Shows S1 and S2, no rub, no murmur. GASTROINTESTINAL: Abdomen is soft, bowel sounds positive. EXTREMITIES: Show no edema or ulcers. SKIN: Shows no rash or petechiae. MUSCULOSKELETAL: Shows no joint swelling or stiffness. GENITOURINARY: Shows no Canas or CVA tenderness. NEUROLOGIC: Motor intact. Cranial nerves intact. LABORATORY DATA: Reviewed. ASSESSMENT AND PLAN: 1. Stage 6 chronic kidney disease, plan dialysis. 2. Hypertension, stable. Titrate home medication. 3. Anemia, stable. Job ID: [id number]
[2020-03-24] MEDS ORDERED: PROPOFOL 200 MG/20 ML VIAL ONE (11:57)
--- NOTE | 2020-03-24 12:36 | PDOC.HOSPP ---
- Subjective Encounter Date: 03/24/20 Encounter Time: 07:30 Subjective: Patient seen for follow-up regarding AV fistula malfunction. He denies chest pain or shortness of breath. He denies fevers or chills. - Objective Vital Signs & Weight: Vital Signs (12 hours) Temp Pulse Resp BP BP Pulse Ox 03/24/20 09:09 168/125 H 03/24/20 07:45 98.4 F 83 16 162/116 H 98 03/24/20 04:00 97.7 F 84 16 166/126 H 97 Weight Weight 166 lb 3.2 oz I&O: 03/23/20 03/24/20 03/25/20 06:59 06:59 06:59 Intake Total 990 1360 Output Total 3450 Balance -2460 1360 Result Diagrams: 03/23/20 09:15 03/23/20 09:15 Additional Labs: I reviewed patient's labs and MAR Hospitalist ROS - Review of Systems Gastrointestinal: denies: nausea, vomiting, abdominal pain, diarrhea, constipation, melena, hematochezia Genitourinary: denies: dysuria, frequency, incontinence, hematuria, retention - Medication Medications: Active Medications Generic Name Dose Route Start Last Admin Trade Name Freq PRN Reason Stop Dose Admin Calcium Acetate 1,334 mg 03/22/20 17:00 03/24/20 09:06 Calcium Acetate 667 Mg Cap PO Not Given TID-WM AIDA Clonidine 0.1 mg 03/22/20 09:00 03/24/20 09:09 Clonidine 0.1 Mg Tab PO 0.1 mg BID AIDA Administration Heparin Sodium (Porcine) 5,000 units 03/22/20 15:00 03/24/20 07:25 Heparin 5,000 Units/Ml Vial SC Not Given TID AIDA Tramadol HCl 50 mg 03/22/20 13:37 03/23/20 21:28 Tramadol Hcl 50 Mg Tab PO 50 mg Q12H PRN Administration Pain 1-5 - Exam General Appearance: awake alert Eye: anicteric sclera ENT: normocephalic atraumatic, moist mucosa Neck: supple Heart: RRR Respiratory: CTAB Gastrointestinal: soft, non-tender Skin: no rashes Psychiatric: normal affect, normal behavior Hosp A/P - Plan -Assessment (1) Malfunction of arteriovenous dialysis fistula Code(s): T82.590A - [facility] COMPL OF SURGICALLY CREATED ARTERIOVENOUS FISTULA, INIT Status: Acute (2) ESRD (end stage renal disease) on dialysis Code(s): N18.6 - END STAGE RENAL DISEASE; Z99.2 - DEPENDENCE ON RENAL DIALYSIS Status: Acute (3) Hypertension Code(s): I10 - ESSENTIAL (PRIMARY) HYPERTENSION Status: Acute (4) Hyperkalemia Code(s): E87.5 - HYPERKALEMIA Status: Resolved - Plan malfunctioning fistula -Patient had femoral trialysis catheter placed and underwent dialysis -Fistulogram planned for today, #16 htn -Blood pressure is still high, start hydralazine 25 mg 3 times a day hyperkalemia -Resolved
[2020-03-24] MEDS ORDERED: hydrALAZINE 25 MG TAB PO SCH ×2 (12:45→15:00)
--- NOTE | 2020-03-24 13:55 | RAD ---
PORTABLE CHEST: HISTORY: Central line placement. COMPARISON: 02/06/2020. FINDINGS: A large-caliber dual-lumen central line headache been placed right jugular. The line overlies the SV C and appears in adequate position. There is cardiomegaly and mild vascular congestion which is similar to the prior exam. No pneumothor ax or acute process. POS: AGW
--- NOTE | 2020-03-24 16:33 | PDOC.DS.DS ---
Provider - Provider Date of Admission: 03/24/20 09:58 Date of Discharge: 03/24/20 Admitting Provider: Jose G Alston, Consultations: General Surgery (Dr. Viera), Nephrology (Dr. Amaral) Primary Care Physician: NO PCP PROVIDER Course - Hospital Course Hospital Course: Discharge diagnosis: 1. Malfunctioning AV fistula 2. End-stage renal disease on dialysis 3. Hyperkalemia 4. COVID-19 test negative Hospital course: Patient is a pleasant 30-year-old gentleman who was admitted to the hospital on #2019 for malfunctioning AV fistula. He was seen by nephrology and general surgery services. He underwent placement of a femoral trialysis catheter and underwent hemodialysis. On February 21 he underwent AV shunt angiogram, which showed near complete loss of arterial inflow to the left forearm cephalic dialysis fistula. The point of severe stricture at or near the arterial anastomosis was unable to be identified for balloon manipulation. It is likely not the most likely source for revision and dialysis access. He underwent pl acement of a tunneled dialysis catheter and has been cleared for discharge by consulting services. Resuscitation Status: 03/22/20 02:24 Resuscitation Status Routine Resuscitation Status: FULL: Full Resuscitation - Labs Lab Results: 03/23/20 09:15 03/23/20 09:15 Abnormal Lab Results - Last 48 hrs 03/23/20 09:15: BUN 43 H, Creatinine 9.29 H 03/23/20 09:15: WBC 4.7 L, RBC 2.94 L, Hgb 9.2 L, Hct 28.2 L, MCH 31.2 H, Lymphocytes # 1.1 L - Physical Exam Vitals: Vital Signs (12 hours) Temp Pulse Resp BP BP Pulse Ox 03/24/20 09:09 168/125 H 03/24/20 07:45 98.4 F 83 16 162/116 H 98 Weight Weight 166 lb 3.2 oz Physical Exam: The patient was seen and examined on the day of discharge. Patient denies chest pain or shortness of breath. Vital signs are stable. S1 and S2 are heard. Lungs are clear to auscultation bilaterally. Problem - Time spent with Patient (mins): 31 Plan - Discharge Medications Prescriptions: hydrALAZINE [Apresoline] 25 mg PO TID #90 tab Calcium Acetate [Phoslo] 1,334 mg PO TID- #180 cap Home Medications: Medication Instructions Recorded Confirmed Type Albuterol Sulfate [Albuterol 8.5 gm IH BID 03/22/20 03/22/20 History Sulfate Hfa] Ferric Citrate [Auryxia] 1 tab PO TID 03/22/20 03/22/20 History cloNIDine [Catapres] 0.1 mg PO BID 03/22/20 03/22/20 History traMADol HCl [Tramadol HCl] 50 mg PO DAILY 03/22/20 03/22/20 History Calcium Acetate [Phoslo] 1,334 mg PO TID-WM #180 cap 03/24/20 Rx hydrALAZINE [Apresoline] 25 mg PO TID #90 tab 03/24/20 Rx Allergies: No Known Drug Allergies Allergy (Verified 12/10/19 14:30) per pt - Discharge Instructions Activity:: Activity as Tolerated Nourishment:: Heart Healthy Diet, Regular Diet - Follow up Plan Referrals: Marcus Viera MD [Active] - 3-4 Weeks PROVIDER,NO PCP [Primary Care Provider] - 3 Days Disposition: HOME Quality - Care Measures CORE MEASURES:: N/A
[2020-03-24 16:40] LABS: #Eosinphils 0.1 thou/uL (0.0-0.7); #Monocytes 0.3 thou/uL (0.11-0.59); #Neutrophils 4.7 thou/uL (1.40-6.50); %Basophils 0.5 % (0.0-1.0); %Eosinophils 1.6 % (0.0-10.0); %Lymphocytes 15.8 % (21.0-51.0); %Monocytes 5.3 % (0.0-10.0); %Neutrophils 76.9 % (42.0-75.0); Hemoglobin 9.9 g/dL (14.0-18.0); Mean Corpuscular Hemoglobin 31.6 pg (27.0-31.0); Mean Platelet Volume 8.5 fL (7.4-10.4); Platelet Count 252 thou/uL (130-400); RBC Distribution Width 13.3 % (11.5-14.5); Red Blood Cell (RBC) Count 3.14 mill/uL (4.70-6.10); White Blood Cell (WBC) Count 6.2 thou/uL (4.8-10.8)
[2020-03-24 16:59] LABS: Anion Gap 14 mmol/L (10-20); BUN (Urea Nitrogen) 24 mg/dL (8.9-20.6); Calc. Creatinine Clearance 22 mL/min (70-130); Carbon Dioxide 32 mmol/L (22-29); Chloride 94 mmol/L (98-107); Glucose 152 mg/dL (70-105); Potassium 3.4 mmol/L (3.5-5.1); Sodium 137 mmol/L (136-145)
[2020-03-24 17:34] VITALS: BP 124/86; TEMP 97.6
--- NOTE | 2020-03-24 19:29 | OP ---
DATE OF PROCEDURE: 03/24/2020 PREOPERATIVE DIAGNOSES: Dysfunctional dialysis fistula in left arm, history of pseudoaneurysm from cannulation and eventual thrombosis, high-grade obstruction. POSTOPERATIVE DIAGNOSES: Dysfunctional dialysis fistula in left arm, history of pseudoaneurysm from cannulation and eventual thrombosis, high-grade obstruction. PROCEDURE PERFORMED: Right IJ cuffed tunneled hemodialysis catheter. Ultrasound and fluoroscopy used. ANESTHESIA: TIVA, local 0.5% Marcaine 30 mL mixed with 1% Xylocaine with epinephrine 20 mL. DESCRIPTION OF PROCEDURE: The patient was taken to the operating room, where under intravenous sedation, neck and chest were prepped with ChloraPrep and draped in routine fashion. Ultrasound guidance was used to cannulate the right internal jugular vein. J-wire threaded, trocar catheter removed. Skin site enlarged sharply, stab incision was made over the right chest. The pre-curved [employer] cuffed tunneled hemodialysis catheter tunneled between the 2 incisions, placed the fabric cuff beneath the skin exit site, catheter secured with 2 interrupted sutures of 3-0 nylon, sterile dressing applied. Small and medium size dilators placed over the J-wire into the internal jugular vein and removed. Dilator and Peel-Away sheath placed over the J-wire in superior vena cava, and dilator and J-wire removed. Catheter placed over the Peel-Away sheath. Peel-Away sheath removed. Platysma was approximated with 4-0 Monocryl, skin with subdermal 4-0 Monocryl, and [place] glue applied. Each port aspirated of blood, flushed with saline solution and heparinized saline solution with 1000 units of heparin per mL, indicating volume of the port. Final fluoroscopic images revealed good line placement. The patient will go to Interventional Radiology to evaluate his left arm fistula. We will plan resting his left arm fistula, using the dialysis catheter for dialysis. We will see him in the office in 3 weeks to assess his forearm for revision, pending Interventional Radiology outcome. Job ID: [id number]
--- NOTE | 2020-03-25 12:13 | SPC ---
Dialysis fistulogram left upper extremity Sonographic guided vascular access x2 Thrombolyze left upper extremity dialysis fistula HISTORY: Percutaneous balloon angioplasty left upper extremity dialysis fistula history: Renal failur e. Thrombosis and poor function of left forearm fistula. FINDINGS: After explaining the procedure and answering all questions, left upper extremity was preppe d and draped in usual sterile fashion. Sonographic survey showed expansion and clot within the left forearm cephalic dialysis fistula, with small amount of peripheral flow. Good arterial flow was not v isualized. Sterile technique, buffered local anesthesia, sonographic guidance, and a 22-gauge needle were used t o carefully access the left cephalic fistula just above the level of the wrist. A 6 Tunisian vascular sheath was carefully placed. Gentle contrast injections showed incompletely occlusive thrombus within the cephalic vein with multiple vascular branches. Good arterial inflow was not seen, in that even the branches were very slow to clear. A 0.035 Glidewire was carefully placed and a 5 [place]ian Berenstein catheter used to confirm patency of the cephalic vein antecubital fossa and the venous outflow to the level of the superior vena cava. Small branches of the cephalic vein were seen at the level of the midhumerus. A focal area of significant narrowing of the cephalic vein of the forearm is present at the level of the mid radial shaft. Clot was seen to be impacted at this narrowing. Sonographic guidance was used to carefully obtain a second vascular access of the cephalic fistula at the level of the proximal radial shaft, just central to the area of stenosis. A 6 Tunis[place] sheath was placed. Gentle contrast injection again showed clot within the peripheral fistula just beyond the level of stenosis. A 5 [place]ian catheter was used to carefully probe the arterial inflow, with the arterial anastomosis unable to be identified. A total volume of 10 cc liquid containing 4 mg TPA and 2000 units heparin was carefully placed throug hout the area of clot with a 5 Tun[place] Berenstein catheter. While the TPA was working, a 6 mm x 4 cm balloon was carefully placed to the level of stricture at the level of the mid radial shaft and fully inflated. The 6 mm diameter balloon was significantly less than the surrounding venous structures. An 8 mm x 4 cm balloon was then placed to the level of stenosis, with serial dilatation achieving ful l profile. Balloon was also used to macerate the clot. Balloon and catheter were removed. Further imaging showed that flow has not been restored. Careful co ntrast injection and catheter manipulation at the most peripheral portion of the graft was never able to identify the arterial inflow. Sheaths were removed and hemostasis obtained using direct pressure. Patient tolerated the procedure w ell and was transferred to dialysis in good condition. IMPRESSION : Near complete loss of arterial inflow to the left forearm cephalic dialysis fistula. The point of sev ere stricture at or near the arterial anastomosis was unable to be identified for balloon manipulation. Given the multiple and extensive small venous structures throughout the forearm, it is likely not the most likely source for revision and dialysis access. Antecubital vein and cephalic vein of the upper arm are widely patent and would likely be of appropri ate diameter for a hemodialysis fistula. Findings were called to Dr. Viera at the time the exam. Code CR. Transcribed Date/Time: 03/25/2020 12:12 PM
== END 2020-03-24 18:46 | disposition home or self-care (01) | DRG 314 ==
LOC: ERS 20:20 → 2SE 03-22 00:40 → INTOOBSV 03-22 00:40 → OBSVTOIN 03-24 09:58
PROVIDERS: ADMIT Surgery; ATTEND Internal Medicine
PROC: 06HY33Z Insertion of Infusion Device into Lower Vein, Percutaneous Approach (ICD-10-PCS; 2020-03-22)
PROC: 5A1D70Z Performance of Urinary Filtration, Intermittent, Less than 6 Hours Per Day (ICD-10-PCS; principal; 2020-03-24)
PROC: B51W1ZZ Fluoroscopy of Dialysis Shunt/Fistula using Low Osmolar Contrast (ICD-10-PCS; 2020-03-24)
PROC: 0JH63XZ Insertion of Tunneled Vascular Access Device into Chest Subcutaneous Tissue and Fascia, Percutaneous Approach (ICD-10-PCS; 2020-03-24)
PROC: 02HV33Z Insertion of Infusion Device into Superior Vena Cava, Percutaneous Approach (ICD-10-PCS; 2020-03-24)
PROC: B548ZZA Ultrasonography of Superior Vena Cava, Guidance (ICD-10-PCS; 2020-03-24)
DX: T82.590A Other mechanical complication of surgically created arteriovenous fistula, initial encounter (principal); N18.6 End stage renal disease; I12.0 Hypertensive chronic kidney disease with stage 5 chronic kidney disease or end stage renal disease; Z20.828 Contact with and (suspected) exposure to other viral communicable diseases; E87.5 Hyperkalemia; E83.39 Other disorders of phosphorus metabolism; D63.1 Anemia in chronic kidney disease; Y83.2 Surgical operation with anastomosis, bypass or graft as the cause of abnormal reaction of the patient, or of later complication, without mention of misadventure at the time of the procedure; Z99.2 Dependence on renal dialysis; Z95.0 Presence of cardiac pacemaker; Z79.899 Other long term (current) drug therapy
CPT/HCPCS: 36415; 36416; 36901; 36902; 36904; 71045; 76999; 80048; 80053; 83735; 84100; 85007; 85025; 85027; 87340; 90935; 96372; 96374; 96375; C1752; G0257; G0378; J0690; J1642; J1644; J1650; J1815; J2704; J3010; S0020; U0002

== ENCOUNTER 2020-04-07 11:13 | Emergency (ER) | payer OTHER ==
[2020-04-07 16:30] LABS: SARS-CoV-2 MS2 Positive; SARS-CoV-2 N Gene Negative; SARS-CoV-2 S Gene Negative; SARS-CoV-2 by NAA Not Detected (NotDetected); SARS-CoV-2 orf1ab Negative
== END 2020-04-07 12:05 | disposition home or self-care (01) ==
LOC: ERS 11:13
DX: Z20.828 Contact with and (suspected) exposure to other viral communicable diseases (principal); I10 Essential (primary) hypertension
CPT/HCPCS: 87635; 99283; U0003

== ENCOUNTER 2020-08-25 22:17 | Emergency (ER) | payer SELFPAY ==
[2020-08-25 22:45] LABS: #Basophils 0.1 thou/uL (0.0-0.2); #Eosinphils 0.3 thou/uL (0.0-0.7); #Lymphocytes 1.4 thou/uL (1.20-3.40); #Monocytes 0.4 thou/uL (0.11-0.59); #Neutrophils 3.2 thou/uL (1.40-6.50); %Basophils 1.2 % (0.0-1.0); %Eosinophils 6.2 % (0.0-10.0); %Lymphocytes 25.4 % (21.0-51.0); %Monocytes 7.9 % (0.0-10.0); %Neutrophils 59.4 % (42.0-75.0); Hemoglobin 10.7 g/dL (14.0-18.0); Mean Corpuscular HGB CONC 34.5 g/dL (32.0-36.0); Mean Corpuscular Hemoglobin 33.7 pg (27.0-31.0); Mean Corpuscular Volume 97.8 fL (78.0-98.0); Mean Platelet Volume 8.7 fL (7.4-10.4); Platelet Count 167 thou/uL (130-400); RBC Distribution Width 12.3 % (11.5-14.5); Red Blood Cell (RBC) Count 3.18 mill/uL (4.70-6.10); White Blood Cell (WBC) Count 5.3 thou/uL (4.8-10.8)
[2020-08-25 23:11] LABS: ALT (SGPT) 31 U/L (8-55); AST (SGOT) 25 U/L (5-34); Albumin 3.9 g/dL (3.5-5.0); Alkaline Phosphatase 69 U/L (40-110); Anion Gap 19 mmol/L (10-20); BUN (Urea Nitrogen) 56 mg/dL (8.9-20.6); Calc. Creatinine Clearance 0 mL/min (70-130); Calcium 8.9 mg/dL (7.8-10.44); Carbon Dioxide 26 mmol/L (22-29); Chloride 101 mmol/L (98-107); Globulin 2.3 g/dL (2.4-3.5); Glucose 97 mg/dL (70-105); Potassium 4.2 mmol/L (3.5-5.1); Protein, Total 6.2 g/dL (6.0-8.3); Sodium 142 mmol/L (136-145)
[2020-08-26 00:48] LABS: CKMB 3.7 ng/mL (0-6.6)
== END 2020-08-26 00:01 | disposition home or self-care (01) ==
LOC: ERS 22:17
DX: I12.0 Hypertensive chronic kidney disease with stage 5 chronic kidney disease or end stage renal disease (principal); N18.6 End stage renal disease; Z99.2 Dependence on renal dialysis; Z79.899 Other long term (current) drug therapy
CPT/HCPCS: 36415; 71045; 80053; 82553; 84484; 85025; 93005; 94760

== ENCOUNTER 2020-08-26 16:27 | Emergency (ER) | payer SELFPAY ==
[2020-08-26 17:11] LABS: #Eosinphils 0.1 thou/uL (0.0-0.7); #Monocytes 0.4 thou/uL (0.11-0.59); #Neutrophils 4.4 thou/uL (1.40-6.50); %Basophils 0.4 % (0.0-1.0); %Eosinophils 1.8 % (0.0-10.0); %Lymphocytes 16.3 % (21.0-51.0); %Monocytes 6.5 % (0.0-10.0); Hemoglobin 10.5 g/dL (14.0-18.0); Mean Corpuscular HGB CONC 32.5 g/dL (32.0-36.0); Mean Corpuscular Hemoglobin 31.4 pg (27.0-31.0); Mean Corpuscular Volume 96.9 fL (78.0-98.0); Mean Platelet Volume 9.1 fL (7.4-10.4); Platelet Count 155 thou/uL (130-400); RBC Distribution Width 12.5 % (11.5-14.5); Red Blood Cell (RBC) Count 3.35 mill/uL (4.70-6.10); White Blood Cell (WBC) Count 5.8 thou/uL (4.8-10.8)
[2020-08-26 17:29] LABS: ALT (SGPT) 27 U/L (8-55); AST (SGOT) 18 U/L (5-34); Albumin 3.8 g/dL (3.5-5.0); Alkaline Phosphatase 70 U/L (40-110); Anion Gap 19 mmol/L (10-20); BUN (Urea Nitrogen) 63 mg/dL (8.9-20.6); Bilirubin, Total 1.3 mg/dL (0.2-1.2); Calc. Creatinine Clearance 0 mL/min (70-130); Calcium 9.4 mg/dL (7.8-10.44); Carbon Dioxide 24 mmol/L (22-29); Chloride 101 mmol/L (98-107); Globulin 2.4 g/dL (2.4-3.5); Glucose 133 mg/dL (70-105); Potassium 4.2 mmol/L (3.5-5.1); Protein, Total 6.2 g/dL (6.0-8.3); Sodium 140 mmol/L (136-145)
[2020-08-26 17:31] LABS: CK (CPK) 1197 U/L (30-200); Lipase 28 U/L (8-78)
[2020-08-26] MEDS ORDERED: cloNIDine 0.1 MG TAB ONE (18:44)
== END 2020-08-26 20:26 | disposition home or self-care (01) ==
LOC: ERS 16:27
DX: I12.0 Hypertensive chronic kidney disease with stage 5 chronic kidney disease or end stage renal disease (principal); N18.6 End stage renal disease; Z99.2 Dependence on renal dialysis; Z79.899 Other long term (current) drug therapy
CPT/HCPCS: 36415; 71045; 80053; 82550; 82553; 83690; 83880; 84484; 85025; 93005

== ENCOUNTER 2020-09-29 08:33 | Emergency (ER) | payer SELFPAY | END 2020-09-29 09:45 | disposition home or self-care (01) | LOC: ERS 08:33 | DX: L02.31 Cutaneous abscess of buttock (principal); I12.0 Hypertensive chronic kidney disease with stage 5 chronic kidney disease or end stage renal disease; N18.6 End stage renal disease; Z99.2 Dependence on renal dialysis; Z79.899 Other long term (current) drug therapy | CPT/HCPCS: 10060 ==

== ENCOUNTER 2020-12-20 19:03 | Emergency (ER) | payer BC ==
[2020-12-20] MEDS ORDERED: Acetaminophen 500 MG TAB ONE (19:24)
[2020-12-20] MEDS ORDERED: Piperacillin/Tazobactam 3.375 GM VIAL ONE (19:24)
[2020-12-20 19:48] LABS: #Basophils 0.1 thou/uL (0.0-0.2); #Eosinphils 0.2 thou/uL (0.0-0.7); #Lymphocytes 0.8 thou/uL (1.20-3.40); #Monocytes 0.5 thou/uL (0.11-0.59); #Neutrophils 3.8 thou/uL (1.40-6.50); %Eosinophils 3.4 % (0.0-10.0); %Lymphocytes 15.3 % (21.0-51.0); %Monocytes 9.1 % (0.0-10.0); %Neutrophils 71.2 % (42.0-75.0); Hemoglobin 10.3 g/dL (14.0-18.0); Mean Corpuscular HGB CONC 33.1 g/dL (32.0-36.0); Mean Corpuscular Hemoglobin 32.4 pg (27.0-31.0); Mean Corpuscular Volume 97.8 fL (78.0-98.0); Mean Platelet Volume 9.3 fL (7.4-10.4); Platelet Count 133 thou/uL (130-400); RBC Distribution Width 12.4 % (11.5-14.5); Red Blood Cell (RBC) Count 3.19 mill/uL (4.70-6.10); White Blood Cell (WBC) Count 5.4 thou/uL (4.8-10.8)
[2020-12-20 20:09] LABS: ALT (SGPT) 20 U/L (8-55); AST (SGOT) 18 U/L (5-34); Albumin 3.9 g/dL (3.5-5.0); Alkaline Phosphatase 86 U/L (40-110); Anion Gap 15 mmol/L (10-20); BUN (Urea Nitrogen) 36 mg/dL (8.9-20.6); Bilirubin, Total 0.9 mg/dL (0.2-1.2); Calc. Creatinine Clearance 0 mL/min (70-130); Calcium 9.1 mg/dL (7.8-10.44); Carbon Dioxide 28 mmol/L (22-29); Chloride 100 mmol/L (98-107); Globulin 2.5 g/dL (2.4-3.5); Glucose 109 mg/dL (70-105); Potassium 3.9 mmol/L (3.5-5.1); Protein, Total 6.4 g/dL (6.0-8.3); Sodium 139 mmol/L (136-145)
[2020-12-20] MEDS ORDERED: Vancomycin 1 GM/200 ML BAG ONE (20:22)
[2020-12-20 23:19] LABS: SARS-CoV-2 NAA Rapid Test Not Detected (NotDetected)
== END 2020-12-20 22:27 | disposition home or self-care (01) ==
LOC: ERS 19:03
DX: T83.518A Infection and inflammatory reaction due to other urinary catheter, initial encounter (principal); Z20.822 Contact with and (suspected) exposure to COVID-19; I12.0 Hypertensive chronic kidney disease with stage 5 chronic kidney disease or end stage renal disease; N18.6 End stage renal disease; Z99.2 Dependence on renal dialysis
CPT/HCPCS: 0240U; 71045; 80053; 83605; 83880; 85025; 87040; 87070; 87077; 87186; 87205; 96365; 96366; J2543; J3370

== ENCOUNTER 2020-12-26 08:14 | Emergency (ER) | payer BC, OTHER ==
[2020-12-26 08:49] LABS: #Basophils 0.1 thou/uL (0.0-0.2); #Eosinphils 0.1 thou/uL (0.0-0.7); #Lymphocytes 0.8 thou/uL (1.20-3.40); #Monocytes 0.4 thou/uL (0.11-0.59); #Neutrophils 4.6 thou/uL (1.40-6.50); %Eosinophils 1.2 % (0.0-10.0); %Lymphocytes 13.8 % (21.0-51.0); %Monocytes 6.4 % (0.0-10.0); %Neutrophils 77.7 % (42.0-75.0); Hemoglobin 11.1 g/dL (14.0-18.0); Mean Corpuscular HGB CONC 33.4 g/dL (32.0-36.0); Mean Corpuscular Hemoglobin 32.1 pg (27.0-31.0); Mean Platelet Volume 8.4 fL (7.4-10.4); Platelet Count 184 thou/uL (130-400); RBC Distribution Width 12.1 % (11.5-14.5); Red Blood Cell (RBC) Count 3.48 mill/uL (4.70-6.10)
[2020-12-26 09:12] LABS: ALT (SGPT) 13 U/L (8-55); AST (SGOT) 13 U/L (5-34); Albumin 3.7 g/dL (3.5-5.0); Alkaline Phosphatase 100 U/L (40-110); Anion Gap 16 mmol/L (10-20); BUN (Urea Nitrogen) 43 mg/dL (8.9-20.6); Calc. Creatinine Clearance 0 mL/min (70-130); Calcium 9.4 mg/dL (7.8-10.44); Carbon Dioxide 25 mmol/L (22-29); Chloride 100 mmol/L (98-107); Globulin 2.9 g/dL (2.4-3.5); Glucose 101 mg/dL (70-105); Potassium 4.3 mmol/L (3.5-5.1); Protein, Total 6.6 g/dL (6.0-8.3); Sodium 137 mmol/L (136-145)
[2020-12-26] MEDS ORDERED: Iopamidol-370 76% 500 ML 1 ML ONE (10:18)
[2020-12-26 11:43] LABS: SARS-CoV-2 NAA Rapid Test Not Detected (NotDetected)
== END 2020-12-26 14:15 ==
LOC: ERS 08:14
DX: J18.9 Pneumonia, unspecified organism (principal); R04.2 Hemoptysis; I12.0 Hypertensive chronic kidney disease with stage 5 chronic kidney disease or end stage renal disease; N18.6 End stage renal disease; Z20.822 Contact with and (suspected) exposure to COVID-19; Z79.899 Other long term (current) drug therapy
CPT/HCPCS: 36415; 71045; 71275; 80053; 85025; 85379; 93005; Q9967; U0002; U0005

== ENCOUNTER 2020-12-28 21:47 | Emergency (ER) | payer BC, OTHER ==
[2020-12-28 22:36] LABS: Hemoglobin 10.6 g/dL (14.0-18.0); Mean Corpuscular HGB CONC 33.2 g/dL (32.0-36.0); Mean Corpuscular Volume 96.3 fL (78.0-98.0); Mean Platelet Volume 10.2 fL (7.4-10.4); Platelet Count 164 thou/uL (130-400); RBC Distribution Width 12.3 % (11.5-14.5); Red Blood Cell (RBC) Count 3.32 mill/uL (4.70-6.10); White Blood Cell (WBC) Count 4.8 thou/uL (4.8-10.8)
[2020-12-28 22:51] LABS: Band 1 % (5-11); Eosinophils 2 % (0-10); Hypochromia SLIGHT = 6-15 cells (100X) (0-5/hpf); Lymphocytes 26 % (21-51); MDiff Complete? YES; Monocytes 2 % (0-10); Neutrophil 69 % (42-75); Platelet Morphology Comment Appears Decreased
[2020-12-28 23:15] LABS: ALT (SGPT) 16 U/L (8-55); AST (SGOT) 27 U/L (5-34); Albumin 3.8 g/dL (3.5-5.0); Alkaline Phosphatase 98 U/L (40-110); Anion Gap 22 mmol/L (10-20); BUN (Urea Nitrogen) 69 mg/dL (8.9-20.6); Bilirubin, Total 0.7 mg/dL (0.2-1.2); Calc. Creatinine Clearance 0 mL/min (70-130); Calcium 8.9 mg/dL (7.8-10.44); Carbon Dioxide 17 mmol/L (22-29); Chloride 101 mmol/L (98-107); Globulin 3.6 g/dL (2.4-3.5); Glucose 88 mg/dL (70-105); Potassium 6.1 mmol/L (3.5-5.1); Protein, Total 7.4 g/dL (6.0-8.3); Sodium 134 mmol/L (136-145)
[2020-12-28] MEDS ORDERED: Sodium Bicarb 50 MEQ/50 ML Abboject 8.4% SYRINGE ONE (23:58)
[2020-12-28] MEDS ORDERED: Calcium Chloride 1 GM/10 ML Abboject SYRINGE ONE (23:58)
[2020-12-29 00:28] LABS: ALT (SGPT) 14 U/L (8-55); AST (SGOT) 15 U/L (5-34); Albumin 3.6 g/dL (3.5-5.0); Alkaline Phosphatase 92 U/L (40-110); Anion Gap 22 mmol/L (10-20); BUN (Urea Nitrogen) 72 mg/dL (8.9-20.6); Bilirubin, Total 0.7 mg/dL (0.2-1.2); Calc. Creatinine Clearance 0 mL/min (70-130); Calcium 8.8 mg/dL (7.8-10.44); Carbon Dioxide 19 mmol/L (22-29); Chloride 99 mmol/L (98-107); Globulin 2.8 g/dL (2.4-3.5); Glucose 81 mg/dL (70-105); Protein, Total 6.4 g/dL (6.0-8.3); Sodium 135 mmol/L (136-145)
== END 2020-12-29 ==
LOC: ERS 21:47
DX: I12.0 Hypertensive chronic kidney disease with stage 5 chronic kidney disease or end stage renal disease (principal); N18.6 End stage renal disease; Z99.2 Dependence on renal dialysis; Z79.899 Other long term (current) drug therapy
CPT/HCPCS: 71045; 80053; 85025; 93005

== ENCOUNTER 2020-12-30 22:02 | Emergency (ER) | payer BC, OTHER | END 2020-12-30 22:56 | LOC: ERS 22:02 | DX: Z48.01 Encounter for change or removal of surgical wound dressing (principal); I12.0 Hypertensive chronic kidney disease with stage 5 chronic kidney disease or end stage renal disease; N18.6 End stage renal disease; Z99.2 Dependence on renal dialysis; Z79.899 Other long term (current) drug therapy | CPT/HCPCS: 99284 ==

== ENCOUNTER 2021-03-14 20:10 | Emergency (ER) | payer BC ==
[2021-03-14] MEDS ORDERED: hydrALAZINE 25 MG TAB ONE (22:18)
== END 2021-03-14 23:38 | disposition home or self-care (01) ==
LOC: ERS 20:10
DX: T82.898A Other specified complication of vascular prosthetic devices, implants and grafts, initial encounter (principal); M79.81 Nontraumatic hematoma of soft tissue; I12.0 Hypertensive chronic kidney disease with stage 5 chronic kidney disease or end stage renal disease; N18.6 End stage renal disease; Z79.899 Other long term (current) drug therapy

== ENCOUNTER 2022-02-10 15:16 | Emergency (ER) | payer BC | END 2022-02-10 20:39 | disposition left against medical advice (07) | LOC: ERS 15:16 | DX: Z53.21 Procedure and treatment not carried out due to patient leaving prior to being seen by health care provider (principal) ==

== ENCOUNTER 2022-02-11 09:46 | Emergency (ER) | payer BC ==
[2022-02-11 10:16] LABS: #Lymphocytes 0.7 thou/uL (1.20-3.40); #Monocytes 0.3 thou/uL (0.11-0.59); #Neutrophils 1.8 thou/uL (1.40-6.50); %Basophils 0.2 % (0.0-1.0); %Eosinophils 0.9 % (0.0-10.0); %Lymphocytes 25.7 % (21.0-51.0); %Monocytes 10.6 % (0.0-10.0); %Neutrophils 62.7 % (42.0-75.0); Hemoglobin 10.7 g/dL (14.0-18.0); Mean Corpuscular HGB CONC 31.6 g/dL (32.0-36.0); Mean Corpuscular Hemoglobin 32.5 pg (27.0-31.0); Mean Platelet Volume 8.6 fL (7.4-10.4); Platelet Count 149 thou/uL (130-400); RBC Distribution Width 12.9 % (11.5-14.5); White Blood Cell (WBC) Count 2.9 thou/uL (4.8-10.8)
[2022-02-11 10:39] LABS: Anion Gap 16 mmol/L (10-20); BUN (Urea Nitrogen) 27 mg/dL (8.9-20.6); Calc. Creatinine Clearance 0 mL/min (70-130); Carbon Dioxide 30 mmol/L (22-29); Chloride 97 mmol/L (98-107); Potassium 4.2 mmol/L (3.5-5.1); Sodium 139 mmol/L (136-145)
[2022-02-11 10:40] LABS: ALT (SGPT) 20 U/L (8-55); AST (SGOT) 15 U/L (5-34); Albumin 3.9 g/dL (3.5-5.0); Alkaline Phosphatase 94 U/L (40-110); Bilirubin, Total 1.8 mg/dL (0.2-1.2); Calcium 9.1 mg/dL (7.8-10.44); Estimated GFR 10; Globulin 2.3 g/dL (2.4-3.5); Glucose 99 mg/dL (70-105); Protein, Total 6.2 g/dL (6.0-8.3)
== END 2022-02-11 18:12 | disposition home or self-care (01) ==
LOC: ERS 09:46
DX: N18.6 End stage renal disease (principal); Z99.2 Dependence on renal dialysis
CPT/HCPCS: 36415; 71045; 80053; 83880; 85025; 90935; G0257

== ENCOUNTER 2022-05-13 23:52 | Inpatient (IN) | payer BC ==
[2022-05-14 00:21] LABS: Actual Bicarbonate (HCO3v) 18 mEq/L (22-28); Analyzer IN Cardio ER; Base Excess -7.9 mEq/L (-2.0 to +3.0); Chloride (VBG) 98 mmol/L (98-106); Hemoglobin (Hb) 10.6 g/dL (13.2-17.3); Sodium 133.5 mmol/L (133-146)
[2022-05-14 00:24] LABS: Potassium (VBG) 6.05 mmol/L (3.70-5.30)
[2022-05-14] MEDS ORDERED: Morphine 4 MG/ML VIAL ONE (00:29)
[2022-05-14 00:32] LABS: #Eosinphils 0.2 thou/uL (0.0-0.7); #Lymphocytes 0.8 thou/uL (1.20-3.40); #Monocytes 0.4 thou/uL (0.11-0.59); #Neutrophils 3.3 thou/uL (1.40-6.50); %Basophils 0.6 % (0.0-1.0); %Eosinophils 4.3 % (0.0-10.0); %Lymphocytes 17.5 % (21.0-51.0); %Monocytes 8.2 % (0.0-10.0); %Neutrophils 69.4 % (42.0-75.0); Hemoglobin 10.1 g/dL (14.0-18.0); Mean Corpuscular HGB CONC 34.7 g/dL (32.0-36.0); Mean Corpuscular Hemoglobin 34.2 pg (27.0-31.0); Mean Corpuscular Volume 98.6 fl (78.0-98.0); Mean Platelet Volume 9.9 fL (7.4-10.4); Platelet Count 115 10x3/uL (130-400); RBC Distribution Width 13.1 % (11.5-14.5); Red Blood Cell (RBC) Count 2.94 mill/uL (4.70-6.10); White Blood Cell (WBC) Count 4.8 10x3/uL (4.8-10.8)
[2022-05-14 00:51] LABS: ALT (SGPT) 12 U/L (8-55); AST (SGOT) 10 U/L (5-34); Alkaline Phosphatase 96 U/L (40-110); Anion Gap 26 mmol/L (10-20); BUN (Urea Nitrogen) 124 mg/dL (8.9-20.6); Bilirubin, Total 1.6 mg/dL (0.2-1.2); Calc. Creatinine Clearance 0 mL/min (70-130); Calcium 8.4 mg/dL (7.8-10.44); Carbon Dioxide 18 mmol/L (22-29); Chloride 99 mmol/L (98-107); Estimated GFR 3; Globulin 2.4 g/dL (2.4-3.5); Glucose 118 mg/dL (70-105); Protein, Total 6.4 g/dL (6.0-8.3); Sodium 137 mmol/L (136-145)
[2022-05-14 00:57] LABS: Potassium 6.3 mmol/L (3.5-5.1)
[2022-05-14 01:15] LABS: CKMB 6.1 ng/mL (0-6.6)
[2022-05-14] MEDS ORDERED: Acetaminophen 325 MG TAB PO PRN (03:25)
[2022-05-14] MEDS ORDERED: Senokot S 8.6-50 MG TAB PO PRN (03:25)
[2022-05-14] MEDS ORDERED: Calcium Carbonate 500 MG ChewTAB PO PRN (03:25)
[2022-05-14] MEDS ORDERED: Ondansetron ODT 4 MG TAB PO PRN (03:25)
[2022-05-14 05:51] LABS: HBSAg Index 0.27 S/CO (0-0.99); Hep B Core Total Ab Non-Reactive (NonReactive); Hep B Core Total Index 0.04 S/CO (0-0.79); Hep B Surf Ag Non-Reactive S/CO (NonReactive); Hep C IgG Ab Non-Reactive (NonReactive)
[2022-05-14 05:57] LABS: HBSAB Concentration 19.77 mIU/mL; Hep B Surf AB Reactive (NonReactive)
[2022-05-14] MEDS ORDERED: Heparin 10,000 UNITS/ 10 ML VIAL ONE (08:26)
[2022-05-14] MEDS ORDERED: Famotidine 20 MG TAB PO SCH (09:00)
[2022-05-14] MEDS ORDERED: hydrALAZINE 25 MG TAB PO SCH (09:00)
[2022-05-14] MEDS ORDERED: Amlodipine 5 MG TAB PO SCH (09:00)
[2022-05-14] MEDS ORDERED: cloNIDine 0.1 MG TAB PO SCH (09:00)
[2022-05-14] MEDS ORDERED: Amlodipine 5 MG TAB ONE (09:33)
[2022-05-14] MEDS ORDERED: Famotidine 20 MG TAB ONE (09:33)
[2022-05-14] MEDS ORDERED: cloNIDine 0.1 MG TAB ONE (09:33)
[2022-05-14 10:20] LABS: Anion Gap 17 mmol/L (10-20); BUN (Urea Nitrogen) 56 mg/dL (8.9-20.6); Calc. Creatinine Clearance 0 mL/min (70-130); Calcium 8.5 mg/dL (7.8-10.44); Carbon Dioxide 26 mmol/L (22-29); Chloride 99 mmol/L (98-107); Estimated GFR 5; Glucose 120 mg/dL (70-105); Potassium 4.2 mmol/L (3.5-5.1); Sodium 138 mmol/L (136-145)
[2022-05-14 12:59] VITALS: BP 154/102; TEMP 97.9
== END 2022-05-14 13:13 | disposition home or self-care (01) | DRG 640 ==
LOC: ERS 23:52 → ERHOLD 05-14 03:29
PROVIDERS: ADMIT Student in an Organized Health Care Education/Training Program; ATTEND Internal Medicine
PROC: 5A1D70Z Performance of Urinary Filtration, Intermittent, Less than 6 Hours Per Day (ICD-10-PCS; principal; 2022-05-14)
DX: E87.5 Hyperkalemia (principal); N18.6 End stage renal disease; I12.0 Hypertensive chronic kidney disease with stage 5 chronic kidney disease or end stage renal disease; E87.70 Fluid overload, unspecified; D63.1 Anemia in chronic kidney disease; Z99.2 Dependence on renal dialysis; Z79.899 Other long term (current) drug therapy; Z87.891 Personal history of nicotine dependence; Z98.890 Other specified postprocedural states; Z91.15 Patient's noncompliance with renal dialysis
CPT/HCPCS: 36415; 71045; 80053; 82553; 82805; 83880; 84484; 85025; 86704; 93005; 96374; J2270

== ENCOUNTER 2022-06-06 16:02 | Emergency (ER) | payer BC ==
[2022-06-06 17:40] LABS: #Eosinphils 0.2 thou/uL (0.0-0.7); #Monocytes 0.7 thou/uL (0.11-0.59); %Basophils 0.4 % (0.0-1.0); %Eosinophils 3.8 % (0.0-10.0); %Lymphocytes 17.4 % (21.0-51.0); %Neutrophils 67.5 % (42.0-75.0); Hemoglobin 8.8 g/dL (14.0-18.0); Mean Corpuscular HGB CONC 33.5 g/dL (32.0-36.0); Mean Corpuscular Hemoglobin 32.8 pg (27.0-31.0); Mean Corpuscular Volume 97.9 fl (78.0-98.0); Mean Platelet Volume 8.4 fL (7.4-10.4); Platelet Count 178 10x3/uL (130-400); RBC Distribution Width 12.8 % (11.5-14.5); Red Blood Cell (RBC) Count 2.68 mill/uL (4.70-6.10); White Blood Cell (WBC) Count 5.9 10x3/uL (4.8-10.8)
[2022-06-06 17:58] LABS: ALT (SGPT) 11 U/L (8-55); AST (SGOT) 11 U/L (5-34); Albumin 4.2 g/dL (3.5-5.0); Alkaline Phosphatase 138 U/L (40-110); Anion Gap 23 mmol/L (10-20); BUN (Urea Nitrogen) 68 mg/dL (8.9-20.6); Bilirubin, Total 1.3 mg/dL (0.2-1.2); Calc. Creatinine Clearance 0 mL/min (70-130); Carbon Dioxide 27 mmol/L (22-29); Chloride 94 mmol/L (98-107); Estimated GFR 7; Glucose 98 mg/dL (70-105); Potassium 5.6 mmol/L (3.5-5.1); Protein, Total 7.2 g/dL (6.0-8.3); Sodium 138 mmol/L (136-145)
[2022-06-06 18:21] LABS: CKMB 1.3 ng/mL (0-6.6)
== END 2022-06-06 21:16 | disposition left against medical advice (07) ==
LOC: ERS 16:02
DX: Z53.21 Procedure and treatment not carried out due to patient leaving prior to being seen by health care provider (principal)
CPT/HCPCS: 36415; 71045; 80053; 82553; 83880; 84484; 85025; 93005

== ENCOUNTER 2022-11-27 17:03 | Inpatient (IN) | payer BC, OTHER ==
[2022-11-27] MEDS ORDERED: Nitroglycerin 2% Ointment 1 INCH/1 GM Packet ONE (17:35)
[2022-11-27] MEDS ORDERED: hydrALAZINE 20 MG/ML VIAL ONE ×2 (17:35→18:40)
[2022-11-27 17:45] LABS: #Eosinphils 0.2 thou/uL (0.0-0.7); #Monocytes 0.5 thou/uL (0.11-0.59); #Neutrophils 3.3 thou/uL (1.40-6.50); %Basophils 0.8 % (0.0-1.0); %Eosinophils 3.1 % (0.0-10.0); %Lymphocytes 20.4 % (21.0-51.0); %Monocytes 10.2 % (0.0-10.0); %Neutrophils 65.3 % (42.0-75.0); Hemoglobin 9.6 g/dL (14.0-18.0); Mean Corpuscular HGB CONC 33.1 g/dL (32.0-36.0); Mean Corpuscular Hemoglobin 32.5 pg (27.0-31.0); Mean Corpuscular Volume 98.3 fl (78.0-98.0); Mean Platelet Volume 11.5 fL (7.4-10.4); Platelet Count 140 10x3/uL (130-400); RBC Distribution Width 13.2 % (11.5-14.5); Red Blood Cell (RBC) Count 2.95 mill/uL (4.70-6.10); White Blood Cell (WBC) Count 5.1 10x3/uL (4.8-10.8)
[2022-11-27 18:08] LABS: ALT (SGPT) 12 U/L (8-55); AST (SGOT) 12 U/L (5-34); Albumin 4.4 g/dL (3.5-5.0); Alkaline Phosphatase 96 U/L (40-110); Anion Gap 18 mmol/L (10-20); BUN (Urea Nitrogen) 18 mg/dL (8.9-20.6); Bilirubin, Total 1.8 mg/dL (0.2-1.2); Calc. Creatinine Clearance 0 mL/min (70-130); Calcium 9.6 mg/dL (7.8-10.44); Carbon Dioxide 30 mmol/L (22-29); Chloride 96 mmol/L (98-107); Estimated GFR 10; Globulin 2.9 g/dL (2.4-3.5); Glucose 91 mg/dL (70-105); Potassium 3.8 mmol/L (3.5-5.1); Protein, Total 7.3 g/dL (6.0-8.3); Sodium 140 mmol/L (136-145)
[2022-11-27 18:28] LABS: CKMB 1.1 ng/mL (0-6.6)
[2022-11-27] MEDS ORDERED: Labetalol HCl 100 MG/20 ML VIAL ONE ×2 (18:40→18:43)
[2022-11-27] MEDS ORDERED: Acetaminophen 500 MG TAB ONE (18:40)
[2022-11-27] MEDS ORDERED: Guaifenesin DM 100-10/5 ML UDCUP PO PRN (18:58)
[2022-11-27] MEDS ORDERED: Labetalol HCl 100 MG TAB PO SCH ×3 (19:02→21:45)
[2022-11-27] MEDS ORDERED: hydrALAZINE 25 MG TAB PO SCH (19:02)
[2022-11-27] MEDS ORDERED: hydrALAZINE 25 MG TAB ONE (19:14)
[2022-11-27] MEDS ORDERED: cloNIDine 0.2 MG TAB PO SCH (19:15)
[2022-11-27] MEDS ORDERED: cloNIDine 0.1 MG TAB ONE (19:15)
[2022-11-27] MEDS ORDERED: Ondansetron PF 4 MG/2 ML Vial ONE (19:17)
[2022-11-27 20:28] VITALS: BMI 24.0
[2022-11-27] MEDS: Heparin 5,000 UNITS/ML VIAL SC SCH (20:41)
[2022-11-27] MEDS: Acetaminophen 325 MG TAB PO PRN (23:39)
[2022-11-28] MEDS ORDERED: cloNIDine 0.1 MG TAB PO SCH ×2 (00:45→09:00)
[2022-11-28] MEDS ORDERED: Carvedilol 6.25 MG TAB PO SCH (05:00)
[2022-11-28] MEDS ORDERED: hydrALAZINE 25 MG TAB PO SCH ×2 (05:00→09:00)
[2022-11-28 05:48] LABS: #Eosinphils 0.1 thou/uL (0.0-0.7); #Monocytes 0.4 thou/uL (0.11-0.59); #Neutrophils 2.6 thou/uL (1.40-6.50); %Basophils 0.8 % (0.0-1.0); %Eosinophils 2.6 % (0.0-10.0); %Lymphocytes 17.1 % (21.0-51.0); %Monocytes 11.2 % (0.0-10.0); %Neutrophils 68.3 % (42.0-75.0); Hemoglobin 8.5 g/dL (14.0-18.0); Mean Corpuscular HGB CONC 33.7 g/dL (32.0-36.0); Mean Corpuscular Hemoglobin 33.3 pg (27.0-31.0); Mean Corpuscular Volume 98.8 fl (78.0-98.0); Mean Platelet Volume 11.3 fL (7.4-10.4); Platelet Count 128 10x3/uL (130-400); RBC Distribution Width 13.3 % (11.5-14.5); Red Blood Cell (RBC) Count 2.55 mill/uL (4.70-6.10); White Blood Cell (WBC) Count 3.9 10x3/uL (4.8-10.8)
[2022-11-28 06:16] LABS: Anion Gap 16 mmol/L (10-20); BUN (Urea Nitrogen) 23 mg/dL (8.9-20.6); Calc. Creatinine Clearance 13 mL/min (70-130); Calcium 9.5 mg/dL (7.8-10.44); Carbon Dioxide 29 mmol/L (22-29); Chloride 97 mmol/L (98-107); Estimated GFR 8; Glucose 92 mg/dL (70-105); Potassium 4.3 mmol/L (3.5-5.1); Sodium 138 mmol/L (136-145)
[2022-11-28] MEDS: cloNIDine 0.1 MG TAB PO SCH ×3 (08:21→20:31)
[2022-11-28] MEDS: hydrALAZINE 25 MG TAB PO SCH ×3 (08:21→20:31)
[2022-11-28] MEDS: Cinacalcet HCl 30 MG TAB PO SCH (08:21)
[2022-11-28] MEDS: Acetaminophen 325 MG TAB PO PRN (08:22)
[2022-11-28] MEDS: Carvedilol 6.25 MG TAB PO SCH ×2 (08:22→20:30)
[2022-11-28] MEDS: Calcium Acetate 667 MG CAP PO SCH ×3 (08:22→18:40)
[2022-11-28] MEDS: Losartan 25 MG TAB PO SCH (08:22)
[2022-11-28] MEDS: Heparin 5,000 UNITS/ML VIAL SC SCH ×2 (08:24→20:36)
[2022-11-28] MEDS: Ondansetron PF 4 MG/2 ML Vial IVP PRN (08:29)
[2022-11-28] MEDS ORDERED: Labetalol HCl 100 MG/20 ML VIAL SLOW IVP PRN (08:50)
[2022-11-28] MEDS ORDERED: hydrALAZINE 20 MG/ML VIAL SLOW IVP PRN (08:50)
[2022-11-28] MEDS ORDERED: Promethazine HCl 12.5 MG in Sodium Chloride 0.9% 50 ML IVPB PRN (10:55)
[2022-11-29 05:31] LABS: #Eosinphils 0.3 thou/uL (0.0-0.7); #Monocytes 0.4 thou/uL (0.11-0.59); #Neutrophils 3.1 thou/uL (1.40-6.50); %Basophils 0.8 % (0.0-1.0); %Eosinophils 5.7 % (0.0-10.0); %Lymphocytes 20.7 % (21.0-51.0); %Monocytes 8.9 % (0.0-10.0); %Neutrophils 63.7 % (42.0-75.0); Hemoglobin 8.7 g/dL (14.0-18.0); Mean Corpuscular HGB CONC 32.5 g/dL (32.0-36.0); Mean Corpuscular Hemoglobin 32.3 pg (27.0-31.0); Mean Corpuscular Volume 99.6 fl (78.0-98.0); Mean Platelet Volume 11.8 fL (7.4-10.4); Platelet Count 150 10x3/uL (130-400); RBC Distribution Width 13.4 % (11.5-14.5); Red Blood Cell (RBC) Count 2.69 mill/uL (4.70-6.10); White Blood Cell (WBC) Count 4.9 10x3/uL (4.8-10.8)
[2022-11-29 05:53] LABS: Anion Gap 16 mmol/L (10-20); BUN (Urea Nitrogen) 37 mg/dL (8.9-20.6); Calc. Creatinine Clearance 11 mL/min (70-130); Calcium 8.8 mg/dL (7.8-10.44); Carbon Dioxide 31 mmol/L (22-29); Chloride 97 mmol/L (98-107); Estimated GFR 6; Glucose 93 mg/dL (70-105); Potassium 4.3 mmol/L (3.5-5.1); Sodium 140 mmol/L (136-145)
[2022-11-29] MEDS: Calcium Acetate 667 MG CAP PO SCH ×3 (09:01→16:57)
[2022-11-29] MEDS: hydrALAZINE 25 MG TAB PO SCH ×3 (09:02→20:01)
[2022-11-29] MEDS: Carvedilol 6.25 MG TAB PO SCH ×2 (09:03→20:02)
[2022-11-29] MEDS: Cinacalcet HCl 30 MG TAB PO SCH (09:03)
[2022-11-29] MEDS: cloNIDine 0.1 MG TAB PO SCH ×3 (09:03→20:02)
[2022-11-29] MEDS: Losartan 25 MG TAB PO SCH (09:04)
[2022-11-29] MEDS: Heparin 5,000 UNITS/ML VIAL SC SCH ×3 (09:04→20:03)
[2022-11-29] MEDS: Methocarbamol 500 MG TAB PO PRN (10:26)
[2022-11-29] MEDS ORDERED: Docusate 100 MG CAP PO PRN (13:02)
[2022-11-29] MEDS ORDERED: Bisacodyl 5 MG TAB PO PRN (13:03)
[2022-11-29] MEDS ORDERED: NIFEdipine XL 30 MG TAB PO SCH (16:15)
[2022-11-29] MEDS: Ondansetron PF 4 MG/2 ML Vial IVP PRN (20:00)
[2022-11-30] MEDS: Calcium Acetate 667 MG CAP PO SCH ×2 (08:20→12:57)
[2022-11-30] MEDS: hydrALAZINE 25 MG TAB PO SCH ×2 (08:21→14:47)
[2022-11-30] MEDS: Methocarbamol 500 MG TAB PO PRN (08:21)
[2022-11-30] MEDS: Carvedilol 6.25 MG TAB PO SCH (08:21)
[2022-11-30] MEDS: Cinacalcet HCl 30 MG TAB PO SCH (08:22)
[2022-11-30] MEDS: cloNIDine 0.1 MG TAB PO SCH ×2 (08:22→14:46)
[2022-11-30] MEDS: Losartan 25 MG TAB PO SCH (08:22)
[2022-11-30] MEDS: Heparin 5,000 UNITS/ML VIAL SC SCH (08:23)
[2022-11-30] MEDS: Ondansetron PF 4 MG/2 ML Vial IVP PRN (08:23)
[2022-11-30 08:26] VITALS: TEMP 97.6
[2022-11-30] MEDS ORDERED: NIFEdipine XL 30 MG TAB PO SCH (09:00)
[2022-11-30 16:47] VITALS: BP 129/84
== END 2022-11-30 15:35 | disposition home or self-care (01) | DRG 304 ==
LOC: ERS 17:03 → EEVIPCON 17:03 → 2SE 18:50 → EEVIPCON 11-28 08:52 → OBSVTOIN 11-28 08:52
PROVIDERS: ADMIT Internal Medicine; ATTEND Internal Medicine
DX: I16.1 Hypertensive emergency (principal); N18.6 End stage renal disease; I16.0 Hypertensive urgency; I12.0 Hypertensive chronic kidney disease with stage 5 chronic kidney disease or end stage renal disease; R11.2 Nausea with vomiting, unspecified; D63.1 Anemia in chronic kidney disease; Z99.2 Dependence on renal dialysis; Z95.0 Presence of cardiac pacemaker; Z79.899 Other long term (current) drug therapy
CPT/HCPCS: 36415; 36416; 70450; 80048; 80053; 82553; 83880; 84484; 85025; 93005; 96372; 96374; 96375; 96376; G0378; J0360; J1644; J2405; J2550

== ENCOUNTER 2023-06-01 19:10 | Inpatient (IN) | payer BC, OTHER ==
[2023-06-01 20:04] LABS: #Eosinphils 0.2 thou/uL (0.0-0.7); #Monocytes 0.4 thou/uL (0.11-0.59); #Neutrophils 3.2 thou/uL (1.40-6.50); %Basophils 0.6 % (0.0-1.0); %Eosinophils 4.7 % (0.0-10.0); %Lymphocytes 18.3 % (21.0-51.0); %Monocytes 8.1 % (0.0-10.0); %Neutrophils 68.1 % (42.0-75.0); Hematocrit 20.2 % (42.0-52.0); Hemoglobin 6.9 g/dL (14.0-18.0); Mean Corpuscular HGB CONC 34.2 g/dL (32.0-36.0); Mean Corpuscular Hemoglobin 32.1 pg (27.0-31.0); Mean Platelet Volume 10.5 fL (7.4-10.4); Platelet Count 183 10x3/uL (130-400); RBC Distribution Width 13.8 % (11.5-14.5); Red Blood Cell (RBC) Count 2.15 mill/uL (4.70-6.10); White Blood Cell (WBC) Count 4.7 10x3/uL (4.8-10.8)
[2023-06-01 20:33] LABS: ALT (SGPT) 10 U/L (8-55); AST (SGOT) 14 U/L (5-34); Alkaline Phosphatase 78 U/L (40-110); Anion Gap 11 mmol/L (10-20); BUN (Urea Nitrogen) 16 mg/dL (8.9-20.6); Bilirubin, Total 1.3 mg/dL (0.2-1.2); Calc. Creatinine Clearance 0 mL/min (70-130); Calcium 9.2 mg/dL (7.8-10.44); Carbon Dioxide 34 mmol/L (22-29); Chloride 95 mmol/L (98-107); Estimated GFR 12; Globulin 2.5 g/dL (2.4-3.5); Glucose 95 mg/dL (70-105); Lipase 33 U/L (8-78); Potassium 3.2 mmol/L (3.5-5.1); Protein, Total 6.5 g/dL (6.0-8.3); Sodium 137 mmol/L (136-145)
[2023-06-01 20:37] LABS: Troponin I 0.072 ng/mL (< 0.028)
[2023-06-01] MEDS ORDERED: Acetaminophen 650 MG Suppository PR PRN (22:32)
[2023-06-01] MEDS ORDERED: Ondansetron PF 4 MG/2 ML Vial IVP PRN (22:32)
[2023-06-01] MEDS ORDERED: Ondansetron ODT 4 MG TAB PO PRN (22:32)
[2023-06-01] MEDS ORDERED: Acetaminophen 325 MG TAB PO PRN (22:32)
[2023-06-01] MEDS ORDERED: Morphine 2 MG/ML VIAL SLOW IVP PRN (22:34)
[2023-06-01] MEDS ORDERED: Morphine 4 MG/ML VIAL SLOW IVP PRN (22:34)
[2023-06-01] MEDS ORDERED: cloNIDine 0.2 MG TAB PO SCH (22:45)
[2023-06-01 23:34] LABS: Troponin I 0.141 ng/mL (< 0.028)
[2023-06-02 03:28] LABS: #Eosinphils 0.2 thou/uL (0.0-0.7); #Monocytes 0.4 thou/uL (0.11-0.59); %Basophils 1.1 % (0.0-1.0); %Eosinophils 6.3 % (0.0-10.0); %Neutrophils 55.3 % (42.0-75.0); Hemoglobin 7.1 g/dL (14.0-18.0); Mean Corpuscular HGB CONC 33.8 g/dL (32.0-36.0); Mean Corpuscular Hemoglobin 32.1 pg (27.0-31.0); Mean Platelet Volume 9.9 fL (7.4-10.4); Platelet Count 183 10x3/uL (130-400); RBC Distribution Width 14.7 % (11.5-14.5); Red Blood Cell (RBC) Count 2.21 mill/uL (4.70-6.10); White Blood Cell (WBC) Count 3.7 10x3/uL (4.8-10.8)
[2023-06-02 03:49] LABS: Anion Gap 14 mmol/L (10-20); BUN (Urea Nitrogen) 20 mg/dL (8.9-20.6); Calc. Creatinine Clearance 0 mL/min (70-130); Calcium 8.9 mg/dL (7.8-10.44); Carbon Dioxide 32 mmol/L (22-29); Chloride 96 mmol/L (98-107); Estimated GFR 9; Glucose 87 mg/dL (70-105); Potassium 4.3 mmol/L (3.5-5.1); Sodium 138 mmol/L (136-145)
[2023-06-02 03:54] LABS: Troponin I 0.164 ng/mL (< 0.028)
[2023-06-02 08:52] VITALS: BMI 25.7
[2023-06-02] MEDS ORDERED: NIFEdipine XL 30 MG ER.TAB PO SCH (09:00)
[2023-06-02 12:06] LABS: Troponin I 0.124 ng/mL (< 0.028)
[2023-06-02] MEDS: Carvedilol 6.25 MG TAB PO SCH ×2 (13:03→21:44)
[2023-06-02] MEDS: Heparin 5,000 UNITS/ML VIAL SC SCH ×3 (13:04→21:44)
[2023-06-02] MEDS: cloNIDine 0.2 MG TAB PO SCH ×3 (13:04→21:44)
[2023-06-02] MEDS: hydrALAZINE 25 MG TAB PO SCH ×3 (13:05→21:44)
[2023-06-02 13:57] LABS: Hep B Core Total Ab Non-Reactive (NonReactive); Hep B Core Total Index 0.08 S/CO (0-0.79)
[2023-06-02 13:58] LABS: HBSAB Concentration 15.25 mIU/mL; HBSAg Index 0.28 S/CO (0-0.99); Hep B Surf AB Reactive (NonReactive); Hep B Surf Ag Non-Reactive S/CO (NonReactive); Hep C IgG Ab Non-Reactive S/CO (NonReactive); Hep C Index 0.09 S/CO (0-0.79)
[2023-06-03 07:53] VITALS: TEMP 98.7
[2023-06-03] MEDS: cloNIDine 0.2 MG TAB PO SCH ×2 (08:33→13:55)
[2023-06-03] MEDS: hydrALAZINE 25 MG TAB PO SCH ×2 (08:33→13:55)
[2023-06-03] MEDS: Heparin 5,000 UNITS/ML VIAL SC SCH ×2 (08:34→14:01)
[2023-06-03 09:00] LABS: Anion Gap 15 mmol/L (10-20); BUN (Urea Nitrogen) 35 mg/dL (8.9-20.6); Calc. Creatinine Clearance 14 mL/min (70-130); Calcium 8.8 mg/dL (7.8-10.44); Carbon Dioxide 29 mmol/L (22-29); Chloride 98 mmol/L (98-107); Estimated GFR 8; Glucose 79 mg/dL (70-105); Sodium 137 mmol/L (136-145)
[2023-06-03] MEDS ORDERED: NIFEdipine XL 30 MG ER.TAB PO SCH (09:00)
[2023-06-03] MEDS ORDERED: Carvedilol 25 MG TAB PO SCH (09:00)
[2023-06-03] MEDS ORDERED: Doxazosin 2 MG TAB PO SCH (09:00)
[2023-06-03 11:15] VITALS: BP 143/96
== END 2023-06-03 14:07 | disposition home or self-care (01) | DRG 313 ==
LOC: ERS 19:10 → SUATTDRO 19:10 → ERHOLD 22:04 → EEVIPCON 22:04 → 2SW 22:36 → OBSVTOIN 06-02 14:35
PROVIDERS: ADMIT Family Medicine; ATTEND Family Medicine
PROC: 30233N1 Transfusion of Nonautologous Red Blood Cells into Peripheral Vein, Percutaneous Approach (ICD-10-PCS; principal; 2023-06-01)
DX: R07.89 Other chest pain (principal); N18.6 End stage renal disease; I13.2 Hypertensive heart and chronic kidney disease with heart failure and with stage 5 chronic kidney disease, or end stage renal disease; I50.22 Chronic systolic (congestive) heart failure; N02.B1 Recurrent and persistent immunoglobulin A nephropathy with glomerular lesion; Z99.2 Dependence on renal dialysis; Z79.899 Other long term (current) drug therapy; Z98.890 Other specified postprocedural states; D63.1 Anemia in chronic kidney disease; Z79.01 Long term (current) use of anticoagulants
CPT/HCPCS: 36415; 36430; 71045; 71275; 74174; 80048; 80053; 83690; 83735; 83880; 84443; 84484; 85025; 85379; 86704; 86850; 86900; 86901; 93005; 93306; 94760; J1644; P9016

== ENCOUNTER 2024-06-15 04:05 | Emergency (ER) | payer SELFPAY ==
[2024-06-15 05:25] LABS: ALT (SGPT) 11 U/L (Less than 45); AST (SGOT) 20 U/L (11-34); Albumin 4.2 g/dL (3.1-4.5); Alkaline Phosphatase 118 U/L (40-110); Anion Gap 21 mmol/L (10-20); BUN (Urea Nitrogen) 39 mg/dL (8.9-20.6); Bilirubin, Total 0.9 mg/dL (0.3-1.2); Calc. Creatinine Clearance 0 mL/min (70-130); Calcium 9.1 mg/dL (7.8-10.44); Carbon Dioxide 31 mmol/L (22-29); Chloride 95 mmol/L (98-107); Estimated GFR 8; Globulin 3.2 g/dL (2.4-3.5); Glucose 79 mg/dL (70-105); Potassium 5.9 mmol/L (3.5-5.1); Protein, Total 7.4 g/dL (6.0-8.3); Sodium 141 mmol/L (136-145)
[2024-06-15] MEDS ORDERED: NIFEdipine XL 60 MG ER.TAB PO SCH (06:00)
[2024-06-15 07:01] LABS: HBSAB Concentration 15.08 mIU/mL; HBsAg Index 0.22 S/CO (0-0.99); Hep B Core Total Ab NONREACTIVE (NonReactive); Hep B Core Total Index 0.07 S/CO (0-0.79); Hep B Surf AB REACTIVE (NonReactive); Hep B Surf Ag NONREACTIVE S/CO (NonReactive); Hep C IgG Ab NONREACTIVE S/CO (NonReactive); Hep C Index 0.11 S/CO (0-0.79)
[2024-06-15] MEDS ORDERED: Heparin 10,000 UNITS/ 10 ML VIAL ONE (11:27)
[2024-06-15 12:48] LABS: Anion Gap 24 mmol/L (10-20); BUN (Urea Nitrogen) 43 mg/dL (8.9-20.6); Calc. Creatinine Clearance 0 mL/min (70-130); Calcium 9.1 mg/dL (7.8-10.44); Carbon Dioxide 29 mmol/L (22-29); Chloride 95 mmol/L (98-107); Estimated GFR 8; Glucose 75 mg/dL (70-105); Sodium 142 mmol/L (136-145)
== END 2024-06-15 14:54 | disposition home or self-care (01) ==
LOC: ERS 04:05
DX: E87.5 Hyperkalemia (principal); I13.2 Hypertensive heart and chronic kidney disease with heart failure and with stage 5 chronic kidney disease, or end stage renal disease; N18.6 End stage renal disease; I50.9 Heart failure, unspecified; Z99.2 Dependence on renal dialysis; Z79.899 Other long term (current) drug therapy; Z55.6 Problems related to health literacy; Z75.3 Unavailability and inaccessibility of health-care facilities
CPT/HCPCS: 36415; 80053; 86704; 86706; 86803; 87340; 93005; 99284